=== PATIENT | female | born 1985 | race African-American/Black ===

== ENCOUNTER 2018-06-04 11:06 | Emergency (ER) | payer SELFPAY ==
--- OUTSIDE RECORDS SUMMARY | 2018-06-04 11:09 | XMS REPORT | Clinical Summary ---
:1985 Author Organization [facility] Address [address] [place] [address] Care Team Providers Name Role Phone Kiersten Primary Care Provider Allergies Active Allergy Reactions Severity Noted Date Comments Metoclopramide Anxiety Low 06/06/2017 Diphenhydramine Hcl Swelling 06/06/2017 Ondansetron Hcl (Pf) Swelling 06/06/2017 Medications Medication Sig Dispensed Refills Start Date End Date Status albuterol HFA Inhale 2 puffs 1 Inhaler 0 06/06/2017 06/06/2018 Active (VENTOLIN HFA) 90 by mouth via mcg/actuation inhaler inhaler every 4 (four) hours as needed for Wheezing. inhalational spacing Use with the 1 each 0 06/06/2017 Active device (AEROCHAMBER) inhaler. Spcr penicillin v Take 1 tablet 40 tablet 0 06/06/2017 06/13/2017 potassium (VEETID) (500 mg total) 500 MG tablet by mouth 4 (four) times daily for 7 days. predniSONE Take 1 tablet 5 tablet 0 06/06/2017 06/11/2017 (DELTASONE) 20 MG (20 mg total) by tablet mouth daily for 5 days. ibuprofen Take 1 tablet 15 tablet 0 06/06/2017 06/16/2017 (ADVIL,MOTRIN) 600 MG (600 mg total) tablet by mouth every 6 (six) hours as needed for Pain for up to 10 days. acetaminophen-codeine Take 1-2 tablets 15 tablet 0 06/19/2017 06/29/2017 (TYLENOL #3) 300-30 by mouth every 6 mg per tablet (six) hours as needed for Pain for up to 10 days. Max Daily Amount: 8 tablets Active Problems Not on file Encounters Date Type Specialty Care Team Description 06/19/2017 Emergency Emergency Medicine Sanchez Norwood, Acute chest pain DO (Primary Dx) 06/19/2017 Orders Only General Internal Medicine 06/06/2017 Emergency Emergency Medicine Dyllan Ammi Pain due to dental caries (Primary Dx); MD Nava Myalgia; Upper respiratory tract infection, unspecified type; Acute pain of left shoulder after 06/03/2017 Social History Tobacco Use Types Packs/Day Years Used Date Current Every Day Smoker 0.5 15 Alcohol Use Drinks/Week oz/Week Comments No Sex Assigned at Date Recorded Not on file Job Start Date Occupation Industry Not on file Not on file Not on file Travel History Travel Start Travel End No recent travel history available. Last Filed Vital Signs Vital Sign Reading Time Taken Blood Pressure 101/63 06/19/2017 6:19 PM [employer] Pulse 83 06/19/2017 6:19 PM [employer] Temperature 36.6 C (97.8 F) 06/19/2017 6:19 PM [employer] Respiratory Rate 18 06/19/2017 6:19 PM [employer] Oxygen Saturation 100% 06/19/2017 6:19 PM [employer] Inhaled Oxygen Concentration - - Weight 57.8 kg (127 lb 8 oz) 06/19/2017 2:51 PM [employer] Height 158 cm (5' 2.21") 06/19/2017 2:51 PM [employer] Body Mass Index 23.17 06/19/2017 2:51 PM [employer] Plan of Treatment Not on file Procedures Procedure Name Priority Date/Time Associated Comments Diagnosis ED ECG INTERPRETATION Routine 06/19/2017 5:52 Results for this PM [employer] procedure are in the results section. PLACE NEEDLE IN VEIN Routine 06/19/2017 5:52 Results for this PM [employer] procedure are in the results section. CBC W/PLT COUNT & AUTO STAT 06/19/2017 3:13 Results for this DIFFERENTIAL PM [employer] procedure are in the results section. D-DIMER STAT 06/19/2017 3:13 Results for this PM [employer] procedure are in the results section. SCREEN, URINE STAT 06/19/2017 3:13 Results for this PM [employer] procedure are in the results section. RAPID TROPONIN I STAT 06/19/2017 3:13 Results for this PM [employer] procedure are in the results section. RAPID CK-MB STAT 06/19/2017 3:13 Results for this PM [employer] procedure are in the results section. CREATINE KINASE (CK) STAT 06/19/2017 3:13 Results for this PM [employer] procedure are in the results section. PT/APTT STAT 06/19/2017 3:13 Results for this PM [employer] procedure are in the results section. CBC W/PLT COUNT & AUTO STAT 06/19/2017 3:13 Results for this DIFFERENTIAL PM [employer] procedure are in the results section. MAGNESIUM STAT 06/19/2017 3:13 Results for this PM [employer] procedure are in the results section. BASIC METABOLIC PANEL STAT 06/19/2017 3:13 Results for this (7) PM [employer] procedure are in the results section. XR CHEST 1 VIEW STAT 06/19/2017 2:58 Results for this PORTABLE/BEDSIDE PM [employer] procedure are in the results section. ECG 12-LEAD STAT 06/19/2017 2:44 Results for this PM [employer] procedure are in the results section. ECG 12-LEAD Routine 06/19/2017 2:43 Results for this PM [employer] procedure are in the results section. XR SHOULDER LEFT STAT 06/06/2017 3:32 Results for this COMPLETE MIN 2 VIEWS AM [employer] procedure are in the results section. RAPID STREP A SCREEN STAT 06/06/2017 2:59 Results for this AM [employer] procedure are in the results section. RAPID INFLUENZA A&B STAT 06/06/2017 2:58 Results for this SCREEN AM [employer] procedure are in the results section. after 06/03/2017 Results PIV Insertion (06/19/2017 5:52 PM [employer]) Narrative Performed At Sanchez Norwood DO 06/19/20175:52 PM PIV Insertion Date/Time: 06/19/2017 4:00 PM Performed by: SANCHEZ NORWOOD Authorized by: SANCHEZ NORWOOD Preparation: Patient was prepped and draped in the usual sterile fashion. Indication: vascular access. Location: right upper arm. Needle gauge: 20 Number of attempts: 2 Post-procedure: dressing applied Post-procedure CMS: normal Patient tolerance: Patient tolerated the procedure well with no immediate complications ED ECG Interpretation (06/19/2017 5:52 PM [employer]) Narrative Performed At Sanchez Norwood DO 06/19/20175:52 PM ECG/EKG Interpretation Date/Time: 06/19/2017 2:52 PM Performed by: SANCHEZ NORWOOD Authorized by: SANCHEZ NORWOOD The ECG was interpreted by ED physician. This ECG was not compared with previous ECG(s).The ECG is interpreted as sinus rhythm. Rate is normal rate. Heart rate is [address] segments abnormal. T waves abnormal. [place] is normal. Clinical Impression: non-specific ECGECG reviewed and does not meet STEMI criteria. Patient tolerance: Patient tolerated the procedure well with no immediate complications Rapid Troponin I (06/19/2017 3:13 PM [employer]) Rapid Troponin I <0.05 <0.05 ng/mL [facility] Specimen Blood - Arm, Right Performing Organization Address [facility] Phone Number [facility] [address] [place] [address] [facility] Rapid CK-MB (06/19/2017 3:13 PM [employer]) Rapid CKMB <1.0 0.0 - 4.3 ng/mL [facility] Specimen Blood - Arm, Right Performing Organization Address [facility] Phone Number [facility] [address] [place] [address] [facility] PT/PTT (06/19/2017 3:13 PM [employer]) Protime 9.9 9.8 - 12.[address] [facility] INR 0.9 <=5.9 [facility] PTT 25.7 (L) 25.8 - 34.[address] [facility] Specimen Blood - Arm, Right Narrative Performed At [facility] RECOMMENDED COUMADIN/WARFARIN INR THERAPY [facility] STANDARD DOSE: 2.0 - 3.0 Includes: PROPHYLAXIS for venous thrombosis, systemic embolization; TREATMENT for venous thrombosis and/or pulmonary embolus. HIGH RISK: Target INR is 2.5-3.5 for patients with mechanical heart valves. Performing Organization Address [facility] Phone Number [facility] [address] [place] [address] [facility], [facility] CBC with platelet count + automated diff (06/19/2017 3:13 PM [employer]) WBC 5.5 4.0 - 10.0 10e3/L [facility], [facility] RBC 4.16 4.00 - 5.00 10e6/L [facility], [facility] Hemoglobin 12.1 12.0 - 15.0 g/dL [facility] Hematocrit 35.8 (L) 36.0 - 45.0 % [facility] MCV 86.0 82.0 - 99.[address] [facility] MCH 29.0 27.0 - 33.[address] [facility] MCHC 33.7 32.0 - 36.0 g/dL [facility] RDW 12.8 10.3 - 14.2 % [facility] Platelets 267 150 - 430 10e3/L [facility] MPV 8.5 6.5 - 10.5 fL [facility] % Neutros 42 % [facility] % Lymphs 49 % [facility] % Monos 7 % [facility] % Eos 2 % [facility] % Baso 1 % [facility], [facility] # Neutros 2.27 1.80 - 8.00 10e3/L [facility], [facility] # Lymphs 2.68 1.48 - 4.50 10e3/L [facility], [facility] # Monos 0.37 0.00 - 1.30 10e3/L [facility], [facility] # Eos 0.11 0.00 - 0.50 10e3/L [facility], [facility], [facility] # Baso 0.03 0.00 - 0.20 10e3/L [facility] Specimen Blood - Arm, Right Performing Organization Address [facility] Phone Number [place] [phone] [facility] Screen, urine (06/19/2017 3:13 PM [employer]) Preg Test, Ur Negative [facility] Specimen Urine - Urine, Clean Catch Performing Organization Address [facility] Phone Number [address] [address] [facility] D-dimer, quantitative (06/19/2017 3:13 PM [employer]) D-Dimer, Quant <0.19 <0.50 MG/L FEU [facility] Specimen Blood - Arm, Right Narrative Performed At [facility] REGARDING D-DIMER RESULTS: Results of this [facility] D-Dimer test should always be interpreted in [facility] conjunction with the patient's medical history, clinical presentation and other findings. DVT clinical diagnosis should not be based on the results of [facility] D-Dimer alone. Performing Organization Address [facility] Phone Number [facility] [address] [place] [address] [facility], [facility] Magnesium (06/19/2017 3:13 PM [employer]) Magnesium 2.1 1.5 - 3.0 mg/dL [facility], [facility] Specimen Blood - Arm, Right Performing Organization Address [facility] Phone [facility] [address] [place] [id number] [facility], [facility] Creatine Kinase (CK) (06/19/2017 3:13 PM [employer]) Total CK 83 25 - 235 U/L [facility] Specimen Blood - Arm, Right Performing Organization Address [facility] Phone [facility] [address] [place] [address] [facility], [facility] Basic Metabolic Panel (06/19/2017 3:13 PM [employer]) Sodium 141 135 - 148 meq/L [facility], [facility] Potassium 3.8 3.6 - 5.5 meq/L [facility], [facility] Chloride 102 98 - 106 meq/L [facility] CO2 24 24 - 32 meq/L [facility], [facility] BUN 10 10 - 26 mg/dL [facility] Creatinine 0.68 0.50 - 1.20 mg/dL [facility], [facility] Glucose 85 70 - 110 mg/dL [facility] Calcium 8.8 8.5 - 10.5 mg/dL [facility], [facility] EGFR 122Comment: ESTIMATED GFR IS mL/min/1.73 sq m [facility] NOT ACCURATE [facility], CREATININE CLEARANCE IN [facility], PREDICTING GLOMERULAR [facility] FILTRATION RATE. ESTIMATED GFR IS NOT APPLICABLE FOR DIALYSIS PATIENTS. Specimen Blood - Arm, Right Performing Organization Address City/State/Zipcode Phone Number [facility] [address] [place] [address] [facility], [facility] XR chest 1 view portable / bedside (06/19/2017 2:58 PM [employer]) Narrative Performed At FINAL REPORT [facility] HISTORY : chest pain. Comparison: None Comment: Single portable view of the chest was obtained. The cardiac silhouette size is at the upper limits of normal. No pneumothorax, pleural effusion or focal infiltrate is seen. Projecting over the right lower lung, there is an indeterminate nodular density. This measures up to 1.1 cm. While this may represent the nipple shadow, a lung parenchymal nodule cannot be excluded. Correlation with a repeat chest x-ray with nipple markers or chest CT is advised. Signed: Justin Mejía MD Report Verified Date/Time:06/19/2017 15:09:21 Reading Location: [address] Transitional Reading Room Procedure Note Interface, External Ris In - 06/19/2017 3:11 PM [employer] FINAL REPORT HISTORY : chest pain. Comparison: None Comment: Single portable view of the chest was obtained. The cardiac silhouette size is at the upper limits of normal. No pneumothorax, pleural effusion or focal infiltrate is seen. Projecting over the right lower lung, there is an indeterminate nodular density. This measures up to 1.1 cm. While this may represent the nipple shadow, a lung parenchymal nodule cannot be excluded. Correlation with a repeat chest x-ray with nipple markers or chest CT is advised. Signed: Justin Mejía MD Report Verified Date/Time: 06/19/2017 15:09:21 Reading Location: [facility] B1 C013T Transitional Reading Room Performing Organization Address [facility] Phone Number GE RIS ECG 12 lead (06/19/2017 2:44 PM [employer])Only the most recent of2 resultswithin the time period is included. Narrative Performed At Ventricular Rate 72 BPM GE MUSE Atrial Rate 72 BPM P-R Interval 130 ms QRS Duration 82 ms Q-T Interval 406 ms QTC Calculation(Bazett) 444 ms P [place] 76 degrees R [place] 76 degrees T [place] 72 degrees Sinus rhythm with marked sinus arrhythmia Otherwise normal ECG When compared with ECG of 19-JUN-2017 14:43, QT has shortened Confirmed by MD HUNG YOCHAI ([id number]) on 06/22/2017 6:36:26 AM Procedure Note Interface, External Ris In - 06/22/2017 6:36 AM [employer] Ventricular Rate 72 BPM Atrial Rate 72 BPM P-R Interval 130 ms QRS Duration 82 ms Q-T Interval 406 ms QTC Calculation(Bazett) 444 ms P [place] 76 degrees R [place] 76 degrees T [place] 72 degrees Sinus rhythm with marked sinus arrhythmia Otherwise normal ECG When compared with ECG of 19-JUN-2017 14:43, QT has shortened Confirmed by MD HUNG YOCHAI ([id number]) on 06/22/2017 6:36:26 AM Performing Organization Address [facility] Phone Number GE MUSE XR shoulder complete 2 views min left (06/06/2017 3:32 AM [employer]) Narrative Performed At FINAL REPORT GE RIS RAD, SHOULDER, COMPLETE (MIN 2 VIEWS), LEFT COMPARISON: None INDICATION:GENERAL ILLNESS FINDINGS:AP views in internal and external rotation and an axillary "Y" view of the leftshoulder. Osseous structures: No fracture. Joint spaces: Intact without malalignment. No significant degenerative changes. Soft tissues: Unremarkable IMPRESSION: No acute abnormality of the left shoulder. Signed: JR Rossi Robert MD Report Verified Date/Time:06/06/2017 03:33:43 Reading Location: [facility] B1 C013Y CT Body Reading Room Procedure Note Interface, External Ris In - 06/06/2017 3:36 AM [employer]ER FINAL REPORT RAD, SHOULDER, COMPLETE (MIN 2 VIEWS), LEFT COMPARISON: None INDICATION: GENERAL ILLNESS FINDINGS: AP views in internal and external rotation and an axillary "Y" view of the leftshoulder. Osseous structures: No fracture. Joint spaces: Intact without malalignment. No significant degenerative changes. Soft tissues: Unremarkable IMPRESSION: No acute abnormality of the left shoulder. Signed: JR Rossi Robert MD Report Verified Date/Time: 06/06/2017 03:33:43 Reading Location: [facility] B1 C013Y CT Body Reading Room Performing Organization Address City/[facility] Phone Number GE RIS Rapid Strep A screen (06/06/2017 2:59 AM [employer]ER) Strep A Ag Negative Negative [facility] Specimen Throat - Throat Performing Organization Address [facility] Phone Number [facility] [address] [place] [address] [facility] Influenza antigen A & B (Rapid) (06/06/2017 2:58 AM [employer]ER) Rapid Influenza A NEGATIVE LABORATORY Negative, Inconclusive [facility] Antigen FINDING [facility] Rapid influenza B NEGATIVE LABORATORY Negative, Inconclusive [facility] Antigen FINDING [facility] Specimen Nasopharyngeal - Nasal Mucosa Performing Organization Address [facility] Phone Number [facility] [address] [place] [address] [facility] after 06/03/2017
--- OUTSIDE RECORDS SUMMARY | 2018-06-04 11:15 | XMS REPORT | Continuity of Care Document ---
:1985 Author Organization Interface Problems Problem Status Onset Classification Date Comments Source Date Reported SYNCOPE Active 09/21/19 13 [facility] INTRACTABLE Active 09/21/19 VOMITING 13 [facility] VOMITING Active 08/18/19 13 [facility] ABDOMINAL PAIN Active 08/04/19 13 [facility] SEIZURES / VOMIT Active 06/22/19 13 [facility] SEIUZURES, ACUTE Active 06/22/19 GASTRITIS VS 13 [facility] GASTROENTE , ABD Active 05/12/20 PAIN, VOMITING, 11 [facility] VAG BLEED VOMITINIG/ Active 04/18/20 ABDOMINAL PAIN 11 [facility] FEVER /VOMITING Active 04/11/20 11 [facility] Gastroparesis Resolved Problem 09/23/2012 [facility] [place] Resolved Problem 09/23/2012 [facility] [place]OM[place] ALONE Active [facility] [place] Medications Medication Details Route Status Patient Ordering Order Source Instructions Provider Date Navane 1 mg, 1 cap, PO No [place] Route: PO, Longer 2012 [facility] Drug form: Active CAP, BID, Start date: 09/21/12 17:00:00, Duration: 30 day, Stop date: 10/21/12 9:00:00 Phenergan 12.5 mg, 1 [place] No [place] supp, Route: Longer 2012 [facility] [place], Drug form: Active SUPP, ONCE, Start date: 09/21/12 16:03:00, Stop date: 09/21/12 16:03:00 Pepcid 20 mg, 1 tab, PO No [place] Route: PO, Longer 2012 [facility] Drug form: Active TAB, Q12H, Start date: 09/21/12 9:00:00, Duration: 30 day, Stop date: 10/20/12 21:00:00 Lovenox 40 mg, 0.4 mL, SUB-Q No [place] Route: SUB-Q, Longer 2012 [facility] Drug form: Active INJ, [id number], Start date: 09/21/12 9:00:00, Duration: 30 day, Stop date: 10/20/12 9:00:00 Tylenol 650 mg, 2 tab, PO No Hasivana Route: PO, Longer 2012 [facility] Drug form: Active TAB, Q6H, PRN Pain, Start date: 09/21/12 8:36:00, Duration: 30 day, Stop date: 10/21/12 8:35:00 morphine 2 mg, 0.5 mL, IVP No Patrick Sulfate Route: IVP, Longer 2012 [facility] Drug form: Active INJ, Q6H, PRN Pain, Start date: 09/21/12 8:03:00, Duration: 30 day, Stop date: 10/21/12 8:02:00 Reglan 10 mg, 2 mL, IV No Vahe Route: IV, Longer 2012 [facility] Drug form: Active INJ, QID-Before Meals, Start date: 09/21/12 7:30:00, Duration: 30 day, Stop date: 10/20/12 21:00:00 Sodium Chloride 1,000 mL, IV No Patrick 09/21[facility] 0.9% IV 1,000 Rate: 125 Longer 2012 [facility] mL ml/hr, Infuse Active over: 8 hr, Route: IV, kg, Total Volume: 1,000, Start date: 09/20/12 21:00:00, Duration: 30 day, Stop date: 10/20/12 20:59:00 Tylenol 650 mg, 2 tab, PO No Haycinth Route: PO, Longer 2012 [facility] Drug form: Active TAB, ONCE, Start date: 09/20/12 21:00:00, Stop date: 09/20/12 21:00:00 potassium 20 mEq, 100 IVPB No Patrick 09/21[facility] chloride mL, Route: Longer 2012 [facility] IVPB, Drug Active form: INJ, Q2H, Start date: 09/20/12 21:00:00, Duration: 1 doses or times, Stop date: 09/20/12 21:00:00 Haldol 1 mg, 0.2 mL, IV No Hyacinth 09/21[facility] Route: IV, Longer 2012 [facility] Drug form: Active INJ, ONCE, Start date: 09/20/12 21:00:00, Stop date: 09/20/12 21:00:00 Reglan 10 mg, 2 mL, IV No Patrick Route: IV, Longer 2012 [facility] Drug form: Active INJ, Q8H-05, Start date: 09/20/12 21:00:00, Duration: 30 day, Stop date: 10/20/12 13:00:00 Sodium Chloride 250 mL, Route: IVPB No Patrick 0.9% IV IVPB, Start Longer 2012 [facility] date: 09/20/12 Active 20:07:00, Duration: 30 day, Stop date: 10/20/12 20:06:00, PRN Line Flush BD Normal 10 mL, Route: IVP No Patrick Saline Flush IVP, Drug Longer 2012 [facility] Form: INJ, Active PRN, PRN Line Flush, Start date: 09/20/12 20:06:00, Duration: 30 day, Stop date: 10/20/12 20:05:00 morphine 2 mg, 0.4 mL, IV No Patrick 09/21[facility] Sulfate Route: IV, Longer 2012 [facility] Drug form: Active INJ, Q6H, PRN Pain, Start date: 09/20/12 20:05:00, Duration: 30 day, Stop date: 10/20/12 20:04:00 Phenergan 25 mg, 1 tab, PO No Patrick Route: PO, Longer 2012 [facility] Drug form: Active TAB, Q6H, PRN Nausea, Start date: 09/20/12 20:05:00, Duration: 30 day, Stop date: 10/20/12 20:04:00 Haldol 2 mg, 0.4 mL, IM No Patrick Route: IM, Longer 2012 [facility] Drug form: Active INJ, Q6H, PRN Agitation, Start date: 09/20/12 20:04:00, Duration: 30 day, Stop date: 10/20/12 20:03:00 Phenergan 25 mg, Route: IM No Cady IM, ONCE, Longer 2012 [facility] Dosing Weight Active 52.273, kg, PRN as needed for nausea/vomitin g, Start date: 09/20/12 17:55:00 Haldol 1 mg, Route: IVP No Cady IVP, ONCE, Longer 2012 [facility] Dosing Weight Active 52.273, kg, Priority: NOW, Start date: 09/20/12 17:54:00, Stop date: 09/20/12 17:54:00 Phenergan 25 mg, Route: IVPB No [place]rose IVPB, ONCE, Longer 2012 [facility] Dosing Weight Active 52.273, kg, Priority: STAT, Start date: 09/20/12 15:48:00, Stop date: 09/20/12 15:48:00 morphine 5 mg, 1 mL, IVP No [facility] Sulfate Route: IVP, Longer 2012 [facility] Drug form: Active INJ, ONCE, Dosing Weight 52.273, kg, Start date: 09/20/12 15:31:00, Stop date: 09/20/12 15:31:00 Phenergan + 25 mg, 1 mL, IVPB No [facility] Sodium Chloride Route: IVPB, Longer 2012 [facility] 0.9% IV 50 mL Drug form: Active INJ, ONCE, Dosing Weight 52.273, kg, Priority: STAT, Start date: 09/20/12 15:06:00, Stop date: 09/20/12 15:06:00 NS (Bolus) IV 1,000 mL, IV No [facility] 1,000 mL Rate: 1,000 Longer 2012 [facility] ml/hr, Infuse Active over: 1 hr, Route: IV, kg, Total Volume: 1,000, Priority: STAT, Start date: 09/20/12 13:21:00, Duration: 1 doses or times, Stop date: 09/20/12 14:20:00, Bolus DoseBolus Dose Reglan 10 mg, Route: IVP No med IVP, ONCE, Longer 2012 [facility] Dosing Weight Active 52.273, kg, Priority: STAT, Start date: 09/20/12 13:20:00, Stop date: 09/20/12 13:20:00 Phenergan 25 mg, Route: IM No Ahmed IM, ONCE, Longer 2012 [facility] Dosing Weight Active 52.273, kg, Priority: STAT, Start date: 09/20/12 11:10:00, Stop date: 09/20/12 11:10:00 NS 1,000 mL 1,000 mL, IV No Ahmed Rate: 1,000 Longer 2012 [facility] ml/hr, Infuse Active over: 1 hr, Route: IV, kg, Total Volume: 1,000, Start date: 09/20/12 11:10:00, Duration: 1 doses or times, Stop date: 09/20/12 12:09:00, Bolus DoseBolus Dose Reglan Substitution Active Allowed 2012 [facility] Toradol 30 30 mg, Route: IV No Cesta mg/mL IV, ONCE, Longer 2012 [facility] injectable Dosing Weight Active solution 52.273, kg, Start date: 08/17/12 20:15:00, Stop date: 08/17/12 20:15:00 Saline Flush 5 ml, Route: IVP No Cesta 0.9% IVP, Drug Longer 2012 [facility] Form: INJ, Active Dosing Weight 52.273, kg, PRN, PRN Line Flush, Start date: 08/17/12 19:59:00, Duration: 30 day, Stop date: 09/16/12 19:58:00 Phenergan 25 mg, 1 mL, IM No Cesta Route: IM, Longer 2012 [facility] Drug form: Active INJ, ONCE, Dosing Weight 52.273, kg, Priority: STAT, Start date: 08/17/12 19:58:00, Stop date: 08/17/12 19:58:00 Phenergan 25 mg 1 supp, [place], [place] Active [facility] rectal Q6H, PRN, 9 2012 [facility] suppository supp, Nausea & Vomiting, Substitution Allowed Phenergan 25 mg 25 mg, 1 tab, PO Active Yasmani oral tablet PO, Q4H, PRN, 2012 [facility] 20 tab, Nausea, Substitution Allowed morphine 5 mg, 1 mL, IVP No Yasmani Sulfate Route: IVP, Longer 2012 [facility] Drug form: Active INJ, ONCE, Dosing Weight 47.727, kg, Priority: STAT, Start date: 08/05/12 17:21:00, Stop date: 08/05/12 17:21:00 promethazine 25 mg, 1 mL, IM No Yasmani Route: IM, Longer 2012 [facility] Drug form: Active INJ, ONCE, Dosing Weight 47.727, kg, Priority: STAT, Start date: 08/05/12 17:21:00, Stop date: 08/05/12 17:21:00 Reglan 10 mg, 2 mL, IVP No Yasmani Route: IVP, Longer 2012 [facility] Drug form: Active INJ, ONCE, Dosing Weight 47.727, kg, Priority: STAT, Start date: 08/05/12 14:40:00, Stop date: 08/05/12 14:40:00 morphine 5 mg, 1 mL, IVP No [facility] Sulfate Route: IVP, Longer 2012 [facility] Drug form: Active INJ, ONCE, Dosing Weight 47.727, kg, Priority: STAT, Start date: 08/05/12 14:40:00, Stop date: 08/05/12 14:40:00 Saline Flush 5 mL, Route: IVP No [facility] 0.9% IVP, Drug Longer 2012 [facility] Form: INJ, Active Dosing Weight 47.727, kg, PRN, PRN Line Flush, Start date: 08/05/12 14:40:00, Duration: 24 hr, Stop date: 08/06/12 14:39:00 Sodium Chloride 1,000 mL, IV No [facility] 0.9% (Bolus) IV Rate: 1,000 Longer 2012 [facility] 1,000 mL ml/hr, Infuse Active over: 1 hr, Route: IV, kg, Total Volume: 1,000, Priority: STAT, Start date: 08/05/12 14:40:00, Duration: 1 doses or times, Stop date: 08/05/12 15:39:00 Neurontin 300 mg, 1 cap, PO No Hyacinth Route: PO, Longer 2012 [facility] Drug form: Active CAP, BID, Start date: 06/24/12 9:00:00, Duration: 2 doses or times, Stop date: 06/24/12 17:00:00 amitriptyline 25 mg, 1 tab, PO No Tina Route: PO, Longer 2012 [facility] Drug form: Active TAB, Bedtime, Start date: 06/23/12 21:00:00, Duration: 30 day, Stop date: 07/22/12 21:00:00 Carafate 1 gm, 1 tab, PO No [facility] Route: PO, Longer 2012 [facility] Drug form: Active TAB, BID, Start date: 06/23/12 17:00:00, Duration: 30 day, Stop date: 07/23/12 9:00:00 Neurontin 300 mg, 1 cap, PO No [facility] Route: PO, Longer 2012 [facility] Drug form: Active CAP, TID, Start date: 06/23/12 13:00:00, Duration: 30 day, Stop date: 07/23/12 9:00:00 Motrin 600 mg, 1 tab, PO No [facility] Route: PO, Longer 2012 [facility] Drug form: Active TAB, Q6H, Start date: 06/23/12 12:00:00, Duration: 30 day, Stop date: 07/23/12 6:00:00 Phenergan 12.5 mg, 0.5 IM No [facility] mL, Route: IM, Longer 2012 [facility] Drug form: Active INJ, Q6H, PRN Nausea, Start date: 06/23/12 10:11:00, Duration: 30 day, Stop date: 07/23/12 10:10:00 Haldol 5 mg, 1 mL, IV No [facility] Route: IV, Longer 2012 [facility] Drug form: Active INJ, Q6H, PRN Agitation, Start date: 06/23/12 10:05:00, Duration: 30 day, Stop date: 07/23/12 10:04:00 Ativan 2 mg, 1 mL, IV No [facility] Route: IV, Longer 2012 [facility] Drug form: Active INJ, Q2H, PRN Agitation, Start date: 06/23/12 10:03:00, Duration: 30 day, Stop date: 07/23/12 10:02:00 Neurontin 300 mg, 1 cap, PO No [facility] Route: PO, Longer 2012 [facility] Drug form: Active CAP, ONCE, Start date: 06/23/12 10:02:00, Stop date: 06/23/12 10:02:00 Pepcid 20 mg, 1 tab, PO No [place] Route: PO, Longer 2012 [facility] Drug form: Active TAB, BID, Start date: 06/23/12 9:00:00, Duration: 30 day, Stop date: 07/22/12 17:00:00 Depakote EC 500 mg, 1 tab, PO No [place] Route: PO, Longer 2012 [facility] Drug form: Active ECTAB, Daily, Start date: 06/23/12 9:00:00, Duration: 30 day, Stop date: 07/22/12 9:00:00 Lovenox 40 mg, 0.4 mL, SUB-Q No David Route: SUB-Q, Longer 2012 [facility] Drug form: Active INJ, Q24H, Start date: 06/23/12 0:00:00, Duration: 30 day, Stop date: 07/22/12 0:00:00 Ativan 2 mg, 1 mL, IV No [place] Route: IV, Longer 2012 [facility] Drug form: Active INJ, ONCE, PRN Seizure, Start date: 06/22/12 23:31:00 ketorolac 30 30 mg, 1 mL, IV No [facility] mg/mL Route: IV, Longer 2012 [facility] injectable Drug form: Active solution INJ, Q6H, PRN Pain, Start date: 06/22/12 23:31:00, Duration: 4 day, Stop date: 06/26/12 23:30:00 morphine 2 mg, 0.25 mL, IV No [place] Sulfate Route: IV, Longer 2012 [facility] Drug form: Active INJ, Q6H, PRN Pain Score 7-10, Start date: 06/22/12 23:31:00, Stop date: 07/22/12 23:30:00 Phenergan 12.5 mg, 0.5 PO No [facility] tab, Route: Longer 2012 [facility] PO, Drug form: Active TAB, Q4H, PRN Nausea, Start date: 06/22/12 23:30:00, Duration: 30 day, Stop date: 07/22/12 23:29:00 Sodium Chloride 250 mL, Route: IVPB No [facility] 0.9% IV IVPB, Start Longer 2012 [facility] date: 06/22/12 Active 23:29:00, Duration: 30 day, Stop date: 07/22/12 23:28:00, PRN Line Flush BD Normal 10 mL, Route: IVP No [facility] Saline Flush IVP, Drug Longer 2012 [facility] Form: INJ, Active PRN, PRN Line Flush, Start date: 06/22/12 23:29:00, Duration: 30 day, Stop date: 07/22/12 23:28:00 NS 1,000 mL 1,000 mL, IV No [facility] Rate: 125 Longer 2012 [facility] ml/hr, Infuse Active over: 8 hr, Route: IV, kg, Total Volume: 1,000, Start date: 06/22/12 22:10:00, Duration: 30 day, Stop date: 07/22/12 22:09:00 Phenergan 12.5 mg, [address] [facility] tab, Route: Longer 2012 [facility] PO, Drug form: Active TAB, ONCE, Dosing Weight 50, kg, Priority: STAT, Start date: 06/22/12 20:30:00, Stop date: 06/22/12 20:30:00 morphine 2 mg, Route: IVP No [facility] Sulfate IVP, ONCE, Longer 2012 [facility] Dosing Weight Active 50, kg, Start date: 06/22/12 20:28:00, Stop date: 06/22/12 20:28:00 Depakote 500 mg, 1 tab, PO [facility] Route: PO, Longer 2012 [facility] Drug form: Active ECTAB, ONCE, Dosing Weight 50, kg, Priority: STAT, Start date: 06/22/12 18:56:00, Stop date: 06/22/12 18:56:00 Sodium Chloride 1,000 mL, [address] [facility] 0.9% (Bolus) IV ml/hr, Route: Longer 2012 [facility] IV, Drug Form: Active INJ, Dosing Weight 50, kg, ONCE, Bolus Dose - infuse over 1 hr, STAT, Start date: 06/22/12 16:23:00, Stop date: 06/22/12 16:23:00 Sodium Chloride 1,000 mL, 1000 IV No Oscar 0.9% (Bolus) IV ml/hr, Route: Longer 2012 [facility] IV, Drug Form: Active INJ, Dosing Weight 50, kg, ONCE, Bolus Dose - infuse over 1 hr, STAT, Start date: 06/22/12 14:21:00, Stop date: 06/22/12 14:21:00 Phenergan 25 mg, 1 mL, IVPB No Oscar Route: IVPB, Longer 2012 [facility] Drug form: Active INJ, ONCE, Dosing Weight 50, kg, Priority: STAT, Start date: 06/22/12 14:21:00, Stop date: 06/22/12 14:21:00 morphine 4 mg, 1 mL, IVP No Oscar Sulfate Route: IVP, Longer 2012 [facility] Drug form: Active INJ, ONCE, Dosing Weight 50, kg, Priority: STAT, Start date: 06/22/12 14:21:00, Stop date: 06/22/12 14:21:00 Reglan 10 mg 10 mg, PO, PO Active Yomi oral tablet QID-Before 2010 [facility] Meals, PRN, 40 tab, nausea and vomiting, Substitution Allowed ondansetron 8 mg, 4 mL, IVP No Yomi Route: IVP, Longer 2010 [facility] Drug form: Active INJ, ONCE, Priority: STAT, Start date: 05/14/11 8:21:00, Stop date: 05/14/11 8:21:00 acetaminophen 650 mg, 2 tab, PO No Yomi Route: PO, Longer 2010 [facility] Drug form: Active TAB, ONCE, Priority: STAT, Start date: 05/14/11 7:32:00, Stop date: 05/14/11 7:32:00 Sodium Chloride 250 mL, Route: IVPB Deborah Seymour 0.9% IV IVPB, PRN, Longer 2010 [facility] Line Flush, Active Start date: 05/14/11 7:01:00, Duration: 30 day, Stop date: 06/13/11 7:00:00 BD Normal 10 mL, Route: IVP No Lion Saline Flush IVP, Drug Longer 2010 [facility] Form: INJ, Active PRN, PRN Line Flush, Start date: 05/14/11 7:01:00, Duration: 30 day, Stop date: 06/13/11 7:00:00 Reglan 10 mg, 2 mL, IV No [facility] Route: IV, Longer 2010 [facility] Drug form: Active INJ, ONCE, Start date: 05/14/11 6:42:00, Stop date: 05/14/11 6:42:00 Sodium Chloride 1,000 mL, IV No [facility] 0.9% (Bolus) IV Rate: 1,000 Longer 2010 [facility] 1,000 mL ml/hr, Infuse Active over: 1 hr, Route: IV, Total Volume: 1,000, Bolus Dose, Priority: STAT, Start date: 05/14/11 6:41:00, Duration: 1 doses or times, Stop date: 05/14/11 7:40:00 Zofran 4 mg 4 mg, 1 tab, PO Active Johnny oral tablet PO, ONCE, 3 2010 [facility] tab, Substitution Allowed, TAB potassium 20 mEq, 1 tab, PO No [place] 05/13[facility] chloride 20 mEq Route: PO, Longer 2010 [facility] oral tablet, Drug form: Active extended ERTAB, ONCE, release Priority: STAT, Start date: 05/13/11 0:31:00, Stop date: 05/13/11 0:31:00 Reglan 10 mg, 2 mL, IV No [place] 05/13[facility] Route: IV, Longer 2010 [facility] Drug form: Active INJ, ONCE, Start date: 05/12/11 22:11:00, Stop date: 05/12/11 22:11:00 ondansetron 4 mg, 2 mL, IVP No [place] 05/13[facility] Route: IVP, Longer 2010 [facility] Drug form: Active INJ, ONCE, Priority: STAT, Start date: 05/12/11 21:25:00, Stop date: 05/12/11 21:25:00 morphine 4 mg, 1 mL, IVP No [place] 05/13[facility] Sulfate Route: IVP, Longer 2010 [facility] Drug form: Active INJ, ONCE, Priority: STAT, Start date: 05/12/11 21:25:00, Stop date: 05/12/11 21:25:00 Saline Flush 5 ml, Route: IVP No Johnny 0.9% IVP, Drug Longer 2010 [facility] Form: INJ, Active PRN, PRN Line Flush, Start date: 05/12/11 21:25:00, Duration: 30 day, Stop date: 06/11/11 21:24:00 Sodium Chloride 500 mL, Rate: IV No Johnny 0.9% (Bolus) IV 500 ml/hr, Longer 2010 [facility] 500 mL Infuse over: 1 Active hr, Route: IV, Total Volume: 500, Bolus dose, Priority: STAT, Start date: 05/12/11 21:25:00, Duration: 1 doses or times, Stop date: 05/12/11 22:24:00 Allergies, Adverse Reactions, Alerts Substance Category Reaction Severity Reaction Status Date Comments Source type Reported ondansetron drug Allergy Active allergy [facility] Immunizations Immunization Date Given Site Status Last Updated Comments Source Results Order Name Results Value Reference Date Interpretation Comments Source Range BEDSIDE Comment1 Notify 09/22 NA GLUCOSE RN/MD /2012 [facility] TESTING BEDSIDE Gluc POC 93 mg/dL 70 - 99 09/22 Normal 1Interpretive GLUCOSE Lifscn Data: [facility] TESTING Upper Reportable Limit: 200 mg/dL. CHEMISTRY eGFR 144 09/21 NA 3Result Comment: The eGFR is calculated using the CKD-EPI formula. In most young, healthy individuals the eGFR will be > 90 mL/min/1.73m2. The eGFR declines with age. An eGFR of 60-89 may be normal in mL/min/1.7 some populations, particularly the elderly, for whom the CKD-EPI formula has not been extensively validated. Use of the eGFR is not recommended in the following populations: [facility] 3m2 Individuals with unstable creatinine concentrations, including patients and those with serious co-morbid conditions. Patients with extremes in muscle mass or diet. The data above are obtained from the National Kid[employer] Disease Education Program (NKDEP) which additionally recommends that when the eGFR is used in patients with extremes of body mass index for purposes of drug dosing, the eGFR should be multiplied by the estimated BMI. CHEMISTRY Sodium Lvl 141 meq/L 135 - 145 09/21 Normal [facility] CHEMISTRY CO2 12 meq/L 24 - 32 09/21 LOW [facility] CHEMISTRY Chloride Lvl 112 meq/L 95 - 109 09/21 HI [facility] CHEMISTRY AGAP 20.8 meq/L 10.0 - 09/21 HI 20.0 [facility] CHEMISTRY Potassium 3.8 meq/L 3.5 - 5.1 09/21 Normal 2Result Comment: [facility] Specimen is slightly hemolyzed CHEMISTRY Calcium Lvl 7.4 mg/dL 8.5 - 10.5 09/21 LOW [facility] CHEMISTRY Glucose Lvl 74 mg/dL 70 - 99 09/21 Normal 5Interpretive Data: Adult reference range values reflect the clinical guidelines of the [place] [employer]. [facility] CHEMISTRY Creatinine 0.6 mg/dL 0.5 - 1.4 09/21 Normal [facility] CHEMISTRY BUN 5 mg/dL 7 - 22 09/21 LOW [facility] CHEMISTRY UDS Note See Note 7 09/20 Normal 7Interpretive Data: Drugs reported as positive have not been confirmed by a second method and should be used for medical purposes only. To order [facility] (09/20/2012 18:12:00) confirmation, contact laboratory. note: Below are cut-off concentrations for all urine drugs of abuse performed in the laboratory. Some drugs listed in the table may not be included in this panel. Description Cut-off concentration Amphetamine 1000 ng/mL Barbiturates 200 ng/mL Benzodiazepines 300 ng/mL Cocaine metabolites 300 ng/mL Opiates 300 ng/mL Phencyclidine 25 ng/mL Propoxyphene 300 ng/mL Marijuana metabolites 50 ng/mL Methadone 300 ng/mL Urine alcohol 20 mg/dL CHEMISTRY U Opiate Scr Positive Negative 09/20 ABN [facility] *ABN* (09/20/2012 18:12:00) CHEMISTRY U Phencyc Negative Negative 09/20 NA [facility] *NA* (09/20/2012 18:12:00) CHEMISTRY U Cannab Scr Positive Negative 09/20 ABN [facility] *ABN* (09/20/2012 18:12:00) CHEMISTRY U Cocaine Positive Negative 09/20 ABN [facility] *ABN* (09/20/2012 18:12:00) CHEMISTRY U Benzodia Negative Negative 09/20 NA Scr [facility] *NA* (09/20/2012 18:12:00) CHEMISTRY U Amph Scr Negative Negative 09/20 NA [facility] *NA* (09/20/2012 18:12:00) CHEMISTRY U Abbi Scr Negative Negative 09/20 NA [facility] *NA* (09/20/2012 18:12:00) URINALYSIS UA Sq Epi Few /LPF Few 09/20 Normal [facility] (09/20/2012 18:12:00) URINALYSIS UA WBC 3-5 /HPF None Seen 09/20 Normal [facility] (09/20/2012 18:12:00) URINALYSIS Micro? Performed 09/20 Normal [facility] (09/20/2012 18:12:00) URINALYSIS UA Bacteria Few /HPF None Seen 09/20 Normal [facility] (09/20/2012 18:12:00) URINALYSIS UA Mucus Rare /LPF None Seen 09/20 Normal [facility] (09/20/2012 18:12:00) URINALYSIS UA RBC 51-100 /HPF 0 - 2 09/20 [facility] *ABN* (09/20/2012 18:12:00) URINALYSIS UA Leuk Est Trace Negative 09/20 [facility] *ABN* (09/20/2012 18:12:00) URINALYSIS UA Nitrite Negative Negative 09/20 Normal [facility] (09/20/2012 18:12:00) URINALYSIS UA Color Red Yellow 09/20 [facility] *ABN* (09/20/2012 18:12:00) URINALYSIS UA Bili Negative Negative 09/20 [facility] *NA* (09/20/2012 18:12:00) URINALYSIS UA 1.0 EU/dL 0.1 - 1.0 09/20 Normal Urobilinogen [facility] URINALYSIS UA Blood Large Negative 09/20 [facility] *ABN* (09/20/2012 18:12:00) URINALYSIS UA Turbidity Cloudy Clear 09/20 [facility] *ABN* (09/20/2012 18:12:00) URINALYSIS UA pH 7.5 5.0 - 8.0 09/20 Normal [facility] URINALYSIS UA Spec Grav 1.020 <=1.030 09/20 Normal [facility] URINALYSIS UA Protein 30 mg/dL Negative 09/20 ABN [facility] *ABN* (09/20/2012 18:12:00) URINALYSIS UA Ketones >=80 mg/dL Negative 09/20 NA [facility] *NA* (09/20/2012 18:12:00) URINALYSIS UA Glucose Negative Negative 09/20 Normal [facility] (09/20/2012 18:12:00) Microbi[employer] Culture: 09/20 gy Urine [facility] CHEMISTRY S Preg Negative Negative 09/20 NA [facility] *NA* (09/20/2012 12:03:37) CHEMISTRY eGFR 117 09/20 NA 4Result Comment: The eGFR is calculated using the CKD-EPI formula. In most young, healthy individuals the eGFR will be > 90 mL/min/1.73m2. The eGFR declines with age. An eGFR of 60-89 may be normal in mL/min/1.7 some populations, particularly the elderly, for whom the CKD-EPI formula has not been extensively validated. Use of the eGFR is not recommended in the following populations: [facility] 3m2 Individuals with unstable creatinine concentrations, including patients and those with serious co-morbid conditions. Patients with extremes in muscle mass or diet. The data above are obtained from the National Kidney Disease Education Program (NKDEP) which additionally recommends that when the eGFR is used in patients with extremes of body mass index for purposes of drug dosing, the eGFR should be multiplied by the estimated BMI. CHEMISTRY Chloride Lvl 107 meq/L 95 - 109 09/20 Normal [facility] CHEMISTRY CO2 25 meq/L 24 - 32 09/20 Normal [facility] CHEMISTRY Calcium Lvl 8.8 mg/dL 8.5 - 10.5 09/20 Normal [facility] CHEMISTRY Sodium Lvl 140 meq/L 135 - 145 09/20 Normal [facility] CHEMISTRY Potassium 3.2 meq/L 3.5 - 5.1 09/20 LOW [facility] CHEMISTRY Creatinine 0.8 mg/dL 0.5 - 1.4 09/20 Normal [facility] CHEMISTRY BUN 9 mg/dL 7 - 22 09/20 Normal [facility] CHEMISTRY Glucose Lvl 94 mg/dL 70 - 99 09/20 Normal 6Interpretive Data: Adult reference range values reflect the clinical guidelines of the [place] [employer]. [facility] CHEMISTRY AGAP 11.2 meq/L 10.0 - 09/20 Normal MH 20.0 [facility] HEMATOLOGY MCV 86.3 fL 81.0 - 09/20 Normal MH 99.0 /2012 [facility] HEMATOLOGY Hct 36.5 % 36.0 - 09/20 Normal MH 48.0 /2012 [facility] HEMATOLOGY RBC 4.23 M/CMM 4.20 - 09/20 Normal MH 5.40 /2012 [facility] HEMATOLOGY WBC 4.3 K/CMM 3.7 - 10.4 09/20 Normal /2012 [facility] HEMATOLOGY Hgb 11.8 g/dL 12.0 - 09/20 LOW MH 16.0 [facility] HEMATOLOGY MCHC 32.2 g/dL 32.0 - 09/20 Normal MH 36.0 [facility] HEMATOLOGY MCH 27.8 pg 27.0 - 09/20 Normal MH 31.0 [facility] HEMATOLOGY RDW 15.0 % 11.5 - 09/20 HI MH 14.5 [facility] HEMATOLOGY MPV 9.5 fL 7.4 - 10.4 09/20 Normal [facility] HEMATOLOGY Platelet 224 K/CMM 133 - 450 09/20 Normal [facility] HEMATOLOGY Monocytes 6.8 % 2.0 - 12.0 09/20 Normal [facility] HEMATOLOGY Lymphocytes 23.4 % 20.0 - 09/20 Normal 40.0 [facility] HEMATOLOGY Eosinophils 0.5 % 0.0 - 4.0 09/20 Normal [facility] HEMATOLOGY Monocytes # 0.3 K/CMM 0.0 - 0.8 09/20 Normal [facility] HEMATOLOGY Segs-Bands # 2.9 K/CMM 1.5 - 8.1 09/20 Normal [facility] HEMATOLOGY Basophils 0.3 % 0.0 - 1.0 09/20 Normal [facility] HEMATOLOGY Lymphocytes 1.0 K/CMM 1.0 - 5.5 09/20 Normal MH /2012 [facility] HEMATOLOGY Giant Plt Slight None Seen 09/20 ABN /2012 [facility] *ABN* (09/20/2012 12:03:00) HEMATOLOGY Segs 69.0 % 45.0 - 09/20 Normal MH 75.0 [facility] HEMATOLOGY Eosinophils 0.0 K/CMM 0.0 - 0.5 09/20 Normal MH # /2012 [facility] HEMATOLOGY Basophils # 0.0 K/CMM 0.0 - 0.2 09/20 Normal [facility] HEMATOLOGY Large Plt Slight None Seen 09/20 ABN [facility] *ABN* (09/20/2012 12:03:00) HEMATOLOGY Elliptocyte Slight None Seen 09/20 ABN [facility] *ABN* (09/20/2012 12:03:00) HEMATOLOGY Polychrom Slight None Seen 09/20 Normal [facility] (09/20/2012 12:03:00) CHEMISTRY U Preg Negative Negative 08/18 Normal [facility] (08/17/2012 20:50:00) URINALYSIS UA Color Yellow Yellow 08/18 NA [facility] *NA* (08/17/2012 20:50:00) URINALYSIS UA Protein 30 mg/dL Negative 08/18 [facility] *ABN* (08/17/2012 20:50:00) URINALYSIS UA Spec Grav >=1.030 <=1.030 08/18 ABN [facility] *ABN* (08/17/2012 20:50:00) URINALYSIS UA pH 6.0 5.0 - 8.0 08/18 Normal [facility] URINALYSIS UA Turbidity Slight Cloudy Clear 08/18 Normal [facility] (08/17/2012 20:50:00) URINALYSIS UA Nitrite Negative Negative 08/18 Normal [facility] (08/17/2012 20:50:00) URINALYSIS UA Bili Negative Negative 08/18 NA [facility] *NA* (08/17/2012 20:50:00) URINALYSIS UA Blood Trace Negative 08/18 [facility] *ABN* (08/17/2012 20:50:00) URINALYSIS UA Glucose Negative Negative 08/18 Normal [facility] (08/17/2012 20:50:00) URINALYSIS UA Ketones >=80 mg/dL Negative 08/18 NA [facility] *NA* (08/17/2012 20:50:00) URINALYSIS UA 1.0 EU/dL 0.1 - 1.0 08/18 Normal Urobilinogen [facility] URINALYSIS UA Leuk Est Moderate Negative 08/18 ABN [facility] *ABN* (08/17/2012 20:50:00) URINALYSIS UA WBC 21-50 /HPF None Seen 08/18 ABN [facility] *ABN* (08/17/2012 20:50:00) URINALYSIS UA Bacteria Many /HPF None Seen 08/18 Normal [facility] (08/17/2012 20:50:00) URINALYSIS UA Mucus Few /LPF None Seen 08/18 Normal [facility] (08/17/2012 20:50:00) URINALYSIS UA Sq Epi Occasional /LPF Few 08/18 Normal [facility] (08/17/2012 20:50:00) CHEMISTRY CK MB Index null 0.0 - 2.5 08/18 Normal [facility] CHEMISTRY Amylase Lvl 53 unit/L 25 - 115 08/18 Normal [facility] CHEMISTRY eGFR 144 08/18 NA 1Result Comment: The eGFR is calculated using the CKD-EPI formula. In most young, healthy individuals the eGFR will be > 90 mL/min/1.73m2. The eGFR declines with age. An eGFR of 60-89 may be normal in mL/min/1.7 some populations, particularly the elderly, for whom the CKD-EPI formula has not been extensively validated. Use of the eGFR is not recommended in the following populations: [facility] 3m2 Individuals with unstable creatinine concentrations, including patients and those with serious co-morbid conditions. Patients with extremes in muscle mass or diet. The data above are obtained from the National Kidney Disease Education Program (NKDEP) which additionally recommends that when the eGFR is used in patients with extremes of body mass index for purposes of drug dosing, the eGFR should be multiplied by the estimated BMI. CHEMISTRY Total 7.8 g/dL 6.4 - 8.4 08/18 Normal [facility] CHEMISTRY Bili Total 0.4 mg/dL 0.2 - 1.3 08/18 Normal [facility] CHEMISTRY Calcium Lvl 9.1 mg/dL 8.5 - 10.5 08/18 Normal [facility] CHEMISTRY Albumin Lvl 3.6 g/dL 3.5 - 5.0 08/18 Normal [facility] CHEMISTRY AGAP 18.7 meq/L 10.0 - 08/18 Normal MH 20.0 [facility] CHEMISTRY AST 16 unit/L 0 - 37 08/18 Normal [facility] CHEMISTRY Alk Phos 84 unit/L 39 - 136 08/18 Normal [facility] CHEMISTRY ALT 14 unit/L 0 - 65 08/18 Normal [facility] CHEMISTRY B/C Ratio 12 6 - 25 08/18 Normal [facility] CHEMISTRY A/G Ratio 0.9 0.7 - 1.6 08/18 Normal [facility] CHEMISTRY Globulin 4.2 g/dL 2.0 - 4.0 08/18 HI [facility] CHEMISTRY Sodium Lvl 141 meq/L 135 - 145 08/18 Normal [facility] CHEMISTRY Potassium 3.7 meq/L 3.5 - 5.1 08/18 Normal [facility] CHEMISTRY Chloride Lvl 104 meq/L 95 - 109 08/18 Normal [facility] CHEMISTRY CO2 22 meq/L 24 - 32 08/18 LOW [facility] CHEMISTRY Glucose Lvl 81 mg/dL 70 - 99 08/18 Normal 2Interpretive Data: Adult reference range values reflect the clinical guidelines of the [place] [employer]. [facility] CHEMISTRY Creatinine 0.6 mg/dL 0.5 - 1.4 08/18 Normal [facility] CHEMISTRY BUN 7 mg/dL 7 - 22 08/18 Normal [facility] CHEMISTRY Lipase Lvl 71 unit/L 73 - 393 08/18 LOW [facility] CHEMISTRY Total CK 114 unit/L 12 - 191 08/18 Normal [facility] CHEMISTRY Troponin-I null 0.00 - 08/18 Normal 0.40 [facility] CHEMISTRY CK MB null 0.5 - 3.6 08/18 Normal [facility] HEMATOLOGY Eosinophils 0.0 % 0.0 - 4.0 08/18 Normal [facility] HEMATOLOGY Lymphocytes 0.9 K/CMM 1.0 - 5.5 08/18 LOW MH [facility] HEMATOLOGY Basophils 1.2 % 0.0 - 1.0 08/18 HI [facility] HEMATOLOGY Monocytes # 0.4 K/CMM 0.0 - 0.8 08/18 Normal [facility] HEMATOLOGY Segs-Bands # 5.5 K/CMM 1.5 - 8.1 08/18 Normal [facility] HEMATOLOGY Lymphocytes 12.3 % 20.0 - 08/18 LOW MH 40.0 [facility] HEMATOLOGY Plt Morph Normal 08/18 Normal /2012 [facility] (08/17/2012 20:11:00) HEMATOLOGY Monocytes 6.3 % 2.0 - 12.0 08/18 Normal /2012 [facility] HEMATOLOGY Segs 80.2 % 45.0 - 08/18 HI MH 75.0 /2012 [facility] HEMATOLOGY Eosinophils 0.0 K/CMM 0.0 - 0.5 08/18 Normal MH # /2012 [facility] HEMATOLOGY Basophils # 0.1 K/CMM 0.0 - 0.2 08/18 Normal [facility] HEMATOLOGY Polychrom Slight None Seen 08/18 Normal /2012 [facility] (08/17/2012 20:11:00) HEMATOLOGY Hgb 11.2 g/dL 12.0 - 08/18 LOW 16.0 [facility] HEMATOLOGY Hct 34.2 % 36.0 - 08/18 LOW 48.0 [facility] HEMATOLOGY RBC 3.98 M/CMM 4.20 - 08/18 LOW 5.40 /2012 [facility] HEMATOLOGY MCV 85.9 fL 81.0 - 08/18 Normal 99.0 [facility] HEMATOLOGY MCH 28.1 pg 27.0 - 08/18 Normal 31.0 [facility] HEMATOLOGY WBC 6.9 K/CMM 3.7 - 10.4 08/18 Normal [facility] HEMATOLOGY MPV 10.2 fL 7.4 - 10.4 08/18 Normal [facility] HEMATOLOGY RDW 15.6 % 11.5 - 08/18 HI MH 14.5 /2012 [facility] HEMATOLOGY Platelet 212 K/CMM 133 - 450 08/18 Normal [facility] HEMATOLOGY MCHC 32.8 g/dL 32.0 - 08/18 Normal 36.0 [facility] CHEMISTRY U Preg Negative Negative 08/05 Normal [facility] (08/05/2012 17:19:00) URINALYSIS Micro? Performed 08/05 Normal [facility] (08/05/2012 17:19:00) URINALYSIS UA Sq Epi Moderate /LPF Few 08/05 ABN [facility] *ABN* (08/05/2012 17:19:00) URINALYSIS UA Mucus Many /LPF None Seen 08/05 ABN [facility] *ABN* (08/05/2012 17:19:00) URINALYSIS UA Bacteria Few /HPF None Seen 08/05 Normal [facility] (08/05/2012 17:19:00) URINALYSIS UA RBC 0-2 /HPF 0 - 2 08/05 Normal [facility] (08/05/2012 17:19:00) URINALYSIS UA WBC 3-5 /HPF None Seen 08/05 Normal [facility] (08/05/2012 17:19:00) URINALYSIS UA Color Yellow Yellow 08/05 NA [facility] *NA* (08/05/2012 17:19:00) URINALYSIS UA 1.0 EU/dL 0.1 - 1.0 08/05 Normal Urobilino [facility] URINALYSIS UA Ketones >=80 mg/dL Negative 08/05 NA [facility] *NA* (08/05/2012 17:19:00) URINALYSIS UA Glucose Negative Negative 08/05 Normal [facility] (08/05/2012 17:19:00) URINALYSIS UA Blood Negative Negative 08/05 Normal [facility] (08/05/2012 17:19:00) URINALYSIS UA Bili Negative Negative 08/05 NA [facility] *NA* (08/05/2012 17:19:00) URINALYSIS UA pH 7.0 5.0 - 8.0 08/05 Normal [facility] URINALYSIS UA Protein 30 mg/dL Negative 08/05 ABN [facility] *ABN* (08/05/2012 17:19:00) URINALYSIS UA Spec Grav 1.020 <=1.030 08/05 Normal [facility] URINALYSIS UA Turbidity Slight Cloudy Clear 08/05 Normal [facility] (08/05/2012 17:19:00) URINALYSIS UA Leuk Est Negative Negative 08/05 Normal [facility] (08/05/2012 17:19:00) URINALYSIS UA Nitrite Negative Negative 08/05 Normal [facility] (08/05/2012 17:19:00) CHEMISTRY Lipase Lvl 58 unit/L 73 - 393 08/05 LOW [facility] CHEMISTRY eGFR 137 08/05 NA 1Result Comment: The eGFR is calculated using the CKD-EPI formula. In most young, healthy individuals the eGFR will be > 90 mL/min/1.73m2. The eGFR declines with age. An eGFR of 60-89 may be normal in mL/min/1.7 some populations, particularly the elderly, for whom the CKD-EPI formula has not been extensively validated. Use of the eGFR is not recommended in the following populations: [facility] 3m2 Individuals with unstable creatinine concentrations, including patients and those with serious co-morbid conditions. Patients with extremes in muscle mass or diet. The data above are obtained from the National Kidney Disease Education Program (NKDEP) which additionally recommends that when the eGFR is used in patients with extremes of body mass index for purposes of drug dosing, the eGFR should be multiplied by the estimated BMI. CHEMISTRY Bili Total 0.4 mg/dL 0.2 - 1.3 08/05 Normal [facility] CHEMISTRY Alk Phos 85 unit/L 39 - 136 08/05 Normal [facility] CHEMISTRY ALT 18 unit/L 0 - 65 08/05 Normal [facility] CHEMISTRY AST 14 unit/L 0 - 37 08/05 Normal [facility] CHEMISTRY Potassium 3.5 meq/L 3.5 - 5.1 08/05 Normal Lvl [facility] CHEMISTRY Chloride Lvl 108 meq/L 95 - 109 08/05 Normal [facility] CHEMISTRY Creatinine 0.7 mg/dL 0.5 - 1.4 08/05 Normal Lvl [facility] CHEMISTRY CO2 23 meq/L 24 - 32 08/05 LOW [facility] CHEMISTRY BUN 6 mg/dL 7 - 22 08/05 LOW [facility] CHEMISTRY Sodium Lvl 142 meq/L 135 - 145 08/05 Normal [facility] CHEMISTRY Calcium Lvl 9.5 mg/dL 8.5 - 10.5 08/05 Normal [facility] CHEMISTRY Total 9.1 g/dL 6.4 - 8.4 08/05 HI [facility] CHEMISTRY Albumin Lvl 4.2 g/dL 3.5 - 5.0 08/05 Normal [facility] CHEMISTRY Glucose Lvl 120 mg/dL 70 - 99 08/05 HI 2Interpretive Data: Adult reference range values reflect the clinical guidelines of the [place] [employer]. [facility] CHEMISTRY Globulin 4.9 g/dL 2.0 - 4.0 08/05 HI MH [facility] CHEMISTRY B/C Ratio 9 6 - 25 03 Normal [facility] CHEMISTRY AGAP 14.5 meq/L 10.0 - 03 Normal 20. [facility] CHEMISTRY A/G Ratio 0.9 0.7 - 1.6 08/05 Normal [facility] HEMATOLOGY Hypochrom Slight None Seen 08/05 Normal [facility] (08/05/2012 15:40:00) HEMATOLOGY Basophils # 0.0 K/CMM 0.0 - 0.2 08/05 Normal [facility] HEMATOLOGY Eosinophils 0.0 K/CMM 0.0 - 0.5 08/05 Normal [facility] HEMATOLOGY Monocytes # 0.0 K/CMM 0.0 - 0.8 08/05 Normal [facility] HEMATOLOGY Large Plt Slight None Seen 08/05 ABN [facility] *ABN* (08/05/2012 15:40:00) HEMATOLOGY Giant Plt Slight None Seen 08/05 ABN [facility] *ABN* (08/05/2012 15:40:00) HEMATOLOGY Target Cell Slight None Seen 08/05 ABN [facility] *ABN* (08/05/2012 15:40:00) HEMATOLOGY Elliptocyte Slight None Seen 08/05 ABN [facility] *ABN* (08/05/2012 15:40:00) HEMATOLOGY Polychrom Slight None Seen 08/05 Normal [facility] (08/05/2012 15:40:00) HEMATOLOGY Lymphocytes 0.2 K/CMM 1.0 - 5.5 08/05 LOW [facility] HEMATOLOGY Segs-Bands # 4.1 K/CMM 1.5 - 8.1 08/05 Normal [facility] HEMATOLOGY Basophils 0.1 % 0.0 - 1.0 08/05 Normal [facility] HEMATOLOGY Eosinophils 0.0 % 0.0 - 4.0 08/05 Normal [facility] HEMATOLOGY Monocytes 1.0 % 2.0 - 12.0 08/05 LOW [facility] HEMATOLOGY Lymphocytes 5.6 % 20.0 - 08/05 LOW 40.0 [facility] HEMATOLOGY Segs 93.3 % 45.0 - 0308 HI 75.0 [facility] HEMATOLOGY MCHC 32.8 g/dL 32.0 - 0308 Normal 36.0 [facility] HEMATOLOGY MCV 85.2 fL 81.0 - 0308 Normal 99.0 [facility] HEMATOLOGY MCH 27.9 pg 27.0 - 08 Normal 31.0 [facility] HEMATOLOGY RDW 15.3 % 11.5 - 03 HI 14.5 /2012 [facility] HEMATOLOGY Hct 37.9 % 36.0 - 08/05 Normal 48.0 /2012 [facility] HEMATOLOGY WBC 4.4 K/CMM 3.7 - 10.4 08/05 Normal MH [facility] HEMATOLOGY RBC 4.45 M/CMM 4.20 - 03 Normal 5.40 /2012 [facility] HEMATOLOGY Hgb 12.4 g/dL 12.0 - 03 Normal 16.0 /2012 [facility] HEMATOLOGY MPV 9.6 fL 7.4 - 10.4 08/05 Normal [facility] HEMATOLOGY Platelet 282 K/CMM 133 - 450 08/05 Normal [facility] BEDSIDE Comment1 Notify 06/23 [facility] GLUCOSE RN/ [facility] TESTING BEDSIDE Gluc POC 93 mg/dL 70 - 99 06/23 Normal 1Interpretive GLUCOSE [facility] Data: [facility] TESTING Upper Reportable Limit: 200 mg/dL. BEDSIDE Comment1 Notify 06/23 [facility] GLUCOSE MATHEW/ [facility] TESTING BEDSIDE Gluc POC 113 mg/dL 70 - 99 06/23 HI 2Interpretive GLUCOSE [facility] Data: [facility] TESTING Upper Reportable Limit: 200 mg/dL. BEDSIDE Gluc POC 88 mg/dL 70 - 99 06/23 Normal 3Interpretive GLUCOSE [facility] Data: [facility] TESTING Upper Reportable Limit: 200 mg/dL. BEDSIDE Comment1 Notify 06/23 [facility] GLUCOSE MATHEW/ /2012 [facility] TESTING CHEMISTRY Hgb A1C null 06/23 NA 9Result Comment: [facility] reran sample twice. CHEMISTRY eGFR 117 06/23 NA 4Result Comment: The eGFR is calculated using the CKD-EPI formula. In most young, healthy individuals the eGFR will be > 90 mL/min/1.73m2. The eGFR declines with age. An eGFR of 60-89 may be normal in mL/min/1.7 /2012 some populations, particularly the elderly, for whom the CKD-EPI formula has not been extensively validated. Use of the eGFR is not recommended in the following populations: [facility] 3m2 Individuals with unstable creatinine concentrations, including patients and those with serious co-morbid conditions. Patients with extremes in muscle mass or diet. The data above are obtained from the National Kidney Disease Education Program (NKDEP) which additionally recommends that when the eGFR is used in patients with extremes of body mass index for purposes of drug dosing, the eGFR should be multiplied by the estimated BMI. CHEMISTRY Glucose Lvl 69 mg/dL 70 - 99 06/23 LOW 6Interpretive Data: Adult reference range values reflect the clinical guidelines of the [place] [employer]. [facility] CHEMISTRY BUN 13 mg/dL 7 - 22 06/23 Normal [facility] CHEMISTRY Creatinine 0.8 mg/dL 0.5 - 1.4 06/23 Normal MH [facility] CHEMISTRY CO2 21 meq/L 24 - 32 06/23 LOW [facility] CHEMISTRY Calcium Lvl 7.4 mg/dL 8.5 - 10.5 06/23 LOW [facility] CHEMISTRY AGAP 13.5 meq/L 10.0 - 06/23 Normal 20. [facility] CHEMISTRY Sodium Lvl 144 meq/L 135 - 145 06/23 Normal [facility] CHEMISTRY Potassium 3.5 meq/L 3.5 - 5.1 06/23 Normal [facility] CHEMISTRY Chloride Lvl 113 meq/L 95 - 109 06/23 HI [facility] CHEMISTRY Valproic 46 ug/ml 50 - 100 06/23 LOW Acid [facility] HEMATOLOGY Giant Plt Slight None Seen 06/23 ABN [facility] *ABN* (06/23/2012 05:45:00) HEMATOLOGY Elliptocyte Slight None Seen 06/23 ABN [facility] *ABN* (06/23/2012 05:45:00) HEMATOLOGY Tear Cell Slight None Seen 06/23 ABN [facility] *ABN* (06/23/2012 05:45:00) HEMATOLOGY Eosinophils 0.0 K/CMM 0.0 - 0.5 06/23 Normal [facility] HEMATOLOGY Monocytes # 0.5 K/CMM 0.0 - 0.8 06/23 Normal [facility] HEMATOLOGY Lymphocytes 1.8 K/CMM 1.0 - 5.5 06/23 Normal [facility] HEMATOLOGY Basophils # 0.0 K/CMM 0.0 - 0.2 06/23 Normal [facility] HEMATOLOGY Basophils 0.4 % 0.0 - 1.0 06/23 Normal [facility] HEMATOLOGY Segs 53.4 % 45.0 - 06/23 Normal 75. [facility] HEMATOLOGY Lymphocytes 35.5 % 20.0 - 06/23 Normal MH 40.0 [facility] HEMATOLOGY Monocytes 10.4 % 2.0 - 12.0 06/23 Normal [facility] HEMATOLOGY Eosinophils 0.3 % 0.0 - 4.0 06/23 Normal [facility] HEMATOLOGY Segs-Bands # 2.7 K/CMM 1.5 - 8.1 06/23 Normal [facility] HEMATOLOGY WBC 5.0 K/CMM 3.7 - 10.4 06/23 Normal [facility] HEMATOLOGY RBC 3.14 M/CMM 4.20 - 06/23 LOW MH 5.40 [facility] HEMATOLOGY Hgb 8.9 g/dL 12.0 - 06/23 LOW 16.0 [facility] HEMATOLOGY RDW 16.1 % 11.5 - 06/23 HI MH 14.5 [facility] HEMATOLOGY Platelet 154 K/CMM 133 - 450 06/23 Normal [facility] HEMATOLOGY MPV 10.3 fL 7.4 - 10.4 06/23 Normal [facility] HEMATOLOGY Hct 27.1 % 36.0 - 06/23 LOW 48.0 [facility] HEMATOLOGY MCV 86.2 fL 81.0 - 06/23 Normal 99.0 [facility] HEMATOLOGY MCH 28.5 pg 27.0 - 06/23 Normal 31.0 [facility] HEMATOLOGY MCHC 33.0 g/dL 32.0 - 06/23 Normal 36.0 [facility] CHEMISTRY U Cocaine Positive Negative 06/22 ABN [facility] *ABN* (06/22/2012 15:50:00) CHEMISTRY U Benzodia Negative Negative 06/22 NA [facility] *NA* (06/22/2012 15:50:00) CHEMISTRY U Abbi Scr Negative Negative 06/22 NA [facility] *NA* (06/22/2012 15:50:00) CHEMISTRY U Amph Scr Negative Negative 06/22 NA [facility] *NA* (06/22/2012 15:50:00) CHEMISTRY UDS Note See Note 10 06/22 Normal 10Interpretive Data: Drugs reported as positive have not been confirmed by a second method and should be used for medical purposes only. To order [facility] (06/22/2012 15:50:00) confirmation, contact laboratory. note: Below are cut-off concentrations for all urine drugs of abuse performed in the laboratory. Some drugs listed in the table may not be included in this panel. Description Cut-off concentration Amphetamine 1000 ng/mL Barbiturates 200 ng/mL Benzodiazepines 300 ng/mL Cocaine metabolites 300 ng/mL Opiates 300 ng/mL Phencyclidine 25 ng/mL Propoxyphene 300 ng/mL Marijuana metabolites 50 ng/mL Methadone 300 ng/mL Urine alcohol 20 mg/dL CHEMISTRY U Phencyc Negative Negative 06/22 NA [facility] *NA* (06/22/2012 15:50:00) CHEMISTRY U Opiate Scr Positive Negative 06/22 [facility] *ABN* (06/22/2012 15:50:00) CHEMISTRY U Cannab Scr Positive Negative 06/22 ABN [facility] *ABN* (06/22/2012 15:50:00) CHEMISTRY U Preg Negative Negative 06/22 Normal [facility] (06/22/2012 15:50:00) URINALYSIS UA Sq Epi Occasional /LPF Few 06/22 Normal [facility] (06/22/2012 15:50:00) URINALYSIS UA WBC 0-2 /HPF None Seen 06/22 Normal [facility] (06/22/2012 15:50:00) URINALYSIS UA Bacteria Occasional /HPF None Seen 06/22 Normal [facility] (06/22/2012 15:50:00) URINALYSIS UA Mucus Few /LPF None Seen 06/22 Normal [facility] (06/22/2012 15:50:00) URINALYSIS UA Turbidity Clear Clear 06/22 Normal [facility] (06/22/2012 15:50:00) URINALYSIS UA Ketones 40 mg/dL Negative 06/22 NA [facility] *NA* (06/22/2012 15:50:00) URINALYSIS UA Spec Grav >=1.030 <=1.030 06/22 ABN [facility] *ABN* (06/22/2012 15:50:00) URINALYSIS UA Nitrite Negative Negative 06/22 Normal [facility] (06/22/2012 15:50:00) URINALYSIS UA Blood Trace Negative 06/22 ABN [facility] *ABN* (06/22/2012 15:50:00) URINALYSIS UA 1.0 EU/dL 0.1 - 1.0 06/22 Normal Urobilinogen [facility] URINALYSIS UA Bili Negative Negative 06/22 NA [facility] *NA* (06/22/2012 15:50:00) URINALYSIS UA Glucose Negative Negative 06/22 Normal [facility] (06/22/2012 15:50:00) URINALYSIS UA Protein 30 mg/dL Negative 06/22 ABN [facility] *ABN* (06/22/2012 15:50:00) URINALYSIS UA pH 6.0 5.0 - 8.0 06/22 Normal [facility] URINALYSIS UA Leuk Est Negative Negative 06/22 Normal [facility] (06/22/2012 15:50:00) URINALYSIS UA Color Yellow Yellow 06/22 NA [facility] *NA* (06/22/2012 15:50:00) Microbiolo Culture: 06/22 gy [facility] CHEMISTRY eGFR 101 06/22 NA 5Result Comment: The eGFR is calculated using the CKD-EPI formula. In most young, healthy individuals the eGFR will be > 90 mL/min/1.73m2. The eGFR declines with age. An eGFR of 60-89 may be normal in mL/min/1. some populations, particularly the elderly, for whom the CKD-EPI formula has not been extensively validated. Use of the eGFR is not recommended in the following populations: [facility] 3m2 Individuals with unstable creatinine concentrations, including patients and those with serious co-morbid conditions. Patients with extremes in muscle mass or diet. The data above are obtained from the National Kidney Disease Education Program (NKDEP) which additionally recommends that when the eGFR is used in patients with extremes of body mass index for purposes of drug dosing, the eGFR should be multiplied by the estimated BMI. CHEMISTRY Bili Total 0.4 mg/dL 0.2 - 1.3 06/22 Normal [facility] CHEMISTRY ALT 17 unit/L 0 - 65 06/22 Normal [facility] CHEMISTRY Albumin Lvl 4.3 g/dL 3.5 - 5.0 06/22 Normal [facility] CHEMISTRY Alk Phos 74 unit/L 39 - 136 06/22 Normal [facility] CHEMISTRY AST 12 unit/L 0 - 37 06/22 Normal [facility] CHEMISTRY Total 8.6 g/dL 6.4 - 8.4 06/22 HI MH [facility] CHEMISTRY Calcium Lvl 9.4 mg/dL 8.5 - 10.5 06/22 Normal [facility] CHEMISTRY Potassium 4.1 meq/L 3.5 - 5.1 06/22 Normal l [facility] CHEMISTRY Sodium Lvl 139 meq/L 135 - 145 06/22 Normal [facility] CHEMISTRY Glucose Lvl 119 mg/dL 70 - 99 06/22 HI 7Interpretive Data: Adult reference range values reflect the clinical guidelines of the [place] [employer]. [facility] CHEMISTRY Chloride Lvl 106 meq/L 95 - 109 06/22 Normal [facility] CHEMISTRY CO2 20 meq/L 24 - 32 06/22 LOW [facility] CHEMISTRY BUN 15 mg/dL 7 - 22 06/22 Normal [facility] CHEMISTRY Creatinine 0.9 mg/dL 0.5 - 1.4 06/22 Normal [facility] CHEMISTRY A/G Ratio 1.0 0.7 - 1.6 06/22 Normal [facility] CHEMISTRY B/C Ratio 17 6 - 25 06/22 Normal [facility] CHEMISTRY Globulin 4.3 g/dL 2.0 - 4.0 06/22 HI [facility] CHEMISTRY AGAP 17.1 meq/L 10.0 - 06/22 Normal 20.0 [facility] CHEMISTRY Lipase Lvl 40 unit/L 73 - 393 06/22 LOW [facility] CHEMISTRY Amylase Lvl 46 unit/L 25 - 115 06/22 Normal [facility] HEMATOLOGY Target Cell Slight None Seen 06/22 ABN [facility] *ABN* (06/22/2012 14:10:00) HEMATOLOGY Large Plt Slight None Seen 06/22 ABN [facility] *ABN* (06/22/2012 14:10:00) HEMATOLOGY Polychrom Slight None Seen 06/22 Normal [facility] (06/22/2012 14:10:00) HEMATOLOGY Basophils # 0.0 K/CMM 0.0 - 0.2 06/22 Normal [facility] HEMATOLOGY Eosinophils 0.0 K/CMM 0.0 - 0.5 06/22 Normal [facility] HEMATOLOGY Segs 86.0 % 45.0 - 06/22 HI MH 75.0 /2012 [facility] HEMATOLOGY Monocytes # 0.3 K/CMM 0.0 - 0.8 06/22 Normal /2012 [facility] HEMATOLOGY Lymphocytes 0.6 K/CMM 1.0 - 5.5 06/22 LOW MH # /2012 [facility] HEMATOLOGY Segs-Bands # 5.5 K/CMM 1.5 - 8.1 06/22 Normal [facility] HEMATOLOGY Basophils 0.2 % 0.0 - 1.0 06/22 Normal [facility] HEMATOLOGY Eosinophils 0.0 % 0.0 - 4.0 06/22 Normal [facility] HEMATOLOGY Lymphocytes 9.4 % 20.0 - 06/22 LOW MH 40.0 [facility] HEMATOLOGY Monocytes 4.4 % 2.0 - 12.0 06/22 Normal [facility] HEMATOLOGY MPV 10.2 fL 7.4 - 10.4 06/22 Normal [facility] HEMATOLOGY MCHC 33.2 g/dL 32.0 - 06/22 Normal MH 36.0 [facility] HEMATOLOGY MCH 28.5 pg 27.0 - 06/22 Normal MH 31.0 [facility] HEMATOLOGY RBC 4.12 M/CMM 4.20 - 06/22 LOW MH 5.40 /2012 [facility] HEMATOLOGY RDW 15.8 % 11.5 - 06/22 HI MH 14.5 [facility] HEMATOLOGY Platelet 214 K/CMM 133 - 450 06/22 Normal /2012 [facility] HEMATOLOGY Hgb 11.7 g/dL 12.0 - 06/22 LOW MH 16.0 [facility] HEMATOLOGY Hct 35.3 % 36.0 - 06/22 LOW MH 48.0 [facility] HEMATOLOGY MCV 85.7 fL 81.0 - 06/22 Normal MH 99.0 [facility] HEMATOLOGY WBC 6.4 K/CMM 3.7 - 10.4 06/22 Normal [facility] CHEMISTRY Ketones Qual Negative Negative 05/14 Normal [facility] (05/14/2011 07:30:00) CHEMISTRY AGAP 18.2 meq/L 10.0 - 05/14 Normal MH 20. [facility] CHEMISTRY Glucose Lvl 105 mg/dL 05/14 NA 1Interpretive Data: [facility] Reference Ranges : 0 - 7 days : 41 - 90 mg/dL7 days - 150 yrs : 70 - 99 mg/dL (fasting), based on the clinical recommendatio ns of the [place] [employer]. CHEMISTRY Calcium Lvl 9.5 mg/dL 8.5 - 10.5 05/14 Normal MH [facility] CHEMISTRY CO2 18 meq/L 24 - 32 05/14 LOW MH [facility] CHEMISTRY Creatinine 0.6 mg/dL 0.5 - 1.4 05/14 Normal Lvl /2010 [facility] CHEMISTRY BUN 12 mg/dL 7 - 22 05/14 Normal [facility] CHEMISTRY Potassium 3.2 meq/L 3.5 - 5.1 05/14 LOW MH Lvl /2010 [facility] CHEMISTRY Sodium Lvl 136 meq/L 135 - 145 05/14 Normal MH [facility] CHEMISTRY Chloride Lvl 103 meq/L 95 - 109 05/14 Normal MH [facility] HEMATOLOGY MPV 9.1 fL 7.4 - 10.4 05/14 Normal [facility] HEMATOLOGY RDW 13.7 % 11.5 - 05/14 Normal 14. [facility] HEMATOLOGY MCHC 33.8 g/dL 32.0 - 05/14 Normal 36.0 /2010 [facility] HEMATOLOGY Platelet 292 K/CMM 133 - 450 05/14 Normal MH [facility] HEMATOLOGY MCV 87.4 fL 81.0 - 05/14 Normal 99.0 [facility] HEMATOLOGY MCH 29.6 pg 27.0 - 05/14 Normal 31.0 [facility] HEMATOLOGY Hct 36.3 % 36.0 - 05/14 Normal 48.0 /2010 [facility] HEMATOLOGY RBC 4.15 M/CMM 4.20 - 05/14 LOW MH 5.40 /2010 [facility] HEMATOLOGY Hgb 12.3 g/dL 12.0 - 05/14 Normal 16.0 [facility] HEMATOLOGY WBC 7.7 K/CMM 3.7 - 10.4 05/14 Normal MH [facility] HEMATOLOGY Large Plt Slight None Seen 05/14 ABN MH [facility] *ABN* (05/14/2011 07:30:00) HEMATOLOGY Giant Plt Slight None Seen 05/14 ABN [facility] *ABN* (05/14/2011 07:30:00) HEMATOLOGY Lymphocytes 0.6 K/CMM 1.0 - 5.5 05/14 LOW MH # /2010 [facility] HEMATOLOGY Segs-Bands # 6.2 K/CMM 1.5 - 8.1 05/14 Normal [facility] HEMATOLOGY Basophils 2.3 % 0.0 - 1.0 05/14 HI MH [facility] HEMATOLOGY Eosinophils 0.0 % 0.0 - 4.0 05/14 Normal [facility] HEMATOLOGY Elliptocyte Slight None Seen 05/14 ABN [facility] *ABN* (05/14/2011 07:30:00) HEMATOLOGY Tear Cell Slight None Seen 05/14 ABN [facility] *ABN* (05/14/2011 07:30:00) HEMATOLOGY Eosinophils 0.0 K/CMM 0.0 - 0.5 05/14 Normal MH # /2010 [facility] HEMATOLOGY Basophils # 0.2 K/CMM 0.0 - 0.2 05/14 Normal [facility] HEMATOLOGY Monocytes # 0.6 K/CMM 0.0 - 0.8 05/14 Normal [facility] HEMATOLOGY Lymphocytes 8.1 % 20.0 - 05/14 LOW MH 40.0 [facility] HEMATOLOGY Monocytes 8.4 % 2.0 - 12.0 05/14 Normal [facility] HEMATOLOGY Segs 81.2 % 45.0 - 05/14 HI 75.0 [facility] URINALYSIS UA WBC 11-20 /HPF None Seen 05/13 ABN [facility] *ABN* (05/13/2011 00:50:00) URINALYSIS UA Bacteria Few /HPF None Seen 05/13 Normal [facility] (05/13/2011 00:50:00) URINALYSIS UA RBC 0-2 /HPF 0 - 2 05/13 Normal [facility] (05/13/2011 00:50:00) URINALYSIS UA Nitrite Negative Negative 05/13 Normal [facility] (05/13/2011 00:50:00) URINALYSIS UA Leuk Est Trace Negative 05/13 ABN [facility] *ABN* (05/13/2011 00:50:00) URINALYSIS UA 0.2 EU/dL 0.1 - 1.0 05/13 Normal Urobilino [facility] URINALYSIS UA Sq Epi Few /LPF Few 05/13 Normal [facility] (05/13/2011 00:50:00) URINALYSIS Micro? Performed 05/13 Normal [facility] (05/13/2011 00:50:00) URINALYSIS UA Blood Negative Negative 05/13 Normal [facility] (05/13/2011 00:50:00) URINALYSIS UA pH 6.0 5.0 - 8.0 05/13 Normal [facility] URINALYSIS UA Spec Grav >=1.030 <=1.030 05/13 ABN [facility] *ABN* (05/13/2011 00:50:00) URINALYSIS UA Turbidity Clear Clear 05/13 Normal [facility] (05/13/2011 00:50:00) URINALYSIS UA Mucus Few /LPF None Seen 05/13 Normal [facility] (05/13/2011 00:50:00) URINALYSIS UA Rare /HPF None Seen 05/13 ABN Trich [facility] *ABN* (05/13/2011 00:50:00) URINALYSIS UA Ketones >=80 mg/dL Negative 05/13 Normal [facility] (05/13/2011 00:50:00) URINALYSIS UA Glucose Negative Negative 05/13 Normal [facility] (05/13/2011 00:50:00) URINALYSIS UA Protein Trace Negative 05/13 ABN [facility] *ABN* (05/13/2011 00:50:00) URINALYSIS UA Bili Negative Negative 05/13 Normal [facility] (05/13/2011 00:50:00) URINALYSIS UA Color Yellow Yellow 05/13 Normal [facility] (05/13/2011 00:50:00) BLOOD BANK Antibody Negative 05/13 Normal RESULTS Scr [facility] (05/12/2011 22:10:00) BLOOD BANK ABO/Rh O POS 05/13 Unknown RESULTS [facility] CHEMISTRY hCG Tot [id number] 05/13 NA 3Interpretive mIU/mL Data: [facility] Reference Range: Male 0 - 5 mIU/mL Non- Female 0 - 5 mIU/mLNote: hCG result should be used in conjunction with symptoms, results of other tests, and clinical impressions.W eeks of Gestation hCG (mIU/mL)----- --- 3 6 - 71 4 10-750 5 217 - 7,138 6 158 -31,795 7 3,697 - 163,563 8 32,065 - 149,571 9 63,803 - 151,410 10 46,506 - 186,977 11 27,832 - 210,612 14 13,950 - 62,530 15 12,039 - 70,971 16 9,040 - 56,451 17 8,175 - 55,868 18 8,099 - 58,176 CHEMISTRY AST 5 U/L 0 - 37 05/13 Normal [facility] CHEMISTRY Bili Total 0.4 mg/dL 0.2 - 1.3 05/13 Normal [facility] CHEMISTRY Total 7.7 g/dL 6.4 - 8.4 05/13 Normal [facility] CHEMISTRY Calcium Lvl 8.4 mg/dL 8.5 - 10.5 05/13 LOW [facility] CHEMISTRY B/C Ratio 10 6 - 25 05/13 Normal [facility] CHEMISTRY ALT 13 U/L 0 - 65 05/13 Normal [facility] CHEMISTRY Alk Phos 41 U/L 39 - 136 05/13 Normal [facility] CHEMISTRY Albumin Lvl 3.6 g/dL 3.5 - 5.0 05/13 Normal [facility] CHEMISTRY A/G Ratio 0.9 0.7 - 1.6 05/13 Normal [facility] CHEMISTRY Globulin 4.1 g/dL 2.0 - 4.0 05/13 HI MH [facility] CHEMISTRY CO2 20 meq/L 24 - 32 05/13 LOW [facility] CHEMISTRY Potassium 3.0 meq/L 3.5 - 5.1 05/13 CRIT 1Result Comment: [facility] Critical Result(s) called to Angelique at 05/12/2011 22:50 by [facility]. Read back OK. CHEMISTRY AGAP 14.0 meq/L 10.0 - 05/13 Normal 20.0 [facility] CHEMISTRY Chloride Lvl 104 meq/L 95 - 109 05/13 Normal [facility] CHEMISTRY Sodium Lvl 135 meq/L 135 - 145 05/13 Normal [facility] CHEMISTRY Creatinine 0.6 mg/dL 0.5 - 1.4 05/13 Normal l [facility] CHEMISTRY BUN 6 mg/dL 7 - 22 05/13 LOW [facility] CHEMISTRY Glucose Lvl 92 mg/dL 05/13 NA 2Interpretive Data: [facility] Reference Ranges : 0 - 7 days : 41 - 90 mg/dL7 days - 150 yrs : 70 - 99 mg/dL (fasting), based on the clinical recommendatio ns of the [place] [employer]. HEMATOLOGY MCH 30.4 pg 27.0 - 05/13 Normal 31.0 [facility] HEMATOLOGY MCHC 34.8 g/dL 32.0 - 05/13 Normal 36.0 /2010 [facility] HEMATOLOGY RDW 14.1 % 11.5 - 05/13 Normal 14.5 [facility] HEMATOLOGY MPV 8.7 fL 7.4 - 10.4 05/13 Normal MH /2010 [facility] HEMATOLOGY Platelet 237 K/CMM 133 - 450 05/13 Normal MH /2010 [facility] HEMATOLOGY WBC 4.7 K/CMM 3.7 - 10.4 05/13 Normal /2010 [facility] HEMATOLOGY MCV 87.4 fL 81.0 - 05/13 Normal 99.0 [facility] HEMATOLOGY Hct 31.4 % 36.0 - 05/13 LOW 48.0 [facility] HEMATOLOGY RBC 3.59 M/CMM 4.20 - 05/13 LOW 5.40 /2010 [facility] HEMATOLOGY Hgb 10.9 g/dL 12.0 - 05/13 LOW 16.0 [facility] Vital Signs Vital Sign Value Date Comments Source Temperature Oral (F) 98.0 F 09/22/2012 [facility] [place] Heart Rate 56 09/22/2012 [facility] [place] Diastolic (mm Hg) 79 09/22/2012 [facility] [place] Systolic (mm Hg) 124 09/22/2012 [facility] [place] Respitory Rate 20 09/22/2012 [facility] [place] Diastolic (mm Hg) 72 09/21/2012 [facility] [place] Respitory Rate 18 09/21/2012 [facility] [place] Systolic (mm Hg) 108 09/21/2012 [facility] [place] Heart Rate 61 09/21/2012 [facility] [place] Temperature Oral (F) 98.7 F 09/21/2012 [facility] [place] Systolic (mm Hg) 125 09/21/2012 [facility] [place] Diastolic (mm Hg) 80 09/21/2012 [facility] [place] Heart Rate 53 09/21/2012 [facility] [place] Temperature Oral (F) 99.0 F 09/21/2012 [facility] [place] Respitory Rate 18 09/21/2012 [facility] [place] Height 157.48 cm 09/21/2012 [facility] [place] Weight 52.273 09/21/2012 [facility] [place] Height 157.4 cm 09/21/2012 [facility] [place] Weight 52.273 09/21/2012 [facility] [place] Weight 52.273 08/17/2012 [facility] [place] Height 157.48 cm 08/17/2012 [facility] [place] Temperature Oral (F) 98.5 F 06/23/2012 [facility] [place] Respitory Rate 20 06/23/2012 [facility] [place] Systolic (mm Hg) 98 06/23/2012 [facility] [place] Heart Rate 53 06/23/2012 [facility] [place] Diastolic (mm Hg) 65 06/23/2012 [facility] [place] Heart Rate 54 06/23/2012 [facility] [place] Temperature Oral (F) 98.5 F 06/23/2012 [facility] [place] Respitory Rate 20 06/23/2012 [facility] [place] Diastolic (mm Hg) 74 06/23/2012 [facility] [place] Systolic (mm Hg) 110 06/23/2012 [facility] [place] Respitory Rate 20 06/23/2012 [facility] [place] Systolic (mm Hg) 89 06/23/2012 [facility] [place] Heart Rate 63 06/23/2012 [facility] [place] Temperature Oral (F) 98.5 F 06/23/2012 [facility] [place] Diastolic (mm Hg) 55 06/23/2012 [facility] [place] Height 157.48 cm 06/23/2012 [facility] [place] Weight 47.727 06/23/2012 [facility] [place] Weight 50.000 06/22/2012 [facility] [place] Diastolic (mm Hg) 74 05/14/2011 [facility] [place] Systolic (mm Hg) 136 05/14/2011 [facility] [place] Respitory Rate 18 05/14/2011 [facility] [place] Heart Rate 68 05/14/2011 [facility] [place] Temperature Oral (F) 98.2 F 05/14/2011 [facility] [place] Weight 54.545 05/14/2011 [facility] [place] Height 157.48 cm 05/14/2011 [facility] [place] Diastolic (mm Hg) 86 05/14/2011 [facility] [place] Systolic (mm Hg) 111 05/14/2011 [facility] [place] Heart Rate 86 05/14/2011 [facility] [place] Respitory Rate 19 05/14/2011 [facility] [place] Temperature Oral (F) 98.6 F 05/14/2011 [facility] [place] Respitory Rate 18 05/13/2011 [facility] [place] Temperature Oral (F) 98.6 F 05/13/2011 [facility] [place] Systolic (mm Hg) 102 05/13/2011 [facility] [place] Heart Rate 72 05/13/2011 [facility] [place] Diastolic (mm Hg) 59 05/13/2011 [facility] [place] Encounters Location Location Encounter Encounter Reason Attending ADM DC Status Source Details Type Number For Visit Provider Date Date Emergency [id number] ABDOMINAL VIV 09/06 09/06 Active [facility] PAIN TOTZ /2010 [facility] Emergency [id number] FEVER LATOSHA 04/11 04/11 Active [facility] [place] /VOMITING TIFFAULT /2010 [facility] Emergency [id number] VOMITING HABACUC 04/14 04/14 Active [facility] /2010 [facility] Emergency [id number] VOMITINIG EMILIA 04/18 04/18 Active [facility] [place] [facility] t [facility]IN Emergency [id number] , HABACUC 05/12 05/13 Active [facility] [place] ABD PAIN, LION /2010 [facility] VOMITING, t VAG BLEED Emergency [id number] ABDOMINAL VIV 05/14 05/14 Active [facility] [place] PAIN TOTZ /2010 [facility] OU [id number] CONSTANTINO 06/22 06/23 Active [facility] [place] HYACINTH /2012 [facility] Emergency [id number] ATIBA GAMEZ 08/05 08/05 Active [facility] [place] /2012 [facility] Emergency [id number] HABACUC 08/17 08/17 Active [facility] /2012 [facility] daily Inpatient [id number] CONSTANTINO 09/20 09/21 Active [facility] [place] HYACINTH /2012 [facility] Procedures Procedure Code Date Perfomer Comments Source section [facility] [place] section 17 months [facility] [place] <sup>1</sup> before
--- OUTSIDE RECORDS SUMMARY | 2018-06-04 11:16 | XMS REPORT | CCD ---
:1985 Author Organization [facility] Care Team Providers Name Role Phone Sanchez Barrera Hyacinth Consulting Provider Allergies, Adverse Reactions, Alerts Substance Reaction Status ondansetron Active Problem List Condition Effective Dates Status Gastroparesis Resolved Seizure Resolved Medications Medication Instructions Start Date End Date Status Neurontin 300 mg, 1 cap, Route: 06/24/2012 06/23/2012 Canceled PO, Drug form: CAP, BID, Start date: 06/24/12 9:00:00, Duration: 2 doses or times, Stop date: 06/24/12 17:00:00 Neurontin 300 mg, 1 cap, Route: 06/23/2012 06/23/2012 Completed PO, Drug form: CAP, ONCE, Start date: 06/23/12 10:02:00, Stop date: 06/23/12 10:02:00 Neurontin 300 mg, 1 cap, Route: 06/23/2012 06/23/2012 Deleted PO, Drug form: CAP, TID, Start date: 06/23/12 13:00:00, Duration: 30 day, Stop date: 07/23/12 9:00:00 morphine Sulfate 2 mg, Route: IVP, ONCE, 06/22/2012 06/22/2012 Completed Dosing Weight 50, kg, Start date: 06/22/12 20:28:00, Stop date: 06/22/12 20:28:00 Phenergan 12.5 mg, 0.5 mL, Route: 06/23/2012 06/23/2012 Discontinued IM, Drug form: INJ, Q6H, PRN Nausea, Start date: 06/23/12 10:11:00, Duration: 30 day, Stop date: 07/23/12 10:10:00 Lovenox 40 mg, 0.4 mL, Route: 06/23/2012 06/23/2012 Discontinued SUB-Q, Drug form: INJ, Q24H, Start date: 06/23/12 0:00:00, Duration: 30 day, Stop date: 07/22/12 0:00:00 Depakote 500 mg, 1 tab, Route: 06/22/2012 06/22/2012 Completed PO, Drug form: ECTAB, ONCE, Dosing Weight 50, kg, Priority: STAT, Start date: 06/22/12 18:56:00, Stop date: 06/22/12 18:56:00 Ativan 2 mg, 1 mL, Route: IV, 06/22/2012 06/23/2012 Discontinued Drug form: INJ, ONCE, PRN Seizure, Start date: 06/22/12 23:31:00 ketorolac 30 mg/mL 30 mg, 1 mL, Route: IV, 06/22/2012 06/23/2012 Discontinued injectable solution Drug form: INJ, Q6H, PRN Pain, Start date: 06/22/12 23:31:00, Duration: 4 day, Stop date: 06/26/12 23:30:00 morphine Sulfate 2 mg, 0.25 mL, Route: 06/22/2012 06/23/2012 Discontinued IV, Drug form: INJ, Q6H, PRN Pain Score 7-10, Start date: 06/22/12 23:31:00, Stop date: 07/22/12 23:30:00 Pepcid 20 mg, 1 tab, Route: PO, 06/23/2012 06/23/2012 Discontinued Drug form: TAB, BID, Start date: 06/23/12 9:00:00, Duration: 30 day, Stop date: 07/22/12 17:00:00 Phenergan 12.5 mg, 0.5 tab, Route: 06/22/2012 06/23/2012 Discontinued PO, Drug form: TAB, Q4H, PRN Nausea, Start date: 06/22/12 23:30:00, Duration: 30 day, Stop date: 07/22/12 23:29:00 Sodium Chloride 0.9% 1,000 mL, 1000 ml/hr, 06/22/2012 06/22/2012 Completed (Bolus) IV Route: IV, Drug Form: INJ, Dosing Weight 50, kg, ONCE, Bolus Dose - infuse over 1 hr, STAT, Start date: 06/22/12 16:23:00, Stop date: 06/22/12 16:23:00 Depakote EC 500 mg, 1 tab, Route: 06/23/2012 06/23/2012 Discontinued PO, Drug form: ECTAB, Daily, Start date: 06/23/12 9:00:00, Duration: 30 day, Stop date: 07/22/12 9:00:00 NS 1,000 mL 1,000 mL, Rate: 125 06/22/2012 06/23/2012 Discontinued ml/hr, Infuse over: 8 hr, Route: IV, kg, Total Volume: 1,000, Start date: 06/22/12 22:10:00, Duration: 30 day, Stop date: 07/22/12 22:09:00 Sodium Chloride 0.9% IV 250 mL, Route: IVPB, 06/22/2012 06/23/2012 Discontinued Start date: 06/22/12 23:29:00, Duration: 30 day, Stop date: 07/22/12 23:28:00, PRN Line Flush BD Normal Saline Flush 10 mL, Route: IVP, Drug 06/22/2012 06/23/2012 Discontinued Form: INJ, PRN, PRN Line Flush, Start date: 06/22/12 23:29:00, Duration: 30 day, Stop date: 07/22/12 23:28:00 amitriptyline 25 mg, 1 tab, Route: PO, 06/23/2012 06/23/2012 Canceled Drug form: TAB, Bedtime, Start date: 06/23/12 21:00:00, Duration: 30 day, Stop date: 07/22/12 21:00:00 Motrin 600 mg, 1 tab, Route: 06/23/2012 06/23/2012 Discontinued PO, Drug form: TAB, Q6H, Start date: 06/23/12 12:00:00, Duration: 30 day, Stop date: 07/23/12 6:00:00 Haldol 5 mg, 1 mL, Route: IV, 06/23/2012 06/23/2012 Discontinued Drug form: INJ, Q6H, PRN Agitation, Start date: 06/23/12 10:05:00, Duration: 30 day, Stop date: 07/23/12 10:04:00 Carafate 1 gm, 1 tab, Route: PO, 06/23/2012 06/23/2012 Discontinued Drug form: TAB, BID, Start date: 06/23/12 17:00:00, Duration: 30 day, Stop date: 07/23/12 9:00:00 Sodium Chloride 0.9% 1,000 mL, 1000 ml/hr, 06/22/2012 06/22/2012 Completed (Bolus) IV Route: IV, Drug Form: INJ, Dosing Weight 50, kg, ONCE, Bolus Dose - infuse over 1 hr, STAT, Start date: 06/22/12 14:21:00, Stop date: 06/22/12 14:21:00 Phenergan 25 mg, 1 mL, Route: 06/22/2012 06/22/2012 Completed IVPB, Drug form: INJ, ONCE, Dosing Weight 50, kg, Priority: STAT, Start date: 06/22/12 14:21:00, Stop date: 06/22/12 14:21:00 morphine Sulfate 4 mg, 1 mL, Route: IVP, 06/22/2012 06/22/2012 Completed Drug form: INJ, ONCE, Dosing Weight 50, kg, Priority: STAT, Start date: 06/22/12 14:21:00, Stop date: 06/22/12 14:21:00 Phenergan 12.5 mg, 1 tab, Route: 06/22/2012 06/22/2012 Completed PO, Drug form: TAB, ONCE, Dosing Weight 50, kg, Priority: STAT, Start date: 06/22/12 20:30:00, Stop date: 06/22/12 20:30:00 Ativan 2 mg, 1 mL, Route: IV, 06/23/2012 06/23/2012 Discontinued Drug form: INJ, Q2H, PRN Agitation, Start date: 06/23/12 10:03:00, Duration: 30 day, Stop date: 07/23/12 10:02:00 Vital Signs Most recent to oldest 1 2 3 [Reference Range]: Height 157.48 cm (06/22/2012 22:45:00) Temperature Oral 98.5 DegF 98.5 DegF 98.5 DegF [96.4-99.1 DegF] (06/23/2012 15:00:00) (06/23/2012 11:33:00) (06/23/2012 08: 16:00) Systolic Blood Pressure 98 mmHg 110 mmHg 89 mmHg [90-140 mmHg] (06/23/2012 15:00:00) (06/23/2012 11:33:00) *LOW* (06/23/2012 08:16:00) Diastolic Blood Pressure 65 mmHg 74 mmHg 55 mmHg [60-90 mmHg] (06/23/2012 15:00:00) (06/23/2012 11:33:00) *LOW* (06/23/2012 08:16:00) Respiratory Rate [14-20 20 BRMIN 20 BRMIN 20 BRMIN BRMIN] (06/23/2012 15:00:00) (06/23/2012 11:33:00) (06/23/2012 08:16:00) Peripheral Pulse Rate 53 bpm 54 bpm 63 bpm [60-100 bpm] *LOW* *LOW* (06/23/2012 08:16:00) (06/23/2012 15:00:00) (06/23/2012 11:33:00) Weight 47.727 kg 50.000 kg (06/22/2012 22:45:00) (06/22/2012 14:02:00) Results BEDSIDE GLUCOSE TESTING Most recent to oldest 1 2 3 [Reference Range]: Gluc POC Lifscn [70-99 93 mg/dL 1 113 mg/dL 2 88 mg/dL 3 mg/dL] (06/23/2012 16:55:00) *HI* (06/23/2012 05:55:00) (06/23/2012 11:52:00) Comment1 Notify RN/MD Notify RN/MD Notify RN/MD *NA* *NA* *NA* (06/23/2012 16:55:00) (06/23/2012 11:52:00) (06/23/2012 05:55:00) 1Interpretive Data: Upper Reportable Limit: 200 mg/dL.2Interpretive Data: Upper Reportable Limit: 200 mg/dL.3Interpretive Data: Upper Reportable Limit: 200 mg/dL.URINALYSIS Most recent to oldest [Reference Range]: 1 2 3 UA Turbidity [Clear] Clear (06/22/2012 15:50:00) UA Color [Yellow] Yellow *NA* (06/22/2012 15:50:00) UA pH [5.0-8.0] 6.0 (06/22/2012 15:50:00) UA Spec Grav [<=1.030] >=1.030 *ABN* (06/22/2012 15:50:00) UA Glucose [Negative] Negative (06/22/2012 15:50:00) UA Blood [Negative] Trace *ABN* (06/22/2012 15:50:00) UA Ketones [Negative mg/dL] 40 mg/dL *NA* (06/22/2012 15:50:00) UA Protein [Negative mg/dL] 30 mg/dL *ABN* (06/22/2012 15:50:00) UA Urobilinogen [0.1-1.0 EU/dL] 1.0 EU/dL (06/22/2012 15:50:00) UA Bili [Negative] Negative *NA* (06/22/2012 15:50:00) UA Leuk Est [Negative] Negative (06/22/2012 15:50:00) UA Nitrite [Negative] Negative (06/22/2012 15:50:00) UA WBC [None Seen /HPF] 0-2 /HPF (06/22/2012 15:50:00) UA Bacteria [None Seen /HPF] Occasional /HPF (06/22/2012 15:50:00) UA Sq Epi [Few /LPF] Occasional /LPF (06/22/2012 15:50:00) UA Mucus [None Seen /LPF] Few /LPF (06/22/2012 15:50:00) CHEMISTRY Most recent to oldest [Reference 1 2 3 Range]: Sodium Lvl [135-145 mEq/L] 144 mEq/L 139 mEq/L (06/23/2012 05:45:00) (06/22/2012 14:10:00) Potassium Lvl [3.5-5.1 mEq/L] 3.5 mEq/L 4.1 mEq/L (06/23/2012 05:45:00) (06/22/2012 14:10:00) Chloride Lvl [95-109 mEq/L] 113 mEq/L 106 mEq/L *HI* (06/22/2012 14:10:00) (06/23/2012 05:45:00) CO2 [24-32 mEq/L] 21 mEq/L 20 mEq/L *LOW* *LOW* (06/23/2012 05:45:00) (06/22/2012 14:10:00) AGAP [10.0-20.0 mEq/L] 13.5 mEq/L 17.1 mEq/L (06/23/2012 05:45:00) (06/22/2012 14:10:00) Creatinine Lvl [0.5-1.4 mg/dL] 0.8 mg/dL 0.9 mg/dL (06/23/2012 05:45:00) (06/22/2012 14:10:00) eGFR 117 mL/min/1.73m2 4 101 mL/min/1.73m2 5 *NA* *NA* (06/23/2012 05:45:00) (06/22/2012 14:10:00) BUN [7-22 mg/dL] 13 mg/dL 15 mg/dL (06/23/2012 05:45:00) (06/22/2012 14:10:00) B/C Ratio [6-25] 17 (06/22/2012 14:10:00) Glucose Lvl [70-99 mg/dL] 69 mg/dL 6 119 mg/dL 7 *LOW* *HI* (06/23/2012 05:45:00) (06/22/2012 14:10:00) Total Protein [6.4-8.4 g/dL] 8.6 g/dL *HI* (06/22/2012 14:10:00) Albumin Lvl [3.5-5.0 g/dL] 4.3 g/dL (06/22/2012 14:10:00) Globulin [2.0-4.0 g/dL] 4.3 g/dL *HI* (06/22/2012 14:10:00) A/G Ratio [0.7-1.6] 1.0 (06/22/2012 14:10:00) Calcium Lvl [8.5-10.5 mg/dL] 7.4 mg/dL 9.4 mg/dL *LOW* (06/22/2012 14:10:00) (06/23/2012 05:45:00) ALT [0-65 unit/L] 17 unit/L (06/22/2012 14:10:00) AST [0-37 unit/L] 12 unit/L (06/22/2012 14:10:00) Alk Phos [39-136 unit/L] 74 unit/L (06/22/2012 14:10:00) Bili Total [0.2-1.3 mg/dL] 0.4 mg/dL (06/22/2012 14:10:00) Amylase Lvl [25-115 unit/L] 46 unit/L (06/22/2012 14:10:00) Lipase Lvl [73-393 unit/L] 40 unit/L *LOW* (06/22/2012 14:10:00) Hgb A1C <3.5 % 8, 9 *NA* (06/23/2012 05:45:00) U Amph Scr [Negative] Negative *NA* (06/22/2012 15:50:00) U Abbi Scr [Negative] Negative *NA* (06/22/2012 15:50:00) U Benzodia Scr [Negative] Negative *NA* (06/22/2012 15:50:00) U Cocaine Scr [Negative] Positive *ABN* (06/22/2012 15:50:00) U Opiate Scr [Negative] Positive *ABN* (06/22/2012 15:50:00) U Phencyc Scr [Negative] Negative *NA* (06/22/2012 15:50:00) U Cannab Scr [Negative] Positive *ABN* (06/22/2012 15:50:00) UDS Note See Note 10 (06/22/2012 15:50:00) Valproic Acid Lvl [50-100 ug/ml] 46 ug/ml *LOW* (06/23/2012 05:45:00) U Preg [Negative] Negative (06/22/2012 15:50:00) 4Result Comment: The eGFR is calculated using the CKD-EPI formula. In most young , healthy individualsthe eGFR will be >90 mL/min/1.73m2. The eGFR declines with age. An eGFR of 60-89 may be normal in some populations, particularly the elderly, for whom the CKD-EPI formula has not been extensively validated. Use of the eGFR is not recommended in the following populations: Individuals with unstable creatinine concentrations, including patients and those with serious co-morbid conditions. Patients with extremes in muscle mass or diet. The data above are obtained from the National Kid[employer] Disease Education Program ( NKDEP) which additionally recommends that when the eGFR is used in patients with extremes of body mass index for purposesof drug dosing, the eGFR should be multiplied by the estimated BMI.5Result Comment: The eGFR is calculated using the CKD-EPI formula. In most young, healthy individualsthe eGFR will be >90 mL/ min/1.73m2. The eGFR declines with age. An eGFR of 60-89 may be normal in some populations, particularly the elderly, for whom the CKD-EPI formula has not been extensively validated. Use of the eGFR is not recommended in the following populations: Individuals with unstable creatinine concentrations, including patients and those with serious co-morbid conditions. Patients with extremes in muscle mass or diet. The data above are obtained from the National Kid[employer] Disease Education Program ( NKDEP) which additionally recommends that when the eGFR is used in patients with extremes of body mass index for purposesof drug dosing, the eGFR should be multiplied by the estimated BMI.6Interpretive Data: Adult reference range values reflect the clinical guidelines of the [place] [employer].7Interpretive Data: Adult reference range values reflect the clinical guidelines of the [place] [employer].8Interpretive Data: HbA1C% eAG(mg/dL ) Interpretation 6.0 126 Very good control 6.5 140 Very good control 7.0 154 Good Control 7.5 169 Good Control 8.0 183 Marginal Control, take action to lower 8.5 197 Marginal Control, take action to lower 9.0 212 Poor Control, take action to lower 9.5 226 Poor Control, take action to lower 10.0 240 Poor Control, take action to [id number] Comment: reran sample twice.10Interpretive Data: Drugs reported as positive have not been confirmed by a second method and should be used for medical purposes only. To order confirmation, contact laboratory. note: Below are cut-off [...] ng/mL Methadone 300 ng/mL Urine alcohol 20 mg/dLHEMATOLOGY Most recent to oldest [Reference 1 2 3 Range]: WBC [3.7-10.4 K/CMM] 5.0 K/CMM 6.4 K/CMM (06/23/2012 05:45:00) (06/22/2012 14:10:00) RBC [4.20-5.40 M/CMM] 3.14 M/CMM 4.12 M/CMM *LOW* *LOW* (06/23/2012 05:45:00) (06/22/2012 14:10:00) Hgb [12.0-16.0 g/dL] 8.9 g/dL 11.7 g/dL *LOW* *LOW* (06/23/2012 05:45:00) (06/22/2012 14:10:00) Hct [36.0-48.0 %] 27.1 % 35.3 % *LOW* *LOW* (06/23/2012 05:45:00) (06/22/2012 14:10:00) MCV [81.0-99.0 fL] 86.2 fL 85.7 fL (06/23/2012 05:45:00) (06/22/2012 14:10:00) MCH [27.0-31.0 pg] 28.5 pg 28.5 pg (06/23/2012 05:45:00) (06/22/2012 14:10:00) MCHC [32.0-36.0 g/dL] 33.0 g/dL 33.2 g/dL (06/23/2012 05:45:00) (06/22/2012 14:10:00) RDW [11.5-14.5 %] 16.1 % 15.8 % *HI* *HI* (06/23/2012 05:45:00) (06/22/2012 14:10:00) Platelet [133-450 K/CMM] 154 K/CMM 214 K/CMM (06/23/2012 05:45:00) (06/22/2012 14:10:00) MPV [7.4-10.4 fL] 10.3 fL 10.2 fL (06/23/2012 05:45:00) (06/22/2012 14:10:00) Segs [45.0-75.0 %] 53.4 % 86.0 % (06/23/2012 05:45:00) *HI* (06/22/2012 14:10:00) Lymphocytes [20.0-40.0 %] 35.5 % 9.4 % (06/23/2012 05:45:00) *LOW* (06/22/2012 14:10:00) Monocytes [2.0-12.0 %] 10.4 % 4.4 % (06/23/2012 05:45:00) (06/22/2012 14:10:00) Eosinophils [0.0-4.0 %] 0.3 % 0.0 % (06/23/2012 05:45:00) (06/22/2012 14:10:00) Basophils [0.0-1.0 %] 0.4 % 0.2 % (06/23/2012 05:45:00) (06/22/2012 14:10:00) Segs-Bands # [1.5-8.1 K/CMM] 2.7 K/CMM 5.5 K/CMM (06/23/2012 05:45:00) (06/22/2012 14:10:00) Lymphocytes # [1.0-5.5 K/CMM] 1.8 K/CMM 0.6 K/CMM (06/23/2012 05:45:00) *LOW* (06/22/2012 14:10:00) Monocytes # [0.0-0.8 K/CMM] 0.5 K/CMM 0.3 K/CMM (06/23/2012 05:45:00) (06/22/2012 14:10:00) Eosinophils # [0.0-0.5 K/CMM] 0.0 K/CMM 0.0 K/CMM (06/23/2012 05:45:00) (06/22/2012 14:10:00) Basophils # [0.0-0.2 K/CMM] 0.0 K/CMM 0.0 K/CMM (06/23/2012 05:45:00) (06/22/2012 14:10:00) Polychrom [None Seen] Slight (06/22/2012 14:10:00) Target Cell [None Seen] Slight *ABN* (06/22/2012 14:10:00) Tear Cell [None Seen] Slight *ABN* (06/23/2012 05:45:00) Elliptocyte [None Seen] Slight *ABN* (06/23/2012 05:45:00) Giant Plt [None Seen] Slight *ABN* (06/23/2012 05:45:00) Large Plt [None Seen] Slight *ABN* (06/22/2012 14:10:00) Microbiology Reports PROCEDURE:Culture: Urine STATUS: Auth (Verified) BODY SITE: COLLECTED DATE/TIME: 06/22/2012 15:50:00 SOURCE: Urine, Catheterized FREE TEXT SOURCE: FINAL REPORTS Final ReportNo GrowthPRELIMINARY REPORTS Preliminary ReportNo Growth; Holding Procedures Procedures Date Related Diagnosis section 1 17 months before
--- OUTSIDE RECORDS SUMMARY | 2018-06-04 11:16 | XMS REPORT | CCD ---
:1985 Author Organization [facility] Care Team Providers Name Role Phone Meka Seymourponcedarcy Jose Consulting Provider Allergies, Adverse Reactions, Alerts Substance Reaction Status NKDA NKDA Canceled NKDA - No known drug allergies Zofran Canceled Medications Medication Instructions Start Date End Date Status Reglan 10 mg, 2 mL, Route: IV, 05/12/2011 05/12/2011 Completed Drug form: INJ, ONCE, Start date: 05/12/11 22:11:00, Stop date: 05/12/11 22:11:00 potassium chloride 20 mEq 20 mEq, 1 tab, Route: PO, 05/13/2011 05/13/2011 Completed oral tablet, extended Drug form: ERTAB, ONCE, release Priority: STAT, Start date: 05/13/11 0:31:00, Stop date: 05/13/11 0:31:00 Zofran 4 mg oral tablet 4 mg, 1 tab, PO, ONCE, 3 05/13/2011 05/13/2011 Ordered tab, Substitution Allowed, TAB ondansetron 4 mg, 2 mL, Route: IVP, 05/12/2011 05/12/2011 Completed Drug form: INJ, ONCE, Priority: STAT, Start date: 05/12/11 21:25:00, Stop date: 05/12/11 21:25:00 morphine Sulfate 4 mg, 1 mL, Route: IVP, 05/12/2011 05/12/2011 Completed Drug form: INJ, ONCE, Priority: STAT, Start date: 05/12/11 21:25:00, Stop date: 05/12/11 21:25:00 Saline Flush 0.9% 5 ml, Route: IVP, Drug 05/12/2011 05/13/2011 Discontinued Form: INJ, PRN, PRN Line Flush, Start date: 05/12/11 21:25:00, Duration: 30 day, Stop date: 06/11/11 21:24:00 Sodium Chloride 0.9% 500 mL, Rate: 500 ml/hr, 05/12/2011 05/12/2011 Completed (Bolus) IV 500 mL Infuse over: 1 hr, Route: IV, Total Volume: 500, Bolus dose, Priority: STAT, Start date: 05/12/11 21:25:00, Duration: 1 doses or times, Stop date: 05/12/11 22:24:00 Vital Signs Most recent to oldest [Reference Range]: 1 Temperature Oral [96.4-99.1 DegF] 98.6 DegF (05/12/2011 20:00:00) Systolic Blood Pressure [90-140 mmHg] 102 mmHg (05/12/2011 20:00:00) Diastolic Blood Pressure [60-90 mmHg] 59 mmHg *LOW* (05/12/2011 20:00:00) Respiratory Rate [14-20 BRMIN] 18 BRMIN (05/12/2011 20:00:00) Peripheral Pulse Rate [60-100 bpm] 72 bpm (05/12/2011 20:00:00) Results URINALYSIS Most recent to oldest [Reference Range]: 1 UA Turbidity [Clear] Clear (05/13/2011 00:50:00) UA Color [Yellow] Yellow (05/13/2011 00:50:00) UA pH [5.0-8.0] 6.0 (05/13/2011 00:50:00) UA Spec Grav [<=1.030] >=1.030 *ABN* (05/13/2011 00:50:00) UA Glucose [Negative] Negative (05/13/2011 00:50:00) UA Blood [Negative] Negative (05/13/2011 00:50:00) UA Ketones [Negative mg/dL] >=80 mg/dL (05/13/2011 00:50:00) UA Protein [Negative] Trace *ABN* (05/13/2011 00:50:00) UA Urobilinogen [0.1-1.0 EU/dL] 0.2 EU/dL (05/13/2011 00:50:00) UA Bili [Negative] Negative (05/13/2011 00:50:00) UA Leuk Est [Negative] Trace *ABN* (05/13/2011 00:50:00) UA Nitrite [Negative] Negative (05/13/2011 00:50:00) UA WBC [None Seen /HPF] 11-20 /HPF *ABN* (05/13/2011 00:50:00) UA RBC [0-2 /HPF] 0-2 /HPF (05/13/2011 00:50:00) UA Bacteria [None Seen /HPF] Few /HPF (05/13/2011 00:50:00) UA Sq Epi [Few /LPF] Few /LPF (05/13/2011 00:50:00) UA Mucus [None Seen /LPF] Few /LPF (05/13/2011 00:50:00) UA Trichomonas [None Seen /HPF] Rare /HPF *ABN* (05/13/2011 00:50:00) Micro? Performed (05/13/2011 00:50:00) BLOOD BANK RESULTS Most recent to oldest [Reference Range]: 1 ABO/Rh O POS *Unknown* (05/12/2011 22:10:00) Antibody Scrn Negative (05/12/2011 22:10:00) CHEMISTRY Most recent to oldest [Reference Range]: 1 Sodium Lvl [135-145 mEq/L] 135 mEq/L (05/12/2011 22:10:00) Potassium Lvl [3.5-5.1 mEq/L] 3.0 mEq/L 1 *CRIT* (05/12/2011 22:10:00) Chloride Lvl [95-109 mEq/L] 104 mEq/L (05/12/2011 22:10:00) CO2 [24-32 mEq/L] 20 mEq/L *LOW* (05/12/2011 22:10:00) AGAP [10.0-20.0 mEq/L] 14.0 mEq/L (05/12/2011 22:10:00) Creatinine Lvl [0.5-1.4 mg/dL] 0.6 mg/dL (05/12/2011 22:10:00) BUN [7-22 mg/dL] 6 mg/dL *LOW* (05/12/2011 22:10:00) B/C Ratio [6-25] 10 (05/12/2011 22:10:00) Glucose Lvl 92 mg/dL 2 *NA* (05/12/2011 22:10:00) Total Protein [6.4-8.4 g/dL] 7.7 g/dL (05/12/2011 22:10:00) Albumin Lvl [3.5-5.0 g/dL] 3.6 g/dL (05/12/2011 22:10:00) Globulin [2.0-4.0 g/dL] 4.1 g/dL *HI* (05/12/2011 22:10:00) A/G Ratio [0.7-1.6] 0.9 (05/12/2011 22:10:00) Calcium Lvl [8.5-10.5 mg/dL] 8.4 mg/dL *LOW* (05/12/2011 22:10:00) ALT [0-65 U/L] 13 U/L (05/12/2011 22:10:00) AST [0-37 U/L] 5 U/L (05/12/2011 22:10:00) Alk Phos [39-136 U/L] 41 U/L (05/12/2011 22:10:00) Bili Total [0.2-1.3 mg/dL] 0.4 mg/dL (05/12/2011 22:10:00) hCG Tot 355638 mIU/mL 3 *NA* (05/12/2011 22:10:00) 1Result Comment: Critical Result(s) called to Joan at 05/12/2011 22:50 by [facility]. Read back OK.2Interpretive Data: Reference Ranges : 0 - 7 days : 41 - 90 mg/dL7 days - 150 yrs : 70 - 99 mg/dL (fasting), based on the clinical recommendations of the [place] [employer].3Interpretive Data: Reference Range: Male 0 - 5 mIU/mL Non- Female 0- 5 mIU/mLNote: hCG result should be used in conjunction with symptoms, results of other tests, and clinical impressions.Weeks of Gestation hCG ( mIU/mL) 3 6 - 71 4 10-750 5 217 - 7,138 6 158 -31,795 7 3,697 - 163,563 8 32, 065 - 149,571 9 63,803 - 151,410 10 46,506 - 186,977 11 27,832 - 210,612 14 13,950 - 62,530 15 12,039 - 70,971 16 9 ,040 - 56,451 17 8,175 - 55,868 18 8 ,099 - 58,176HEMATOLOGY Most recent to oldest [Reference Range]: 1 WBC [3.7-10.4 K/CMM] 4.7 K/CMM (05/12/2011 22:10:00) RBC [4.20-5.40 M/CMM] 3.59 M/CMM *LOW* (05/12/2011 22:10:00) Hgb [12.0-16.0 g/dL] 10.9 g/dL *LOW* (05/12/2011 22:10:00) Hct [36.0-48.0 %] 31.4 % *LOW* (05/12/2011 22:10:00) MCV [81.0-99.0 fL] 87.4 fL (05/12/2011 22:10:00) MCH [27.0-31.0 pg] 30.4 pg (05/12/2011 22:10:00) MCHC [32.0-36.0 g/dL] 34.8 g/dL (05/12/2011 22:10:00) RDW [11.5-14.5 %] 14.1 % (05/12/2011 22:10:00) Platelet [133-450 K/CMM] 237 K/CMM (05/12/2011 22:10:00) MPV [7.4-10.4 fL] 8.7 fL (05/12/2011 22:10:00)
--- OUTSIDE RECORDS SUMMARY | 2018-06-04 11:16 | XMS REPORT | CCD ---
:1985 Author Organization [facility] Care Team Providers Name Role Phone Chuck Valdovinosneth Joaquim Consulting Provider Allergies, Adverse Reactions, Alerts Substance Reaction Status NKDA NKDA Canceled NKDA - No known drug allergies Zofran Canceled Medications Medication Instructions Start Date End Date Status Reglan 10 mg, 2 mL, Route: IV, 05/14/2011 05/14/2011 Completed Drug form: INJ, ONCE, Start date: 05/14/11 6:42:00, Stop date: 05/14/11 6:42:00 Sodium Chloride 0.9% 1,000 mL, Rate: 1,000 05/14/2011 05/14/2011 Completed (Bolus) IV 1,000 mL ml/hr, Infuse over: 1 hr, Route: IV, Total Volume: 1,000, Bolus Dose, Priority: STAT, Start date: 05/14/11 6:41:00, Duration: 1 doses or times, Stop date: 05/14/11 7:40:00 Reglan 10 mg oral tablet 10 mg, PO, QID-Before 05/14/2011 Ordered Meals, PRN, 40 tab, nausea and vomiting, Substitution Allowed ondansetron 8 mg, 4 mL, Route: IVP, 05/14/2011 05/14/2011 Completed Drug form: INJ, ONCE, Priority: STAT, Start date: 05/14/11 8:21:00, Stop date: 05/14/11 8:21:00 Sodium Chloride 0.9% IV 250 mL, Route: IVPB, 05/14/2011 05/14/2011 Discontinued PRN, Line Flush, Start date: 05/14/11 7:01:00, Duration: 30 day, Stop date: 06/13/11 7:00:00 BD Normal Saline Flush 10 mL, Route: IVP, Drug 05/14/2011 05/14/2011 Discontinued Form: INJ, PRN, PRN Line Flush, Start date: 05/14/11 7:01:00, Duration: 30 day, Stop date: 06/13/11 7:00:00 acetaminophen 650 mg, 2 tab, Route: 05/14/2011 05/14/2011 Completed PO, Drug form: TAB, ONCE, Priority: STAT, Start date: 05/14/11 7:32:00, Stop date: 05/14/11 7:32:00 Vital Signs Most recent to oldest [Reference 1 2 Range]: Height 157.48 cm (05/14/2011 04:39:00) Temperature Oral [96.4-99.1 DegF] 98.2 DegF 98.6 DegF (05/14/2011 10:01:00) (05/14/2011 04:39:00) Systolic Blood Pressure [90-140 mmHg] 136 mmHg 111 mmHg (05/14/2011 10:01:00) (05/14/2011 04:39:00) Diastolic Blood Pressure [60-90 mmHg] 74 mmHg 86 mmHg (05/14/2011 10:01:00) (05/14/2011 04:39:00) Respiratory Rate [14-20 BRMIN] 18 BRMIN 19 BRMIN (05/14/2011 10:01:00) (05/14/2011 04:39:00) Peripheral Pulse Rate [60-100 bpm] 68 bpm 86 bpm (05/14/2011 10:01:00) (05/14/2011 04:39:00) Weight 54.545 kg (05/14/2011 04:39:00) Results CHEMISTRY Most recent to oldest [Reference Range]: 1 Sodium Lvl [135-145 mEq/L] 136 mEq/L (05/14/2011 07:30:00) Potassium Lvl [3.5-5.1 mEq/L] 3.2 mEq/L *LOW* (05/14/2011 07:30:00) Chloride Lvl [95-109 mEq/L] 103 mEq/L (05/14/2011 07:30:00) CO2 [24-32 mEq/L] 18 mEq/L *LOW* (05/14/2011 07:30:00) AGAP [10.0-20.0 mEq/L] 18.2 mEq/L (05/14/2011 07:30:00) Creatinine Lvl [0.5-1.4 mg/dL] 0.6 mg/dL (05/14/2011 07:30:00) BUN [7-22 mg/dL] 12 mg/dL (05/14/2011 07:30:00) Glucose Lvl 105 mg/dL 1 *NA* (05/14/2011:30:00) Calcium Lvl [8.5-10.5 mg/dL] 9.5 mg/dL (05/14/2011:30:00) Ketones Qual [Negative] Negative (05/14/2011:30:00) 1Interpretive Data: Reference Ranges : 0 - 7 days : 41 - 90 mg/dL7 days - 150 yrs : 70 - 99 mg/dL (fasting), based on the clinical recommendations of the [place] [employer].HEMATOLOGY Most recent to oldest [Reference Range]: 1 WBC [3.7-10.4 K/CMM] 7.7 K/CMM (05/14/2011 07:30:00) RBC [4.20-5.40 M/CMM] 4.15 M/CMM *LOW* (05/14/2011 07:30:00) Hgb [12.0-16.0 g/dL] 12.3 g/dL (05/14/2011:30:00) Hct [36.0-48.0 %] 36.3 % (05/14/2011 07:30:00) MCV [81.0-99.0 fL] 87.4 fL (05/14/2011:30:00) MCH [27.0-31.0 pg] 29.6 pg (05/14/2011:30:00) MCHC [32.0-36.0 g/dL] 33.8 g/dL (05/14/2011:30:00) RDW [11.5-14.5 %] 13.7 % (05/14/2011 07:30:00) Platelet [133-450 K/CMM] 292 K/CMM (05/14/2011 07:30:00) MPV [7.4-10.4 fL] 9.1 fL (05/14/2011 07:30:00) Segs [45.0-75.0 %] 81.2 % *HI* (05/14/2011 07:30:00) Lymphocytes [20.0-40.0 %] 8.1 % *LOW* (05/14/2011 07:30:00) Monocytes [2.0-12.0 %] 8.4 % (05/14/2011 07:30:00) Eosinophils [0.0-4.0 %] 0.0 % (05/14/2011 07:30:00) Basophils [0.0-1.0 %] 2.3 % *HI* (05/14/2011 07:30:00) Segs-Bands # [1.5-8.1 K/CMM] 6.2 K/CMM (05/14/2011 07:30:00) Lymphocytes # [1.0-5.5 K/CMM] 0.6 K/CMM *LOW* (05/14/2011 07:30:00) Monocytes # [0.0-0.8 K/CMM] 0.6 K/CMM (05/14/2011 07:30:00) Eosinophils # [0.0-0.5 K/CMM] 0.0 K/CMM (05/14/2011 07:30:00) Basophils # [0.0-0.2 K/CMM] 0.2 K/CMM (05/14/2011 07:30:00) Tear Cell [None Seen] Slight *ABN* (05/14/2011 07:30:00) Elliptocyte [None Seen] Slight *ABN* (05/14/2011 07:30:00) Giant Plt [None Seen] Slight *ABN* (05/14/2011 07:30:00) Large Plt [None Seen] Slight *ABN* (05/14/2011 07:30:00)
--- OUTSIDE RECORDS SUMMARY | 2018-06-04 11:16 | XMS REPORT | CCD ---
:1985 Author Organization [facility] Care Team Providers Name Role Phone Benjamin Anderson Consulting Provider Allergies, Adverse Reactions, Alerts Substance Reaction Status ondansetron Active Problem List Condition Effective Dates Status Gastroparesis Resolved Seizure Resolved Medications Medication Instructions Start Date End Date Status morphine Sulfate 5 mg, 1 mL, Route: IVP, 08/05/2012 08/05/2012 Completed Drug form: INJ, ONCE, Dosing Weight 47.727, kg, Priority: STAT, Start date: 08/05/12 17:21:00, Stop date: 08/05/12 17:21:00 promethazine 25 mg, 1 mL, Route: IM, 08/05/2012 08/05/2012 Completed Drug form: INJ, ONCE, Dosing Weight 47.727, kg, Priority: STAT, Start date: 08/05/12 17:21:00, Stop date: 08/05/12 17:21:00 Phenergan 25 mg rectal 1 supp, MI, Q6H, PRN, 9 08/05/2012 Ordered suppository supp, Nausea & Vomiting, Substitution Allowed Phenergan 25 mg oral 25 mg, 1 tab, PO, Q4H, 08/05/2012 Ordered tablet PRN, 20 tab, Nausea, Substitution Allowed Reglan 10 mg, 2 mL, Route: IVP, 08/05/2012 08/05/2012 Completed Drug form: INJ, ONCE, Dosing Weight 47.727, kg, Priority: STAT, Start date: 08/05/12 14:40:00, Stop date: 08/05/12 14:40:00 morphine Sulfate 5 mg, 1 mL, Route: IVP, 08/05/2012 08/05/2012 Completed Drug form: INJ, ONCE, Dosing Weight 47.727, kg, Priority: STAT, Start date: 08/05/12 14:40:00, Stop date: 08/05/12 14:40:00 Saline Flush 0.9% 5 mL, Route: IVP, Drug 08/05/2012 08/05/2012 Discontinued Form: INJ, Dosing Weight 47.727, kg, PRN, PRN Line Flush, Start date: 08/05/12 14:40:00, Duration: 24 hr, Stop date: 08/06/12 14:39:00 Sodium Chloride 0.9% 1,000 mL, Rate: 1,000 08/05/2012 08/05/2012 Completed (Bolus) IV 1,000 mL ml/hr, Infuse over: 1 hr, Route: IV, kg, Total Volume: 1,000, Priority: STAT, Start date: 08/05/12 14:40:00, Duration: 1 doses or times, Stop date: 08/05/12 15:39:00 Results URINALYSIS Most recent to oldest [Reference Range]: 1 UA Turbidity [Clear] Slight Cloudy (08/05/2012 17:19:00) UA Color [Yellow] Yellow *NA* (08/05/2012 17:19:00) UA pH [5.0-8.0] 7.0 (08/05/2012 17:19:00) UA Spec Grav [<=1.030] 1.020 (08/05/2012 17:19:00) UA Glucose [Negative] Negative (08/05/2012 17:19:00) UA Blood [Negative] Negative (08/05/2012 17:19:00) UA Ketones [Negative mg/dL] >=80 mg/dL *NA* (08/05/2012 17:19:00) UA Protein [Negative mg/dL] 30 mg/dL *ABN* (08/05/2012 17:19:00) UA Urobilinogen [0.1-1.0 EU/dL] 1.0 EU/dL (08/05/2012 17:19:00) UA Bili [Negative] Negative *NA* (08/05/2012 17:19:00) UA Leuk Est [Negative] Negative (08/05/2012 17:19:00) UA Nitrite [Negative] Negative (08/05/2012 17:19:00) UA WBC [None Seen /HPF] 3-5 /HPF (08/05/2012 17:19:00) UA RBC [0-2 /HPF] 0-2 /HPF (08/05/2012 17:19:00) UA Bacteria [None Seen /HPF] Few /HPF (08/05/2012 17:19:00) UA Sq Epi [Few /LPF] Moderate /LPF *ABN* (08/05/2012 17:19:00) UA Mucus [None Seen /LPF] Many /LPF *ABN* (08/05/2012 17:19:00) Micro? Performed (08/05/2012 17:19:00) CHEMISTRY Most recent to oldest [Reference Range]: 1 Sodium Lvl [135-145 mEq/L] 142 mEq/L (08/05/2012 15:40:00) Potassium Lvl [3.5-5.1 mEq/L] 3.5 mEq/L (08/05/2012:40:00) Chloride Lvl [95-109 mEq/L] 108 mEq/L (08/05/2012 15:40:00) CO2 [24-32 mEq/L] 23 mEq/L *LOW* (08/05/2012 15:40:00) AGAP [10.0-20.0 mEq/L] 14.5 mEq/L (08/05/2012 15:40:00) Creatinine Lvl [0.5-1.4 mg/dL] 0.7 mg/dL (08/05/2012 15:40:00) eGFR 137 mL/min/1.73m2 1 *NA* (08/05/2012 15:40:00) BUN [7-22 mg/dL] 6 mg/dL *LOW* (08/05/2012 15:40:00) B/C Ratio [6-25] 9 (08/05/2012 15:40:00) Glucose Lvl [70-99 mg/dL] 120 mg/dL 2 *HI* (08/05/2012 15:40:00) Total Protein [6.4-8.4 g/dL] 9.1 g/dL *HI* (08/05/2012 15:40:00) Albumin Lvl [3.5-5.0 g/dL] 4.2 g/dL (08/05/2012 15:40:00) Globulin [2.0-4.0 g/dL] 4.9 g/dL *HI* (08/05/2012 15:40:00) A/G Ratio [0.7-1.6] 0.9 (08/05/2012:40:00) Calcium Lvl [8.5-10.5 mg/dL] 9.5 mg/dL (08/05/2012 15:40:00) ALT [0-65 unit/L] 18 unit/L (08/05/2012:40:00) AST [0-37 unit/L] 14 unit/L (08/05/2012:40:00) Alk Phos [39-136 unit/L] 85 unit/L (08/05/2012:40:00) Bili Total [0.2-1.3 mg/dL] 0.4 mg/dL (08/05/2012:40:00) Lipase Lvl [73-393 unit/L] 58 unit/L *LOW* (08/05/2012:40:00) U Preg [Negative] Negative (08/05/2012 17:19:00) 1Result Comment: The eGFR is calculated using [...] eGFR should be multiplied by the estimated BMI.2Interpretive Data: Adult reference range values reflect the clinical guidelines of the [place] [employer].HEMATOLOGY Most recent to oldest [Reference Range]: 1 WBC [3.7-10.4 K/CMM] 4.4 K/CMM (08/05/2012 15:40:00) RBC [4.20-5.40 M/CMM] 4.45 M/CMM (08/05/2012 15:40:00) Hgb [12.0-16.0 g/dL] 12.4 g/dL (08/05/2012 15:40:00) Hct [36.0-48.0 %] 37.9 % (08/05/2012 15:40:00) MCV [81.0-99.0 fL] 85.2 fL (08/05/2012 15:40:00) MCH [27.0-31.0 pg] 27.9 pg (08/05/2012 15:40:00) MCHC [32.0-36.0 g/dL] 32.8 g/dL (08/05/2012 15:40:00) RDW [11.5-14.5 %] 15.3 % *HI* (08/05/2012 15:40:00) Platelet [133-450 K/CMM] 282 K/CMM (08/05/2012 15:40:00) MPV [7.4-10.4 fL] 9.6 fL (08/05/2012 15:40:00) Segs [45.0-75.0 %] 93.3 % *HI* (08/05/2012 15:40:00) Lymphocytes [20.0-40.0 %] 5.6 % *LOW* (08/05/2012 15:40:00) Monocytes [2.0-12.0 %] 1.0 % *LOW* (08/05/2012 15:40:00) Eosinophils [0.0-4.0 %] 0.0 % (08/05/2012 15:40:00) Basophils [0.0-1.0 %] 0.1 % (08/05/2012 15:40:00) Segs-Bands # [1.5-8.1 K/CMM] 4.1 K/CMM (08/05/2012 15:40:00) Lymphocytes # [1.0-5.5 K/CMM] 0.2 K/CMM *LOW* (08/05/2012 15:40:00) Monocytes # [0.0-0.8 K/CMM] 0.0 K/CMM (08/05/2012 15:40:00) Eosinophils # [0.0-0.5 K/CMM] 0.0 K/CMM (08/05/2012 15:40:00) Basophils # [0.0-0.2 K/CMM] 0.0 K/CMM (08/05/2012 15:40:00) Polychrom [None Seen] Slight (08/05/2012 15:40:00) Hypochrom [None Seen] Slight (08/05/2012 15:40:00) Target Cell [None Seen] Slight *ABN* (08/05/2012 15:40:00) Elliptocyte [None Seen] Slight *ABN* (08/05/2012 15:40:00) Giant Plt [None Seen] Slight *ABN* (08/05/2012 15:40:00) Large Plt [None Seen] Slight *ABN* (08/05/2012 15:40:00)
--- OUTSIDE RECORDS SUMMARY | 2018-06-04 11:17 | XMS REPORT | CCD ---
:1985 Author Organization [facility] Care Team Providers Name Role Phone Anupama Seymour Consulting Provider Allergies, Adverse Reactions, Alerts Substance Reaction Status ondansetron Active Problem List Condition Effective Dates Status Gastroparesis Resolved Seizure Resolved Medications Medication Instructions Start Date End Date Status Phenergan 25 mg, 1 mL, Route: IM, 08/17/2012 08/17/2012 Completed Drug form: INJ, ONCE, Dosing Weight 52.273, kg, Priority: STAT, Start date: 08/17/12 19:58:00, Stop date: 08/17/12 19:58:00 Saline Flush 0.9% 5 ml, Route: IVP, Drug 08/17/2012 08/17/2012 Discontinued Form: INJ, Dosing Weight 52.273, kg, PRN, PRN Line Flush, Start date: 08/17/12 19:59:00, Duration: 30 day, Stop date: 09/16/12 19:58:00 Toradol 30 mg/mL 30 mg, Route: IV, ONCE, 08/17/2012 08/17/2012 Completed injectable solution Dosing Weight 52.273, kg, Start date: 08/17/12 20:15:00, Stop date: 08/17/12 20:15:00 Vital Signs Most recent to oldest [Reference Range]: 1 Height 157.48 cm (08/17/2012 18:11:00) Weight 52.273 kg (08/17/2012 18:11:00) Results URINALYSIS Most recent to oldest [Reference Range]: 1 UA Turbidity [Clear] Slight Cloudy (08/17/2012 20:50:00) UA Color [Yellow] Yellow *NA* (08/17/2012 20:50:00) UA pH [5.0-8.0] 6.0 (08/17/2012 20:50:00) UA Spec Grav [<=1.030] >=1.030 *ABN* (08/17/2012 20:50:00) UA Glucose [Negative] Negative (08/17/2012 20:50:00) UA Blood [Negative] Trace *ABN* (08/17/2012 20:50:00) UA Ketones [Negative mg/dL] >=80 mg/dL *NA* (08/17/2012 20:50:00) UA Protein [Negative mg/dL] 30 mg/dL *ABN* (08/17/2012 20:50:00) UA Urobilinogen [0.1-1.0 EU/dL] 1.0 EU/dL (08/17/2012 20:50:00) UA Bili [Negative] Negative *NA* (08/17/2012 20:50:00) UA Leuk Est [Negative] Moderate *ABN* (08/17/2012 20:50:00) UA Nitrite [Negative] Negative (08/17/2012 20:50:00) UA WBC [None Seen /HPF] 21-50 /HPF *ABN* (08/17/2012 20:50:00) UA Bacteria [None Seen /HPF] Many /HPF (08/17/2012 20:50:00) UA Sq Epi [Few /LPF] Occasional /LPF (08/17/2012 20:50:00) UA Mucus [None Seen /LPF] Few /LPF (08/17/2012 20:50:00) CHEMISTRY Most recent to oldest [Reference Range]: 1 Sodium Lvl [135-145 mEq/L] 141 mEq/L (08/17/2012 20:11:00) Potassium Lvl [3.5-5.1 mEq/L] 3.7 mEq/L (08/17/2012 20:11:00) Chloride Lvl [95-109 mEq/L] 104 mEq/L (08/17/2012 20:11:00) CO2 [24-32 mEq/L] 22 mEq/L *LOW* (08/17/2012 20:11:00) AGAP [10.0-20.0 mEq/L] 18.7 mEq/L (08/17/2012 20:11:00) Creatinine Lvl [0.5-1.4 mg/dL] 0.6 mg/dL (08/17/2012:1100) eGFR 144 mL/min/1.73m2 1 *NA* (08/17/2012:11:00) BUN [7-22 mg/dL] 7 mg/dL (08/17/2012:11:00) B/C Ratio [6-25] 12 (08/17/2012:11:00) Glucose Lvl [70-99 mg/dL] 81 mg/dL 2 (08/17/2012:00) Total Protein [6.4-8.4 g/dL] 7.8 g/dL (08/17/2012::00) Albumin Lvl [3.5-5.0 g/dL] 3.6 g/dL (08/17/2012) Globulin [2.0-4.0 g/dL] 4.2 g/dL *HI* (08/17/2012:) A/G Ratio [0.7-1.6] 0.9 (08/17/201200) Calcium Lvl [8.5-10.5 mg/dL] 9.1 mg/dL (08/17/2012:11:00) ALT [0-65 unit/L] 14 unit/L (08/17/2012::00) AST [0-37 unit/L] 16 unit/L (08/17/2012::00) Alk Phos [39-136 unit/L] 84 unit/L (08/17/2012:11:00) Bili Total [0.2-1.3 mg/dL] 0.4 mg/dL (08/17/201211:00) Amylase Lvl [25-115 unit/L] 53 unit/L (08/17/2012:11:00) Lipase Lvl [73-393 unit/L] 71 unit/L *LOW* (08/17/2012:00) Total CK [12-191 unit/L] 114 unit/L (08/17/2012:11:00) CK MB [0.5-3.6 ng/mL] <0.5 ng/mL (08/17/2012:11:00) CK MB Index [0.0-2.5] <0.4 (08/17/2012:11:00) Troponin-I [0.00-0.40 ng/mL] <0.02 ng/mL (08/17/2012:11:00) U Preg [Negative] Negative (08/17/2012 20:50:00) 1Result Comment: The eGFR is calculated using [...] values reflect the clinical guidelines of the [place] [employer].HEMATOLOGY Most recent to oldest [Reference Range]: 1 WBC [3.7-10.4 K/CMM] 6.9 K/CMM (08/17/2012:11:00) RBC [4.20-5.40 M/CMM] 3.98 M/CMM *LOW* (08/17/2012::) Hgb [12.0-16.0 g/dL] 11.2 g/dL *LOW* (08/17/2012:11:00) Hct [36.0-48.0 %] 34.2 % *LOW* (08/17/2012::00) MCV [81.0-99.0 fL] 85.9 fL (08/17/201200) MCH [27.0-31.0 pg] 28.1 pg (08/17/2012:00) MCHC [32.0-36.0 g/dL] 32.8 g/dL (08/17/2012::00) RDW [11.5-14.5 %] 15.6 % *HI* (08/17/2012 20:11:00) Platelet [133-450 K/CMM] 212 K/CMM (08/17/2012:11:00) MPV [7.4-10.4 fL] 10.2 fL (08/17/2012 20:11:00) Segs [45.0-75.0 %] 80.2 % *HI* (08/17/2012:11:00) Lymphocytes [20.0-40.0 %] 12.3 % *LOW* (08/17/2012:11:00) Monocytes [2.0-12.0 %] 6.3 % (08/17/2012:11:00) Eosinophils [0.0-4.0 %] 0.0 % (08/17/2012:11:00) Basophils [0.0-1.0 %] 1.2 % *HI* (08/17/2012:11:00) Segs-Bands # [1.5-8.1 K/CMM] 5.5 K/CMM (08/17/2012 20:11:00) Lymphocytes # [1.0-5.5 K/CMM] 0.9 K/CMM *LOW* (08/17/2012:11:00) Monocytes # [0.0-0.8 K/CMM] 0.4 K/CMM (08/17/2012 20:11:00) Eosinophils # [0.0-0.5 K/CMM] 0.0 K/CMM (08/17/2012:11:00) Basophils # [0.0-0.2 K/CMM] 0.1 K/CMM (08/17/2012 20:11:00) Polychrom [None Seen] Slight (08/17/2012:11:00) Plt Morph Normal (08/17/2012:11:00)
--- OUTSIDE RECORDS SUMMARY | 2018-06-04 11:17 | XMS REPORT ---
:1985 [facility] [address] [place] [address] Dr. Tabares [address] [place] [id number] Care Team Providers Name Role Phone GREGORIA SANDERS JOSIE Unavailable Unavailable [facility] CONSTANTINO CERON Unavailable Unavailable MATT PACK Unavailable Unavailable Problems This patient has no known problems. Allergies, Adverse Reactions, Alerts This patient has no known allergies or adverse reactions. Medications This patient has no known medications. Encounters Start End Encounter Admission Attending Care Care Encounter Date/Time Date/Time Type Type Clinicians Facility Department ID 2012-08-18 2012-08-18 Emergency [facility] [id number] 20:24:58 20:24:58 2012-08-18 2012-08-18 Emergency [facility] [id number] 18:28:56 18:28:56 Results Test Description Test Time Test Comments Text Results Atomic Results Result Comments XR ABD SERIES W/PA 2018-02-04 10:00:20 Procedure: XR ABD SERIES W/PA CXROrder CXR Date: 02/04/2018 4:02 AMOrdering Provider: GREGORIA SANDERSClinical Indication: nausea/vomitingComparison: NoneFindings:Upright chest x-ray:Cardiac size is normal.Pulmonary vasculature is normal.Mediastinal and aortic contour normal.There is no consolidation or effusion.Flat and upright abdomen:There is no small or large bowel distention.There is no pneumoperitoneum.There are no suspicious calcifications.Lumbar scoliosis.Impression:1. No acute abnormality in the chest, abdomen, or pelvis.2. Lumbar scoliosis.This final report was electronically signed by Dr Ousmane Farrell MD 02/04/20189:53 AMDictated By: OUSMANE FARRELLDate: 02/04/2018 10:00 URINALYSIS WITH MICROSCOPIC 2018-02-04 06:08:00 Test Item Value Reference Range Comments Color (test code=UCOLR) Yellow Clarity (test code=UCLAR) CLEAR Glucose (test code=UGLUC) NEGATIVE NEGATIVE Bilirubin (test code=UBILI) SMALL NEGATIVE Ketones (test code=UKET) >=80 NEGATIVE Specific [place] (test code=USPGR) 1.025 1.005-1.030 Blood (test code=UBLD) NEGATIVE NEGATIVE PH (test code=UPH) 6.5 4.5-8.0 Protein (test code=UPROT) 30 NEGATIVE Urobilinogen (test code=U UROB) 0.2 >0.2 Nitrite (test code=UNITR) NEGATIVE NEGATIVE Leukocyte Esterase (test code=ULEUK) NEGATIVE NEGATIVE WBC (test code=WBCUR) 5-10 0-5 RBC (test code=RBCUR) 0-1 0-5 Epithial Cells (test code=U EPI) 40-50 0-10 Mucous (test code=UMUC) Moderate None Seen Bacteria (test code=UBACT) Trace None Seen,Trace TEST, Urine [id number] 06:05:00 Test Item Value Reference Range Comments (Urine) (test code=PREGU) Negative If a specimen is collected by a nurse, then you MUST fill out the Collected and Collected By curran VALPROIC [id number] 05:47:00 Test Item Value Reference Range Comments Valproic Acid (test code=VALPR) <3.0 ug/ml 50.0-120.0 er [id number] 05:39:00 Test Item Value Reference Range Comments Magnesium (test code=MG) 2.4 mg/dl 1.6-2.3 er 7CBC WITH AUTO [id number] 05:22:00 Test Item Value Reference Range Comments WBC (test code=WBC) 7.09 10\\S\\3/ul 4.80-10.80 RBC (test code=RBC) 5.07 10\\S\\6/ul 4.20-5.40 Hemoglobin (test code=HGB) 14.4 gm/dl 12.0-14.0 Hematocrit (test code=HCT) 42.4 % 37.0-47.0 MCV (test code=MCV) 83.6 fL 81.0-99.0 MCH (test code=MCH) 28.4 pg 27.0-31.0 MCHC (test code=MCHC) 34.0 gm/dl 33.0-37.0 RDW (test code=RDWVC) 13.6 % 11.5-14.5 Platelet (test code=PLT) 248 10\\S\\3/ul 130-400 MPV (test code=MPV) 12.0 fL 7.4-10.4 "NOT MEASURED" RESULTS ARE DISPLAYED WHEN THE INSTRUMENT HAS A SUPPRESSED OR UNREPORTABLE RESULT. THIS WILL MOST OFTEN HAPPEN WITH THE MPV WHEN THERE IS AN ABNORMAL PLATELET DISTRIBUTION DUE TO A CRITICAL LOW VALUE OR PLATELET CLUMPING. THE RDW MAY BE SUPPRESSED IF THERE ARE MULTIPLE PEAKS PRESENT ON THE RBC HISTOGRAM. IN THIS CASE, A MANUAL REVIEW OF THE SLIDE WILL BE PERFORMED, AND RBC MORPHOLOGY WILL BE NOTED ON THE REPORT. NE% (test code=NE) 67.2 % 42.0-75.0 LY% (test code=LY) 22.3 % 13.0-42.0 MO% (test code=MO) 9.7 % 4.0-14.0 EO% (test code=EO) 0.1 % 1.0-5.0 BA% (test code=BA) 0.3 % 0.0-3.0 IG% (test code=IG%) 0.4 % 0.0-0.4 NRBC, Auto (test 0 /100WBC 0-2 code=NRBC_AUTO) er [id number] 05:22:00 Test Item Value Reference Range Comments Glucose (test code=GLU) 103 mg/dl 75-110 BUN (test code=BUN) 16.0 mg/dl 6.0-17.0 Creatinine (test 0.7 mg/dl 0.4-1.2 code=CREA) Sodium (test code=NA) 140 mmol/l 137-145 Potassium (test code=K) 3.3 mmol/l 3.5-5.0 Chloride (test code=CL) 98 mmol/l 98-107 CO2 (test code=CO2) 20 mmol/l 22-30 Calcium (test code=CALC) 10.1 mg/dl 8.4-10.2 T Protein (test code=TP) 9.6 gm/dl 5.1-8.7 Albumin (test code=ALB) 5.0 gm/dl 3.5-4.6 A/G Ratio (test 1.1 % 1.1-2.2 code=AGRAT) AST (SGOT) (test 38 U/L 11-36 code=AST) ALT (SGPT) (test 14 U/L 11-40 code=ALT) Alkaline Phos (test 99 U/L 47-114 code=ALKP) Total Bilirubin (test 1.0 mg/dl 0.2-1.2 code=TBIL) Globulin (test 4.6 gm/dl 2.3-3.5 code=GLOBU) Calcium, Corrected (test 9.3 mg/dl 8.4-10.2 Various formulas exist for code=CALCCORR) corrected serum calcium results, each yielding different values. This corrected result was based on the formula: Corrected Calcium=SerumCalcium + [0.8 * ( 4 - SerumAlbumin)] EGFR if >60 (test code=EGFRAA) mL/min/1.73m\\S\\2 EGFR if Non- >60 Estimated Glomerular [place] (test mL/min/1.73m\\S\\2 Filtration Rate (eGFR) code=EGFRNA) Reference Intervals Decision Points for 18 years and older and average body mass: >=60 Does not exclude kidney disease. 30 - 59 Suggests moderate chronic kidney disease and indicates the need for further investigation including assessment of proteinuria and cardiovascular factors. < 30 Usually indicates a need for referral for assessment and management of chronic kidney failure. er 7LIPASE, [id number] 05:22:00 Test Item Value Reference Range Comments Lipase (test code=LIPA) 462 U/L 8-223 er 7DRUG SCREEN [id number] 19:14:00 Test Item Value Reference Range Comments Specific [place] 1.025 1.005-1.030 (test code=USPGR) PH (test code=UPH) 8.5 4.5-8.0 FT (test Negative (qualifier code=AMPHET) value) FT (test code=RIOS) Negative (qualifier value) FT (test code=BENZO) Negative (qualifier value) Cocaine (test Presumptive Positive; code=ANDRÉS) Confirmation Upon Request FT (test code=MTD) Negative (qualifier value) FT (test code=OPIAT) Negative (qualifier value) FT (test code=PCP) Negative (qualifier The following table value) provides an interpretive guide for the Drugs of Abuse ran on the [employer] 5.1 analyzer listed there in: Amphetamines < 1000 ng/ml=Negative Barbituates < 200 ng/ml=Negative Benzodiazapines < 200 ngml=Negative Cocaine < 300 ng/ml=Negative Methadone < 300 ng/ml=Negative Opiate < 300 ng/ml=Negative PCP < 25 ng/ml=Negative THC < 50 ng/ml=Negative Results equal to or greater than the above cut-off values=Presumptive Positive. Confirmation of Presumptive Positive results are available upon request. Cannabinoids, THC Presumptive Positive; (test code=THC) Confirmation Upon Request URINALYSIS WITHOUT [id number] 18:57:00 Test Item Value Reference Range Comments Color (test code=UCOLR) YELLOW Clarity (test code=UCLAR) CLOUDY Glucose (test code=UGLUC) NEGATIVE NEGATIVE Bilirubin (test code=UBILI) NEGATIVE NEGATIVE Ketones (test code=UKET) 40 NEGATIVE Specific [place] (test code=USPGR) 1.025 1.005-1.030 Blood (test code=UBLD) SMALL NEGATIVE PH (test code=UPH) 8.5 4.5-8.0 Protein (test code=UPROT) 30 NEGATIVE Urobilinogen (test code=U UROB) 0.2 >0.2 Nitrite (test code=UNITR) NEGATIVE NEGATIVE Leukocyte Esterase (test code=ULEUK) NEGATIVE NEGATIVE OCCULT BLOOD (ONE SPECIMEN)2017-11-21 18:55:00 Test Item Value Reference Range Comments Occult Blood (test code=OB) Positive Negative If a specimen is collected by a nurse, then you MUST fill out the Collected and Collected By curran TEST, Serum [id number] 18:26:00 Test Item Value Reference Range Comments (Serum) (test code=PREGS) Negative [id number] 18:21:00 Test Item Value Reference Range Comments Glucose (test code=GLU) 141 mg/dl 75-110 BUN (test code=BUN) 6.0 mg/dl 6.0-17.0 Creatinine (test 0.5 mg/dl 0.4-1.2 code=CREA) Sodium (test code=NA) 139 mmol/l 137-145 Potassium (test code=K) 3.7 mmol/l 3.5-5.0 Chloride (test code=CL) 108 mmol/l 98-107 CO2 (test code=CO2) 20 mmol/l 22-30 Calcium (test code=CALC) 9.6 mg/dl 8.4-10.2 T Protein (test code=TP) 9.0 gm/dl 5.1-8.7 Albumin (test code=ALB) 4.7 gm/dl 3.5-4.6 A/G Ratio (test 1.1 % 1.1-2.2 code=AGRAT) AST (SGOT) (test 27 U/L 11-36 code=AST) ALT (SGPT) (test 36 U/L 11-40 code=ALT) Alkaline Phos (test 78 U/L 47-114 code=ALKP) Total Bilirubin (test 0.4 mg/dl 0.2-1.2 code=TBIL) Globulin (test 4.3 gm/dl 2.3-3.5 code=GLOBU) Calcium, Corrected (test 9.0 mg/dl 8.4-10.2 Various formulas exist for code=CALCCORR) corrected serum calcium results, each yielding different values. This corrected result was based on the formula: Corrected Calcium=SerumCalcium + [0.8 * ( 4 - SerumAlbumin)] EGFR if >60 (test code=EGFRAA) mL/min/1.73m\\S\\2 EGFR if Non- >60 Estimated Glomerular [place] (test mL/min/1.73m\\S\\2 Filtration Rate (eGFR) code=EGFRNA) Reference Intervals Decision Points for 18 years and older and average body mass: >=60 Does not exclude kidney disease. 30 - 59 Suggests moderate chronic kidney disease and indicates the need for further investigation including assessment of proteinuria and cardiovascular factors. < 30 Usually indicates a need for referral for assessment and management of chronic kidney failure. LIPASE, [id number] 18:21:00 Test Item Value Reference Range Comments Lipase (test code=LIPA) 36 U/L 8-223 CBC WITH AUTO [id number] 18:12:00 Test Item Value Reference Range Comments WBC (test code=WBC) 6.46 10\\S\\3/ul 4.80-10.80 RBC (test code=RBC) 4.25 10\\S\\6/ul 4.20-5.40 Hemoglobin (test code=HGB) 11.8 gm/dl 12.0-14.0 Hematocrit (test code=HCT) 35.9 % 37.0-47.0 MCV (test code=MCV) 84.5 fL 81.0-99.0 MCH (test code=MCH) 27.8 pg 27.0-31.0 MCHC (test code=MCHC) 32.9 gm/dl 33.0-37.0 RDW (test code=RDWVC) 14.7 % 11.5-14.5 Platelet (test code=PLT) 169 10\\S\\3/ul 130-400 MPV (test code=MPV) 12.4 fL 7.4-10.4 "NOT MEASURED" RESULTS ARE DISPLAYED WHEN THE INSTRUMENT HAS A SUPPRESSED OR UNREPORTABLE RESULT. THIS WILL MOST OFTEN HAPPEN WITH THE MPV WHEN THERE IS AN ABNORMAL PLATELET DISTRIBUTION DUE TO A CRITICAL LOW VALUE OR PLATELET CLUMPING. THE RDW MAY BE SUPPRESSED IF THERE ARE MULTIPLE PEAKS PRESENT ON THE RBC HISTOGRAM. IN THIS CASE, A MANUAL REVIEW OF THE SLIDE WILL BE PERFORMED, AND RBC MORPHOLOGY WILL BE NOTED ON THE REPORT. NE% (test code=NE) 88.2 % 42.0-75.0 LY% (test code=LY) 8.8 % 13.0-42.0 MO% (test code=MO) 2.3 % 4.0-14.0 EO% (test code=EO) 0.0 % 1.0-3.0 BA% (test code=BA) 0.2 % 1.0-3.0 IG% (test code=IG%) 0.5 % 0.0-0.4 NRBC, Auto (test 0 /100WBC 0-2 code=NRBC_AUTO) AUTO DIFFRAPID [id number] 16:50:00 Test Item Value Reference Range Comments RAPID CKMB (Topsy LabsAKER) (test ncaq=6473) < ng/mL 0.0-4.3 RAPID TROPONIN [id number] 16:50:00 Test Item Value Reference Range Comments RAPID TROPONIN I (BEAKER) (test wsqz=9971) < ng/mL <0.05 [id number] 16:49:00 Test Item Value Reference Range Comments D-DIMER QUANTITATIVE (BEAKER) (test hjru=962) < MG/L FEU <0.50 REGARDING D-DIMER RESULTS: Results of this D-Dimer test should always be interpreted in conjunction with the patient's medical history, clinical presentation and other findings. DVT clinical diagnosis should not be based on the results of INNOVANCE D-Dimer alone.PT/[id number] 16:40:00 Test Item Value Reference Range Comments PROTIME (BEAKER) (test mwnx=894) 9.9 seconds 9.8-12.0 INR (BEAKER) (test ygjs=021) 0.9 <=5.9 PARTIAL THROMBOPLASTIN TIME (BEAKER) (test 25.7 seconds 25.8-34.5 rffw=033) RECOMMENDED COUMADIN/WARFARIN INR THERAPY RANGESSTANDARD DOSE: 2.0 - 3.0 Includes: PROPHYLAXIS forvenous thrombosis, systemic embolization; TREATMENT for venous thrombosis and/or pulmonary embolus.HIGH RISK: Target INR is 2.5-3.5 for patients with mechanical heart valves.[id number] 16:38:00 Test Item Value Reference Range Comments MAGNESIUM (BEAKER) (test yrkb=439) 2.1 mg/dL 1.5-3.0 BASIC METABOLIC [id number] 16:37:00 Test Item Value Reference Range Comments SODIUM (BEAKER) (test 141 meq/L 135-148 jrmx=050) POTASSIUM (BEAKER) (test 3.8 meq/L 3.6-5.5 uhfd=726) CHLORIDE (BEAKER) (test 102 meq/L 98-106 nxnl=173) CO2 (BEAKER) (test 24 meq/L 24-32 exks=924) BLOOD UREA NITROGEN 10 mg/dL 10-26 (BEAKER) (test fhwb=168) CREATININE (BEAKER) (test 0.68 mg/dL 0.50-1.20 buoe=659) GLUCOSE RANDOM (BEAKER) 85 mg/dL 70-110 (test kgao=722) CALCIUM (BEAKER) (test 8.8 mg/dL 8.5-10.5 vner=650) EGFR (BEAKER) (test 122 mL/min/1.73 sq m ESTIMATED GFR IS NOT jxui=9763) ACCURATE CREATININE CLEARANCE IN PREDICTING GLOMERULAR FILTRATION RATE. ESTIMATED GFR IS NOT APPLICABLE FOR DIALYSIS PATIENTS. CREATINE KINASE (CK)2017-06-19 16:37:00 Test Item Value Reference Range Comments CREATINE KINASE TOTAL (BEAKER) (test gsxs=760) 83 U/L 25-235 CBC W/PLT COUNT & AUTO [id number] 16:32:00 Test Item Value Reference Range Comments WHITE BLOOD CELL COUNT (BEAKER) (test fpun=776) 5.5 10e3/ L 4.0-10.0 RED BLOOD CELL COUNT (BEAKER) (test nssl=805) 4.16 10e6/ L 4.00-5.00 HEMOGLOBIN (BEAKER) (test kybt=491) 12.1 g/dL 12.0-15.0 HEMATOCRIT (BEAKER) (test rrxw=680) 35.8 % 36.0-45.0 MEAN CORPUSCULAR VOLUME (BEAKER) (test 86.0 fL 82.0-99.0 tpvk=180) MEAN CORPUSCULAR HEMOGLOBIN (BEAKER) (test 29.0 pg 27.0-33.0 gstx=724) MEAN CORPUSCULAR HEMOGLOBIN CONC (BEAKER) (test 33.7 g/dL 32.0-36.0 tovq=923) RED CELL DISTRIBUTION WIDTH (BEAKER) (test 12.8 % 10.3-14.2 fnym=309) PLATELET COUNT (BEAKER) (test sqim=987) 267 10e3/ L 150-430 MEAN PLATELET VOLUME (BEAKER) (test bhmf=084) 8.5 fL 6.5-10.5 NEUTROPHILS RELATIVE PERCENT (BEAKER) (test 42 % gwww=867) LYMPHOCYTES RELATIVE PERCENT (BEAKER) (test 49 % ovdf=138) MONOCYTES RELATIVE PERCENT (BEAKER) (test 7 % qibu=265) EOSINOPHILS RELATIVE PERCENT (BEAKER) (test 2 % kirp=752) BASOPHILS RELATIVE PERCENT (BEAKER) (test 1 % drqt=012) NEUTROPHILS ABSOLUTE COUNT (BEAKER) (test 2.27 10e3/ L 1.80-8.00 eugq=747) LYMPHOCYTES ABSOLUTE COUNT (BEAKER) (test 2.68 10e3/ L 1.48-4.50 xfzf=342) MONOCYTES ABSOLUTE COUNT (BEAKER) (test 0.37 10e3/ L 0.00-1.30 olfo=486) EOSINOPHILS ABSOLUTE COUNT (BEAKER) (test 0.11 10e3/ L 0.00-0.50 dhzi=190) BASOPHILS ABSOLUTE COUNT (BEAKER) (test 0.03 10e3/ L 0.00-0.20 dhla=941) SCREEN, [id number] 15:31:00 Test Item Value Reference Range Comments TEST URINE (BEAKER) (test sxxx=903) Negative RAD, CHEST, 1 VIEW, NON [id number] 15:09:00Reason for exam:->chest painIs the patient ?->UnknownFINAL REPORT HISTORY : chest pain. Comparison: None Comment: Single portable view of the chest was obtained. The cardiac silhouette size is at the upper limits of normal. No pneumothorax, pleural effusion or focal infiltrate is seen. Projecting over the right lower lung, there is an indeterminate nodular density. This measures up to 1.1 cm. While this may represent the nipple shadow , a lung parenchymal nodule cannot be excluded. Correlation with a repeat chest x-ray with nipple markers or chest CT is advised. Signed: Justin Mejía Verified Date/Time: 06/19/2017 15:09:21 Reading Location: [address] Transitional Reading Room RAD, SHOULDER, COMPLETE (MIN 2 VIEWS), [id number] 03:33: 00Reason for exam:->GENERAL ILLNESSIs the patient ?-> UnknownShould this be performed at the bedside?->NoFINAL REPORT RAD, SHOULDER, COMPLETE (MIN 2 VIEWS), LEFT COMPARISON: None INDICATION: GENERAL ILLNESS FINDINGS: AP views in internal and external rotation and an axillary "Y"view of the leftshoulder. Osseous structures: No fracture.Joint spaces: Intact without malalignment.No significant degenerative changes.Soft tissues: Unremarkable IMPRESSION: No acute abnormality ofthe left shoulder. Signed: JR Rossi Robert MDReport Verified Date/Time: 06/06/2017 03:33:43 Reading Location: [address] Body Reading Room RAPID INFLUENZA A&B [id number] 03:30:00 Test Item Value Reference Range Comments RAPID INFLUENZA A AG (BEAKER) (test Negative Negative, Inconclusive pwnf=1841) RAPID INFLUENZA B AG (BEAKER) (test Negative Negative, Inconclusive dydl=7729) RAPID STREP A [id number] 03:15:00 Test Item Value Reference Range Comments STREP A ANTIGEN (BEAKER) (test sazw=825) Negative Negative
--- OUTSIDE RECORDS SUMMARY | 2018-06-04 11:17 | XMS REPORT | CCD ---
:1985 Author Organization [facility] Care Team Providers Name Role Phone PataleshiaSanchez julian Hyacinth Consulting Provider Allergies, Adverse Reactions, Alerts Substance Reaction Status ondansetron Active Problem List Condition Effective Dates Status Gastroparesis Resolved Gastroparesis Resolved Seizure Resolved Medications Medication Instructions Start Date End Date Status Phenergan 25 mg, Route: IVPB, ONCE, 09/20/2012 09/20/2012 Discontinued Dosing Weight 52.273, kg, Priority: STAT, Start date: 09/20/12 15:48:00, Stop date: 09/20/12 15:48:00 BD Normal Saline Flush 10 mL, Route: IVP, Drug 09/20/2012 09/22/2012 Discontinued Form: INJ, PRN, PRN Line Flush, Start date: 09/20/12 20:06:00, Duration: 30 day, Stop date: 10/20/12 20:05:00 Sodium Chloride 0.9% IV 1,000 mL, Rate: 125 ml/hr, 09/20/2012 09/21/2012 Discontinued 1,000 mL Infuse over: 8 hr, Route: IV, kg, Total Volume: 1,000, Start date: 09/20/12 21:00:00, Duration: 30 day, Stop date: 10/20/12 20:59:00 Tylenol 650 mg, 2 tab, Route: PO, 09/20/2012 09/20/2012 Completed Drug form: TAB, ONCE, Start date: 09/20/12 21:00:00, Stop date: 09/20/12 21:00:00 morphine Sulfate 2 mg, 0.4 mL, Route: IV, 09/20/2012 09/21/2012 Discontinued Drug form: INJ, Q6H, PRN Pain, Start date: 09/20/12 20:05:00, Duration: 30 day, Stop date: 10/20/12 20:04:00 Phenergan 25 mg, Route: IM, ONCE, 09/20/2012 09/20/2012 Completed Dosing Weight 52.273, kg, Priority: STAT, Start date: 09/20/12 11:10:00, Stop date: 09/20/12 11:10:00 NS 1,000 mL 1,000 mL, Rate: 1,000 ml/hr, Infuse over: 1 hr, Route: IV, kg, Total Volume: 1,000, Start date: 09/20/12 11:10:00, Duration: 1 doses or times, Stop date: 09/20/12 12:09:00, Bolus Dose 09/20/2012 09/20/2012 Completed Bolus Dose Pepcid 20 mg, 1 tab, Route: PO, 09/21/2012 09/22/2012 Discontinued Drug form: TAB, Q12H, Start date: 09/21/12 9:00:00, Duration: 30 day, Stop date: 10/20/12 21:00:00 Phenergan 25 mg, 1 tab, Route: PO, 09/20/2012 09/22/2012 Discontinued Drug form: TAB, Q6H, PRN Nausea, Start date: 09/20/12 20:05:00, Duration: 30 day, Stop date: 10/20/12 20:04:00 Phenergan 25 mg, 1 mL, Route: IM, 09/20/2012 09/22/2012 Discontinued Drug form: INJ, Q6H, PRN Nausea, Start date: 09/20/12 20:05:00, Duration: 30 day, Stop date: 10/20/12 20:04:00 Tylenol 650 mg, 2 tab, Route: PO, 09/21/2012 09/22/2012 Discontinued Drug form: TAB, Q6H, PRN Pain, Start date: 09/21/12 8:36:00, Duration: 30 day, Stop date: 10/21/12 8:35:00 Reglan 10 mg, 2 mL, Route: IV, 09/21/2012 09/22/2012 Discontinued Drug form: INJ, QID-Before Meals, Start date: 09/21/12 7:30:00, Duration: 30 day, Stop date: 10/20/12 21:00:00 potassium chloride 20 mEq, 100 mL, Route: 09/20/2012 09/20/2012 Completed IVPB, Drug form: INJ, Q2H, Start date: 09/20/12 21:00:00, Duration: 1 doses or times, Stop date: 09/20/12 21:00:00 Phenergan 25 mg, Route: IM, ONCE, 09/20/2012 09/20/2012 Completed Dosing Weight 52.273, kg, PRN as needed for nausea/vomiting, Start date: 09/20/12 17:55:00 Haldol 2 mg, 0.4 mL, Route: IM, 09/20/2012 09/22/2012 Discontinued Drug form: INJ, Q6H, PRN Agitation, Start date: 09/20/12 20:04:00, Duration: 30 day, Stop date: 10/20/12 20:03:00 Haldol 1 mg, Route: IVP, ONCE, 09/20/2012 09/20/2012 Completed Dosing Weight 52.273, kg, Priority: NOW, Start date: 09/20/12 17:54:00, Stop date: 09/20/12 17:54:00 Haldol 2 mg, 0.4 mL, Route: IV, 09/20/2012 09/22/2012 Discontinued Drug form: INJ, Q6H, PRN Agitation, Start date: 09/20/12 20:04:00, Duration: 30 day, Stop date: 10/20/12 20:03:00 Haldol 1 mg, 0.2 mL, Route: IV, 09/20/2012 09/20/2012 Completed Drug form: INJ, ONCE, Start date: 09/20/12 21:00:00, Stop date: 09/20/12 21:00:00 Lovenox 40 mg, 0.4 mL, Route: 09/21/2012 09/22/2012 Discontinued SUB-Q, Drug form: INJ, [id number], Start date: 09/21/12 9:00:00, Duration: 30 day, Stop date: 10/20/12 9:00:00 Reglan 10 mg, 2 mL, Route: IV, 09/20/2012 09/21/2012 Discontinued Drug form: INJ, Q8H-05, Start date: 09/20/12 21:00:00, Duration: 30 day, Stop date: 10/20/12 13:00:00 Reglan Substitution Allowed 09/20/2012 Ordered Navane 1 mg, 1 cap, Route: PO, 09/21/2012 09/22/2012 Discontinued Drug form: CAP, BID, Start date: 09/21/12 17:00:00, Duration: 30 day, Stop date: 10/21/12 9:00:00 Phenergan + Sodium 25 mg, 1 mL, Route: IVPB, 09/20/2012 09/20/2012 Deleted Chloride 0.9% IV 50 mL Drug form: INJ, ONCE, Dosing Weight 52.273, kg, Priority: STAT, Start date: 09/20/12 15:06:00, Stop date: 09/20/12 15:06:00 morphine Sulfate 5 mg, 1 mL, Route: IVP, 09/20/2012 09/20/2012 Completed Drug form: INJ, ONCE, Dosing Weight 52.273, kg, Start date: 09/20/12 15:31:00, Stop date: 09/20/12 15:31:00 NS (Bolus) IV 1,000 mL 1,000 mL, Rate: 1,000 ml/hr, Infuse over: 1 hr, Route: IV, kg, Total Volume: 1,000, Priority: STAT, Start date: 09/20/12 13:21:00, Duration: 1 doses or times, Stop date: 09/20/12 14:20:00, Bolus Dose 201209/20/2012 Completed Bolus Dose Reglan 10 mg, Route: IVP, ONCE, 09/20/2012 09/20/2012 Completed Dosing Weight 52.273, kg, Priority: STAT, Start date: 09/20/12 13:20:00, Stop date: 09/20/12 13:20:00 Sodium Chloride 0.9% IV 1,000 mL, Rate: 125 ml/hr, 09/20/2012 09/21/2012 Discontinued 1,000 mL Infuse over: 8 hr, Route: IV, kg, Total Volume: 1,000, Start date: 09/20/12 21:00:00, Duration: 30 day, Stop date: 10/20/12 20:59:00 Sodium Chloride 0.9% IV 250 mL, Route: IVPB, Start 09/20/2012 09/22/2012 Discontinued date: 09/20/12 20:07:00, Duration: 30 day, Stop date: 10/20/12 20:06:00, PRN Line Flush Phenergan 12.5 mg, 1 supp, Route: 09/21/2012 09/21/2012 Completed OR, Drug form: SUPP, ONCE, Start date: 09/21/12 16:03:00, Stop date: 09/21/12 16:03:00 morphine Sulfate 2 mg, 0.5 mL, Route: IVP, 09/21/2012 09/21/2012 Discontinued Drug form: INJ, Q6H, PRN Pain, Start date: 09/21/12 8:03:00, Duration: 30 day, Stop date: 10/21/12 8:02:00 Vital Signs Most recent to oldest 1 2 3 [Reference Range]: Height 157.48 cm 157.4 cm (09/20/2012 20:02:01) (09/20/2012 19:20:00) Temperature Oral 98.0 DegF 98.7 DegF 99.0 DegF [96.4-99.1 DegF] (09/21/2012 20:00:00) (09/21/2012 15:00:00) (09/21/2012 12: 00:00) Systolic Blood Pressure 124 mmHg 108 mmHg 125 mmHg [90-140 mmHg] (09/21/2012 20:00:00) (09/21/2012 15:00:00) (09/21/2012 12:00: 00) Diastolic Blood Pressure 79 mmHg 72 mmHg 80 mmHg [60-90 mmHg] (09/21/2012 20:00:00) (09/21/2012 15:00:00) (09/21/2012 12:00: 00) Respiratory Rate [14-20 20 BRMIN 18 BRMIN 18 BRMIN BRMIN] (09/21/2012 20:00:00) (09/21/2012 15:00:00) (09/21/2012 12:00:00) Peripheral Pulse Rate 56 bpm 61 bpm 53 bpm [60-100 bpm] *LOW* (09/21/2012 15:00:00) *LOW* (09/21/2012 20:00:00) (09/21/2012 12:00:00) Weight 52.273 kg 52.273 kg (09/20/2012 20:02:01) (09/20/2012 19:20:00) Results BEDSIDE GLUCOSE TESTING Most recent to oldest [Reference Range]: 1 2 Gluc POC Lifscn [70-99 mg/dL] 93 mg/dL 1 (09/21/2012 20:26:00) Comment1 Notify RN/MD *NA* (09/21/2012 20:26:00) 1Interpretive Data: Upper Reportable Limit: 200 mg/dL.URINALYSIS Most recent to oldest [Reference Range]: 1 2 UA Turbidity [Clear] Cloudy *ABN* (09/20/2012 18:12:00) UA Color [Yellow] Red *ABN* (09/20/2012 18:12:00) UA pH [5.0-8.0] 7.5 (09/20/2012 18:12:00) UA Spec Grav [<=1.030] 1.020 (09/20/2012 18:12:00) UA Glucose [Negative] Negative (09/20/2012 18:12:00) UA Blood [Negative] Large *ABN* (09/20/2012 18:12:00) UA Ketones [Negative mg/dL] >=80 mg/dL *NA* (09/20/2012 18:12:00) UA Protein [Negative mg/dL] 30 mg/dL *ABN* (09/20/2012 18:12:00) UA Urobilinogen [0.1-1.0 EU/dL] 1.0 EU/dL (09/20/2012 18:12:00) UA Bili [Negative] Negative *NA* (09/20/2012 18:12:00) UA Leuk Est [Negative] Trace *ABN* (09/20/2012 18:12:00) UA Nitrite [Negative] Negative (09/20/2012 18:12:00) UA WBC [None Seen /HPF] 3-5 /HPF (09/20/2012 18:12:00) UA RBC [0-2 /HPF] 51-100 /HPF *ABN* (09/20/2012 18:12:00) UA Bacteria [None Seen /HPF] Few /HPF (09/20/2012 18:12:00) UA Sq Epi [Few /LPF] Few /LPF (09/20/2012 18:12:00) UA Mucus [None Seen /LPF] Rare /LPF (09/20/2012 18:12:00) Micro? Performed (09/20/2012 18:12:00) CHEMISTRY Most recent to oldest [Reference 1 2 Range]: Sodium Lvl [135-145 mEq/L] 141 mEq/L 140 mEq/L (09/21/2012 05:52:00) (09/20/2012 12:03:00) Potassium Lvl [3.5-5.1 mEq/L] 3.8 mEq/L 2 3.2 mEq/L (09/21/2012 05:52:00) *LOW* (09/20/2012 12:03:00) Chloride Lvl [95-109 mEq/L] 112 mEq/L 107 mEq/L *HI* (09/20/2012 12:03:00) (09/21/2012 05:52:00) CO2 [24-32 mEq/L] 12 mEq/L 25 mEq/L *LOW* (09/20/2012 12:03:00) (09/21/2012 05:52:00) AGAP [10.0-20.0 mEq/L] 20.8 mEq/L 11.2 mEq/L *HI* (09/20/2012 12:03:00) (09/21/2012 05:52:00) Creatinine Lvl [0.5-1.4 mg/dL] 0.6 mg/dL 0.8 mg/dL (09/21/2012 05:52:00) (09/20/2012 12:03:00) eGFR 144 mL/min/1.73m2 3 117 mL/min/1.73m2 4 *NA* *NA* (09/21/2012 05:52:00) (09/20/2012 12:03:00) BUN [7-22 mg/dL] 5 mg/dL 9 mg/dL *LOW* (09/20/2012 12:03:00) (09/21/2012 05:52:00) Glucose Lvl [70-99 mg/dL] 74 mg/dL 5 94 mg/dL 6 (09/21/2012 05:52:00) (09/20/2012 12:03:00) Calcium Lvl [8.5-10.5 mg/dL] 7.4 mg/dL 8.8 mg/dL *LOW* (09/20/2012 12:03:00) (09/21/2012 05:52:00) U Amph Scr [Negative] Negative *NA* (09/20/2012 18:12:00) U Abbi Scr [Negative] Negative *NA* (09/20/2012 18:12:00) U Benzodia Scr [Negative] Negative *NA* (09/20/2012 18:12:00) U Cocaine Scr [Negative] Positive *ABN* (09/20/2012 18:12:00) U Opiate Scr [Negative] Positive *ABN* (09/20/2012 18:12:00) U Phencyc Scr [Negative] Negative *NA* (09/20/2012 18:12:00) U Cannab Scr [Negative] Positive *ABN* (09/20/2012 18:12:00) UDS Note See Note 7 (09/20/2012 18:12:00) S Preg [Negative] Negative *NA* (09/20/2012 12:03:37) 2Result Comment: Specimen is slightly [id number] Comment: The eGFR is calculated using the CKD-EPI formula. In most young, healthy individualsthe eGFR will be >90 mL/min/1.73m2. The eGFR declines with age. An eGFR of 60-89 may be normal in some populations, particularly the elderly, for whom the CKD- EPI formula has not been extensively validated. Use [...] eGFR should be multiplied by the estimated BMI.4Result Comment: The eGFR is calculated using the [...] eGFR should be multiplied by the estimated BMI.5Interpretive Data: Adult reference range values reflect the clinical guidelines of the [place] [employer].6Interpretive Data: Adult reference range values reflect the clinical guidelines of the [place] [employer].7Interpretive Data: Drugs reported as positive have not [...] 20 mg/dLHEMATOLOGY Most recent to oldest [Reference Range]: 1 2 WBC [3.7-10.4 K/CMM] 4.3 K/CMM (09/20/2012 12:03:00) RBC [4.20-5.40 M/CMM] 4.23 M/CMM (09/20/2012 12:03:00) Hgb [12.0-16.0 g/dL] 11.8 g/dL *LOW* (09/20/2012 12:03:00) Hct [36.0-48.0 %] 36.5 % (09/20/2012 12:03:00) MCV [81.0-99.0 fL] 86.3 fL (09/20/2012 12:03:00) MCH [27.0-31.0 pg] 27.8 pg (09/20/2012 12:03:00) MCHC [32.0-36.0 g/dL] 32.2 g/dL (09/20/2012 12:03:00) RDW [11.5-14.5 %] 15.0 % *HI* (09/20/2012 12:03:00) Platelet [133-450 K/CMM] 224 K/CMM (09/20/2012 12:03:00) MPV [7.4-10.4 fL] 9.5 fL (09/20/2012:03:00) Segs [45.0-75.0 %] 69.0 % (09/20/2012:03:00) Lymphocytes [20.0-40.0 %] 23.4 % (09/20/2012:03:00) Monocytes [2.0-12.0 %] 6.8 % (09/20/2012:03:00) Eosinophils [0.0-4.0 %] 0.5 % (09/20/2012:03:00) Basophils [0.0-1.0 %] 0.3 % (09/20/2012:03:00) Segs-Bands # [1.5-8.1 K/CMM] 2.9 K/CMM (09/20/2012:03:00) Lymphocytes # [1.0-5.5 K/CMM] 1.0 K/CMM (09/20/2012:03:00) Monocytes # [0.0-0.8 K/CMM] 0.3 K/CMM (09/20/2012:03:00) Eosinophils # [0.0-0.5 K/CMM] 0.0 K/CMM (09/20/2012 12:03:00) Basophils # [0.0-0.2 K/CMM] 0.0 K/CMM (09/20/2012:03:00) Polychrom [None Seen] Slight (09/20/2012 12:03:00) Elliptocyte [None Seen] Slight *ABN* (09/20/2012:03:00) Giant Plt [None Seen] Slight *ABN* (09/20/2012:03:00) Large Plt [None Seen] Slight *ABN* (09/20/2012 12:03:00) Microbiology Reports PROCEDURE:Culture: Urine STATUS: Auth (Verified) BODY SITE: COLLECTED DATE/TIME: 09/20/2012 18:12:00 SOURCE: Urine, Clean Catch FREE TEXT SOURCE: FINAL REPORTS Final Ejkfpv22,000 - 50,000 CFU/mL Skin Yu PRELIMINARY REPORTS Preliminary ReportNo Growth; Holding Procedures Procedures Date Related Diagnosis section
--- OUTSIDE RECORDS SUMMARY | 2018-06-04 11:17 | XMS REPORT | Continuity of Care Document ---
:1985 Author Organization [facility] Care Team Providers Name Role Phone HUI MCKINNON Admitting Physician HUI MCKINNON Attending Physician Hospital Admission Diagnosis Code Admission Diagnosis Date Abdominal pain Social History Element Code Description Smoking Start Date End Date Description Status Code System Smoking Status [id number] Current every day SNOMED-CT smoker Problems No data in the system Medications SNOMED CT Description [id number] Drug Treatment Unknown Allergies Code Code Allergy Type Reaction Severity Start End Status System Substance Date Date 9229 RXNorm Reglan Drug Unknown Active allergy 98725 RXNorm Zofran Drug Unknown Active allergy Results Laboratory Results Order: DRUG SCREEN MED LOINC Test Result Flag Range Unit Date 5811-5 1.025 A 1.005-1.030 11/21/2017 1Specific 18:15 gravity:Rden :Pt:Urine:Qn :Test strip 5803-2 8.5 A 4.5-8.0 11/21/2017 1pH:LsCnc:Pt 18:15 :Urine:Qn:Te st strip Negative 11/21/2017 1Amphetamine 18:15 s Negative 11/21/2017 1BARBITUATES 18:15 Negative 11/21/2017 1Benzodiazep 18:15 drew Presumptive 11/21/2017 1Cocaine Positive; 18:15 Confirmation Upon Request Negative 11/21/2017 1Methadone 18:15 Negative 11/21/2017 1Opiates 18:15 Negative 11/21/2017 1PHENCYCLIDI 18:15 NE, PCP Note: The following table provides an interpretive guide for the Drugs of Abuse ran on the Agrivi 5.1 analyzer listed there in: Amphetamines < 1000 ng/ml=Negative Barbituates < 200 ng/ml=Negative Benzodiazapines < 200 ngml=Negative Cocaine < 300 ng/ml=Negative Methadone < 300 ng/ml=Negative Opiate < 300 ng/ml=Negative PCP < 25 ng/ml=Negative THC < 50 ng/ml=Negative Results equal to or greater than the above cut-off values=Presumptive Positive. Confirmation of Presumptive Positive results are available upon request. Presumptive 11/21/2017 18:15 1Cannabinoids, THC Positive; Confirmation Upon Request Performing Lab Footnotes:[address] [place] [address] - [id number] - [address] [facility] [address] - [place] [address] [facility] - MD: DIRECTOR NIKA TURK__ ____ Order: URINALYSIS W/O MICROSCOPIC EXAM LOINC Test Result Flag Range Unit Date 5777-6 YELLOW 11/21/2017 1Color:Type: 18:15 Pt:Urine:Nom 5767-9 CLOUDY 11/21/2017 1Appearance: 18:15 Aper:Pt:Urin e:Nom 2349-9 NEGATIVE NEGATIVE 11/21/2017 1Glucose:ACn 18:15 c:Pt:Urine:O rd 5770-3 NEGATIVE NEGATIVE 11/21/2017 1Bilirubin:A 18:15 Cnc:Pt:Urine :Ord:Test strip 2514-8 40 A NEGATIVE 11/21/2017 1Ketones:ACn 18:15 c:Pt:Urine:O rd:Test strip 5811-5 1.025 A 1.005-1.030 11/21/2017 1Specific 18:15 gravity:Rden :Pt:Urine:Qn :Test strip 5794-3 SMALL A NEGATIVE 11/21/2017 1Hemoglobin: 18:15 ACnc:Pt:Urin e:Ord:Test strip 5803-2 8.5 A 4.5-8.0 11/21/2017 1pH:LsCnc:Pt 18:15 :Urine:Qn:Te st strip 08627-2 30 A NEGATIVE 11/21/2017 1Protein:ACn 18:15 c:Pt:Urine:O rd:Test strip 5818-0 0.2 0.2 11/21/2017 1Urobilinoge 18:15 n:ACnc:Pt:Ur ine:Ord:Test strip 5802-4 NEGATIVE NEGATIVE 11/21/2017 1Nitrite:ACn 18:15 c:Pt:Urine:O rd:Test strip 5799-2 NEGATIVE NEGATIVE 11/21/2017 1Leukocyte 18:15 esterase:ACn c:Pt:Urine:O rd:Test strip Performing Lab Footnotes:[address] [place] [id number] Lucrecia BOSS: DIRECTOR NIKA TURK__ ____ Order: OCCULT BLOOD ONE SPECIMEN LOINC Test Result Flag Range Unit Date Positive A Negative 11/21/2017 1Occult 18:10 Blood Performing Lab Footnotes:[address] [place], [place] [id number] [place] [address] Lucrecia BOSS: DIRECTOR NIKA TURK__ ____ Order: CBC PLATELET AUTO DIFF LOINC Test Result Flag Range Unit Date 09591-3 6.46 4.80-10.80 10^3/ul 11/21/2017 1Leukocytes^^correc 17:54 samy for nucleated erythrocytes:NCnc:P t:Bld:Qn:Automated count 789-8 4.25 4.20-5.40 10^6/ul 11/21/2017 1Erythrocytes:NCnc: 17:54 Pt:Bld:Qn:Automated count 718-7 11.8 L 12.0-14.0 gm/dl 11/21/2017 1Hemoglobin:MCnc:Pt 17:54 :Bld:Qn 4544-3 35.9 L 37.0-47.0 % 11/21/2017 1Hematocrit:VFr:Pt: 17:54 Bld:Qn:Automated count 787-2 84.5 81.0-99.0 fL 11/21/2017 1Erythrocyte mean 17:54 corpuscular volume:EntVol:Pt:RB C:Qn:Automated count 785-6 27.8 27.0-31.0 pg 11/21/2017 1Erythrocyte mean 17:54 corpuscular hemoglobin:EntMass: Pt:RBC:Qn:Automated count 786-4 32.9 L 33.0-37.0 gm/dl 11/21/2017 1Erythrocyte mean 17:54 corpuscular hemoglobin concentration:MCnc: Pt:RBC:Qn:Automated count 788-0 14.7 H 11.5-14.5 % 11/21/2017 1Erythrocyte 17:54 distribution width:Ratio:Pt:RBC: Qn:Automated count 777-3 169 130-400 10^3/ul 11/21/2017 1Platelets:NCnc:Pt: 17:54 Bld:Qn:Automated count 91689-8 1Platelet 12.4 A 7.4-10.4 fL 11/21/2017 mean 17:54 volume:EntVol:Pt:Bl d:Qn:Automated count Note: 'NOT MEASURED' RESULTS ARE DISPLAYED WHEN THE INSTRUMENT HAS [...] MORPHOLOGY WILL BE NOTED ON THE REPORT. 770-8 1Neutrophils/100 88.2 H 42.0-75.0 % 11/21/2017 leukocytes:NFr:Pt:Bld:Qn:Automated 17:54 count 736-9 1Lymphocytes/100 8.8 L 13.0-42.0 % 11/21/2017 leukocytes:NFr:Pt:Bld:Qn:Automated 17:54 count 5905-5 1Monocytes/100 2.3 L 4.0-14.0 % 11/21/2017 leukocytes:NFr:Pt:Bld:Qn:Automated 17:54 count 713-8 1Eosinophils/100 0 L 1.0-3.0 % 11/21/2017 leukocytes:NFr:Pt:Bld:Qn:Automated 17:54 count 706-2 1Basophils/100 0.2 L 1.0-3.0 % 11/21/2017 leukocytes:NFr:Pt:Bld:Qn:Automated 17:54 count 1IG% 0.5 H 0.0-0.4 % 11/21/2017 17:54 1NRBC, Auto 0 0-2 /100 11/21/2017 WBC 17:54 Performing Lab Footnotes:[address] [place] [address] - [id number] - [address] [place] [address] [place] - MD: DIRECTOR NIKA TURK__ ____ Order: CMP COMPREHENSIVE METABOLIC PANEL LOINC Test Result Flag Range Unit Date 2350-7 141 H 75-110 mg/dl 11/21/2017 1Glucose:MCnc:Pt 17:54 :Urine:Qn 3094-0 1Urea 6 6.0-17.0 mg/dl 11/21/2017 nitrogen:MCnc:Pt 17:54 :Ser/Plas:Qn 2160-0 0.5 0.4-1.2 mg/dl 11/21/2017 1Creatinine:MCnc 17:54 :Pt:Ser/Plas:Qn 2951-2 139 137-145 mmol/l 11/21/2017 1Sodium:SCnc:Pt: 17:54 Ser/Plas:Qn 2823-3 3.7 3.5-5.0 mmol/l 11/21/2017 1Potassium:SCnc: 17:54 Pt:Ser/Plas:Qn 2075-0 108 H 98-107 mmol/l 11/21/2017 1Chloride:SCnc:P 17:54 t:Ser/Plas:Qn 8-9 20 L 22-30 mmol/l 11/21/2017 1Carbon 17:54 dioxide:SCnc:Pt: Ser/Plas:Qn 52370-5 9.6 8.4-10.2 mg/dl 11/21/2017 1Calcium:MCnc:Pt 17:54 :Ser/Plas:Qn 2885-2 9 H 5.1-8.7 gm/dl 11/21/2017 1Protein:MCnc:Pt 17:54 :Ser/Plas:Qn 1751-7 4.7 H 3.5-4.6 gm/dl 11/21/2017 1Albumin:MCnc:Pt 17:54 :Ser/Plas:Qn 1A/G 1.1 1.1-2.2 % 11/21/2017 Ratio 17:54 1920-8 27 11-36 U/L 11/21/2017 1Aspartate 17:54 aminotransferase :CCnc:Pt:Ser/Kaya s:Qn 1742-6 36 11-40 U/L 11/21/2017 1Alanine 17:54 aminotransferase :CCnc:Pt:Ser/Kaya s:Qn 6768-6 78 47-114 U/L 11/21/2017 1Alkaline 17:54 phosphatase:CCnc :Pt:Ser/Plas:Qn 1975-2 0.4 0.2-1.2 mg/dl 11/21/2017 1Bilirubin:MCnc: 17:54 Pt:Ser/Plas:Qn 4.3 H 2.3-3.5 gm/dl 11/21/2017 1Globulin 17:54 9 8.4-10.2 mg/dl 11/21/2017 1Calcium, 17:54 Corrected Note: Various formulas exist for corrected serum calcium results, each yielding different values. This corrected result was based on the formula: Corrected Calcium=SerumCalcium + [0.8 * ( 4 - SerumAlbumin)] 1EGFR >60 mL/min/1.73m^2 11/21/2017 17:54 if 1EGFR >60 mL/min/1.73m^2 11/21/2017 17:54 if Non- Note: Estimated Glomerular Filtration Rate (eGFR) Reference Intervals Decision Points for 18 years and older and average body mass: >=60 Does not exclude kidney disease. 30 - 59 Suggests moderate chronic kidney disease and indicates the need for further investigation including assessment of proteinuria and cardiovascular factors. < 30 Usually indicates a need for referral for assessment and management of chronic kidney failure. Performing Lab Footnotes:[address] [place] [address] [id number] - [address] [place] [address] SD Singer MD: DIRECTOR NIKA TURK__ ____ Order: LIPASE SERUM LOINC Test Result Flag Range Unit Date 36 8-223 U/L 11/21/2017 1Lipase 17:54 Performing Lab Footnotes:[address] [place] [address] - [id number] - [address] [place] [address] [place] Singer MD: DIRECTOR NIKA TURK__ ____ Order: TEST SERUM QUAL LOINC Test Result Flag Range Unit Date Negative 11/21/2017 1Pregnancy 17:54 (Serum) Performing Lab Footnotes:[address] [place] [address] [id number] - [address] [place] [address] [address] [place] [address] [facility] - : DIRECTOR NIKA TURK__ ____ Vital Signs Vitals Value Date Body Temperature 99.1 F 11/21/2017 Respiratory Rate 16 11/21/2017 O2% BldC Oximetry 100 11/21/2017 Weight Measured 126.98 lbs 11/21/2017 Plan of Care No data in the system Procedures No data in the system Encounters Date Code Diagnosis Status (ICD10) - K2970 GASTRITIS UNS WITHOUT BLEEDING Active Immunizations No data in the system Functional Status No data in the system Hospital Discharge Instructions No data in the system
--- OUTSIDE RECORDS SUMMARY | 2018-06-04 11:18 | XMS REPORT | Continuity of Care Document ---
:1985 Author Organization [facility] Care Team Providers Name Role Phone GREGORIA SANDERS Admitting Physician GREGORIA SANDERS Attending Physician Hospital Admission Diagnosis Code Admission Diagnosis Date Abdominal pain Social History Element Code Description Smoking Start Date End Date Description Status Code System Smoking Status [id number] Smoker, current SNOMED-CT status unknown Problems No data in the system Medications SNOMED CT Description [id number] Drug Treatment Unknown Allergies Code Code Allergy Type Reaction Severity Start End Status System Substance Date Date 9229 RXNorm Reglan Drug Unknown Active allergy 58890 RXNorm Zofran Drug Unknown Active allergy Results Laboratory Results Order: TEST URINE LOINC Test Result Flag Range Unit Date Negative 02/04/2018 1Pregnancy 05:44 (Urine) Performing Lab Footnotes:[address] [place] [address] - [id number] - [address] [place] [address] [place] - MD: DIRECTOR NIKA TURK__ ____ Order: UA URINALYSIS WITH MICROSCOPY LOINC Test Result Flag Range Unit Date 5778-6 Yellow 02/04/2018 1Color:Type: 05:44 Pt:Urine:Nom 5767-9 CLEAR 02/04/2018 1Appearance: 05:44 Aper:Pt:Urin e:Nom 2349-9 NEGATIVE NEGATIVE 02/04/2018 1Glucose:ACn 05:44 c:Pt:Urine:O rd 5770-3 SMALL A NEGATIVE 02/04/2018 1Bilirubin:A 05:44 Cnc:Pt:Urine :Ord:Test strip 2514-8 >=80 A NEGATIVE 02/04/2018 1Ketones:ACn 05:44 c:Pt:Urine:O rd:Test strip 5811-5 1.025 A 1.005-1.030 02/04/2018 1Specific 05:44 gravity:Rden :Pt:Urine:Qn :Test strip 5794-3 NEGATIVE NEGATIVE 02/04/2018 1Hemoglobin: 05:44 ACnc:Pt:Urin e:Ord:Test strip 5803-2 6.5 A 4.5-8.0 02/04/2018 1pH:LsCnc:Pt 05:44 :Urine:Qn:Te st strip 36096-4 30 A NEGATIVE 02/04/2018 1Protein:ACn 05:44 c:Pt:Urine:O rd:Test strip 5818-0 0.2 0.2 02/04/2018 1Urobilinoge 05:44 n:ACnc:Pt:Ur ine:Ord:Test strip 5802-4 NEGATIVE NEGATIVE 02/04/2018 1Nitrite:ACn 05:44 c:Pt:Urine:O rd:Test strip 5799-2 NEGATIVE NEGATIVE 02/04/2018 1Leukocyte 05:44 esterase:ACn c:Pt:Urine:O rd:Test strip 5821-4 5-10 A 0-5 02/04/2018 1Leukocytes: 05:44 Naric:Pt:Uri ne sed:Qn:Micro scopy.light. HPF 17150-4 0-1 A 0-5 02/04/2018 1Erythrocyte 05:44 s:Naric:Pt:U rine sed:Qn:Micro scopy.light. HPF 03597-1 40-50 A 0-10 02/04/2018 1Epithelial 05:44 cells.squamo us:Naric:Pt: Urine sed:Qn:Micro scopy.light. HPF 8247-9 Moderate A None Seen 02/04/2018 1Mucus:ACnc: 05:44 Pt:Urine sed:Ord:Micr oscopy.light 5769-5 Trace None Seen,Trace 02/04/2018 1Bacteria:Na 05:44 tatiana:Pt:Urine sed:Qn:Micro scopy.light. HPF Performing Lab Footnotes:[address] [place] [address] - [id number] - [address] [facility] [address] [facility] [place] [address] [facility] - MD: DIRECTOR NIKA TURK__ ____ Order: CBC PLATELET AUTO DIFF LOINC Test Result Flag Range Unit Date 27267-1 7.09 4.80-10.80 10^3/ul 02/04/2018 1Leukocytes^^correc 04:35 samy for nucleated erythrocytes:NCnc:P t:Bld:Qn:Automated count 789-8 5.07 4.20-5.40 10^6/ul 02/04/2018 1Erythrocytes:NCnc: 04:35 Pt:Bld:Qn:Automated count 718-7 14.4 H 12.0-14.0 gm/dl 02/04/2018 1Hemoglobin:MCnc:Pt 04:35 :Bld:Qn 4544-3 42.4 37.0-47.0 % 02/04/2018 1Hematocrit:VFr:Pt: 04:35 Bld:Qn:Automated count 787-2 83.6 81.0-99.0 fL 02/04/2018 1Erythrocyte mean 04:35 corpuscular volume:EntVol:Pt:RB C:Qn:Automated count 785-6 28.4 27.0-31.0 pg 02/04/2018 1Erythrocyte mean 04:35 corpuscular hemoglobin:EntMass: Pt:RBC:Qn:Automated count 786-4 34 33.0-37.0 gm/dl 02/04/2018 1Erythrocyte mean 04:35 corpuscular hemoglobin concentration:MCnc: Pt:RBC:Qn:Automated count 788-0 13.6 11.5-14.5 % 02/04/2018 1Erythrocyte 04:35 distribution width:Ratio:Pt:RBC: Qn:Automated count 777-3 248 130-400 10^3/ul 02/04/2018 1Platelets:NCnc:Pt: 04:35 Bld:Qn:Automated count 11585-9 1Platelet 12.0 A 7.4-10.4 fL 02/04/2018 mean 04:35 volume:EntVol:Pt:Bl d:Qn:Automated count Note: 'NOT MEASURED' RESULTS [...] BE NOTED ON THE REPORT. 770-8 1Neutrophils/100 67.2 42.0-75.0 % 02/04/2018 leukocytes:NFr:Pt:Bld:Qn:Automated 04:35 count 736-9 1Lymphocytes/100 22.3 13.0-42.0 % 02/04/2018 leukocytes:NFr:Pt:Bld:Qn:Automated 04:35 count 5905-5 1Monocytes/100 9.7 4.0-14.0 % 02/04/2018 leukocytes:NFr:Pt:Bld:Qn:Automated 04:35 count 713-8 1Eosinophils/100 0.1 L 1.0-5.0 % 02/04/2018 leukocytes:NFr:Pt:Bld:Qn:Automated 04:35 count 706-2 1Basophils/100 0.3 0.0-3.0 % 02/04/2018 leukocytes:NFr:Pt:Bld:Qn:Automated 04:35 count 1IG% 0.4 0.0-0.4 % 02/04/2018 04:35 1NRBC, Auto 0 0-2 /100 02/04/2018 WBC 04:35 Performing Lab Footnotes:[address] [place] [address] - [id number] - [address] [facility] [address] - [place] [address] [facility] - MD: DIRECTOR NIKA TURK__ ____ Order: CMP COMPREHENSIVE METABOLIC PANEL LOINC Test Result Flag Range Unit Date 103 75-110 mg/dl 02/04/2018 1Glucose 04:35 1BUN 16 6.0-17.0 mg/dl 02/04/2018 04:35 0.7 0.4-1.2 mg/dl 02/04/2018 1Creatinine 04:35 140 137-145 mmol/l 02/04/2018 1Sodium 04:35 3.3 L 3.5-5.0 mmol/l 02/04/2018 1Potassium 04:35 98 98-107 mmol/l 02/04/2018 1Chloride 04:35 1CO2 20 L 22-30 mmol/l 02/04/2018 04:35 10.1 8.4-10.2 mg/dl 02/04/2018 1Calcium 04:35 1T 9.6 H 5.1-8.7 gm/dl 02/04/2018 Protein 04:35 5 H 3.5-4.6 gm/dl 02/04/2018 1Albumin 04:35 1A/G 1.1 1.1-2.2 % 02/04/2018 Ratio 04:35 1AST 38 H 11-36 U/L 02/04/2018 (SGOT) 04:35 1ALT 14 11-40 U/L 02/04/2018 (SGPT) 04:35 99 47-114 U/L 02/04/2018 1Alkaline Phos 04:35 1Total 1 0.2-1.2 mg/dl 02/04/2018 Bilirubin 04:35 4.6 H 2.3-3.5 gm/dl 02/04/2018 1Globulin 04:35 9.3 8.4-10.2 mg/dl 02/04/2018 1Calcium, 04:35 Corrected Note: Various formulas exist for corrected serum calcium results, each yielding different values. This corrected result was based on the formula: Corrected Calcium=SerumCalcium + [0.8 * ( 4 - SerumAlbumin)] 1EGFR >60 mL/min/1.73m^2 02/04/2018 04:35 if 1EGFR >60 mL/min/1.73m^2 02/04/2018 04:35 if Non- Note: Estimated Glomerular Filtration Rate [...] management of chronic kidney failure. Performing Lab Footnotes:[address] [place] [address] - [id number] - [address] [place] [address] [place] Singer MD: DIRECTOR NIKA TURK__ ____ Order: LIPASE SERUM LOINC Test Result Flag Range Unit Date 462 H 8-223 U/L 02/04/2018 1Lipase 04:35 Performing Lab Footnotes:[address] [place] [address] - [id number] - [address] [facility] [address] [address] [place] Singer MD: DIRECTOR NIKA TURK__ ____ Order: MAGNESIUM SERUM LOINC Test Result Flag Range Unit Date 2.4 H 1.6-2.3 mg/dl 02/04/2018 1Magnesium 04:35 Performing Lab Footnotes:[address] [place] [address] - [id number] - [address] [facility] [address] [place] [address], [place] [address] [place] Singer MD: DIRECTOR NIKA TURK__ ____ Order: VALPROIC ACID LOINC Test Result Flag Range Unit Date <3.0 L 50.0-120.0 ug/ml 02/04/2018 1Valproic 04:35 Acid Performing Lab Footnotes:[address] [place] [address] - [id number] - [address] [facility] [address] [place] [address], [place] [address] [place] Singer MD: DIRECTOR NIKA TURK__ ____ Radiology Results Order: [id number] XR ABD SERIES W/PA CXRExam Completion Date:02/04/2018 04:02Procedure: XR ABD SERIES W/PA CXR Order Date: 02/04/2018 4:02 AMOrdering Provider: GREGORIA Hinojosainical Indication: nausea/vomitingComparison: NoneFindings: Upright chest x-ray: Cardiac size is normal. Pulmonary vasculature is normal.Mediastinal and aortic contour normal. There is no consolidation or effusion.Flat and upright abdomen: There is no small or large bowel distention. There is no pneumoperitoneum. There are no suspicious calcifications. Lumbar scoliosis.Impression:1. No acute abnormality in the chest, abdomen, or pelvis.2. Lumbar scoliosis.This final report was electronically signed by Dr Ousmane Farrell MD 02/04/20189:53 AMDictated By: OUSMANE FARRELLDate: 02/04/2018 10:00 Vital Signs Vitals Value Date Body Temperature 98.5 F 02/04/2018 Respiratory Rate 25 02/04/2018 O2% BldC Oximetry 100 02/04/2018 BP Systolic 137 mmHg 02/04/2018 BP Diastolic 93 mmHg 02/04/2018 Height 62 in 02/04/2018 Weight Measured 122 lbs 02/04/2018 BSA (Body Surface Area) 1.26287 02/04/2018 BMI (Body Mass Index) 22.4 02/04/2018 Plan of Care No data in the system Procedures Code Code System Procedure Name Target Site Date of Procedure XR ABD SERIES 02/04/2018 10:00 W/PA CXR Encounters Date Code Diagnosis Status (ICD10) - R109 UNSPECIFIED ABDOMINAL PAIN Active Immunizations No data in the system Functional Status No data in the system Hospital Discharge Instructions No data in the system
[2018-06-04] MEDS ORDERED: LORazepam 2 MG/ML VIAL ONE (12:42)
[2018-06-04] MEDS ORDERED: PROMETHAZINE 25 MG/ML VIAL ONE ×2 (12:42→15:08)
[2018-06-04] MEDS ORDERED: FENTANYL CITR 100 MCG/2 ML ONE (12:42)
[2018-06-04] MEDS ORDERED: NA CHLORIDE 0.9% 1,000 ML ONE (12:43)
[2018-06-04 13:25] LABS: Absolute Lymphocytes (CBC) 1.4 K/uL (0.7-4.9); Absolute Monocytes 0.4 K/uL (0.1-1.3); Absolute Neutrophil 3.8 K/uL (1.8-8.0); Basophils % 0.8 % (0-1.3); Eosinophils % 0.5 % (0-4.4); Hematocrit 33.5 % (36.0-45.0); Lymphocytes % 23.9 % (15.3-44.8); MPV 10.1 fL (7.6-11.3); Monocytes % 7.8 % (3.3-12.3); RBC Red Blood Cell Count 3.84 M/uL (3.86-4.86)
[2018-06-04 13:42] LABS: ALT/SGPT 15 U/L (12-78); AST/SGOT 10 U/L (15-37); Albumin 3.6 g/dL (3.4-5.0); Alkaline Phosphatase 77 U/L (45-117); BUN Blood Urea Nitrogen 4 mg/dL (7-18); Bicarbonate 23 mmol/L (21-32); Bilirubin Direct 0.1 mg/dL (0-0.2); Bilirubin Total 0.3 mg/dL (0.2-1.0); Glucose Level 108 mg/dL (74-106); Lipase 108 U/L (73-393); Potassium 3.3 mmol/L (3.5-5.1); Protein, Total 7.6 g/dL (6.4-8.2); Sodium Level 140 mmol/L (136-145)
--- NOTE | 2018-06-04 15:43 | EDPHYS ---
Physician Documentation [facility] Name: Joan Short Age: 32 yrs Sex: Female : 1985 Arrival Date: 06/04/2018 Time: 11:07 Bed 25 Private MD: ED Physician Ankit Hernandes HPI: 06/04 12:38 This 32 yrs old Black Female presents to ER via Wheelchair with complaints of Vomiting. jr8 12:38 The patient presents to the emergency department with nausea, vomiting. Onset: The jr8 symptoms/episode began/occurred acutely, today. Possible causes: history of gastroparesis. The symptoms are aggravated by nothing. The symptoms are alleviated by nothing. Associated signs and symptoms: Pertinent positives: abdominal pain. Severity of symptoms: At their worst the symptoms were moderate in the emergency department the symptoms are unchanged. The patient has experienced similar episodes in the past, several times. The patient has not recently seen a physician. Patient stated that she recently moved down here from [place] within the last week. History of gastroparesis. Having abdominal pain, n/v . EDUCATION REP: 11:53 LMP 05/14/2018 aj Historical: - Allergies: 11:53 Zofran; aj 11:53 Reglan; aj 11:53 Haldol; aj 11:53 Unisom; aj - Home Meds: 11:53 Promethazine Oral [Active]; Alprazolam Oral [Active]; [place] Oral [Active]; Famotidine aj Oral [Active]; Valproic Acid Oral [Active]; - PMHx: 11:53 gastroporesis; Seizures; Fibromyalgia; Anxiety; Bipolar disorder; aj - PSHx: 11:53 ; Tubal ligation; aj - Immunization history:: Adult Immunizations. - Social history:: Smoking status: unknown. - Ebola Screening: : Patient negative for fever greater than or equal to 101.5 degrees Fahrenheit, and additional compatible Ebola Virus Disease symptoms Patient denies exposure to infectious person Patient denies travel to an Ebola-affected area in the 21 days before illness onset No symptoms or risks identified at this time. ROS: 12:38 Eyes: Negative for injury, pain, redness, and discharge, ENT: Negative for injury, jr8 pain, and discharge, Neck: Negative for injury, pain, and swelling, Cardiovascular: Negative for chest pain, palpitations, and edema, Respiratory: Negative for shortness of breath, cough, wheezing, and pleuritic chest pain, Back: Negative for injury and pain, MS/Extremity: Negative for injury and deformity, Skin: Negative for injury, rash, and discoloration, Neuro: Negative for headache, weakness, numbness, tingling, and seizure. 12:38 Abdomen/GI: Positive for abdominal pain, nausea and vomiting, Negative for diarrhea, constipation, abdominal cramps, abdominal distension, anorexia, dysphagia, hematemesis, black/tarry stool, rectal pain, rectal bleeding, bowel incontinence, flatulence. Exam: 12:38 Eyes: Pupils equal round and reactive to light, extra-ocular motions intact. Lids and jr8 lashes normal. Conjunctiva and sclera are non-icteric and not injected. Cornea within normal limits. Periorbital areas with no swelling, redness, or edema. ENT: Nares patent. No nasal discharge, no septal abnormalities noted. Tympanic membranes are normal and external auditory canals are clear. Oropharynx with no redness, swelling, or masses, exudates, or evidence of obstruction, uvula midline. Mucous membranes moist. Neck: Trachea midline, no thyromegaly or masses palpated, and no cervical lymphadenopathy. Supple, full range of motion without nuchal rigidity, or vertebral point tenderness. No Meningismus. Cardiovascular: Regular rate and rhythm with a normal S1 and S2. No gallops, murmurs, or rubs. Normal PMI, no JVD. No pulse deficits. Respiratory: Lungs have equal breath sounds bilaterally, clear to auscultation and percussion. No rales, rhonchi or wheezes noted. No increased work of breathing, no retractions or nasal flaring. Back: No spinal tenderness. No costovertebral tenderness. Full range of motion. Skin: Warm, dry with normal turgor. Normal color with no rashes, no lesions, and no evidence of cellulitis. MS/ Extremity: Pulses equal, no cyanosis. Neurovascular intact. Full, normal range of motion. Neuro: Awake and alert, GCS 15, oriented to person, place, time, and situation. Cranial nerves II-XII grossly intact. Motor strength 5/5 in all extremities. Sensory grossly intact. Cerebellar exam normal. Normal gait. 12:38 Constitutional: The patient appears alert, awake, anxious, restless. 12:38 Abdomen/GI: Inspection: abdomen appears normal, Bowel sounds: active, all quadrants, Palpation: soft, in all quadrants, moderate abdominal tenderness, in the right upper quadrant and left upper quadrant, mass, is not appreciated, rebound tenderness, is not appreciated, voluntary guarding, is elicited in the right upper quadrant and left upper quadrant, involuntary guarding, is not appreciated, no appreciated organomegaly, Indicators: McBurney's point is not tender, Hills's sign is negative, Rovsing's sign is negative, Liver: tenderness, is not appreciated. Vital Signs: 11:53 BP 102 / 75; Pulse 75; Resp 20; Temp 97.7; Pulse Ox 100% on R/A; Weight 52.16 kg; aj Height 5 ft. 2 in. (157.48 cm); 12:54 BP 123 / 87; Pulse 60; Resp 14 S; Pulse Ox 100% on 2 lpm NC; iw 13:15 BP 109 / 89; Pulse 55; Resp 18; Pulse Ox 100% on R/A; tl3 11:53 Body Mass Index 21.03 (52.16 kg, 157.48 cm) aj Bath Coma Score: 11:53 Eye Response: spontaneous(4). Verbal Response: oriented(5). Motor Response: obeys aj commands(6). Total: 15. MDM: 12:07 Patient medically screened. jr8 14:57 Data reviewed: vital signs, nurses notes, lab test result(s), and as a result, I will jr8 discharge patient. Data interpreted: Pulse oximetry: on room air is 100 %. Interpretation: normal. Counseling: I had a detailed discussion with the patient and/or guardian regarding: the historical points, exam findings, and any diagnostic results supporting the discharge/admit diagnosis, lab results, the need for outpatient follow up, a family practitioner, a industrial rehabilitation consultant, to return to the emergency department if symptoms worsen or persist or if there are any questions or concerns that arise at home. 15:41 Response to treatment: the patient's symptoms have markedly improved after treatment. 06/04 12:28 Order name: Basic Metabolic Panel; Complete Time: 14:05 06/04 12:28 Order name: CBC with Diff; Complete Time: 13:41 06/04 12:28 Order name: Creatinine for Radiology; Complete Time: 14:06/04 12:28 Order name: Hepatic Function; Complete Time: 14:06/04 12:28 Order name: Lipase; Complete Time: 14:06/04 12:28 Order name: IV Saline Lock; Complete Time: 12:51 06/04 12:28 Order name: Labs collected and sent; Complete Time: 12:51 Administered Medications: 12:50 Drug: Phenergan 25 mg Route: IVP; Site: left jugular; iw 13:17 Follow up: Response: No adverse reaction tl3 12:50 Drug: NS 0.9% 1000 ml Route: IV; Rate: 1000 ml; Site: left jugular; iw 13:18 Follow up: IV Status: Completed infusion; IV Intake: 1000ml tl3 12:50 Drug: Ativan 1 mg Route: IVP; Site: left jugular; iw 13:17 Follow up: Response: Anxiety decreased tl3 12:50 Drug: fentaNYL (PF) 50 mcg Route: IVP; Site: left jugular; iw 13:17 Follow up: Response: Pain is decreased tl3 Disposition: 06/04/18 15:42 Discharged to Home. Impression: Gastroparesis. - Condition is Stable. - Discharge Instructions: Gastroparesis. - Prescriptions for promethazine 25 mg Oral Tablet - take 1 tablet by ORAL route every 6 hours As needed; 20 tablet. - Medication Reconciliation Form, Thank You Letter, Antibiotic Education, Prescription Opioid Use form. - Follow up: Private Physician; When: 2 - 3 days; Reason: Recheck today's complaints, Continuance of care, Re-evaluation by your physician. - Problem is new. - Symptoms have improved. Addendum: 06/08/2018 07:56 Co-signature as Attending Physician, Ankit Hernandes MD I agree with the assessment and c blackwell plan of care. Signatures: Dispatcher [employer] Tammy Burrows RN RN aj Anderson, Corey, MD MD cha Williams, Irene, RN RN iw Roszak, Josh, PA PA jr8 Yaa Olson RN RN tl3 Corrections: (The following items were deleted from the chart) 06/04 16:43 15:42 06/04/2018 15:42 Discharged to Home. Impression: Gastroparesis. Condition is tl3 Stable. Forms are Medication Reconciliation Form, Thank You Letter, Antibiotic Education, Prescription Opioid Use. Follow up: Private Physician; When: 2 - 3 days; Reason: Recheck today's complaints, Continuance of care, Re-evaluation by your physician. Problem is new. Symptoms have improved. jr8
--- NOTE | 2018-06-04 15:43 | ER ---
Nurse's Notes [facility] Name: Joan Short Age: 32 yrs Sex: Female : 1985 Arrival Date: 06/04/2018 Time: 11:07 Bed 25 Private MD: Diagnosis: Gastroparesis Presentation: 06/04 11:46 Presenting complaint: Patient states: Vomiting since last night and "seizures". aj Transition of care: patient was not received from another setting of care. Onset of symptoms was June 03, 2018. Risk Assessment: Do you want to hurt yourself or someone else? Patient reports no desire to harm self or others. Initial Sepsis Screen: Does the patient meet any 2 criteria? No. Patient's initial sepsis screen is negative. Does the patient have a suspected source of infection? No. Patient's initial sepsis screen is negative. Care prior to arrival: None. 11:46 Method Of Arrival: Wheelchair 11:46 Acuity: ЮЛЯИ 3 aj 11:56 Note Patient kneeled down onto floor in front of wheelchair, placing face on floor in aj triage. Stated "my body is locking up, I can't talk anymore. I don't want you anymore I want someone else." Patient began yelling and getting agitated, code purple called in triage. Triage Assessment: 11:53 General: Appears in no apparent distress. Behavior is agitated, anxious. Pain: aj Complains of pain in abdomen. Neuro: Level of Consciousness is awake, alert, obeys commands, Oriented to person, place, time, situation, Appropriate for age Finisher Card Tender are equal bilaterally Moves all extremities. Full function Speech is normal, Facial symmetry appears normal, Pupils are PERRLA. Neuro: Seizure activity reported prior to arrival. Respiratory: Airway is patent Respiratory effort is even, unlabored, Respiratory pattern is regular, symmetrical. GI: Reports lower abdominal pain, upper abdominal pain, nausea, vomiting. Derm: Skin is intact, is healthy with good turgor, Skin is pink, warm \\T\\ dry. normal. 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 - Social history:: Smoking status: unknown. - Ebola Screening: : Patient negative for fever greater than or equal to 101.5 degrees Fahrenheit, and additional compatible Ebola Virus Disease symptoms Patient denies exposure to infectious person Patient denies travel to an Ebola-affected area in the 21 days before illness onset No symptoms or risks identified at this time. Screenin:56 Abuse screen: Denies threats or abuse. Denies injuries from another. Nutritional iw screening: Has had N/V for 3 or more days. Tuberculosis screening: No symptoms or risk factors identified. Fall Risk IV access (20 points). Assessment: 11:50 General: Appears distressed, uncomfortable, unkempt, well developed, Behavior is iw agitated, anxious, fussy. Pain: Complains of pain in head, chest, abdomen, pelvis, right arm, left arm, right leg and left leg Pain currently is 10 out of 10 on a pain scale. Neuro: Level of Consciousness is awake, alert, obeys commands. Cardiovascular: Patient's skin is warm and dry. Respiratory: Respiratory pattern is regular. GI: Reports lower abdominal pain, upper abdominal pain, nausea, vomiting. GI: Abdomen is flat, non-distended, Bowel sounds present X 4 quads. Abd is soft X 4 quads. 12:54 Reassessment: pt able to remain still while administering medications, pt is calm and iw resting with eyes closed after med administration, VSS, placed on 2 L NC for SpO2=93%, up to 100% on O2. 13:15 Reassessment: Patient and/or family updated on plan of care and expected duration. Pain tl3 level reassessed. Patient is alert, oriented x 3, equal unlabored respirations, skin warm/dry/pink. pt is sleeping, lights dimmed and door closed, call light in reach, VSS. 14:30 Reassessment: No changes from previously documented assessment. Patient and/or family tl3 updated on plan of care and expected duration. Pain level reassessed. Patient is alert, oriented x 3, equal unlabored respirations, skin warm/dry/pink. 16:39 Reassessment: No changes from previously documented assessment. Patient and/or family tl3 updated on plan of care and expected duration. Pain level reassessed. pt sleeps then wakes up stating she cant stop vomiting, provider notified rx given, explained to pt that all labs were WNL and that we had given her the max amount of Phenergan. Vital Signs: 11:53 BP 102 / 75; Pulse 75; Resp 20; Temp 97.7; Pulse Ox 100% on R/A; Weight 52.16 kg; aj Height 5 ft. 2 in. (157.48 cm); 12:54 BP 123 / 87; Pulse 60; Resp 14 S; Pulse Ox 100% on 2 lpm NC; iw 13:15 BP 109 / 89; Pulse 55; Resp 18; Pulse Ox 100% on R/A; tl3 11:53 Body Mass Index 21.03 (52.16 kg, 157.48 cm) aj [place] Coma Score: 11:53 Eye Response: spontaneous(4). Verbal Response: oriented(5). Motor Response: obeys aj commands(6). Total: 15. ED Course: 11:07 Patient arrived in ED. rg4 11:49 Triage completed. aj 11:50 Seizure precautions initiated. iw 11:53 Arm band placed on left wrist. Patient placed in an exam room. aj 12:00 Haylee Goodamn, MATHEW is Primary Nurse. iw 12:06 Kevin Guzman NP is PHCP. pm1 12:06 Ankit Hernandes MD is Attending Physician. pm1 12:07 PHCP role handed off by Kevin Guzman NP jr8 12:07 Delio Dewitt PA is PHCP. jr8 12:20 Inserted saline lock: 20 gauge in left EJ, using aseptic technique. Blood collected. IV iw inserted by Blane Kebede. 16:39 Patient has correct armband on for positive identification. Placed in gown. Bed in low tl3 position. Call light in reach. Side rails up X2. 16:39 No provider procedures requiring assistance completed. IV discontinued, intact, tl3 bleeding controlled, No redness/swelling at site. Pressure dressing applied. Administered Medications: 12:50 Drug: Phenergan 25 mg Route: IVP; Site: left jugular; iw 13:17 Follow up: Response: No adverse reaction tl3 12:50 Drug: NS 0.9% 1000 ml Route: IV; Rate: 1000 ml; Site: left jugular; iw 13:18 Follow up: IV Status: Completed infusion; IV Intake: 1000ml tl3 12:50 Drug: Ativan 1 mg Route: IVP; Site: left jugular; iw 13:17 Follow up: Response: Anxiety decreased tl3 12:50 Drug: fentaNYL (PF) 50 mcg Route: IVP; Site: left jugular; iw 13:17 Follow up: Response: Pain is decreased tl3 Intake: 13:18 IV: 1000ml; Total: 1000ml. tl3 Outcome: 15:42 Discharge ordered by . tariq 16:39 Discharged to home via wheelchair. tl3 16:39 Condition: stable 16:39 Discharge instructions given to patient, Instructed on discharge instructions, follow up and referral plans. medication usage, Demonstrated understanding of instructions, follow-up care, medications, Prescriptions given X 1. 16:43 Patient left the ED. tl3 Signatures: Tammy Daniels RN RN Haylee Woodson RN RN Delio Phillips PA PA jr8 Kevin Guzman NP SHEET METAL SHOP SUPERVISOR pm1 Talia Seymour rg4 Yaa Olson RN RN tl3 Corrections: (The following items were deleted from the chart) 16:40 16:39 Reassessment: No changes from previously documented assessment. Patient and/or tl3 family updated on plan of care and expected duration. Pain level reassessed. pt sleeps then wakes up stating she cant stop vomiting tl3
== END 2018-06-04 16:43 | disposition home or self-care (01) ==
LOC: ER 11:06
DX: K31.84 Gastroparesis (principal); F41.9 Anxiety disorder, unspecified; F31.9 Bipolar disorder, unspecified; G40.909 Epilepsy, unspecified, not intractable, without status epilepticus; Z88.5 Allergy status to narcotic agent; Z88.8 Allergy status to other drugs, medicaments and biological substances
CPT/HCPCS: 36415; 80048; 80076; 83690; 85025; 96374; 96375; 99284; J2550; J3010; J7030

== ENCOUNTER 2018-06-05 18:21 | Emergency (ER) | payer SELFPAY ==
--- OUTSIDE RECORDS SUMMARY | 2018-06-05 18:23 | XMS REPORT | Clinical Summary ---
:1985 Author Organization [facility] Address [address] [place] [address] Care Team Providers Name Role Phone Kiersten [...] Internal Medicine 06/06/2017 Emergency Emergency Medicine Dyllan Mami Pain due to dental caries (Primary Dx); MD Nava Myalgia; Upper respiratory tract infection, unspecified type; Acute pain of left shoulder after 06/04/2017 Social History Tobacco Use Types Packs/Day Years [...] Taken Blood Pressure 101/63 06/19/2017 6:19 PM PUBLIC ADMINISTRATION PROFESSOR Pulse 83 06/19/2017 6:19 PM PUBLIC ADMINISTRATION PROFESSOR Temperature 36.6 C (97.8 F) 06/19/2017 6:19 PM PUBLIC ADMINISTRATION PROFESSOR Respiratory Rate 18 06/19/2017 6:19 PM PUBLIC ADMINISTRATION PROFESSOR Oxygen Saturation 100% 06/19/2017 6:19 PM PUBLIC ADMINISTRATION PROFESSOR Inhaled Oxygen Concentration - - Weight 57.8 kg (127 lb 8 oz) 06/19/2017 2:51 PM PUBLIC ADMINISTRATION PROFESSOR Height 158 cm (5' 2.21") 06/19/2017 2:51 PM PUBLIC ADMINISTRATION PROFESSOR Body Mass Index 23.17 06/19/2017 2:51 PM PUBLIC ADMINISTRATION PROFESSOR Plan of Treatment Not on file Procedures Procedure Name Priority Date/Time Associated Comments Diagnosis ED ECG INTERPRETATION Routine 06/19/2017 5:52 Results for this PM PUBLIC ADMINISTRATION PROFESSOR procedure are in the results section. PLACE NEEDLE IN VEIN Routine 06/19/2017 5:52 Results for this PM PUBLIC ADMINISTRATION PROFESSOR procedure are in the results section. CBC W/PLT COUNT & AUTO STAT 06/19/2017 3:13 Results for this DIFFERENTIAL PM PUBLIC ADMINISTRATION PROFESSOR procedure are in the results section. D-DIMER STAT 06/19/2017 3:13 Results for this PM PUBLIC ADMINISTRATION PROFESSOR procedure are in the results section. SCREEN, URINE STAT 06/19/2017 3:13 Results for this PM PUBLIC ADMINISTRATION PROFESSOR procedure are in the results section. RAPID TROPONIN I STAT 06/19/2017 3:13 Results for this PM PUBLIC ADMINISTRATION PROFESSOR procedure are in the results section. RAPID CK-MB STAT 06/19/2017 3:13 Results for this PM PUBLIC ADMINISTRATION PROFESSOR procedure are in the results section. CREATINE KINASE (CK) STAT 06/19/2017 3:13 Results for this PM PUBLIC ADMINISTRATION PROFESSOR procedure are in the results section. PT/APTT STAT 06/19/2017 3:13 Results for this PM PUBLIC ADMINISTRATION PROFESSOR procedure are in the results section. CBC W/PLT COUNT & AUTO STAT 06/19/2017 3:13 Results for this DIFFERENTIAL PM PUBLIC ADMINISTRATION PROFESSOR procedure are in the results section. MAGNESIUM STAT 06/19/2017 3:13 Results for this PM PUBLIC ADMINISTRATION PROFESSOR procedure are in the results section. BASIC METABOLIC PANEL STAT 06/19/2017 3:13 Results for this (7) PM PUBLIC ADMINISTRATION PROFESSOR procedure are in the results section. XR CHEST 1 VIEW STAT 06/19/2017 2:58 Results for this PORTABLE/BEDSIDE PM PUBLIC ADMINISTRATION PROFESSOR procedure are in the results section. ECG 12-LEAD STAT 06/19/2017 2:44 Results for this PM PUBLIC ADMINISTRATION PROFESSOR procedure are in the results section. ECG 12-LEAD Routine 06/19/2017 2:43 Results for this PM PUBLIC ADMINISTRATION PROFESSOR procedure are in the results section. XR SHOULDER LEFT STAT 06/06/2017 3:32 Results for this COMPLETE MIN 2 VIEWS AM PUBLIC ADMINISTRATION PROFESSOR procedure are in the results section. RAPID STREP A SCREEN STAT 06/06/2017 2:59 Results for this AM PUBLIC ADMINISTRATION PROFESSOR procedure are in the results section. RAPID INFLUENZA A&B STAT 06/06/2017 2:58 Results for this SCREEN AM PUBLIC ADMINISTRATION PROFESSOR procedure are in the results section. after 06/04/2017 Results PIV Insertion (06/19/2017 5:52 PM PUBLIC ADMINISTRATION PROFESSOR) Narrative Performed At Sanchez Norwood DO 06/19/20175:52 [...] complications ED ECG Interpretation (06/19/2017 5:52 PM PUBLIC ADMINISTRATION PROFESSOR) Narrative Performed At Sanchez Norwood DO 06/19/20175:52 PM ECG/EKG Interpretation Date/Time: 06/19/2017 2:52 PM Performed by: SANCHEZ NORWOOD Authorized by: SANCHEZ NORWOOD The ECG was interpreted by ED physician. This ECG was not compared with previous ECG(s).The ECG is interpreted as sinus rhythm. Rate is normal rate. Heart rate is [address] segments abnormal. T waves abnormal. [place] is normal. Clinical Impression: non-specific ECGECG reviewed and does not meet STEMI criteria. Patient tolerance: Patient tolerated the procedure well with no immediate complications Rapid Troponin I (06/19/2017 3:13 PM PUBLIC ADMINISTRATION PROFESSOR) Rapid Troponin I <0.05 <0.05 ng/mL [facility] Specimen Blood - Arm, Right Performing Organization Address [facility] Phone Number [facility] [address] [place] [address] [facility] Rapid CK-MB (06/19/2017 3:13 PM PUBLIC ADMINISTRATION PROFESSOR) Rapid CKMB <1.0 0.0 - 4.3 ng/mL [facility] Specimen Blood - Arm, Right Performing Organization Address [facility] Phone Number [facility] [address] [place] [address] [facility] PT/PTT (06/19/2017 3:13 PM PUBLIC ADMINISTRATION PROFESSOR) Protime 9.9 9.8 - 12.0 seconds [facility] INR 0.9 <=5.9 [facility] PTT 25.7 (L) 25.8 - 34.5 seconds [facility] Specimen Blood - Arm, Right Narrative Performed At [facility] RECOMMENDED COUMADIN/WARFARIN INR THERAPY [facility] STANDARD DOSE: 2.0 - 3.0 Includes: PROPHYLAXIS for venous thrombosis, systemic embolization; TREATMENT for venous thrombosis and/or pulmonary embolus. HIGH RISK: Target INR is 2.5-3.5 for patients with mechanical heart valves. Performing Organization Address [facility] Phone Number [facility] [address] [place] [address] [facility] CBC with platelet count + automated diff (06/19/2017 3:13 PM PUBLIC ADMINISTRATION PROFESSOR) WBC 5.5 4.0 - 10.0 10e3/L [facility], [facility] [place] RBC 4.16 4.00 - 5.00 10e6/L [facility], [facility] Hemoglobin 12.1 12.0 - 15.0 g/dL [facility] Hematocrit 35.8 (L) 36.0 - 45.0 % [facility] MCV 86.0 82.0 - 99.0 fL [facility] MCH 29.0 27.0 - 33.0 pg [facility] MCHC 33.7 32.0 - 36.0 g/dL [facility] RDW 12.8 10.3 - 14.2 % [facility] [place] Platelets 267 150 - 430 10e3/L [facility] [place] MPV 8.5 6.5 - 10.5 fL [facility] [place] % Neutros 42 % [facility] [place] % Lymphs 49 % [facility] % Monos 7 % [facility] [place] % Eos 2 % [facility] [place] % Baso 1 % [facility], [facility] [place] # Neutros 2.27 1.80 - 8.00 10e3/L [facility], [facility] # Lymphs 2.68 1.48 - 4.50 10e3/L [facility], [facility] [place] # Monos 0.37 0.00 - 1.30 10e3/L [facility], [facility] # Eos 0.11 0.00 - 0.50 10e3/L [facility], [facility] [place] # Baso 0.03 0.00 - 0.20 10e3/L [facility] Specimen Blood - Arm, Right Performing Organization Address [facility] Phone Number [place] [phone] [facility] [place] Screen, urine (06/19/2017 3:13 PM PUBLIC ADMINISTRATION PROFESSOR) Preg Test, Ur Negative [facility] Specimen Urine - Urine, Clean Catch Performing Organization Address [facility] Phone Number [address] [address] [facility] D-dimer, quantitative (06/19/2017 3:13 PM PUBLIC ADMINISTRATION PROFESSOR) D-Dimer, Quant <0.19 <0.50 MG/L [facility] [place] Specimen Blood - Arm, Right Narrative Performed At [facility] REGARDING D-DIMER RESULTS: Results of this [facility] D-Dimer test should always be interpreted in [facility] conjunction with the patient's medical history, clinical presentation and other findings. DVT clinical diagnosis should not be based on the results of [facility] D-Dimer alone. Performing Organization Address [facility] Phone Number [facility] [address] [place] [address] [facility] [place] Magnesium (06/19/2017 3:13 PM PUBLIC ADMINISTRATION PROFESSOR) Magnesium 2.1 1.5 - 3.0 mg/dL [facility], [facility] Specimen Blood - Arm, Right Performing Organization Address [facility] Phone Number [facility] [address] [place] [address] [facility], [facility] [place] Creatine Kinase (CK) (06/19/2017 3:13 PM PUBLIC ADMINISTRATION PROFESSOR) Total CK 83 25 - 235 U/L [facility] Specimen Blood - Arm, Right Performing Organization Address [facility] Phone Number [facility] [address] [place] [address] [facility], [facility] [place] Basic Metabolic Panel (06/19/2017 3:13 PM PUBLIC ADMINISTRATION PROFESSOR) Sodium 141 135 - 148 meq/L [facility], [facility] Potassium 3.8 3.6 - 5.5 meq/L [facility], [facility] [place] Chloride 102 98 - 106 meq/L [facility] CO2 24 24 - 32 meq/L [facility], [facility] BUN 10 10 - 26 mg/dL [facility] Creatinine 0.68 0.50 - 1.20 mg/dL [facility], [facility] [place] Glucose 85 70 - 110 mg/dL [facility] Calcium 8.8 8.5 - 10.5 mg/dL [facility], [facility] EGFR 122Comment: ESTIMATED GFR IS mL/min/1.73 sq m [facility] MUSELLA NOT ACCURATE [facility], CREATININE CLEARANCE IN [facility] [place], PREDICTING GLOMERULAR [facility] FILTRATION RATE. ESTIMATED GFR IS NOT APPLICABLE FOR DIALYSIS PATIENTS. Specimen Blood - Arm, Right Performing Organization Address City/State/Zipcode Phone Number LOC NOONAN MUSELLA [address] [place] [address] [facility], [facility] [place] XR chest 1 view portable / bedside (06/19/2017 2:58 PM PUBLIC ADMINISTRATION PROFESSOR) Narrative Performed At FINAL REPORT [facility] HISTORY : chest pain. Comparison: None Comment: [...] MD Report Verified Date/Time:06/19/2017 15:09:21 Reading Location: [address] Transitional Reading Room Procedure Note Interface, External Ris In - 06/19/2017 3:11 PM PUBLIC ADMINISTRATION PROFESSOR FINAL REPORT HISTORY : chest pain. Comparison: [...] Report Verified Date/Time: 06/19/2017 15:09:21 Reading Location: [facility] B1 C013T Transitional Reading Room Performing Organization Address [facility] Phone Number GE RIS ECG 12 lead (06/19/2017 2:44 PM PUBLIC ADMINISTRATION PROFESSOR)Only the most recent of2 resultswithin the time period is included. Narrative Performed At Ventricular Rate 72 BPM GE MUSE Atrial Rate 72 BPM P-R Interval 130 ms QRS Duration 82 ms Q-T Interval 406 ms QTC Calculation(Bazett) 444 ms P [place] 76 degrees R [place] 76 degrees T [place] 72 degrees Sinus rhythm with marked sinus arrhythmia Otherwise normal ECG When compared with ECG of 19-JUN-2017 14:43, QT has shortened Confirmed by MD HUNG YOCHAI ([id number]) on 06/22/2017 6:36:26 AM Procedure Note Interface, External Ris In - 06/22/2017 6:36 AM PUBLIC ADMINISTRATION PROFESSOR Ventricular Rate 72 BPM Atrial Rate 72 BPM P-R Interval 130 ms QRS Duration 82 ms Q-T Interval 406 ms QTC Calculation(Bazett) 444 ms P [place] 76 degrees R [place] 76 degrees T [place] 72 degrees Sinus rhythm with marked sinus arrhythmia Otherwise normal ECG When compared with ECG of 19-JUN-2017 14:43, QT has shortened Confirmed by MD HUNG YOCHAI ([id number]) on 06/22/2017 6:36:26 AM Performing Organization Address [facility] Phone Number GE MUSE XR shoulder complete 2 views min left (06/06/2017 3:32 AM PUBLIC ADMINISTRATION PROFESSOR) Narrative Performed At FINAL REPORT GE RIS [...] MD Report Verified Date/Time:06/06/2017 03:33:43 Reading Location: [facility] B1 C013Y CT Body Reading Room Procedure Note Interface, External Ris In - 06/06/2017 3:36 AM PUBLIC ADMINISTRATION PROFESSOR FINAL REPORT RAD, SHOULDER, COMPLETE (MIN 2 [...] Report Verified Date/Time: 06/06/2017 03:33:43 Reading Location: [facility] B1 C013Y CT Body Reading Room Performing Organization Address City/[facility] Phone Number GE RIS Rapid Strep A screen (06/06/2017 2:59 AM PUBLIC ADMINISTRATION PROFESSOR) Strep A Ag Negative Negative [facility] Specimen Throat - Throat Performing Organization Address [facility] Phone Number [facility] [address] [place] [address] [facility] Influenza antigen A & B (Rapid) (06/06/2017 2:58 AM PUBLIC ADMINISTRATION PROFESSOR) Rapid Influenza A NEGATIVE LABORATORY Negative, Inconclusive [facility] Antigen FINDING [facility] Rapid influenza B NEGATIVE LABORATORY Negative, Inconclusive [facility] Antigen FINDING [facility] Specimen Nasopharyngeal - Nasal Mucosa Performing Organization Address [facility] Phone Number [facility]ee MUSELL[facility] [address] [place] [address] [facility] after 06/04/2017
--- OUTSIDE RECORDS SUMMARY | 2018-06-05 18:29 | XMS REPORT | Continuity of Care Document ---
:1985 Author Organization Interface Problems Problem Status Onset Classification Date Comments Source Date Reported SYNCOPE Active 09/21/19 [facility] INTRACTABLE Active 09/21/19 VOMITING 13 [facility] VOMITING Active 08/18/19 13 [facility] ABDOMINAL PAIN Active 08/04/19 13 [facility] SEIZURES / VOMIT Active 06/22/19 13 [facility] SEIUZURES, ACUTE Active 06/22/19 GASTRITIS VS 13 [facility] GASTROENTE , ABD Active 05/12/20 PAIN, VOMITING, 11 [facility] VAG BLEED VOMITINIG/ Active 04/18/20 ABDOMINAL PAIN 11 [facility] FEVER /VOMITING Active 04/11/20 11 [facility] Gastroparesis Resolved Problem 09/23/2012 [facility] Seizure Resolved Problem 09/23/2012 [facility] VOMITING ALONE Active [facility] Medications Medication Details Route Status Patient Ordering Order Source Instructions Provider Date Navane 1 mg, 1 cap, PO No [place] Route: PO, Longer 2012 [facility] Drug form: Active CAP, BID, Start date: 09/21/12 17:00:00, Duration: 30 day, Stop date: 10/21/12 9:00:00 Phenergan 12.5 mg, 1 MS No [place]ner supp, Route: Longer 2012 [facility] MS, Drug form: Active SUPP, ONCE, Start date: 09/21/12 16:03:00, Stop date: 09/21/12 16:03:00 Pepcid 20 mg, 1 tab, PO No [place] Route: PO, Longer 2012 [facility] Drug form: Active TAB, Q12H, Start date: 09/21/12 9:00:00, Duration: 30 day, Stop date: 10/20/12 21:00:00 Lovenox 40 mg, 0.4 mL, SUB-Q No [place] Route: SUB-Q, Longer 2012 [facility] Drug form: Active INJ, [id number], Start date: 09/21/12 9:00:00, Duration: 30 day, Stop date: 10/20/12 9:00:00 Tylenol 650 mg, 2 tab, PO No Hasivana Route: PO, Longer 2012 [facility] Drug form: Active TAB, Q6H, PRN Pain, Start date: 09/21/12 8:36:00, Duration: 30 day, Stop date: 10/21/12 8:35:00 morphine 2 mg, 0.5 mL, IVP No Patrick Sulfate Route: IVP, Longer 2012 [facility] Drug form: Active INJ, Q6H, PRN Pain, Start date: 09/21/12 8:03:00, Duration: 30 day, Stop date: 10/21/12 8:02:00 Reglan 10 mg, 2 mL, IV No Vahe Route: IV, Longer 2012 [facility] Drug form: Active INJ, QID-Before Meals, Start date: 09/21/12 7:30:00, Duration: 30 day, Stop date: 10/20/12 21:00:00 Sodium Chloride 1,000 mL, IV No Patrick 09/21[facility] 0.9% IV 1,000 Rate: 125 Longer 2012 [facility] mL ml/hr, Infuse Active over: 8 hr, Route: IV, kg, Total Volume: 1,000, Start date: 09/20/12 21:00:00, Duration: 30 day, Stop date: 10/20/12 20:59:00 Tylenol 650 mg, 2 tab, PO No Hyacinth Route: PO, Longer 2012 [facility] Drug form: Active TAB, ONCE, Start date: 09/20/12 21:00:00, Stop date: 09/20/12 21:00:00 potassium 20 mEq, 100 IVPB No Patrick 09/21[facility] chloride mL, Route: Longer 2012 [facility] IVPB, Drug Active form: INJ, Q2H, Start date: 09/20/12 21:00:00, Duration: 1 doses or times, Stop date: 09/20/12 21:00:00 Haldol 1 mg, 0.2 mL, IV No Hyacinth 09/21[facility] Route: IV, Longer 2012 [facility] Drug form: Active INJ, ONCE, Start date: 09/20/12 21:00:00, Stop date: 09/20/12 21:00:00 Reglan 10 mg, 2 mL, IV No Patrick Route: IV, Longer 2012 [facility] Drug form: Active INJ, Q8H-05, Start date: 09/20/12 21:00:00, Duration: 30 day, Stop date: 10/20/12 13:00:00 Sodium Chloride 250 mL, Route: IVPB No Patrick 0.9% IV IVPB, Start Longer 2012 [facility] date: 09/20/12 Active 20:07:00, Duration: 30 day, Stop date: 10/20/12 20:06:00, PRN Line Flush BD Normal 10 mL, Route: IVP No Patrick Saline Flush IVP, Drug Longer 2012 [facility] Form: INJ, Active PRN, PRN Line Flush, Start date: 09/20/12 20:06:00, Duration: 30 day, Stop date: 10/20/12 20:05:00 morphine 2 mg, 0.4 mL, IV No Patrick 09/21[facility] Sulfate Route: IV, Longer 2012 [facility] Drug form: Active INJ, Q6H, PRN Pain, Start date: 09/20/12 20:05:00, Duration: 30 day, Stop date: 10/20/12 20:04:00 Phenergan 25 mg, 1 tab, PO No Patrick Route: PO, Longer 2012 [facility] Drug form: Active TAB, Q6H, PRN Nausea, Start date: 09/20/12 20:05:00, Duration: 30 day, Stop date: 10/20/12 20:04:00 Haldol 2 mg, 0.4 mL, IM No Patrick Route: IM, Longer 2012 [facility] Drug form: Active INJ, Q6H, PRN Agitation, Start date: 09/20/12 20:04:00, Duration: 30 day, Stop date: 10/20/12 20:03:00 Phenergan 25 mg, Route: IM No Cady IM, ONCE, Longer 2012 [facility] Dosing Weight Active 52.273, kg, PRN as needed for nausea/vomitin g, Start date: 09/20/12 17:55:00 Haldol 1 mg, Route: IVP No Cady IVP, ONCE, Longer 2012 [facility] Dosing Weight Active 52.273, kg, Priority: NOW, Start date: 09/20/12 17:54:00, Stop date: 09/20/12 17:54:00 Phenergan 25 mg, Route: IVPB No Ambrose IVPB, ONCE, Longer 2012 [facility] Dosing Weight Active 52.273, kg, Priority: STAT, Start date: 09/20/12 15:48:00, Stop date: 09/20/12 15:48:00 morphine 5 mg, 1 mL, IVP No [facility] Sulfate Route: IVP, Longer 2012 [facility] Drug form: Active INJ, ONCE, Dosing Weight 52.273, kg, Start date: 09/20/12 15:31:00, Stop date: 09/20/12 15:31:00 Phenergan + 25 mg, 1 mL, IVPB No [facility] Sodium Chloride Route: IVPB, Longer 2012 [facility] 0.9% IV 50 mL Drug form: Active INJ, ONCE, Dosing Weight 52.273, kg, Priority: STAT, Start date: 09/20/12 15:06:00, Stop date: 09/20/12 15:06:00 NS (Bolus) IV 1,000 mL, IV No [facility] 1,000 mL Rate: 1,000 Longer 2012 [facility] ml/hr, Infuse Active over: 1 hr, Route: IV, kg, Total Volume: 1,000, Priority: STAT, Start date: 09/20/12 13:21:00, Duration: 1 doses or times, Stop date: 09/20/12 14:20:00, Bolus DoseBolus Dose Reglan 10 mg, Route: IVP No med IVP, ONCE, Longer 2012 [facility] Dosing Weight Active 52.273, kg, Priority: STAT, Start date: 09/20/12 13:20:00, Stop date: 09/20/12 13:20:00 Phenergan 25 mg, Route: IM No Ahmed IM, ONCE, Longer 2012 [facility] Dosing Weight Active 52.273, kg, Priority: STAT, Start date: 09/20/12 11:10:00, Stop date: 09/20/12 11:10:00 NS 1,000 mL 1,000 mL, IV No Ahmed Rate: 1,000 Longer 2012 [facility] ml/hr, Infuse Active over: 1 hr, Route: IV, kg, Total Volume: 1,000, Start date: 09/20/12 11:10:00, Duration: 1 doses or times, Stop date: 09/20/12 12:09:00, Bolus DoseBolus Dose Reglan Substitution Active Allowed 2012 [facility] Toradol 30 30 mg, Route: IV No Cesta mg/mL IV, ONCE, Longer 2012 [facility] injectable Dosing Weight Active solution 52.273, kg, Start date: 08/17/12 20:15:00, Stop date: 08/17/12 20:15:00 Saline Flush 5 ml, Route: IVP No Cesta 0.9% IVP, Drug Longer 2012 [facility] Form: INJ, Active Dosing Weight 52.273, kg, PRN, PRN Line Flush, Start date: 08/17/12 19:59:00, Duration: 30 day, Stop date: 09/16/12 19:58:00 Phenergan 25 mg, 1 mL, IM No Cesta Route: IM, Longer 2012 [facility] Drug form: Active INJ, ONCE, Dosing Weight 52.273, kg, Priority: STAT, Start date: 08/17/12 19:58:00, Stop date: 08/17/12 19:58:00 Phenergan 25 mg 1 supp, MS, MS Active [place] rectal Q6H, PRN, 9 2012 [facility] suppository supp, Nausea & Vomiting, Substitution Allowed Phenergan 25 mg 25 mg, 1 tab, PO Active Yasmani oral tablet PO, Q4H, PRN, 2012 [facility] 20 tab, Nausea, Substitution Allowed morphine 5 mg, 1 mL, IVP No Yasmani Sulfate Route: IVP, Longer 2012 [facility] Drug form: Active INJ, ONCE, Dosing Weight 47.727, kg, Priority: STAT, Start date: 08/05/12 17:21:00, Stop date: 08/05/12 17:21:00 promethazine 25 mg, 1 mL, IM No Yasmani Route: IM, Longer 2012 [facility] Drug form: Active INJ, ONCE, Dosing Weight 47.727, kg, Priority: STAT, Start date: 08/05/12 17:21:00, Stop date: 08/05/12 17:21:00 Reglan 10 mg, 2 mL, IVP No Yasmani Route: IVP, Longer 2012 [facility] Drug form: Active INJ, ONCE, Dosing Weight 47.727, kg, Priority: STAT, Start date: 08/05/12 14:40:00, Stop date: 08/05/12 14:40:00 morphine 5 mg, 1 mL, IVP No [place] Sulfate Route: IVP, Longer 2012 [facility] Drug form: Active INJ, ONCE, Dosing Weight 47.727, kg, Priority: STAT, Start date: 08/05/12 14:40:00, Stop date: 08/05/12 14:40:00 Saline Flush 5 mL, Route: IVP No [place] 0.9% IVP, Drug Longer 2012 [facility] Form: INJ, Active Dosing Weight 47.727, kg, PRN, PRN Line Flush, Start date: 08/05/12 14:40:00, Duration: 24 hr, Stop date: 08/06/12 14:39:00 Sodium Chloride 1,000 mL, IV No [place] 0.9% (Bolus) IV Rate: 1,000 Longer 2012 [facility] 1,000 mL ml/hr, Infuse Active over: 1 hr, Route: IV, kg, Total Volume: 1,000, Priority: STAT, Start date: 08/05/12 14:40:00, Duration: 1 doses or times, Stop date: 08/05/12 15:39:00 Neurontin 300 mg, 1 cap, PO No Hyacinth Route: PO, Longer 2012 [facility] Drug form: Active CAP, BID, Start date: 06/24/12 9:00:00, Duration: 2 doses or times, Stop date: 06/24/12 17:00:00 amitriptyline 25 mg, 1 tab, PO No Tina Route: PO, Longer 2012 [facility] Drug form: Active TAB, Bedtime, Start date: 06/23/12 21:00:00, Duration: 30 day, Stop date: 07/22/12 21:00:00 Carafate 1 gm, 1 tab, PO No [facility] Route: PO, Longer 2012 [facility] Drug form: Active TAB, BID, Start date: 06/23/12 17:00:00, Duration: 30 day, Stop date: 07/23/12 9:00:00 Neurontin 300 mg, 1 cap, PO No [facility] Route: PO, Longer 2012 [facility] Drug form: Active CAP, TID, Start date: 06/23/12 13:00:00, Duration: 30 day, Stop date: 07/23/12 9:00:00 Motrin 600 mg, 1 tab, PO No [facility] Route: PO, Longer 2012 [facility] Drug form: Active TAB, Q6H, Start date: 06/23/12 12:00:00, Duration: 30 day, Stop date: 07/23/12 6:00:00 Phenergan 12.5 mg, 0.5 IM No [facility] mL, Route: IM, Longer 2012 [facility] Drug form: Active INJ, Q6H, PRN Nausea, Start date: 06/23/12 10:11:00, Duration: 30 day, Stop date: 07/23/12 10:10:00 Haldol 5 mg, 1 mL, IV No [facility] Route: IV, Longer 2012 [facility] Drug form: Active INJ, Q6H, PRN Agitation, Start date: 06/23/12 10:05:00, Duration: 30 day, Stop date: 07/23/12 10:04:00 Ativan 2 mg, 1 mL, IV No [facility] Route: IV, Longer 2012 [facility] Drug form: Active INJ, Q2H, PRN Agitation, Start date: 06/23/12 10:03:00, Duration: 30 day, Stop date: 07/23/12 10:02:00 Neurontin 300 mg, 1 cap, PO No [facility] Route: PO, Longer 2012 [facility] Drug form: Active CAP, ONCE, Start date: 06/23/12 10:02:00, Stop date: 06/23/12 10:02:00 Pepcid 20 mg, 1 tab, PO No [place] Route: PO, Longer 2012 [facility] Drug form: Active TAB, BID, Start date: 06/23/12 9:00:00, Duration: 30 day, Stop date: 07/22/12 17:00:00 Depakote EC 500 mg, 1 tab, PO No [place] Route: PO, Longer 2012 [facility] Drug form: Active ECTAB, Daily, Start date: 06/23/12 9:00:00, Duration: 30 day, Stop date: 07/22/12 9:00:00 Lovenox 40 mg, 0.4 mL, SUB-Q No David Route: SUB-Q, Longer 2012 [facility] Drug form: Active INJ, Q24H, Start date: 06/23/12 0:00:00, Duration: 30 day, Stop date: 07/22/12 0:00:00 Ativan 2 mg, 1 mL, IV No [place] Route: IV, Longer 2012 [facility] Drug form: Active INJ, ONCE, PRN Seizure, Start date: 06/22/12 23:31:00 ketorolac 30 30 mg, 1 mL, IV No [facility] mg/mL Route: IV, Longer 2012 [facility] injectable Drug form: Active solution INJ, Q6H, PRN Pain, Start date: 06/22/12 23:31:00, Duration: 4 day, Stop date: 06/26/12 23:30:00 morphine 2 mg, 0.25 mL, IV No [place] Sulfate Route: IV, Longer 2012 [facility] Drug form: Active INJ, Q6H, PRN Pain Score 7-10, Start date: 06/22/12 23:31:00, Stop date: 07/22/12 23:30:00 Phenergan 12.5 mg, 0.5 PO No [facility] tab, Route: Longer 2012 [facility] PO, Drug form: Active TAB, Q4H, PRN Nausea, Start date: 06/22/12 23:30:00, Duration: 30 day, Stop date: 07/22/12 23:29:00 Sodium Chloride 250 mL, Route: IVPB No [facility] 0.9% IV IVPB, Start Longer 2012 [facility] date: 06/22/12 Active 23:29:00, Duration: 30 day, Stop date: 07/22/12 23:28:00, PRN Line Flush BD Normal 10 mL, Route: IVP No [facility] [place] Flush IVP, Drug Longer 2012 [facility] Form: INJ, Active PRN, PRN Line Flush, Start date: 06/22/12 23:29:00, Duration: 30 day, Stop date: 07/22/12 23:28:00 NS 1,000 mL 1,000 mL, IV No [facility] Rate: 125 Longer 2012 [facility] ml/hr, Infuse Active over: 8 hr, Route: IV, kg, Total Volume: 1,000, Start date: 06/22/12 22:10:00, Duration: 30 day, Stop date: 07/22/12 22:09:00 Phenergan 12.5 mg, [address] [facility] tab, Route: Longer 2012 [facility] PO, Drug form: Active TAB, ONCE, Dosing Weight 50, kg, Priority: STAT, Start date: 06/22/12 20:30:00, Stop date: 06/22/12 20:30:00 morphine 2 mg, Route: IVP No [facility] Sulfate IVP, ONCE, Longer 2012 [facility] Dosing Weight Active 50, kg, Start date: 06/22/12 20:28:00, Stop date: 06/22/12 20:28:00 Depakote 500 mg, 1 tab, [facility]: PO, Longer 2012 [facility] Drug form: Active ECTAB, ONCE, Dosing Weight 50, kg, Priority: STAT, Start date: 06/22/12 18:56:00, Stop date: 06/22/12 18:56:00 Sodium Chloride 1,000 mL, 1000 IV [facility] 0.9% (Bolus) IV ml/hr, Route: Longer 2012 [facility] IV, Drug Form: Active INJ, Dosing Weight 50, kg, ONCE, Bolus Dose - infuse over 1 hr, STAT, Start date: 06/22/12 16:23:00, Stop date: 06/22/12 16:23:00 Sodium Chloride 1,000 mL, 1000 IV No Oscar 0.9% (Bolus) IV ml/hr, Route: Longer 2012 [facility] IV, Drug Form: Active INJ, Dosing Weight 50, kg, ONCE, Bolus Dose - infuse over 1 hr, STAT, Start date: 06/22/12 14:21:00, Stop date: 06/22/12 14:21:00 Phenergan 25 mg, 1 mL, IVPB No Oscar Route: IVPB, Longer 2012 [facility] Drug form: Active INJ, ONCE, Dosing Weight 50, kg, Priority: STAT, Start date: 06/22/12 14:21:00, Stop date: 06/22/12 14:21:00 morphine 4 mg, 1 mL, IVP No Oscar Sulfate Route: IVP, Longer 2012 [facility] Drug form: Active INJ, ONCE, Dosing Weight 50, kg, Priority: STAT, Start date: 06/22/12 14:21:00, Stop date: 06/22/12 14:21:00 Reglan 10 mg 10 mg, PO, PO Active Yomi oral tablet QID-Before 2010 [facility] Meals, PRN, 40 tab, nausea and vomiting, Substitution Allowed ondansetron 8 mg, 4 mL, IVP No Yomi Route: IVP, Longer 2010 [facility] Drug form: Active INJ, ONCE, Priority: STAT, Start date: 05/14/11 8:21:00, Stop date: 05/14/11 8:21:00 acetaminophen 650 mg, 2 tab, PO No Yomi Route: PO, Longer 2010 [facility] Drug form: Active TAB, ONCE, Priority: STAT, Start date: 05/14/11 7:32:00, Stop date: 05/14/11 7:32:00 Sodium Chloride 250 mL, Route: IVPB Deborah Seymour 0.9% IV IVPB, PRN, Longer 2010 [facility] Line Flush, Active Start date: 05/14/11 7:01:00, Duration: 30 day, Stop date: 06/13/11 7:00:00 BD Normal 10 mL, Route: IVP No Lion Saline Flush IVP, Drug Longer 2010 [facility] Form: INJ, Active PRN, PRN Line Flush, Start date: 05/14/11 7:01:00, Duration: 30 day, Stop date: 06/13/11 7:00:00 Reglan 10 mg, 2 mL, IV No [facility] Route: IV, Longer 2010 [facility] Drug form: Active INJ, ONCE, Start date: 05/14/11 6:42:00, Stop date: 05/14/11 6:42:00 Sodium Chloride 1,000 mL, IV No [facility] 0.9% (Bolus) IV Rate: 1,000 Longer 2010 [facility] 1,000 mL ml/hr, Infuse Active over: 1 hr, Route: IV, Total Volume: 1,000, Bolus Dose, Priority: STAT, Start date: 05/14/11 6:41:00, Duration: 1 doses or times, Stop date: 05/14/11 7:40:00 Zofran 4 mg 4 mg, 1 tab, PO Active Johnny oral tablet PO, ONCE, 3 2010 [facility] tab, Substitution Allowed, TAB potassium 20 mEq, 1 tab, PO No Douglas 05/13[facility] chloride 20 mEq Route: PO, Longer 2010 [facility] oral tablet, Drug form: Active extended ERTAB, ONCE, release Priority: STAT, Start date: 05/13/11 0:31:00, Stop date: 05/13/11 0:31:00 Reglan 10 mg, 2 mL, IV No Douglas 05/13[facility] Route: IV, Longer 2010 [facility] Drug form: Active INJ, ONCE, Start date: 05/12/11 22:11:00, Stop date: 05/12/11 22:11:00 ondansetron 4 mg, 2 mL, IVP No Douglas 05/13[facility] Route: IVP, Longer 2010 [facility] Drug form: Active INJ, ONCE, Priority: STAT, Start date: 05/12/11 21:25:00, Stop date: 05/12/11 21:25:00 morphine 4 mg, 1 mL, IVP No Douglas 05/13[facility] Sulfate Route: IVP, Longer 2010 [facility] Drug form: Active INJ, ONCE, Priority: STAT, Start date: 05/12/11 21:25:00, Stop date: 05/12/11 21:25:00 Saline Flush 5 ml, Route: IVP No Johnny 0.9% IVP, Drug Longer 2010 [facility] Form: INJ, Active PRN, PRN Line Flush, Start date: 05/12/11 21:25:00, Duration: 30 day, Stop date: 06/11/11 21:24:00 Sodium Chloride 500 mL, Rate: IV No Johnny 0.9% (Bolus) IV 500 ml/hr, Longer 2010 [facility] 500 mL Infuse over: 1 Active hr, Route: IV, Total Volume: 500, Bolus dose, Priority: STAT, Start date: 05/12/11 21:25:00, Duration: 1 doses or times, Stop date: 05/12/11 22:24:00 Allergies, Adverse Reactions, Alerts Substance Category Reaction Severity Reaction Status Date Comments Source type Reported ondansetron drug Allergy Active allergy [facility] Immunizations Immunization Date Given Site Status Last Updated Comments Source Results Order Name Results Value Reference Date Interpretation Comments Source Range BEDSIDE Comment1 Notify 09/22 NA GLUCOSE RN/MD /2012 [facility] TESTING BEDSIDE Gluc POC 93 mg/dL 70 - 99 09/22 Normal 1Interpretive GLUCOSE Lifscn Data: [facility] TESTING Upper Reportable Limit: 200 mg/dL. [...] is not recommended in the following populations: [facility] 3m2 Individuals with unstable creatinine concentrations, [...] 141 meq/L 135 - 145 09/21 Normal [facility] CHEMISTRY CO2 12 meq/L 24 - 32 09/21 LOW [facility] CHEMISTRY Chloride Lvl 112 meq/L 95 - 109 09/21 HI [facility] CHEMISTRY AGAP 20.8 meq/L 10.0 - 09/21 HI 20.0 [facility] CHEMISTRY Potassium 3.8 meq/L 3.5 - 5.1 09/21 Normal 2Result Comment: [facility] Specimen is slightly hemolyzed CHEMISTRY Calcium Lvl 7.4 mg/dL 8.5 - 10.5 09/21 LOW [facility] CHEMISTRY Glucose Lvl 74 mg/dL 70 - 99 09/21 Normal 5Interpretive Data: Adult reference range values reflect the clinical guidelines of the [place] [employer]. [facility] CHEMISTRY Creatinine 0.6 mg/dL 0.5 - 1.4 09/21 Normal [facility] CHEMISTRY BUN 5 mg/dL 7 - 22 09/21 LOW [facility] CHEMISTRY UDS Note See Note 7 09/20 Normal 7Interpretive Data: Drugs reported as positive have not been confirmed by a second method and should be used for medical purposes only. To order [facility] (09/20/2012 18:12:00) confirmation, contact laboratory. note: [...] U Opiate Scr Positive Negative 09/20 ABN [facility] *ABN* (09/20/2012 18:12:00) CHEMISTRY U Phencyc Negative Negative 09/20 NA [facility] *NA* (09/20/2012 18:12:00) CHEMISTRY U Cannab Scr Positive Negative 09/20 ABN [facility] *ABN* (09/20/2012 18:12:00) CHEMISTRY U Cocaine Positive Negative 09/20 ABN [facility] *ABN* (09/20/2012 18:12:00) CHEMISTRY U Benzodia Negative Negative 09/20 NA Scr [facility] *NA* (09/20/2012 18:12:00) CHEMISTRY U Amph Scr Negative Negative 09/20 NA [facility] *NA* (09/20/2012 18:12:00) CHEMISTRY U Abbi Scr Negative Negative 09/20 NA [facility] *NA* (09/20/2012 18:12:00) URINALYSIS UA Sq Epi Few /LPF Few 09/20 Normal [facility] (09/20/2012 18:12:00) URINALYSIS UA WBC 3-5 /HPF None Seen 09/20 Normal [facility] (09/20/2012 18:12:00) URINALYSIS Micro? Performed 09/20 Normal [facility] (09/20/2012 18:12:00) URINALYSIS UA Bacteria Few /HPF None Seen 09/20 Normal [facility] (09/20/2012 18:12:00) URINALYSIS UA Mucus Rare /LPF None Seen 09/20 Normal [facility] (09/20/2012 18:12:00) URINALYSIS UA RBC 51-100 /HPF 0 - 2 09/20 [facility] *ABN* (09/20/2012 18:12:00) URINALYSIS UA Leuk Est Trace Negative 09/20 [facility] *ABN* (09/20/2012 18:12:00) URINALYSIS UA Nitrite Negative Negative 09/20 Normal [facility] (09/20/2012 18:12:00) URINALYSIS UA Color Red Yellow 09/20 [facility] *ABN* (09/20/2012 18:12:00) URINALYSIS UA Bili Negative Negative 09/20 [facility] *NA* (09/20/2012 18:12:00) URINALYSIS UA 1.0 EU/dL 0.1 - 1.0 09/20 Normal Urobilinogen [facility] URINALYSIS UA Blood Large Negative 09/20 [facility] *ABN* (09/20/2012 18:12:00) URINALYSIS UA Turbidity Cloudy Clear 09/20 [facility] *ABN* (09/20/2012 18:12:00) URINALYSIS UA pH 7.5 5.0 - 8.0 09/20 Normal [facility] URINALYSIS UA Spec Grav 1.020 <=1.030 09/20 Normal [facility] URINALYSIS UA Protein 30 mg/dL Negative 09/20 ABN [facility] *ABN* (09/20/2012 18:12:00) URINALYSIS UA Ketones >=80 mg/dL Negative 09/20 NA [facility] *NA* (09/20/2012 18:12:00) URINALYSIS UA Glucose Negative Negative 09/20 Normal [facility] (09/20/2012 18:12:00) Microbiolo Culture: 09/20 gy Urine [facility] CHEMISTRY S Preg Negative Negative 09/20 NA [facility] *NA* (09/20/2012 12:03:37) CHEMISTRY eGFR 117 [...] is not recommended in the following populations: [facility] 3m2 Individuals with unstable creatinine concentrations, [...] 107 meq/L 95 - 109 09/20 Normal [facility] CHEMISTRY CO2 25 meq/L 24 - 32 09/20 Normal [facility] CHEMISTRY Calcium Lvl 8.8 mg/dL 8.5 - 10.5 09/20 Normal [facility] CHEMISTRY Sodium Lvl 140 meq/L 135 - 145 09/20 Normal [facility] CHEMISTRY Potassium 3.2 meq/L 3.5 - 5.1 09/20 LOW [facility] CHEMISTRY Creatinine 0.8 mg/dL 0.5 - 1.4 09/20 Normal [facility] CHEMISTRY BUN 9 mg/dL 7 - 22 09/20 Normal [facility] CHEMISTRY Glucose Lvl 94 mg/dL 70 - 99 09/20 Normal 6Interpretive Data: Adult reference range values reflect the clinical guidelines of the [place] [employer]. [facility] CHEMISTRY AGAP 11.2 meq/L 10.0 - 09/20 Normal MH 20.0 [facility] HEMATOLOGY MCV 86.3 fL 81.0 - 09/20 Normal MH 99.0 /2012 [facility] HEMATOLOGY Hct 36.5 % 36.0 - 09/20 Normal MH 48.0 /2012 [facility] HEMATOLOGY RBC 4.23 M/CMM 4.20 - 09/20 Normal MH 5.40 /2012 [facility] HEMATOLOGY WBC 4.3 K/CMM 3.7 - 10.4 09/20 Normal /2012 [facility] HEMATOLOGY Hgb 11.8 g/dL 12.0 - 09/20 LOW MH 16.0 [facility] HEMATOLOGY MCHC 32.2 g/dL 32.0 - 09/20 Normal MH 36.0 [facility] HEMATOLOGY MCH 27.8 pg 27.0 - 09/20 Normal MH 31.0 [facility] HEMATOLOGY RDW 15.0 % 11.5 - 09/20 HI MH 14.5 [facility] HEMATOLOGY MPV 9.5 fL 7.4 - 10.4 09/20 Normal [facility] HEMATOLOGY Platelet 224 K/CMM 133 - 450 09/20 Normal [facility] HEMATOLOGY Monocytes 6.8 % 2.0 - 12.0 09/20 Normal [facility] HEMATOLOGY Lymphocytes 23.4 % 20.0 - 09/20 Normal 40.0 [facility] HEMATOLOGY Eosinophils 0.5 % 0.0 - 4.0 09/20 Normal [facility] HEMATOLOGY Monocytes # 0.3 K/CMM 0.0 - 0.8 09/20 Normal [facility] HEMATOLOGY Segs-Bands # 2.9 K/CMM 1.5 - 8.1 09/20 Normal [facility] HEMATOLOGY Basophils 0.3 % 0.0 - 1.0 09/20 Normal [facility] HEMATOLOGY Lymphocytes 1.0 K/CMM 1.0 - 5.5 09/20 Normal MH /2012 [facility] HEMATOLOGY Giant Plt Slight None Seen 09/20 ABN /2012 [facility] *ABN* (09/20/2012 12:03:00) HEMATOLOGY Segs 69.0 % 45.0 - 09/20 Normal MH 75.0 [facility] HEMATOLOGY Eosinophils 0.0 K/CMM 0.0 - 0.5 09/20 Normal MH # /2012 [facility] HEMATOLOGY Basophils # 0.0 K/CMM 0.0 - 0.2 09/20 Normal [facility] HEMATOLOGY Large Plt Slight None Seen 09/20 ABN [facility] *ABN* (09/20/2012 12:03:00) HEMATOLOGY Elliptocyte Slight None Seen 09/20 ABN [facility] *ABN* (09/20/2012 12:03:00) HEMATOLOGY Polychrom Slight None Seen 09/20 Normal [facility] (09/20/2012 12:03:00) CHEMISTRY U Preg Negative Negative 08/18 Normal [facility] (08/17/2012 20:50:00) URINALYSIS UA Color Yellow Yellow 08/18 NA [facility] *NA* (08/17/2012 20:50:00) URINALYSIS UA Protein 30 mg/dL Negative 08/18 [facility] *ABN* (08/17/2012 20:50:00) URINALYSIS UA Spec Grav >=1.030 <=1.030 08/18 ABN [facility] *ABN* (08/17/2012 20:50:00) URINALYSIS UA pH 6.0 5.0 - 8.0 08/18 Normal [facility] URINALYSIS UA Turbidity Slight Cloudy Clear 08/18 Normal [facility] (08/17/2012 20:50:00) URINALYSIS UA Nitrite Negative Negative 08/18 Normal [facility] (08/17/2012 20:50:00) URINALYSIS UA Bili Negative Negative 08/18 NA [facility] *NA* (08/17/2012 20:50:00) URINALYSIS UA Blood Trace Negative 08/18 [facility] *ABN* (08/17/2012 20:50:00) URINALYSIS UA Glucose Negative Negative 08/18 Normal [facility] (08/17/2012 20:50:00) URINALYSIS UA Ketones >=80 mg/dL Negative 08/18 NA [facility] *NA* (08/17/2012 20:50:00) URINALYSIS UA 1.0 EU/dL 0.1 - 1.0 08/18 Normal Urobilinogen [facility] URINALYSIS UA Leuk Est Moderate Negative 08/18 ABN [facility] *ABN* (08/17/2012 20:50:00) URINALYSIS UA WBC 21-50 /HPF None Seen 08/18 ABN [facility] *ABN* (08/17/2012 20:50:00) URINALYSIS UA Bacteria Many /HPF None Seen 08/18 Normal [facility] (08/17/2012 20:50:00) URINALYSIS UA Mucus Few /LPF None Seen 08/18 Normal [facility] (08/17/2012 20:50:00) URINALYSIS UA Sq Epi Occasional /LPF Few 08/18 Normal [facility] (08/17/2012 20:50:00) CHEMISTRY CK MB Index null 0.0 - 2.5 08/18 Normal [facility] CHEMISTRY Amylase Lvl 53 unit/L 25 - 115 08/18 Normal [facility] CHEMISTRY eGFR 144 08/18 NA 1Result [...] is not recommended in the following populations: [facility] 3m2 Individuals with unstable creatinine concentrations, [...] 7.8 g/dL 6.4 - 8.4 08/18 Normal [facility] CHEMISTRY Bili Total 0.4 mg/dL 0.2 - 1.3 08/18 Normal [facility] CHEMISTRY Calcium Lvl 9.1 mg/dL 8.5 - 10.5 08/18 Normal [facility] CHEMISTRY Albumin Lvl 3.6 g/dL 3.5 - 5.0 08/18 Normal [facility] CHEMISTRY AGAP 18.7 meq/L 10.0 - 08/18 Normal MH 20.0 [facility] CHEMISTRY AST 16 unit/L 0 - 37 08/18 Normal [facility] CHEMISTRY Alk Phos 84 unit/L 39 - 136 08/18 Normal [facility] CHEMISTRY ALT 14 unit/L 0 - 65 08/18 Normal [facility] CHEMISTRY B/C Ratio 12 6 - 25 08/18 Normal [facility] CHEMISTRY A/G Ratio 0.9 0.7 - 1.6 08/18 Normal [facility] CHEMISTRY Globulin 4.2 g/dL 2.0 - 4.0 08/18 HI [facility] CHEMISTRY Sodium Lvl 141 meq/L 135 - 145 08/18 Normal [facility] CHEMISTRY Potassium 3.7 meq/L 3.5 - 5.1 08/18 Normal [facility] CHEMISTRY Chloride Lvl 104 meq/L 95 - 109 08/18 Normal [facility] CHEMISTRY CO2 22 meq/L 24 - 32 08/18 LOW [facility] CHEMISTRY Glucose Lvl 81 mg/dL 70 - 99 08/18 Normal 2Interpretive Data: Adult reference range values reflect the clinical guidelines of the [place] [employer]. [facility] CHEMISTRY Creatinine 0.6 mg/dL 0.5 - 1.4 08/18 Normal [facility] CHEMISTRY BUN 7 mg/dL 7 - 22 08/18 Normal [facility] CHEMISTRY Lipase Lvl 71 unit/L 73 - 393 08/18 LOW [facility] CHEMISTRY Total CK 114 unit/L 12 - 191 08/18 Normal [facility] CHEMISTRY Troponin-I null 0.00 - 08/18 Normal 0.40 [facility] CHEMISTRY CK MB null 0.5 - 3.6 08/18 Normal [facility] HEMATOLOGY Eosinophils 0.0 % 0.0 - 4.0 08/18 Normal [facility] HEMATOLOGY Lymphocytes 0.9 K/CMM 1.0 - 5.5 08/18 LOW MH [facility] HEMATOLOGY Basophils 1.2 % 0.0 - 1.0 08/18 HI [facility] HEMATOLOGY Monocytes # 0.4 K/CMM 0.0 - 0.8 08/18 Normal [facility] HEMATOLOGY Segs-Bands # 5.5 K/CMM 1.5 - 8.1 08/18 Normal [facility] HEMATOLOGY Lymphocytes 12.3 % 20.0 - 08/18 LOW MH 40.0 [facility] HEMATOLOGY Plt Morph Normal 08/18 Normal /2012 [facility] (08/17/2012 20:11:00) HEMATOLOGY Monocytes 6.3 % 2.0 - 12.0 08/18 Normal /2012 [facility] HEMATOLOGY Segs 80.2 % 45.0 - 08/18 HI MH 75.0 /2012 [facility] HEMATOLOGY Eosinophils 0.0 K/CMM 0.0 - 0.5 08/18 Normal MH # /2012 [facility] HEMATOLOGY Basophils # 0.1 K/CMM 0.0 - 0.2 08/18 Normal [facility] HEMATOLOGY Polychrom Slight None Seen 08/18 Normal /2012 [facility] (08/17/2012 20:11:00) HEMATOLOGY Hgb 11.2 g/dL 12.0 - 08/18 LOW 16.0 [facility] HEMATOLOGY Hct 34.2 % 36.0 - 08/18 LOW 48.0 [facility] HEMATOLOGY RBC 3.98 M/CMM 4.20 - 08/18 LOW 5.40 /2012 [facility] HEMATOLOGY MCV 85.9 fL 81.0 - 08/18 Normal 99.0 [facility] HEMATOLOGY MCH 28.1 pg 27.0 - 08/18 Normal 31.0 [facility] HEMATOLOGY WBC 6.9 K/CMM 3.7 - 10.4 08/18 Normal [facility] HEMATOLOGY MPV 10.2 fL 7.4 - 10.4 08/18 Normal [facility] HEMATOLOGY RDW 15.6 % 11.5 - 08/18 HI MH 14.5 /2012 [facility] HEMATOLOGY Platelet 212 K/CMM 133 - 450 08/18 Normal [facility] HEMATOLOGY MCHC 32.8 g/dL 32.0 - 08/18 Normal 36.0 [facility] CHEMISTRY U Preg Negative Negative 08/05 Normal [facility] (08/05/2012 17:19:00) URINALYSIS Micro? Performed 08/05 Normal [facility] (08/05/2012 17:19:00) URINALYSIS UA Sq Epi Moderate /LPF Few 08/05 ABN [facility] *ABN* (08/05/2012 17:19:00) URINALYSIS UA Mucus Many /LPF None Seen 08/05 ABN [facility] *ABN* (08/05/2012 17:19:00) URINALYSIS UA Bacteria Few /HPF None Seen 08/05 Normal [facility] (08/05/2012 17:19:00) URINALYSIS UA RBC 0-2 /HPF 0 - 2 08/05 Normal [facility] (08/05/2012 17:19:00) URINALYSIS UA WBC 3-5 /HPF None Seen 08/05 Normal [facility] (08/05/2012 17:19:00) URINALYSIS UA Color Yellow Yellow 08/05 NA [facility] *NA* (08/05/2012 17:19:00) URINALYSIS UA 1.0 EU/dL 0.1 - 1.0 08/05 Normal Urobilino [facility] URINALYSIS UA Ketones >=80 mg/dL Negative 08/05 NA [facility] *NA* (08/05/2012 17:19:00) URINALYSIS UA Glucose Negative Negative 08/05 Normal [facility] (08/05/2012 17:19:00) URINALYSIS UA Blood Negative Negative 08/05 Normal [facility] (08/05/2012 17:19:00) URINALYSIS UA Bili Negative Negative 08/05 NA [facility] *NA* (08/05/2012 17:19:00) URINALYSIS UA pH 7.0 5.0 - 8.0 08/05 Normal [facility] URINALYSIS UA Protein 30 mg/dL Negative 08/05 ABN [facility] *ABN* (08/05/2012 17:19:00) URINALYSIS UA Spec Grav 1.020 <=1.030 08/05 Normal [facility] URINALYSIS UA Turbidity Slight Cloudy Clear 08/05 Normal [facility] (08/05/2012 17:19:00) URINALYSIS UA Leuk Est Negative Negative 08/05 Normal [facility] (08/05/2012 17:19:00) URINALYSIS UA Nitrite Negative Negative 08/05 Normal [facility] (08/05/2012 17:19:00) CHEMISTRY Lipase Lvl 58 unit/L 73 - 393 08/05 LOW [facility] CHEMISTRY eGFR 137 08/05 NA 1Result [...] is not recommended in the following populations: [facility] 3m2 Individuals with unstable creatinine concentrations, [...] 0.4 mg/dL 0.2 - 1.3 08/05 Normal [facility] CHEMISTRY Alk Phos 85 unit/L 39 - 136 08/05 Normal [facility] CHEMISTRY ALT 18 unit/L 0 - 65 08/05 Normal [facility] CHEMISTRY AST 14 unit/L 0 - 37 08/05 Normal [facility] CHEMISTRY Potassium 3.5 meq/L 3.5 - 5.1 08/05 Normal Lvl [facility] CHEMISTRY Chloride Lvl 108 meq/L 95 - 109 08/05 Normal [facility] CHEMISTRY Creatinine 0.7 mg/dL 0.5 - 1.4 08/05 Normal Lvl [facility] CHEMISTRY CO2 23 meq/L 24 - 32 08/05 LOW [facility] CHEMISTRY BUN 6 mg/dL 7 - 22 08/05 LOW [facility] CHEMISTRY Sodium Lvl 142 meq/L 135 - 145 08/05 Normal [facility] CHEMISTRY Calcium Lvl 9.5 mg/dL 8.5 - 10.5 08/05 Normal [facility] CHEMISTRY Total 9.1 g/dL 6.4 - 8.4 08/05 HI [facility] CHEMISTRY Albumin Lvl 4.2 g/dL 3.5 - 5.0 08/05 Normal [facility] CHEMISTRY Glucose Lvl 120 mg/dL 70 - 99 08/05 HI 2Interpretive Data: Adult reference range values reflect the clinical guidelines of the [place] [employer]. [facility] CHEMISTRY Globulin 4.9 g/dL 2.0 - 4.0 08/05 HI MH [facility] CHEMISTRY B/C Ratio 9 6 - 25 03 Normal [facility] CHEMISTRY AGAP 14.5 meq/L 10.0 - 03 Normal 20. [facility] CHEMISTRY A/G Ratio 0.9 0.7 - 1.6 08/05 Normal [facility] HEMATOLOGY Hypochrom Slight None Seen 08/05 Normal [facility] (08/05/2012 15:40:00) HEMATOLOGY Basophils # 0.0 K/CMM 0.0 - 0.2 08/05 Normal [facility] HEMATOLOGY Eosinophils 0.0 K/CMM 0.0 - 0.5 08/05 Normal [facility] HEMATOLOGY Monocytes # 0.0 K/CMM 0.0 - 0.8 08/05 Normal [facility] HEMATOLOGY Large Plt Slight None Seen 08/05 ABN [facility] *ABN* (08/05/2012 15:40:00) HEMATOLOGY Giant Plt Slight None Seen 08/05 ABN [facility] *ABN* (08/05/2012 15:40:00) HEMATOLOGY Target Cell Slight None Seen 08/05 ABN [facility] *ABN* (08/05/2012 15:40:00) HEMATOLOGY Elliptocyte Slight None Seen 08/05 ABN [facility] *ABN* (08/05/2012 15:40:00) HEMATOLOGY Polychrom Slight None Seen 08/05 Normal [facility] (08/05/2012 15:40:00) HEMATOLOGY Lymphocytes 0.2 K/CMM 1.0 - 5.5 08/05 LOW [facility] HEMATOLOGY Segs-Bands # 4.1 K/CMM 1.5 - 8.1 08/05 Normal [facility] HEMATOLOGY Basophils 0.1 % 0.0 - 1.0 08/05 Normal [facility] HEMATOLOGY Eosinophils 0.0 % 0.0 - 4.0 08/05 Normal [facility] HEMATOLOGY Monocytes 1.0 % 2.0 - 12.0 08/05 LOW [facility] HEMATOLOGY Lymphocytes 5.6 % 20.0 - 08/05 LOW 40.0 [facility] HEMATOLOGY Segs 93.3 % 45.0 - 0308 HI 75.0 [facility] HEMATOLOGY MCHC 32.8 g/dL 32.0 - 0308 Normal 36.0 [facility] HEMATOLOGY MCV 85.2 fL 81.0 - 0308 Normal 99.0 [facility] HEMATOLOGY MCH 27.9 pg 27.0 - 08 Normal 31.0 [facility] HEMATOLOGY RDW 15.3 % 11.5 - 03 HI 14.5 /2012 [facility] HEMATOLOGY Hct 37.9 % 36.0 - 08/05 Normal 48.0 /2012 [facility] HEMATOLOGY WBC 4.4 K/CMM 3.7 - 10.4 08/05 Normal MH [facility] HEMATOLOGY RBC 4.45 M/CMM 4.20 - 03 Normal 5.40 /2012 [facility] HEMATOLOGY Hgb 12.4 g/dL 12.0 - 03 Normal 16.0 /2012 [facility] HEMATOLOGY MPV 9.6 fL 7.4 - 10.4 08/05 Normal [facility] HEMATOLOGY Platelet 282 K/CMM 133 - 450 08/05 Normal [facility] BEDSIDE Comment1 Notify 06/23 LOCATED [facility]IN [facility] GLUCOSE RN/ [facility] TESTING BEDSIDE Gluc POC 93 mg/dL 70 - 99 06/23 Normal 1Interpretive GLUCOSE [facility] Data: [facility] TESTING Upper Reportable Limit: 200 mg/dL. BEDSIDE Comment1 Notify 06/23 [facility] GLUCOSE MATHEW/ [facility] TESTING BEDSIDE Gluc POC 113 mg/dL 70 - 99 06/23 HI 2Interpretive GLUCOSE [facility] Data: [facility] TESTING Upper Reportable Limit: 200 mg/dL. BEDSIDE Gluc POC 88 mg/dL 70 - 99 06/23 Normal 3Interpretive GLUCOSE [facility] Data: [facility] TESTING Upper Reportable Limit: 200 mg/dL. BEDSIDE Comment1 Notify 06/23 [facility] GLUCOSE MATHEW/ /2012 [facility] TESTING CHEMISTRY Hgb A1C null 06/23 NA 9Result Comment: [facility] reran sample twice. CHEMISTRY eGFR 117 [...] is not recommended in the following populations: [facility] 3m2 Individuals with unstable creatinine concentrations, [...] values reflect the clinical guidelines of the [place] [employer]. [facility] CHEMISTRY BUN 13 mg/dL 7 - 22 06/23 Normal [facility] CHEMISTRY Creatinine 0.8 mg/dL 0.5 - 1.4 06/23 Normal MH [facility] CHEMISTRY CO2 21 meq/L 24 - 32 06/23 LOW [facility] CHEMISTRY Calcium Lvl 7.4 mg/dL 8.5 - 10.5 06/23 LOW [facility] CHEMISTRY AGAP 13.5 meq/L 10.0 - 06/23 Normal 20. [facility] CHEMISTRY Sodium Lvl 144 meq/L 135 - 145 06/23 Normal [facility] CHEMISTRY Potassium 3.5 meq/L 3.5 - 5.1 06/23 Normal [facility] CHEMISTRY Chloride Lvl 113 meq/L 95 - 109 06/23 HI [facility] CHEMISTRY Valproic 46 ug/ml 50 - 100 06/23 LOW Acid [facility] HEMATOLOGY Giant Plt Slight None Seen 06/23 ABN [facility] *ABN* (06/23/2012 05:45:00) HEMATOLOGY Elliptocyte Slight None Seen 06/23 ABN [facility] *ABN* (06/23/2012 05:45:00) HEMATOLOGY Tear Cell Slight None Seen 06/23 ABN [facility] *ABN* (06/23/2012 05:45:00) HEMATOLOGY Eosinophils 0.0 K/CMM 0.0 - 0.5 06/23 Normal [facility] HEMATOLOGY Monocytes # 0.5 K/CMM 0.0 - 0.8 06/23 Normal [facility] HEMATOLOGY Lymphocytes 1.8 K/CMM 1.0 - 5.5 06/23 Normal [facility] HEMATOLOGY Basophils # 0.0 K/CMM 0.0 - 0.2 06/23 Normal [facility] HEMATOLOGY Basophils 0.4 % 0.0 - 1.0 06/23 Normal [facility] HEMATOLOGY Segs 53.4 % 45.0 - 06/23 Normal 75. [facility] HEMATOLOGY Lymphocytes 35.5 % 20.0 - 06/23 Normal MH 40.0 [facility] HEMATOLOGY Monocytes 10.4 % 2.0 - 12.0 06/23 Normal [facility] HEMATOLOGY Eosinophils 0.3 % 0.0 - 4.0 06/23 Normal [facility] HEMATOLOGY Segs-Bands # 2.7 K/CMM 1.5 - 8.1 06/23 Normal [facility] HEMATOLOGY WBC 5.0 K/CMM 3.7 - 10.4 06/23 Normal [facility] HEMATOLOGY RBC 3.14 M/CMM 4.20 - 06/23 LOW MH 5.40 [facility] HEMATOLOGY Hgb 8.9 g/dL 12.0 - 06/23 LOW 16.0 [facility] HEMATOLOGY RDW 16.1 % 11.5 - 06/23 HI MH 14.5 [facility] HEMATOLOGY Platelet 154 K/CMM 133 - 450 06/23 Normal [facility] HEMATOLOGY MPV 10.3 fL 7.4 - 10.4 06/23 Normal [facility] HEMATOLOGY Hct 27.1 % 36.0 - 06/23 LOW 48.0 [facility] HEMATOLOGY MCV 86.2 fL 81.0 - 06/23 Normal 99.0 [facility] HEMATOLOGY MCH 28.5 pg 27.0 - 06/23 Normal 31.0 [facility] HEMATOLOGY MCHC 33.0 g/dL 32.0 - 06/23 Normal 36.0 [facility] CHEMISTRY U Cocaine Positive Negative 06/22 ABN [facility] *ABN* (06/22/2012 15:50:00) CHEMISTRY U Benzodia Negative Negative 06/22 NA [facility] *NA* (06/22/2012 15:50:00) CHEMISTRY U Abbi Scr Negative Negative 06/22 NA [facility] *NA* (06/22/2012 15:50:00) CHEMISTRY U Amph Scr Negative Negative 06/22 NA [facility] *NA* (06/22/2012 15:50:00) CHEMISTRY UDS Note See Note 10 06/22 Normal 10Interpretive Data: Drugs reported as positive have not been confirmed by a second method and should be used for medical purposes only. To order [facility] (06/22/2012 15:50:00) confirmation, contact laboratory. note: [...] CHEMISTRY U Phencyc Negative Negative 06/22 NA [facility] *NA* (06/22/2012 15:50:00) CHEMISTRY U Opiate Scr Positive Negative 06/22 [facility] *ABN* (06/22/2012 15:50:00) CHEMISTRY U Cannab Scr Positive Negative 06/22 ABN [facility] *ABN* (06/22/2012 15:50:00) CHEMISTRY U Preg Negative Negative 06/22 Normal [facility] (06/22/2012 15:50:00) URINALYSIS UA Sq Epi Occasional /LPF Few 06/22 Normal [facility] (06/22/2012 15:50:00) URINALYSIS UA WBC 0-2 /HPF None Seen 06/22 Normal [facility] (06/22/2012 15:50:00) URINALYSIS UA Bacteria Occasional /HPF None Seen 06/22 Normal [facility] (06/22/2012 15:50:00) URINALYSIS UA Mucus Few /LPF None Seen 06/22 Normal [facility] (06/22/2012 15:50:00) URINALYSIS UA Turbidity Clear Clear 06/22 Normal [facility] (06/22/2012 15:50:00) URINALYSIS UA Ketones 40 mg/dL Negative 06/22 NA [facility] *NA* (06/22/2012 15:50:00) URINALYSIS UA Spec Grav >=1.030 <=1.030 06/22 ABN [facility] *ABN* (06/22/2012 15:50:00) URINALYSIS UA Nitrite Negative Negative 06/22 Normal [facility] (06/22/2012 15:50:00) URINALYSIS UA Blood Trace Negative 06/22 ABN [facility] *ABN* (06/22/2012 15:50:00) URINALYSIS UA 1.0 EU/dL 0.1 - 1.0 06/22 Normal Urobilinogen [facility] URINALYSIS UA Bili Negative Negative 06/22 NA [facility] *NA* (06/22/2012 15:50:00) URINALYSIS UA Glucose Negative Negative 06/22 Normal [facility] (06/22/2012 15:50:00) URINALYSIS UA Protein 30 mg/dL Negative 06/22 ABN [facility] *ABN* (06/22/2012 15:50:00) URINALYSIS UA pH 6.0 5.0 - 8.0 06/22 Normal [facility] URINALYSIS UA Leuk Est Negative Negative 06/22 Normal [facility] (06/22/2012 15:50:00) URINALYSIS UA Color Yellow Yellow 06/22 NA [facility] *NA* (06/22/2012 15:50:00) Microbiolo Culture: 06/22 gy [facility] CHEMISTRY eGFR 101 06/22 NA 5Result [...] is not recommended in the following populations: [facility] 3m2 Individuals with unstable creatinine concentrations, [...] 0.4 mg/dL 0.2 - 1.3 06/22 Normal [facility] CHEMISTRY ALT 17 unit/L 0 - 65 06/22 Normal [facility] CHEMISTRY Albumin Lvl 4.3 g/dL 3.5 - 5.0 06/22 Normal [facility] CHEMISTRY Alk Phos 74 unit/L 39 - 136 06/22 Normal [facility] CHEMISTRY AST 12 unit/L 0 - 37 06/22 Normal [facility] CHEMISTRY Total 8.6 g/dL 6.4 - 8.4 06/22 HI MH [facility] CHEMISTRY Calcium Lvl 9.4 mg/dL 8.5 - 10.5 06/22 Normal [facility] CHEMISTRY Potassium 4.1 meq/L 3.5 - 5.1 06/22 Normal l [facility] CHEMISTRY Sodium Lvl 139 meq/L 135 - 145 06/22 Normal [facility] CHEMISTRY Glucose Lvl 119 mg/dL 70 - 99 06/22 HI 7Interpretive Data: Adult reference range values reflect the clinical guidelines of the [place] [employer]. [facility] CHEMISTRY Chloride Lvl 106 meq/L 95 - 109 06/22 Normal [facility] CHEMISTRY CO2 20 meq/L 24 - 32 06/22 LOW [facility] CHEMISTRY BUN 15 mg/dL 7 - 22 06/22 Normal [facility] CHEMISTRY Creatinine 0.9 mg/dL 0.5 - 1.4 06/22 Normal [facility] CHEMISTRY A/G Ratio 1.0 0.7 - 1.6 06/22 Normal [facility] CHEMISTRY B/C Ratio 17 6 - 25 06/22 Normal [facility] CHEMISTRY Globulin 4.3 g/dL 2.0 - 4.0 06/22 HI [facility] CHEMISTRY AGAP 17.1 meq/L 10.0 - 06/22 Normal 20.0 [facility] CHEMISTRY Lipase Lvl 40 unit/L 73 - 393 06/22 LOW [facility] CHEMISTRY Amylase Lvl 46 unit/L 25 - 115 06/22 Normal [facility] HEMATOLOGY Target Cell Slight None Seen 06/22 ABN [facility] *ABN* (06/22/2012 14:10:00) HEMATOLOGY Large Plt Slight None Seen 06/22 ABN [facility] *ABN* (06/22/2012 14:10:00) HEMATOLOGY Polychrom Slight None Seen 06/22 Normal [facility] (06/22/2012 14:10:00) HEMATOLOGY Basophils # 0.0 K/CMM 0.0 - 0.2 06/22 Normal [facility] HEMATOLOGY Eosinophils 0.0 K/CMM 0.0 - 0.5 06/22 Normal [facility] HEMATOLOGY Segs 86.0 % 45.0 - 06/22 HI MH 75.0 /2012 [facility] HEMATOLOGY Monocytes # 0.3 K/CMM 0.0 - 0.8 06/22 Normal /2012 [facility] HEMATOLOGY Lymphocytes 0.6 K/CMM 1.0 - 5.5 06/22 LOW MH # /2012 [facility] HEMATOLOGY Segs-Bands # 5.5 K/CMM 1.5 - 8.1 06/22 Normal [facility] HEMATOLOGY Basophils 0.2 % 0.0 - 1.0 06/22 Normal [facility] HEMATOLOGY Eosinophils 0.0 % 0.0 - 4.0 06/22 Normal [facility] HEMATOLOGY Lymphocytes 9.4 % 20.0 - 06/22 LOW MH 40.0 [facility] HEMATOLOGY Monocytes 4.4 % 2.0 - 12.0 06/22 Normal [facility] HEMATOLOGY MPV 10.2 fL 7.4 - 10.4 06/22 Normal [facility] HEMATOLOGY MCHC 33.2 g/dL 32.0 - 06/22 Normal MH 36.0 [facility] HEMATOLOGY MCH 28.5 pg 27.0 - 06/22 Normal MH 31.0 [facility] HEMATOLOGY RBC 4.12 M/CMM 4.20 - 06/22 LOW MH 5.40 /2012 [facility] HEMATOLOGY RDW 15.8 % 11.5 - 06/22 HI MH 14.5 [facility] HEMATOLOGY Platelet 214 K/CMM 133 - 450 06/22 Normal /2012 [facility] HEMATOLOGY Hgb 11.7 g/dL 12.0 - 06/22 LOW MH 16.0 [facility] HEMATOLOGY Hct 35.3 % 36.0 - 06/22 LOW MH 48.0 [facility] HEMATOLOGY MCV 85.7 fL 81.0 - 06/22 Normal MH 99.0 [facility] HEMATOLOGY WBC 6.4 K/CMM 3.7 - 10.4 06/22 Normal [facility] CHEMISTRY Ketones Qual Negative Negative 05/14 Normal [facility] (05/14/2011 07:30:00) CHEMISTRY AGAP 18.2 meq/L 10.0 - 05/14 Normal MH 20. [facility] CHEMISTRY Glucose Lvl 105 mg/dL 05/14 NA 1Interpretive Data: [facility] Reference Ranges : 0 - 7 days : 41 - 90 mg/dL7 days - 150 yrs : 70 - 99 mg/dL (fasting), based on the clinical recommendatio ns of the [place] [employer]. CHEMISTRY Calcium Lvl 9.5 mg/dL 8.5 - 10.5 05/14 Normal MH [facility] CHEMISTRY CO2 18 meq/L 24 - 32 05/14 LOW MH [facility] CHEMISTRY Creatinine 0.6 mg/dL 0.5 - 1.4 05/14 Normal Lvl /2010 [facility] CHEMISTRY BUN 12 mg/dL 7 - 22 05/14 Normal [facility] CHEMISTRY Potassium 3.2 meq/L 3.5 - 5.1 05/14 LOW MH Lvl /2010 [facility] CHEMISTRY Sodium Lvl 136 meq/L 135 - 145 05/14 Normal MH [facility] CHEMISTRY Chloride Lvl 103 meq/L 95 - 109 05/14 Normal MH [facility] HEMATOLOGY MPV 9.1 fL 7.4 - 10.4 05/14 Normal [facility] HEMATOLOGY RDW 13.7 % 11.5 - 05/14 Normal 14. [facility] HEMATOLOGY MCHC 33.8 g/dL 32.0 - 05/14 Normal 36.0 /2010 [facility] HEMATOLOGY Platelet 292 K/CMM 133 - 450 05/14 Normal MH [facility] HEMATOLOGY MCV 87.4 fL 81.0 - 05/14 Normal 99.0 [facility] HEMATOLOGY MCH 29.6 pg 27.0 - 05/14 Normal 31.0 [facility] HEMATOLOGY Hct 36.3 % 36.0 - 05/14 Normal 48.0 /2010 [facility] HEMATOLOGY RBC 4.15 M/CMM 4.20 - 05/14 LOW MH 5.40 /2010 [facility] HEMATOLOGY Hgb 12.3 g/dL 12.0 - 05/14 Normal 16.0 [facility] HEMATOLOGY WBC 7.7 K/CMM 3.7 - 10.4 05/14 Normal MH [facility] HEMATOLOGY Large Plt Slight None Seen 05/14 ABN MH [facility] *ABN* (05/14/2011 07:30:00) HEMATOLOGY Giant Plt Slight None Seen 05/14 ABN [facility] *ABN* (05/14/2011 07:30:00) HEMATOLOGY Lymphocytes 0.6 K/CMM 1.0 - 5.5 05/14 LOW MH # /2010 [facility] HEMATOLOGY Segs-Bands # 6.2 K/CMM 1.5 - 8.1 05/14 Normal [facility] HEMATOLOGY Basophils 2.3 % 0.0 - 1.0 05/14 HI MH [facility] HEMATOLOGY Eosinophils 0.0 % 0.0 - 4.0 05/14 Normal [facility] HEMATOLOGY Elliptocyte Slight None Seen 05/14 ABN [facility] *ABN* (05/14/2011 07:30:00) HEMATOLOGY Tear Cell Slight None Seen 05/14 ABN [facility] *ABN* (05/14/2011 07:30:00) HEMATOLOGY Eosinophils 0.0 K/CMM 0.0 - 0.5 05/14 Normal MH # /2010 [facility] HEMATOLOGY Basophils # 0.2 K/CMM 0.0 - 0.2 05/14 Normal [facility] HEMATOLOGY Monocytes # 0.6 K/CMM 0.0 - 0.8 05/14 Normal [facility] HEMATOLOGY Lymphocytes 8.1 % 20.0 - 05/14 LOW MH 40.0 [facility] HEMATOLOGY Monocytes 8.4 % 2.0 - 12.0 05/14 Normal [facility] HEMATOLOGY Segs 81.2 % 45.0 - 05/14 HI 75.0 [facility] URINALYSIS UA WBC 11-20 /HPF None Seen 05/13 ABN [facility] *ABN* (05/13/2011 00:50:00) URINALYSIS UA Bacteria Few /HPF None Seen 05/13 Normal [facility] (05/13/2011 00:50:00) URINALYSIS UA RBC 0-2 /HPF 0 - 2 05/13 Normal [facility] (05/13/2011 00:50:00) URINALYSIS UA Nitrite Negative Negative 05/13 Normal [facility] (05/13/2011 00:50:00) URINALYSIS UA Leuk Est Trace Negative 05/13 ABN [facility] *ABN* (05/13/2011 00:50:00) URINALYSIS UA 0.2 EU/dL 0.1 - 1.0 05/13 Normal [place] [facility] URINALYSIS UA Sq Epi Few /LPF Few 05/13 Normal [facility] (05/13/2011 00:50:00) URINALYSIS Micro? Performed 05/13 Normal [facility] (05/13/2011 00:50:00) URINALYSIS UA Blood Negative Negative 05/13 Normal [facility] (05/13/2011 00:50:00) URINALYSIS UA pH 6.0 5.0 - 8.0 05/13 Normal [facility] URINALYSIS UA Spec Grav >=1.030 <=1.030 05/13 ABN [facility] *ABN* (05/13/2011 00:50:00) URINALYSIS UA Turbidity Clear Clear 05/13 Normal [facility] (05/13/2011 00:50:00) URINALYSIS UA Mucus Few /LPF None Seen 05/13 Normal [facility] (05/13/2011 00:50:00) URINALYSIS UA Rare /HPF None Seen 05/13 ABN Trich [facility] *ABN* (05/13/2011 00:50:00) URINALYSIS UA Ketones >=80 mg/dL Negative 05/13 Normal [facility] (05/13/2011 00:50:00) URINALYSIS UA Glucose Negative Negative 05/13 Normal [facility] (05/13/2011 00:50:00) URINALYSIS UA Protein Trace Negative 05/13 ABN [facility] *ABN* (05/13/2011 00:50:00) URINALYSIS UA Bili Negative Negative 05/13 Normal [facility] (05/13/2011 00:50:00) URINALYSIS UA Color Yellow Yellow 05/13 Normal [facility] (05/13/2011 00:50:00) BLOOD BANK Antibody Negative 05/13 Normal RESULTS Scr [facility] (05/12/2011 22:10:00) BLOOD BANK ABO/Rh O POS 05/13 Unknown RESULTS [facility] CHEMISTRY hCG Tot [id number] 05/13 NA 3Interpretive mIU/mL Data: [facility] Reference Range: Male 0 - 5 [...] 5 U/L 0 - 37 05/13 Normal [facility] CHEMISTRY Bili Total 0.4 mg/dL 0.2 - 1.3 05/13 Normal [facility] CHEMISTRY Total 7.7 g/dL 6.4 - 8.4 05/13 Normal [facility] CHEMISTRY Calcium Lvl 8.4 mg/dL 8.5 - 10.5 05/13 LOW [facility] CHEMISTRY B/C Ratio 10 6 - 25 05/13 Normal [facility] CHEMISTRY ALT 13 U/L 0 - 65 05/13 Normal [facility] CHEMISTRY Alk Phos 41 U/L 39 - 136 05/13 Normal [facility] CHEMISTRY Albumin Lvl 3.6 g/dL 3.5 - 5.0 05/13 Normal [facility] CHEMISTRY A/G Ratio 0.9 0.7 - 1.6 05/13 Normal [facility] CHEMISTRY Globulin 4.1 g/dL 2.0 - 4.0 05/13 HI MH [facility] CHEMISTRY CO2 20 meq/L 24 - 32 05/13 LOW [facility] CHEMISTRY Potassium 3.0 meq/L 3.5 - 5.1 05/13 CRIT 1Result Comment: [facility] Critical Result(s) called to Angelique at 05/12/2011 22:50 by [facility]. Read back OK. CHEMISTRY AGAP 14.0 meq/L 10.0 - 05/13 Normal 20.0 [facility] CHEMISTRY Chloride Lvl 104 meq/L 95 - 109 05/13 Normal [facility] CHEMISTRY Sodium Lvl 135 meq/L 135 - 145 05/13 Normal [facility] CHEMISTRY Creatinine 0.6 mg/dL 0.5 - 1.4 05/13 Normal l [facility] CHEMISTRY BUN 6 mg/dL 7 - 22 05/13 LOW [facility] CHEMISTRY Glucose Lvl 92 mg/dL 05/13 NA 2Interpretive Data: [facility] Reference Ranges : 0 - 7 days : 41 - 90 mg/dL7 days - 150 yrs : 70 - 99 mg/dL (fasting), based on the clinical recommendatio ns of the [place] [employer]. HEMATOLOGY MCH 30.4 pg 27.0 - 05/13 Normal 31.0 [facility] HEMATOLOGY MCHC 34.8 g/dL 32.0 - 05/13 Normal 36.0 /2010 [facility] HEMATOLOGY RDW 14.1 % 11.5 - 05/13 Normal 14.5 [facility] HEMATOLOGY MPV 8.7 fL 7.4 - 10.4 05/13 Normal MH /2010 [facility] HEMATOLOGY Platelet 237 K/CMM 133 - 450 05/13 Normal MH /2010 [facility] HEMATOLOGY WBC 4.7 K/CMM 3.7 - 10.4 05/13 Normal /2010 [facility] HEMATOLOGY MCV 87.4 fL 81.0 - 05/13 Normal 99.0 [facility] HEMATOLOGY Hct 31.4 % 36.0 - 05/13 LOW 48.0 [facility] HEMATOLOGY RBC 3.59 M/CMM 4.20 - 05/13 LOW 5.40 /2010 [facility] HEMATOLOGY Hgb 10.9 g/dL 12.0 - 05/13 LOW 16.0 [facility] Vital Signs Vital Sign Value Date Comments Source Temperature Oral (F) 98.0 F 09/22/2012 [facility] Heart Rate 56 09/22/2012 [facility] Diastolic (mm Hg) 79 09/22/2012 [facility] Systolic (mm Hg) 124 09/22/2012 [facility] Respitory Rate 20 09/22/2012 [facility] Diastolic (mm Hg) 72 09/21/2012 [facility] Respitory Rate 18 09/21/2012 [facility] Systolic (mm Hg) 108 09/21/2012 [facility] Heart Rate 61 09/21/2012 [facility] Temperature Oral (F) 98.7 F 09/21/2012 [facility] Systolic (mm Hg) 125 09/21/2012 [facility] Diastolic (mm Hg) 80 09/21/2012 [facility] Heart Rate 53 09/21/2012 [facility] Temperature Oral (F) 99.0 F 09/21/2012 [facility] Respitory Rate 18 09/21/2012 [facility] Height 157.48 cm 09/21/2012 [facility] Weight 52.273 09/21/2012 [facility] Height 157.4 cm 09/21/2012 [facility] Weight 52.273 09/21/2012 [facility] Weight 52.273 08/17/2012 [facility] Height 157.48 cm 08/17/2012 [facility] Temperature Oral (F) 98.5 F 06/23/2012 [facility] Respitory Rate 20 06/23/2012 [facility] Systolic (mm Hg) 98 06/23/2012 [facility] Heart Rate 53 06/23/2012 [facility] Diastolic (mm Hg) 65 06/23/2012 [facility] Heart Rate 54 06/23/2012 [facility] Temperature Oral (F) 98.5 F 06/23/2012 [facility] Respitory Rate 20 06/23/2012 [facility] Diastolic (mm Hg) 74 06/23/2012 [facility] Systolic (mm Hg) 110 06/23/2012 [facility] Respitory Rate 20 06/23/2012 [facility] Systolic (mm Hg) 89 06/23/2012 [facility] Heart Rate 63 06/23/2012 [facility] Temperature Oral (F) 98.5 F 06/23/2012 [facility] Diastolic (mm Hg) 55 06/23/2012 [facility] Height 157.48 cm 06/23/2012 [facility] Weight 47.727 06/23/2012 [facility] Weight 50.000 06/22/2012 [facility] Diastolic (mm Hg) 74 05/14/2011 [facility] Systolic (mm Hg) 136 05/14/2011 [facility] Respitory Rate 18 05/14/2011 [facility] Heart Rate 68 05/14/2011 [facility] Temperature Oral (F) 98.2 F 05/14/2011 [facility] Weight 54.545 05/14/2011 [facility] Height 157.48 cm 05/14/2011 [facility] Diastolic (mm Hg) 86 05/14/2011 [facility] Systolic (mm Hg) 111 05/14/2011 [facility] Heart Rate 86 05/14/2011 [facility] Respitory Rate 19 05/14/2011 [facility] Temperature Oral (F) 98.6 F 05/14/2011 [facility] Respitory Rate 18 05/13/2011 [facility] Temperature Oral (F) 98.6 F 05/13/2011 [facility] Systolic (mm Hg) 102 05/13/2011 [facility] Heart Rate 72 05/13/2011 [facility] Diastolic (mm Hg) 59 05/13/2011 [facility] Encounters Location Location Encounter Encounter Reason Attending ADM DC Status Source Details Type Number For Visit Provider Date Date Emergency [id number] ABDOMINAL VIV 09/06 09/06 Active [facility] PAIN TOTZ /2010 [facility] daily Emergency [id number] FEVER LATOSHA 04/11 04/11 Active [facility] /VOMITING TIFFAULT /2010 Gene daily Emergency [id number] VOMITING HABACUC 04/14 04/14 Active [facility] /2010 Gene daily Emergency [id number] VOMITINIG EMILIA 04/18 04/18 Active [facility] / KEREN /2010 [facility] ABDOMINAL JR t PAIN Emergency [id number] , HABACUC 05/12 05/13 Active [facility] ABD PAIN, LION /2010 [facility] VOMITING, t VAG BLEED Emergency [id number] ABDOMINAL VIV 05/14 05/14 Active [facility] PAIN TOTZ /2010 Gene daily OU [id number] CONSTANTINO 06/22 06/23 Active [facility] HYACINTH /2012 Gene daily Emergency [id number] ATIBA GAMEZ 08/05 08/05 Active [facility] /2012 Gene daily Emergency [id number] HABACUC 08/17 08/17 Active [facility] /2012 Gene daily Inpatient [id number] CONSTANTINO 09/20 09/21 Active [facility] HYACINTH /2012 Gene daily Procedures Procedure Code Date Perfomer Comments Source section [facility] section 17 months [facility] <sup>1</sup> before
--- OUTSIDE RECORDS SUMMARY | 2018-06-05 18:30 | XMS REPORT | CCD ---
:1985 Author Organization [facility] Care Team Providers Name Role Phone Meka [...] mg/dL] 0.4 mg/dL (05/12/2011 22:10:00) hCG Tot [id number] mIU/mL 3 *NA* (05/12/2011 22:10:00) 1Result Comment: Critical Result(s) called to Joan at 05/12/2011 22:50 by [facility]. Read back OK.2Interpretive Data: Reference Ranges : 0 - 7 days : 41 - 90 mg/dL7 days - 150 yrs : 70 - 99 mg/dL (fasting), based on the clinical recommendations of the [place] [employer].3Interpretive Data: Reference Range: Male 0 [...]
--- OUTSIDE RECORDS SUMMARY | 2018-06-05 18:30 | XMS REPORT | CCD ---
:1985 Author Organization [facility] Care Team Providers Name Role Phone Sanchez [...] values reflect the clinical guidelines of the [place] [employer].7Interpretive Data: Adult reference range values reflect the clinical guidelines of the [place] [employer].8Interpretive Data: HbA1C% eAG(mg/dL ) Interpretation [...] 10.0 240 Poor Control, take action to [id number] Comment: reran sample twice.10Interpretive Data: Drugs reported [...]
--- OUTSIDE RECORDS SUMMARY | 2018-06-05 18:30 | XMS REPORT | CCD ---
:1985 Author Organization [facility] Care Team Providers Name Role Phone Benjamin [...] 17:21:00 Phenergan 25 mg rectal 1 supp, FL, Q6H, PRN, 9 08/05/2012 Ordered suppository supp, [...] values reflect the clinical guidelines of the [place] [employer].HEMATOLOGY Most recent to oldest [Reference [...]
--- OUTSIDE RECORDS SUMMARY | 2018-06-05 18:30 | XMS REPORT | CCD ---
:1985 Author Organization [facility] Care Team Providers Name Role Phone Chuck [...] based on the clinical recommendations of the [place] Diabetes [employer].HEMATOLOGY Most recent to oldest [Reference [...]
--- OUTSIDE RECORDS SUMMARY | 2018-06-05 18:31 | XMS REPORT | CCD ---
:1985 Author Organization [facility] Care Team Providers Name Role Phone PataleshiaSanchez [...] 09/21/2012 09/22/2012 Discontinued SUB-Q, Drug form: INJ, [id number], Start date: 09/21/12 9:00:00, Duration: 30 day, [...] mg, 1 supp, Route: 09/21/2012 09/21/2012 Completed IL, Drug form: SUPP, ONCE, Start date: 09/21/12 [...] (09/20/2012 12:03:37) 2Result Comment: Specimen is slightly [id number] Comment: The eGFR is calculated using the [...] values reflect the clinical guidelines of the [place] [employer].6Interpretive Data: Adult reference range values reflect the clinical guidelines of the [place] [employer].7Interpretive Data: Drugs reported as positive [...] Catch FREE TEXT SOURCE: FINAL REPORTS Final Flmuae00,000 - 50,000 CFU/mL Skin Yu PRELIMINARY REPORTS Preliminary ReportNo Growth; Holding Procedures Procedures Date Related Diagnosis section
--- OUTSIDE RECORDS SUMMARY | 2018-06-05 18:31 | XMS REPORT | CCD ---
:1985 Author Organization [facility] Care Team Providers Name Role Phone Anupama [...] values reflect the clinical guidelines of the [place] [employer].HEMATOLOGY Most recent to oldest [Reference [...]
--- OUTSIDE RECORDS SUMMARY | 2018-06-05 18:31 | XMS REPORT ---
:1985 Author Organization [facility] Address [address] [place] [address] Dr. Tabares [address] [place] [id number] Care Team Providers Name Role Phone GREGORIA [...] Clinicians Facility Department ID 2012-08-18 2012-08-18 Emergency [facility] [id number] 20:24:58 20:24:58 2012-08-18 2012-08-18 Emergency [facility] [id number] 18:28:56 18:28:56 Results Test Description Test Time [...] NEGATIVE Ketones (test code=UKET) >=80 NEGATIVE Specific Roxton (test code=USPGR) 1.025 1.005-1.030 Blood (test code=UBLD) [...] (test code=UBACT) Trace None Seen,Trace TEST, Urine [id number] 06:05:00 Test Item Value Reference Range Comments (Urine) (test code=PREGU) Negative If a specimen is collected by a nurse, then you MUST fill out the Collected and Collected By curran VALPROIC [id number] 05:47:00 Test Item Value Reference Range Comments Valproic Acid (test code=VALPR) <3.0 ug/ml 50.0-120.0 er [id number] 05:39:00 Test Item Value Reference Range Comments Magnesium (test code=MG) 2.4 mg/dl 1.6-2.3 er 7CBC WITH AUTO [id number] 05:22:00 Test Item Value Reference Range Comments [...] Auto (test 0 /100WBC 0-2 code=NRBC_AUTO) er [id number] 05:22:00 Test Item Value Reference Range Comments [...] mL/min/1.73m\\S\\2 EGFR if Non- >60 Estimated Glomerular Kenyan (test mL/min/1.73m\\S\\2 Filtration Rate (eGFR) code=EGFRNA) Reference [...] management of chronic kidney failure. er 7LIPASE, [id number] 05:22:00 Test Item Value Reference Range Comments Lipase (test code=LIPA) 462 U/L 8-223 er 7DRUG SCREEN [id number] 19:14:00 Test Item Value Reference Range Comments Specific Roxton 1.025 1.005-1.030 (test code=USPGR) PH (test code=UPH) [...] the Drugs of Abuse ran on the Archive System[employer] 5.1 analyzer listed there in: Amphetamines < [...] (test code=THC) Confirmation Upon Request URINALYSIS WITHOUT [id number] 18:57:00 Test Item Value Reference Range Comments Color (test code=UCOLR) YELLOW Clarity (test code=UCLAR) CLOUDY Glucose (test code=UGLUC) NEGATIVE NEGATIVE Bilirubin (test code=UBILI) NEGATIVE NEGATIVE Ketones (test code=UKET) 40 NEGATIVE Specific Roxton (test code=USPGR) 1.025 1.005-1.030 Blood (test code=UBLD) [...] Collected and Collected By curran TEST, Serum [id number] 18:26:00 Test Item Value Reference Range Comments (Serum) (test code=PREGS) Negative [id number] 18:21:00 Test Item Value Reference Range Comments [...] mL/min/1.73m\\S\\2 EGFR if Non- >60 Estimated Glomerular Kenyan (test mL/min/1.73m\\S\\2 Filtration Rate (eGFR) code=EGFRNA) Reference [...] and management of chronic kidney failure. LIPASE, [id number] 18:21:00 Test Item Value Reference Range Comments Lipase (test code=LIPA) 36 U/L 8-223 CBC WITH AUTO [id number] 18:12:00 Test Item Value Reference Range Comments [...] (test 0 /100WBC 0-2 code=NRBC_AUTO) AUTO DIFFRAPID [id number] 16:50:00 Test Item Value Reference Range Comments RAPID CKMB (Rhythm NewMediaAKER) (test zafy=8311) < ng/mL 0.0-4.3 RAPID TROPONIN [id number] 16:50:00 Test Item Value Reference Range Comments RAPID TROPONIN I (BEAKER) (test hewp=6312) < ng/mL <0.05 [id number] 16:49:00 Test Item Value Reference Range Comments D-DIMER QUANTITATIVE (BEAKER) (test lxzp=415) < MG/L FEU <0.50 REGARDING D-DIMER RESULTS: Results of this D-Dimer test should always be interpreted in conjunction with the patient's medical history, clinical presentation and other findings. DVT clinical diagnosis should not be based on the results of INNOVANCE D-Dimer alone.PT/[id number] 16:40:00 Test Item Value Reference Range Comments PROTIME (BEAKER) (test koek=562) 9.9 seconds 9.8-12.0 INR (BEAKER) (test huom=127) 0.9 <=5.9 PARTIAL THROMBOPLASTIN TIME (BEAKER) (test 25.7 seconds 25.8-34.5 jcxh=920) RECOMMENDED COUMADIN/WARFARIN INR THERAPY RANGESSTANDARD DOSE: 2.0 - 3.0 Includes: PROPHYLAXIS forvenous thrombosis, systemic embolization; TREATMENT for venous thrombosis and/or pulmonary embolus.HIGH RISK: Target INR is 2.5-3.5 for patients with mechanical heart valves.[id number] 16:38:00 Test Item Value Reference Range Comments MAGNESIUM (BEAKER) (test nykl=153) 2.1 mg/dL 1.5-3.0 BASIC METABOLIC [id number] 16:37:00 Test Item Value Reference Range Comments SODIUM (BEAKER) (test 141 meq/L 135-148 rnyk=284) POTASSIUM (BEAKER) (test 3.8 meq/L 3.6-5.5 ltfk=871) CHLORIDE (BEAKER) (test 102 meq/L 98-106 foyv=462) CO2 (BEAKER) (test 24 meq/L 24-32 ymby=516) BLOOD UREA NITROGEN 10 mg/dL 10-26 (BEAKER) (test vnxi=155) CREATININE (BEAKER) (test 0.68 mg/dL 0.50-1.20 ufyr=183) GLUCOSE RANDOM (BEAKER) 85 mg/dL 70-110 (test jfrq=118) CALCIUM (BEAKER) (test 8.8 mg/dL 8.5-10.5 khty=952) EGFR (BEAKER) (test 122 mL/min/1.73 sq m ESTIMATED GFR IS NOT jmxj=5099) ACCURATE CREATININE CLEARANCE IN PREDICTING GLOMERULAR FILTRATION RATE. ESTIMATED GFR IS NOT APPLICABLE FOR DIALYSIS PATIENTS. CREATINE KINASE (CK)2017-06-19 16:37:00 Test Item Value Reference Range Comments CREATINE KINASE TOTAL (BEAKER) (test uoqh=115) 83 U/L 25-235 CBC W/PLT COUNT & AUTO [id number] 16:32:00 Test Item Value Reference Range Comments WHITE BLOOD CELL COUNT (BEAKER) (test ciit=496) 5.5 10e3/ L 4.0-10.0 RED BLOOD CELL COUNT (BEAKER) (test jqfg=904) 4.16 10e6/ L 4.00-5.00 HEMOGLOBIN (BEAKER) (test bjny=666) 12.1 g/dL 12.0-15.0 HEMATOCRIT (BEAKER) (test vgqs=853) 35.8 % 36.0-45.0 MEAN CORPUSCULAR VOLUME (BEAKER) (test 86.0 fL 82.0-99.0 ulyf=722) MEAN CORPUSCULAR HEMOGLOBIN (BEAKER) (test 29.0 pg 27.0-33.0 gwrc=752) MEAN CORPUSCULAR HEMOGLOBIN CONC (BEAKER) (test 33.7 g/dL 32.0-36.0 hglg=865) RED CELL DISTRIBUTION WIDTH (BEAKER) (test 12.8 % 10.3-14.2 uhtj=335) PLATELET COUNT (BEAKER) (test qdyn=805) 267 10e3/ L 150-430 MEAN PLATELET VOLUME (BEAKER) (test ddqx=267) 8.5 fL 6.5-10.5 NEUTROPHILS RELATIVE PERCENT (BEAKER) (test 42 % mwgl=287) LYMPHOCYTES RELATIVE PERCENT (BEAKER) (test 49 % gtls=709) MONOCYTES RELATIVE PERCENT (BEAKER) (test 7 % ajzz=745) EOSINOPHILS RELATIVE PERCENT (BEAKER) (test 2 % zxkq=655) BASOPHILS RELATIVE PERCENT (BEAKER) (test 1 % whrx=565) NEUTROPHILS ABSOLUTE COUNT (BEAKER) (test 2.27 10e3/ L 1.80-8.00 umyk=969) LYMPHOCYTES ABSOLUTE COUNT (BEAKER) (test 2.68 10e3/ L 1.48-4.50 yiuh=972) MONOCYTES ABSOLUTE COUNT (BEAKER) (test 0.37 10e3/ L 0.00-1.30 ezgk=942) EOSINOPHILS ABSOLUTE COUNT (BEAKER) (test 0.11 10e3/ L 0.00-0.50 wekb=003) BASOPHILS ABSOLUTE COUNT (BEAKER) (test 0.03 10e3/ L 0.00-0.20 cfcy=666) SCREEN, [id number] 15:31:00 Test Item Value Reference Range Comments TEST URINE (BEAKER) (test kpfr=405) Negative RAD, CHEST, 1 VIEW, NON [id number] 15:09:00Reason for exam:->chest painIs the patient ?->UnknownFINAL [...] or chest CT is advised. Signed: Justin Mejaí Verified Date/Time: 06/19/2017 15:09:21 Reading Location: [address] Transitional Reading Room RAD, SHOULDER, COMPLETE (MIN 2 VIEWS), [id number] 03:33: 00Reason for exam:->GENERAL ILLNESSIs the patient [...] MDReport Verified Date/Time: 06/06/2017 03:33:43 Reading Location: [address] Body Reading Room RAPID INFLUENZA A&B [id number] 03:30:00 Test Item Value Reference Range Comments RAPID INFLUENZA A AG (BEAKER) (test Negative Negative, Inconclusive svhr=9625) RAPID INFLUENZA B AG (BEAKER) (test Negative Negative, Inconclusive fbxo=2127) RAPID STREP A [id number] 03:15:00 Test Item Value Reference Range Comments STREP A ANTIGEN (BEAKER) (test eacu=230) Negative Negative
[2018-06-05] MEDS ORDERED: PROMETHAZINE 25 MG/ML VIAL ONE ×2 (19:55→23:49)
[2018-06-05] MEDS ORDERED: LORazepam 2 MG/ML VIAL ONE ×2 (19:55→23:49)
[2018-06-05] MEDS ORDERED: FENTANYL CITR 100 MCG/2 ML ONE ×2 (19:56→23:49)
[2018-06-05] MEDS ORDERED: NA CHLORIDE 0.9% 1,000 ML ONE (19:57)
[2018-06-05 20:06] LABS: ALT/SGPT 15 U/L (12-78); AST/SGOT 8 U/L (15-37); Albumin 3.7 g/dL (3.4-5.0); Alkaline Phosphatase 81 U/L (45-117); BUN Blood Urea Nitrogen 7 mg/dL (7-18); Bicarbonate 24 mmol/L (21-32); Bilirubin Direct 0.1 mg/dL (0-0.2); Bilirubin Total 0.5 mg/dL (0.2-1.0); Glucose Level 94 mg/dL (74-106); Lipase 90 U/L (73-393); Protein, Total 8.1 g/dL (6.4-8.2); Sodium Level 136 mmol/L (136-145)
[2018-06-05 20:12] LABS: Barbiturates NEGATIVE (NEGATIVE); Benzodiazepines POSITIVE (NEGATIVE); Cocaine NEGATIVE (NEGATIVE); METHAMPHETAM NEGATIVE (NEGATIVE); Methadone NEGATIVE (NEGATIVE); Opiates NEGATIVE (NEGATIVE); Phencyclidine NEGATIVE (NEGATIVE); THC Cannibis POSITIVE (NEGATIVE)
[2018-06-05 20:25] LABS: Urine Blood TRACE (NEG); Urine Glucose NEGATIVE (NEG); Urine Protein 2+ (NEG); Urine Specific Gravity 1.025 (1.005-1.030)
[2018-06-05 20:33] LABS: Absolute Lymphocytes (CBC) 1.5 K/uL (0.7-4.9); Absolute Monocytes 0.8 K/uL (0.1-1.3); Absolute Neutrophil 4.6 K/uL (1.8-8.0); Basophils % 0.8 % (0-1.3); Eosinophils % 0.1 % (0-4.4); Hematocrit 37.8 % (36.0-45.0); Lymphocytes % 21.7 % (15.3-44.8); MPV 9.7 fL (7.6-11.3); Monocytes % 11.2 % (3.3-12.3); RBC Red Blood Cell Count 4.32 M/uL (3.86-4.86)
[2018-06-05] MEDS ORDERED: KCL 20 MEQ/100 mL IVPB 20 MEQ/100 ML BAG IV ONE ×2 (20:44→23:49)
--- NOTE | 2018-06-05 20:52 | RAD REPORT ---
EXAM DESCRIPTION: RAD - Abdomen Acute Series - 06/05/2018 8:33 pm CLINICAL HISTORY: Abdominal pain, vomiting COMPARISON: None. FINDINGS: Lungs are clear. Heart size and vessels are normal. No pleural effusion, pneumothorax or o ther acute cardiopulmonary process seen. Bowel gas pattern is nonspecific. No bowel obstruction, free air or other acute findings. No suspicio us calcifications. No other suspicious for significant findings. IMPRESSION: Negative acute abdomen series.
[2018-06-05 21:16] LABS: Blood Morphology Comment NOT SEEN (NOT SEEN); Platelet Estimate ADEQ; Urine White Blood Cell Casts OK
[2018-06-05] MEDS ORDERED: NA CHLORIDE 0.9% 500 ML ONE (22:22)
--- NOTE | 2018-06-05 23:52 | EDPHYS ---
Physician Documentation [facility] Name: Joan Short Age: 32 yrs Sex: Female : 1985 Arrival Date: 06/05/2018 Time: 18:23 Bed 26 Private MD: ED Physician London Barrientos HPI: 06/05 19:24 This 32 yrs old Black Female presents to ER via Ambulatory with complaints of Vomiting, pkl Anxiety. 19:24 The patient presents to the emergency department with nausea, vomiting. Onset: The pkl symptoms/episode began/occurred 2 day(s) ago. The patient has experienced similar episodes in the past, several times. The patient has been recently seen at the [facility] Emergency Department, yesterday, for similar complaints labs were performed. H/O anxiety disorder, seizures, fibromyalgia and gastroparesis. Historical: - Allergies: 18:40 Haldol; hj 18:40 Reglan; hj 18:40 Unisom; hj 18:40 Zofran; hj - PMHx: 18:40 Anxiety; Bipolar disorder; Fibromyalgia; gastroporesis; Seizures; hj - PSHx: 18:40 ; Tubal ligation; hj - Immunization history:: Adult Immunizations unknown. - Social history:: Smoking status: Patient/guardian denies using tobacco, Patient/guardian denies using alcohol. - Ebola Screening: : Patient negative for fever greater than or equal to 101.5 degrees Fahrenheit, and additional compatible Ebola Virus Disease symptoms Patient denies exposure to infectious person Patient denies travel to an Ebola-affected area in the 21 days before illness onset. ROS: 19:24 Eyes: Negative for injury, pain, redness, and discharge, ENT: Negative for injury, pkl pain, and discharge, Neck: Negative for injury, pain, and swelling, Cardiovascular: Negative for chest pain, palpitations, and edema, Respiratory: Negative for shortness of breath, cough, wheezing, and pleuritic chest pain. 19:24 Abdomen/GI: Positive for abdominal pain, nausea and vomiting, of the right upper quadrant and left upper quadrant. 19:24 Back: Negative for acute changes. 19:24 : Negative for urinary symptoms. 19:24 MS/extremity: Negative for acute changes. 19:24 Skin: Negative for rash. 19:24 Neuro: Negative for altered mental status. Exam: 19:24 Head/Face: Normocephalic, atraumatic. Eyes: Pupils equal round and reactive to light, pkl extra-ocular motions intact. Lids and lashes normal. Conjunctiva and sclera are non-icteric and not injected. Cornea within normal limits. Periorbital areas with no swelling, redness, or edema. ENT: Nares patent. No nasal discharge, no septal abnormalities noted. Tympanic membranes are normal and external auditory canals are clear. Oropharynx with no redness, swelling, or masses, exudates, or evidence of obstruction, uvula midline. Mucous membranes moist. Neck: Trachea midline, no thyromegaly or masses palpated, and no cervical lymphadenopathy. Supple, full range of motion without nuchal rigidity, or vertebral point tenderness. No Meningismus. Chest/axilla: Normal chest wall appearance and motion. Nontender with no deformity. No lesions are appreciated. Cardiovascular: Regular rate and rhythm with a normal S1 and S2. No gallops, murmurs, or rubs. Normal PMI, no JVD. No pulse deficits. Respiratory: Lungs have equal breath sounds bilaterally, clear to auscultation and percussion. No rales, rhonchi or wheezes noted. No increased work of breathing, no retractions or nasal flaring. 19:24 Abdomen/GI: Bowel sounds: normal, Palpation: soft, mild abdominal tenderness, in the right upper quadrant and left upper quadrant. 19:24 Back: Exam negative for acute changes. 19:24 : Exam negative for acute changes. 19:24 Musculoskeletal/extremity: Exam is negative for acute changes. 19:24 Skin: Exam negative for rash. 19:24 Neuro: Orientation: appropriate for stated age, Mentation: is normal, Cranial nerves: grossly normal, Motor: is normal. Vital Signs: 18:40 BP 107 / 60; Pulse 76; Resp 18; Temp 97.6(O); Pulse Ox 100% on R/A; Weight 54.43 kg; hj Height 5 ft. 2 in. (157.48 cm); 20:02 BP 133 / 89; Pulse 64; Resp 20; Pulse Ox 98% on R/A; mt 20:54 BP 132 / 76; Pulse 83; Resp 17; Pulse Ox 100% on R/A; Pain 4/10; ed1 23:09 BP 106 / 68; Pulse 78; Resp 16; Pulse Ox 99% on R/A; mt 23:48 BP 113 / 76; Pulse 83; Resp 17; Pulse Ox 100% on R/A; Pain 4/10; ed1 18:40 Body Mass Index 21.95 (54.43 kg, 157.48 cm) hj MDM: 18:49 Patient medically screened. [facility] 23:50 Data reviewed: vital signs, nurses notes, lab test result(s), radiologic studies, plain pkl films. 23:51 Patient medically screened. pkl 06/05 19:22 Order name: Basic Metabolic Panel; Complete Time: 20:16 pkl 06/05 19:22 Order name: CBC with Diff; Complete Time: 23:32 pkl 06/05 19:22 Order name: Creatinine for Radiology; Complete Time: 20:16 pkl 06/05 19:22 Order name: Hepatic Function; Complete Time: 20:16 pkl 06/05 19:22 Order name: Lipase; Complete Time: 20:16 pkl 06/05 19:23 Order name: UDS; Complete Time: 20:30 pkl 06/05 19:22 Order name: XRAY Abdomen Acute Series; Complete Time: 23:32 pkl 06/05 19:52 Order name: Urine Dipstick--Ancillary (enter results); Complete Time: 20:26 em1 06/05 21:00 Order name: CBC Smear Scan; Complete Time: 23:32 EDMS 06/05 21:31 Order name: Potassium: Draw after IV postassium completes.; Complete Time: 23:32 ed1 06/05 19:22 Order name: IV Saline Lock; Complete Time: 19:55 pkl 06/05 19:22 Order name: Labs collected and sent; Complete Time: 19:55 pkl Administered Medications: 19:58 Drug: Ativan 1 mg Route: IVP; Site: Other; bb 20:42 Follow up: Response: No adverse reaction; Anxiety decreased ed1 19:59 Drug: NS 0.9% 1000 ml Route: IV; Rate: 125 ml/hr; Site: Other; bb 19:59 Drug: Phenergan 12.5 mg Route: IVP; Site: Other; bb 20:42 Follow up: Response: No adverse reaction; Nausea is decreased ed1 19:59 Drug: fentaNYL (PF) 25 mcg Route: IVP; Site: Other; bb 20:42 Follow up: Response: No adverse reaction; Pain is decreased ed1 20:42 Drug: Potassium Chloride 20 mEq Route: IV; Rate: calculated rate; Site: Other; ed1 06/06 00:39 Follow up: IV Status: Completed infusion ed1 06/05 23:50 Drug: Potassium Chloride 10 mEq Route: IV; Rate: calculated rate; Site: Other; ed1 06/06 00:36 Follow up: IV Status: Completed infusion ed1 06/05 23:51 Drug: Ativan 0.5 mg Route: IVP; Site: Other; ed1 06/06 00:36 Follow up: Response: No adverse reaction; Anxiety decreased ed1 06/05 23:51 Drug: fentaNYL (PF) 25 mcg Route: IVP; Site: Other; ed1 06/06 00:37 Follow up: Response: No adverse reaction; Pain is decreased ed1 06/05 23:51 Drug: Phenergan 12.5 mg Route: IVP; Site: Other; ed1 06/06 00:37 Follow up: Response: No adverse reaction; Nausea is decreased ed1 Disposition: 06/05/18 23:51 Discharged to Home. Impression: Gastroparesis. Hypokalemia. - Condition is Stable. - Prescriptions for Ativan 1 mg Oral Tablet - take 1 tablet by ORAL route 2 times per day As needed; 10 tablet. Ultram 50 mg Oral Tablet - take 1 tablet by ORAL route every 8 hours As needed; 20 tablet. promethazine 25 mg Oral Tablet - take 1 tablet by ORAL route every 8 hours As needed; 20 tablet. - Medication Reconciliation Form, Thank You Letter, Antibiotic Education, Prescription Opioid Use form. - Follow up: Private Physician; When: 1 - 2 days; Reason: Re-evaluation by your physician. - Problem is new. - Symptoms have improved. Signatures: Dispatcher [employer] EDMS Ankit Hernandes MD MD cha Lam, Pin, MD MD pkl Ballard, Brenda, RN RN Sallie Etienne LVN STARCH DUMPER ed1 Moe Cam RN RN hj Corrections: (The following items were deleted from the chart) 00:39 06/05 23:51 06/05/2018 23:51 Discharged to Home. Impression: Gastroparesis. ed1 Hypokalemia. Condition is Stable. Forms are Medication Reconciliation Form, Thank You Letter, Antibiotic Education, Prescription Opioid Use. Follow up: Private Physician; When: 1 - 2 days; Reason: Re-evaluation by your physician. Problem is new. Symptoms have improved. pkl
--- NOTE | 2018-06-05 23:52 | ER ---
Nurse's Notes [facility] Name: Joan Short Age: 32 yrs Sex: Female : 1985 Arrival Date: 06/05/2018 Time: 18:23 Bed 26 Private MD: Diagnosis: Gastroparesis. Hypokalemia Presentation: 06/05 18:38 Presenting complaint: Patient states: i always have anxiety attacks, i feel like im hj blacking out; my body is shaking;. Transition of care: patient was not received from another setting of care. Onset of symptoms was June 05, 2018. Risk Assessment: Do you want to hurt yourself or someone else? Patient reports no desire to harm self or others. Initial Sepsis Screen: Does the patient meet any 2 criteria? No. Patient's initial sepsis screen is negative. Does the patient have a suspected source of infection? No. Patient's initial sepsis screen is negative. 18:38 Method Of Arrival: Ambulatory 18:38 Acuity: ЮЛИЯ 3 hj 18:39 Care prior to arrival: None. Triage Assessment: 18:40 General: Appears in no apparent distress. uncomfortable, Behavior is calm, cooperative, hj appropriate for age. Pain: Denies pain. GI: Reports. Historical: - Allergies: 18:40 Haldol; hj 18:40 Reglan; hj 18:40 Unisom; hj 18:40 Zofran; hj - PMHx: 18:40 Anxiety; Bipolar disorder; Fibromyalgia; gastroporesis; Seizures; hj - PSHx: 18:40 ; Tubal ligation; hj - Immunization history:: Adult Immunizations unknown. - Social history:: Smoking status: Patient/guardian denies using tobacco, Patient/guardian denies using alcohol. - Ebola Screening: : Patient negative for fever greater than or equal to 101.5 degrees Fahrenheit, and additional compatible Ebola Virus Disease symptoms Patient denies exposure to infectious person Patient denies travel to an Ebola-affected area in the 21 days before illness onset. Screenin:40 Abuse screen: Denies threats or abuse. Denies injuries from another. Nutritional hj screening: No deficits noted. Tuberculosis screening: No symptoms or risk factors identified. Fall Risk None identified. Assessment: 18:56 Reassessment: Dr. Hernandes at bedside attempting IV insertion. ed1 18:58 GI: Abdomen is non-distended, Bowel sounds present X 4 quads. Abd is soft X 4 quads ed1 Abdomen is tender to palpation X 4 quads. Reports lower abdominal pain, upper abdominal pain, nausea, vomiting, Patient currently denies diarrhea. 20:54 Reassessment: Patient appears in no apparent distress at this time. Patient and/or ed1 family updated on plan of care and expected duration. Pain level reassessed. Patient is alert, oriented x 3, equal unlabored respirations, skin warm/dry/pink. Patient states feeling better. Patient states symptoms have improved. 21:29 Reassessment: Received order form Dr. Barrientos: Repeat potassium level after IV potassium ed1 completes. 22:05 Reassessment: Patient appears in no apparent distress at this time. No changes from ed1 previously documented assessment. Patient and/or family updated on plan of care and expected duration. Pain level reassessed. Patient is alert, oriented x 3, equal unlabored respirations, skin warm/dry/pink. 23:48 Reassessment: Patient appears in no apparent distress at this time. Patient and/or ed1 family updated on plan of care and expected duration. Pain level reassessed. Patient is alert, oriented x 3, equal unlabored respirations, skin warm/dry/pink. No vomiting noted. 06/06 00:35 Reassessment: Patient appears in no apparent distress at this time. No changes from tl3 previously documented assessment. Patient and/or family updated on plan of care and expected duration. Pain level reassessed. Patient is alert, oriented x 3, equal unlabored respirations, skin warm/dry/pink. 00:37 Reassessment: Attempted to contact family member. No answer on number given. 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 Vital Signs: 06/05 18:40 BP 107 / 60; Pulse 76; Resp 18; Temp 97.6(O); Pulse Ox 100% on R/A; Weight 54.43 kg; hj Height 5 ft. 2 in. (157.48 cm); 20:02 BP 133 / 89; Pulse 64; Resp 20; Pulse Ox 98% on R/A; mt 20:54 BP 132 / 76; Pulse 83; Resp 17; Pulse Ox 100% on R/A; Pain 4/10; ed1 23:09 BP 106 / 68; Pulse 78; Resp 16; Pulse Ox 99% on R/A; mt 23:48 BP 113 / 76; Pulse 83; Resp 17; Pulse Ox 100% on R/A; Pain 4/10; ed1 18:40 Body Mass Index 21.95 (54.43 kg, 157.48 cm) hj ED Course: 18:23 Patient arrived in ED. mr 18:39 Triage completed. hj 18:41 Arm band placed on right wrist. hj 18:41 Patient has correct armband on for positive identification. Placed in gown. Bed in low hj position. Call light in reach. 18:48 Sallie Cruz LVN is Primary Nurse. ed1 18:48 Ankit Hernandes MD is Attending Physician. lalitha 19:13 London Barrientos MD is Attending Physician. pkl 19:46 Inserted saline lock: 24 gauge in right ,using aseptic technique. foot Blood collected. aj 20:34 XRAY Abdomen Acute Series In Process Unspecified. EDMS 22:05 Awaiting: Completion of IV potassium. ed1 22:49 Repeat lab(s) drawn. by dc, sent to lab. ed1 06/06 00:23 Awaiting: Completion of IV potassium. ed1 00:37 No provider procedures requiring assistance completed. IV discontinued, intact, ed1 bleeding controlled, No redness/swelling at site. Pressure dressing applied. Administered Medications: 06/05 19:58 Drug: Ativan 1 mg Route: IVP; Site: Other; bb 20:42 Follow up: Response: No adverse reaction; Anxiety decreased ed1 19:59 Drug: NS 0.9% 1000 ml Route: IV; Rate: 125 ml/hr; Site: Other; bb 19:59 Drug: Phenergan 12.5 mg Route: IVP; Site: Other; bb 20:42 Follow up: Response: No adverse reaction; Nausea is decreased ed1 19:59 Drug: fentaNYL (PF) 25 mcg Route: IVP; Site: Other; bb 20:42 Follow up: Response: No adverse reaction; Pain is decreased ed1 20:42 Drug: Potassium Chloride 20 mEq Route: IV; Rate: calculated rate; Site: Other; ed1 06/06 00:39 Follow up: IV Status: Completed infusion ed1 06/05 23:50 Drug: Potassium Chloride 10 mEq Route: IV; Rate: calculated rate; Site: Other; ed1 06/06 00:36 Follow up: IV Status: Completed infusion ed1 06/05 23:51 Drug: Ativan 0.5 mg Route: IVP; Site: Other; ed1 06/06 00:36 Follow up: Response: No adverse reaction; Anxiety decreased ed1 06/05 23:51 Drug: fentaNYL (PF) 25 mcg Route: IVP; Site: Other; ed1 06/06 00:37 Follow up: Response: No adverse reaction; Pain is decreased ed1 06/05 23:51 Drug: Phenergan 12.5 mg Route: IVP; Site: Other; ed1 06/06 00:37 Follow up: Response: No adverse reaction; Nausea is decreased ed1 Outcome: 06/05 23:51 Discharge ordered by . malick 06/06 00:37 Discharged to home via wheelchair. ed1 Condition: good Discharge instructions given to patient, Instructed on discharge instructions, follow up and referral plans. medication usage, Demonstrated understanding of instructions, follow-up care, medications, Prescriptions given X 3. 00:39 Patient left the ED. ed1 Signatures: Dispatcher [employer] Tammy Burrows RN RN aj Anderson, Corey, MD MD cha Lam, Pin, MD MD pkl Rivera Isi mr Padmini Costa RN RN bb Riggs, Erika, LVN LVN ed1 Moe Cam RN RN hj Thompson, Moriah mt Lowrey, Tammy, RN RN tl3 Corrections: (The following items were deleted from the chart) 06/05 18:58 18:41 GI: Abdomen is hj ed1
== END 2018-06-06 00:39 | disposition home or self-care (01) ==
LOC: ER 18:21
DX: K31.84 Gastroparesis (principal); E87.6 Hypokalemia; F41.9 Anxiety disorder, unspecified; M79.7 Fibromyalgia; F31.9 Bipolar disorder, unspecified; Z86.69 Personal history of other diseases of the nervous system and sense organs
CPT/HCPCS: 36415; 74022; 80048; 80076; 80307; 81003; 83690; 84132; 85025; 96365; 96366; 96375; 99284; J2550; J3010; J7030

== ENCOUNTER 2018-06-10 10:51 | Emergency (ER) | payer SELFPAY ==
--- OUTSIDE RECORDS SUMMARY | 2018-06-10 11:00 | XMS REPORT | Clinical Summary ---
:1985 Author Organization [facility] Address [address] [place] [address] Care Team Providers Name Role Phone Kiersten Primary Care Provider Allergies Active Allergy Reactions Severity Noted Date Comments Metoclopramide Anxiety Low 06/06/2017 Diphenhydramine Hcl Swelling 06/06/2017 Ondansetron Hcl (Pf) Swelling 06/06/2017 Medications Medication Sig Dispensed Refills Start Date End Date Status inhalational spacing Use with the 1 each 0 06/06/2017 Active device (AEROCHAMBER) inhaler. Spcr penicillin v Take 1 tablet 40 tablet 0 06/06/2017 06/13/2017 potassium (VEETID) (500 mg total) 500 MG tablet by mouth 4 (four) times daily for 7 days. albuterol HFA Inhale 2 puffs 1 Inhaler 0 06/06/2017 06/06/2018 (VENTOLIN HFA) 90 by mouth via mcg/actuation inhaler inhaler every 4 (four) hours as needed for Wheezing. predniSONE Take 1 tablet 5 tablet 0 [...] Care Team Description 06/19/2017 Emergency Emergency Medicine Samanta Sanchez Vickey, Acute chest pain DO (Primary Dx) 06/19/2017 Orders Only General Internal Medicine after 06/09/2017 Social History Tobacco Use Types Packs/Day Years [...] Taken Blood Pressure 101/63 06/19/2017 6:19 PM HAND NAILER Pulse 83 06/19/2017 6:19 PM HAND NAILER Temperature 36.6 C (97.8 F) 06/19/2017 6:19 PM HAND NAILER Respiratory Rate 18 06/19/2017 6:19 PM HAND NAILER Oxygen Saturation 100% 06/19/2017 6:19 PM HAND NAILER Inhaled Oxygen Concentration - - Weight 57.8 kg (127 lb 8 oz) 06/19/2017 2:51 PM HAND NAILER Height 158 cm (5' 2.21") 06/19/2017 2:51 PM HAND NAILER Body Mass Index 23.17 06/19/2017 2:51 PM HAND NAILER Plan of Treatment Not on file Procedures Procedure Name Priority Date/Time Associated Comments Diagnosis ED ECG INTERPRETATION Routine 06/19/2017 5:52 Results for this PM HAND NAILER procedure are in the results section. PLACE NEEDLE IN VEIN Routine 06/19/2017 5:52 Results for this PM HAND NAILER procedure are in the results section. CBC W/PLT COUNT & AUTO STAT 06/19/2017 3:13 Results for this DIFFERENTIAL PM HAND NAILER procedure are in the results section. D-DIMER STAT 06/19/2017 3:13 Results for this PM HAND NAILER procedure are in the results section. SCREEN, URINE STAT 06/19/2017 3:13 Results for this PM HAND NAILER procedure are in the results section. RAPID TROPONIN I STAT 06/19/2017 3:13 Results for this PM HAND NAILER procedure are in the results section. RAPID CK-MB STAT 06/19/2017 3:13 Results for this PM HAND NAILER procedure are in the results section. CREATINE KINASE (CK) STAT 06/19/2017 3:13 Results for this PM HAND NAILER procedure are in the results section. PT/APTT STAT 06/19/2017 3:13 Results for this PM HAND NAILER procedure are in the results section. CBC W/PLT COUNT & AUTO STAT 06/19/2017 3:13 Results for this DIFFERENTIAL PM HAND NAILER procedure are in the results section. MAGNESIUM STAT 06/19/2017 3:13 Results for this PM HAND NAILER procedure are in the results section. BASIC METABOLIC PANEL STAT 06/19/2017 3:13 Results for this (7) PM HAND NAILER procedure are in the results section. XR CHEST 1 VIEW STAT 06/19/2017 2:58 Results for this PORTABLE/BEDSIDE PM HAND NAILER procedure are in the results section. ECG 12-LEAD STAT 06/19/2017 2:44 Results for this PM HAND NAILER procedure are in the results section. ECG 12-LEAD Routine 06/19/2017 2:43 Results for this PM HAND NAILER procedure are in the results section. after 06/09/2017 Results PIV Insertion (06/19/2017 5:52 PM HAND NAILER) Narrative Performed At Sanchez Norwood DO 06/19/20175:52 [...] complications ED ECG Interpretation (06/19/2017 5:52 PM HAND NAILER) Narrative Performed At Sanchez Norwood DO 06/19/20175:52 PM ECG/EKG Interpretation Date/Time: 06/19/2017 2:52 PM Performed by: SANCHEZ NORWOOD Authorized by: SANCHEZ NORWOOD The ECG was interpreted by ED physician. This ECG was not compared with previous ECG(s).The ECG is interpreted as sinus rhythm. Rate is normal rate. Heart rate is [address] segments abnormal. T waves abnormal. Blairs is normal. Clinical Impression: non-specific ECGECG reviewed and does not meet STEMI criteria. Patient tolerance: Patient tolerated the procedure well with no immediate complications Rapid Troponin I (06/19/2017 3:13 PM HAND NAILER) Rapid Troponin I <0.05 <0.05 ng/mL [facility], [facility], [facility] Specimen Blood - Arm, Right Performing Organization Address City/State/Zipcode Phone Number [facility] [address] [place] [address] [facility], [facility] Rapid CK-MB (06/19/2017 3:13 PM HAND NAILER) Rapid CKMB <1.0 0.0 - 4.3 ng/mL [facility] Specimen Blood - Arm, Right Performing Organization Address [facility] Phone Number [facility] [address] [place] [address] [facility], [facility] PT/PTT (06/19/2017 3:13 PM HAND NAILER) Protime 9.9 9.8 - 12.0 seconds [facility] INR 0.9 <=5.9 [facility] PTT 25.7 (L) 25.8 - 34.5 seconds [facility] Specimen Blood - Arm, Right Narrative Performed At [facility] RECOMMENDED COUMADIN/WARFARIN INR THERAPY [facility], [facility] STANDARD DOSE: 2.0 - 3.0 Includes: PROPHYLAXIS for venous thrombosis, systemic embolization; TREATMENT for venous thrombosis and/or pulmonary embolus. HIGH RISK: Target INR is 2.5-3.5 for patients with mechanical heart valves. Performing Organization Address [facility] Phone Number [facility] [address] [place] [address] [facility] CBC with platelet count + automated diff (06/19/2017 3:13 PM HAND NAILER) WBC 5.5 4.0 - 10.0 10e3/L [facility] RBC 4.16 4.00 - 5.00 10e6/L [facility], [facility] Hemoglobin 12.1 12.0 - 15.0 g/dL [facility] [place] Hematocrit 35.8 (L) 36.0 - 45.0 % [facility] MCV 86.0 82.0 - 99.0 fL [facility] MCH 29.0 27.0 - 33.0 pg [facility] MCHC 33.7 32.0 - 36.0 g/dL [facility] RDW 12.8 10.3 - 14.2 % [facility] [place] Platelets 267 150 - 430 10e3/L [facility] MPV 8.5 6.5 - 10.5 fL [facility] [place] % Neutros 42 % [facility] [place] % Lymphs 49 % [facility] [place] % Monos 7 % [facility] [place] % Eos 2 % [facility] [place] % Baso 1 % [facility] [place] # Neutros 2.27 1.80 - 8.00 10e3/L [facility] [place] # Lymphs 2.68 1.48 - 4.50 10e3/L [facility] [place] # Monos 0.37 0.00 - 1.30 10e3/L [facility] # Eos 0.11 0.00 - 0.50 10e3/L [facility], [facility], [facility] # Baso 0.03 0.00 - 0.20 10e3/L [facility], [facility], [facility] Specimen Blood - Arm, Right Performing Organization Address [facility] Phone Number [place] [phone] [place] [address], [facility], [facility] Screen, urine (06/19/2017 3:13 PM HAND NAILER) Preg Test, Ur Negative [facility] Specimen Urine - Urine, Clean Catch Performing Organization Address [facility] Phone Number [id number] [place] [address] [phone] [place] [address], [facility], [facility] D-dimer, quantitative (06/19/2017 3:13 PM HAND NAILER) D-Dimer, Quant <0.19 <0.50 MG/L [facility], [facility], [facility] Specimen Blood - Arm, Right Narrative Performed At [facility] REGARDING D-DIMER RESULTS: Results of this [facility] D-Dimer test should always be interpreted in [facility], [facility] conjunction with the patient's medical history, clinical presentation and other findings. DVT clinical diagnosis should not be based on the results of [facility] D-Dimer alone. Performing Organization Address [facility] Phone Number [address] [address] [facility], [facility], [facility] Magnesium (06/19/2017 3:13 PM HAND NAILER) Magnesium 2.1 1.5 - 3.0 mg/dL [facility], [facility] Specimen Blood - Arm, Right Performing Organization Address [facility] Phone Number [facility] [address] [place] [address] [facility], [facility], [facility] Creatine Kinase (CK) (06/19/2017 3:13 PM HAND NAILER) Total CK 83 25 - 235 U/L [facility], [facility] Specimen Blood - Arm, Right Performing Organization Address [facility] Phone Number [facility] [address] [place] [address] [facility], [facility], [facility] Basic Metabolic Panel (06/19/2017 3:13 PM HAND NAILER) Sodium 141 135 - 148 meq/L [facility] Potassium 3.8 3.6 - 5.5 meq/L [facility] Chloride 102 98 - 106 meq/L [facility] CO2 24 24 - 32 meq/L [facility] [place] BUN 10 10 - 26 mg/dL [facility] [place] Creatinine 0.68 0.50 - 1.20 mg/dL [facility] [place] Glucose 85 70 - 110 mg/dL [facility] Calcium 8.8 8.5 - 10.5 mg/dL [facility] EGFR 122Comment: ESTIMATED GFR IS mL/min/1.73 sq m [facility] NOT ACCURATE [facility], CREATININE CLEARANCE IN [facility], PREDICTING GLOMERULAR [facility] FILTRATION RATE. ESTIMATED GFR IS NOT APPLICABLE FOR DIALYSIS PATIENTS. Specimen Blood - Arm, Right Performing Organization Address [facility] Phone Number [facility] [address] [place] [address] [facility], [facility], [facility] XR chest 1 view portable / bedside (06/19/2017 2:58 PM HAND NAILER) Narrative Performed At FINAL REPORT [facility] HISTORY : chest pain. Comparison: None Comment: [...] MD Report Verified Date/Time:06/19/2017 15:09:21 Reading Location: [address] Transitional Reading Room Procedure Note Interface, External Ris In - 06/19/2017 3:11 PM HAND NAILER FINAL REPORT HISTORY : chest pain. Comparison: [...] Report Verified Date/Time: 06/19/2017 15:09:21 Reading Location: [address] Transitional Reading Room Performing Organization Address City/State/Zipcode Phone Number [facility] RIS ECG 12 lead (06/19/2017 2:44 PM HAND NAILER)Only the most recent of2 resultswithin the time period is included. Narrative Performed At Ventricular Rate 72 BPM [facility] Atrial Rate 72 BPM P-R Interval 130 ms QRS Duration 82 ms Q-T Interval 406 ms QTC Calculation(Bazett) 444 ms P Blairs 76 degrees R Blairs 76 degrees T Blairs 72 degrees Sinus rhythm with marked sinus arrhythmia Otherwise normal ECG When compared with ECG of 19-JUN-2017 14:43, QT has shortened Confirmed by MD ABHILASH, BARB ([id number]) on 06/22/2017 6:36:26 AM Procedure Note Interface, External Ris In - 06/22/2017 6:36 AM HAND NAILER Ventricular Rate 72 BPM Atrial Rate 72 BPM P-R Interval 130 ms QRS Duration 82 ms Q-T Interval 406 ms QTC Calculation(Bazett) 444 ms P Blairs 76 degrees R Blairs 76 degrees T Blairs 72 degrees Sinus rhythm with marked sinus arrhythmia Otherwise normal ECG When compared with ECG of 19-JUN-2017 14:43, QT has shortened Confirmed by MD HUNG YOCHAI ([id number]) on 06/22/2017 6:36:26 AM Performing Organization Address City/State/Zipcode Phone Number [facility] MUSE after 06/09/2017
--- OUTSIDE RECORDS SUMMARY | 2018-06-10 11:04 | XMS REPORT | Continuity of Care Document ---
:1985 Author Organization Interface Problems Problem Status Onset Classification Date Comments Source Date Reported INTRACTABLE Active 09/21/19 VOMITING 13 [facility] SYNCOPE Active 09/21/19 13 [facility] VOMITING Active 08/18/19 13 [facility] ABDOMINAL PAIN Active 08/04/19 13 [facility] SEIZURES / VOMIT Active 06/22/19 13 [facility] SEIUZURES, ACUTE Active 06/22/19 GASTRITIS VS 13 [facility] GASTROENTE , ABD Active 05/12/20 PAIN, VOMITING, 11 [facility] VAG BLEED VOMITINIG/ Active 04/18/20 ABDOMINAL PAIN 11 [facility] FEVER /VOMITING Active 04/11/20 11 [facility] Gastroparesis Resolved Problem 09/23/2012 [facility] Seizure Resolved Problem 09/23/2012 [facility] VOMITING ALONE Active [facility] Medications Medication Details Route Status Patient Ordering Order Source Instructions Provider Date Navane 1 mg, 1 cap, PO No Wollner Route: PO, Longer 2012 [facility] Drug form: Active CAP, BID, Start date: 09/21/12 17:00:00, Duration: 30 day, Stop date: 10/21/12 9:00:00 Phenergan 12.5 mg, 1 MO No Wollner supp, Route: Longer 2012 [facility] MO, Drug form: Active SUPP, ONCE, Start date: 09/21/12 16:03:00, Stop date: 09/21/12 16:03:00 Pepcid 20 mg, 1 tab, PO No [place] Route: PO, Longer 2012 [facility] Drug form: Active TAB, Q12H, Start date: 09/21/12 9:00:00, Duration: 30 day, Stop date: 10/20/12 21:00:00 Lovenox 40 mg, 0.4 mL, SUB-Q No [place] Route: SUB-Q, Longer 2012 [facility] Drug form: Active INJ, [id number], Start date: 09/21/12 9:00:00, Duration: 30 day, Stop date: 10/20/12 9:00:00 Tylenol 650 mg, 2 tab, PO No Hasivana Route: PO, Longer 2012 [facility] Drug form: Active TAB, Q6H, PRN Pain, Start date: 09/21/12 8:36:00, Duration: 30 day, Stop date: 10/21/12 8:35:00 morphine 2 mg, 0.5 mL, IVP No Patrick Sulfate Route: IVP, Longer 2012 [facility] Drug form: Active INJ, Q6H, PRN Pain, Start date: 09/21/12 8:03:00, Duration: 30 day, Stop date: 10/21/12 8:02:00 Reglan 10 mg, 2 mL, IV No Vahe Route: IV, Longer 2012 [facility] Drug form: Active INJ, QID-Before Meals, Start date: 09/21/12 7:30:00, Duration: 30 day, Stop date: 10/20/12 21:00:00 Sodium Chloride 1,000 mL, IV No Patrick 09/21[facility] 0.9% IV 1,000 Rate: 125 Longer 2012 [facility] mL ml/hr, Infuse Active over: 8 hr, Route: IV, kg, Total Volume: 1,000, Start date: 09/20/12 21:00:00, Duration: 30 day, Stop date: 10/20/12 20:59:00 Tylenol 650 mg, 2 tab, PO No Hyacinth Route: PO, Longer 2012 [facility] Drug form: Active TAB, ONCE, Start date: 09/20/12 21:00:00, Stop date: 09/20/12 21:00:00 potassium 20 mEq, 100 IVPB No Patrick 09/21[facility] chloride mL, Route: Longer 2012 [facility] IVPB, Drug Active form: INJ, Q2H, Start date: 09/20/12 21:00:00, Duration: 1 doses or times, Stop date: 09/20/12 21:00:00 Haldol 1 mg, 0.2 mL, IV No Hyacinth 09/21[facility] Route: IV, Longer 2012 [facility] Drug form: Active INJ, ONCE, Start date: 09/20/12 21:00:00, Stop date: 09/20/12 21:00:00 Reglan 10 mg, 2 mL, IV No Patrick Route: IV, Longer 2012 [facility] Drug form: Active INJ, Q8H-05, Start date: 09/20/12 21:00:00, Duration: 30 day, Stop date: 10/20/12 13:00:00 Sodium Chloride 250 mL, Route: IVPB No Patrick 0.9% IV IVPB, Start Longer 2012 [facility] date: 09/20/12 Active 20:07:00, Duration: 30 day, Stop date: 10/20/12 20:06:00, PRN Line Flush BD Normal 10 mL, Route: IVP No Patrick Saline Flush IVP, Drug Longer 2012 [facility] Form: INJ, Active PRN, PRN Line Flush, Start date: 09/20/12 20:06:00, Duration: 30 day, Stop date: 10/20/12 20:05:00 morphine 2 mg, 0.4 mL, IV No Patrick 09/21[facility] Sulfate Route: IV, Longer 2012 [facility] Drug form: Active INJ, Q6H, PRN Pain, Start date: 09/20/12 20:05:00, Duration: 30 day, Stop date: 10/20/12 20:04:00 Phenergan 25 mg, 1 tab, PO No Patrick Route: PO, Longer 2012 [facility] Drug form: Active TAB, Q6H, PRN Nausea, Start date: 09/20/12 20:05:00, Duration: 30 day, Stop date: 10/20/12 20:04:00 Haldol 2 mg, 0.4 mL, IM No Patrick Route: IM, Longer 2012 [facility] Drug form: Active INJ, Q6H, PRN Agitation, Start date: 09/20/12 20:04:00, Duration: 30 day, Stop date: 10/20/12 20:03:00 Phenergan 25 mg, Route: IM No Cady IM, ONCE, Longer 2012 [facility] Dosing Weight Active 52.273, kg, PRN as needed for nausea/vomitin g, Start date: 09/20/12 17:55:00 Haldol 1 mg, Route: IVP No Cady IVP, ONCE, Longer 2012 [facility] Dosing Weight Active 52.273, kg, Priority: NOW, Start date: 09/20/12 17:54:00, Stop date: 09/20/12 17:54:00 Phenergan 25 mg, Route: IVPB No Ambrose IVPB, ONCE, Longer 2012 [facility] Dosing Weight Active 52.273, kg, Priority: STAT, Start date: 09/20/12 15:48:00, Stop date: 09/20/12 15:48:00 morphine 5 mg, 1 mL, IVP No [facility] Sulfate Route: IVP, Longer 2012 [facility] Drug form: Active INJ, ONCE, Dosing Weight 52.273, kg, Start date: 09/20/12 15:31:00, Stop date: 09/20/12 15:31:00 Phenergan + 25 mg, 1 mL, IVPB No [facility] Sodium Chloride Route: IVPB, Longer 2012 [facility] 0.9% IV 50 mL Drug form: Active INJ, ONCE, Dosing Weight 52.273, kg, Priority: STAT, Start date: 09/20/12 15:06:00, Stop date: 09/20/12 15:06:00 NS (Bolus) IV 1,000 mL, IV No [facility] 1,000 mL Rate: 1,000 Longer 2012 [facility] ml/hr, Infuse Active over: 1 hr, Route: IV, kg, Total Volume: 1,000, Priority: STAT, Start date: 09/20/12 13:21:00, Duration: 1 doses or times, Stop date: 09/20/12 14:20:00, Bolus DoseBolus Dose Reglan 10 mg, Route: IVP No med IVP, ONCE, Longer 2012 [facility] Dosing Weight Active 52.273, kg, Priority: STAT, Start date: 09/20/12 13:20:00, Stop date: 09/20/12 13:20:00 Phenergan 25 mg, Route: IM No Ahmed IM, ONCE, Longer 2012 [facility] Dosing Weight Active 52.273, kg, Priority: STAT, Start date: 09/20/12 11:10:00, Stop date: 09/20/12 11:10:00 NS 1,000 mL 1,000 mL, IV No Ahmed Rate: 1,000 Longer 2012 [facility] ml/hr, Infuse Active over: 1 hr, Route: IV, kg, Total Volume: 1,000, Start date: 09/20/12 11:10:00, Duration: 1 doses or times, Stop date: 09/20/12 12:09:00, Bolus DoseBolus Dose Reglan Substitution Active Allowed 2012 [facility] Toradol 30 30 mg, Route: IV No Cesta mg/mL IV, ONCE, Longer 2012 [facility] injectable Dosing Weight Active solution 52.273, kg, Start date: 08/17/12 20:15:00, Stop date: 08/17/12 20:15:00 Saline Flush 5 ml, Route: IVP No Cesta 0.9% IVP, Drug Longer 2012 [facility] Form: INJ, Active Dosing Weight 52.273, kg, PRN, PRN Line Flush, Start date: 08/17/12 19:59:00, Duration: 30 day, Stop date: 09/16/12 19:58:00 Phenergan 25 mg, 1 mL, IM No Cesta Route: IM, Longer 2012 [facility] Drug form: Active INJ, ONCE, Dosing Weight 52.273, kg, Priority: STAT, Start date: 08/17/12 19:58:00, Stop date: 08/17/12 19:58:00 Phenergan 25 mg 1 supp, MO, MO Active Estelline rectal Q6H, PRN, 9 2012 [facility] suppository supp, Nausea & Vomiting, Substitution Allowed Phenergan 25 mg 25 mg, 1 tab, PO Active Yasmani oral tablet PO, Q4H, PRN, 2012 [facility] 20 tab, Nausea, Substitution Allowed morphine 5 mg, 1 mL, IVP No Yasmani Sulfate Route: IVP, Longer 2012 [facility] Drug form: Active INJ, ONCE, Dosing Weight 47.727, kg, Priority: STAT, Start date: 08/05/12 17:21:00, Stop date: 08/05/12 17:21:00 promethazine 25 mg, 1 mL, IM No Yasmani Route: IM, Longer 2012 [facility] Drug form: Active INJ, ONCE, Dosing Weight 47.727, kg, Priority: STAT, Start date: 08/05/12 17:21:00, Stop date: 08/05/12 17:21:00 Reglan 10 mg, 2 mL, IVP No Yasmani Route: IVP, Longer 2012 [facility] Drug form: Active INJ, ONCE, Dosing Weight 47.727, kg, Priority: STAT, Start date: 08/05/12 14:40:00, Stop date: 08/05/12 14:40:00 morphine 5 mg, 1 mL, IVP No Estelline Sulfate Route: IVP, Longer 2012 [facility] Drug form: Active INJ, ONCE, Dosing Weight 47.727, kg, Priority: STAT, Start date: 08/05/12 14:40:00, Stop date: 08/05/12 14:40:00 Saline Flush 5 mL, Route: IVP No Estelline 0.9% IVP, Drug Longer 2012 [facility] Form: INJ, Active Dosing Weight 47.727, kg, PRN, PRN Line Flush, Start date: 08/05/12 14:40:00, Duration: 24 hr, Stop date: 08/06/12 14:39:00 Sodium Chloride 1,000 mL, IV No Estelline 0.9% (Bolus) IV Rate: 1,000 Longer 2012 [facility] 1,000 mL ml/hr, Infuse Active over: 1 hr, Route: IV, kg, Total Volume: 1,000, Priority: STAT, Start date: 08/05/12 14:40:00, Duration: 1 doses or times, Stop date: 08/05/12 15:39:00 Neurontin 300 mg, 1 cap, PO No Hyacinth Route: PO, Longer 2012 [facility] Drug form: Active CAP, BID, Start date: 06/24/12 9:00:00, Duration: 2 doses or times, Stop date: 06/24/12 17:00:00 amitriptyline 25 mg, 1 tab, PO No Tina Route: PO, Longer 2012 [facility] Drug form: Active TAB, Bedtime, Start date: 06/23/12 21:00:00, Duration: 30 day, Stop date: 07/22/12 21:00:00 Carafate 1 gm, 1 tab, PO No [facility] Route: PO, Longer 2012 [facility] Drug form: Active TAB, BID, Start date: 06/23/12 17:00:00, Duration: 30 day, Stop date: 07/23/12 9:00:00 Neurontin 300 mg, 1 cap, PO No [facility] Route: PO, Longer 2012 [facility] Drug form: Active CAP, TID, Start date: 06/23/12 13:00:00, Duration: 30 day, Stop date: 07/23/12 9:00:00 Motrin 600 mg, 1 tab, PO No [facility] Route: PO, Longer 2012 [facility] Drug form: Active TAB, Q6H, Start date: 06/23/12 12:00:00, Duration: 30 day, Stop date: 07/23/12 6:00:00 Phenergan 12.5 mg, 0.5 IM No [facility] mL, Route: IM, Longer 2012 [facility] Drug form: Active INJ, Q6H, PRN Nausea, Start date: 06/23/12 10:11:00, Duration: 30 day, Stop date: 07/23/12 10:10:00 Haldol 5 mg, 1 mL, IV No [facility] Route: IV, Longer 2012 [facility] Drug form: Active INJ, Q6H, PRN Agitation, Start date: 06/23/12 10:05:00, Duration: 30 day, Stop date: 07/23/12 10:04:00 Ativan 2 mg, 1 mL, IV No [facility] Route: IV, Longer 2012 [facility] Drug form: Active INJ, Q2H, PRN Agitation, Start date: 06/23/12 10:03:00, Duration: 30 day, Stop date: 07/23/12 10:02:00 Neurontin 300 mg, 1 cap, PO No [facility] Route: PO, Longer 2012 [facility] Drug form: Active CAP, ONCE, Start date: 06/23/12 10:02:00, Stop date: 06/23/12 10:02:00 Pepcid 20 mg, 1 tab, PO No Hakan Route: PO, Longer 2012 [facility] Drug form: Active TAB, BID, Start date: 06/23/12 9:00:00, Duration: 30 day, Stop date: 07/22/12 17:00:00 Depakote EC 500 mg, 1 tab, PO No Hakan Route: PO, Longer 2012 [facility] Drug form: Active ECTAB, Daily, Start date: 06/23/12 9:00:00, Duration: 30 day, Stop date: 07/22/12 9:00:00 Lovenox 40 mg, 0.4 mL, SUB-Q No David Route: SUB-Q, Longer 2012 [facility] Drug form: Active INJ, Q24H, Start date: 06/23/12 0:00:00, Duration: 30 day, Stop date: 07/22/12 0:00:00 Ativan 2 mg, 1 mL, IV No Hakan Route: IV, Longer 2012 [facility] Drug form: Active INJ, ONCE, PRN Seizure, Start date: 06/22/12 23:31:00 ketorolac 30 30 mg, 1 mL, IV No [facility] mg/mL Route: IV, Longer 2012 [facility] injectable Drug form: Active solution INJ, Q6H, PRN Pain, Start date: 06/22/12 23:31:00, Duration: 4 day, Stop date: 06/26/12 23:30:00 morphine 2 mg, 0.25 mL, IV No Hakan Sulfate Route: IV, Longer 2012 [facility] Drug form: Active INJ, Q6H, PRN Pain Score 7-10, Start date: 06/22/12 23:31:00, Stop date: 07/22/12 23:30:00 Phenergan 12.5 mg, 0.5 PO No [facility] tab, Route: Longer 2012 [facility] PO, Drug form: Active TAB, Q4H, PRN Nausea, Start date: 06/22/12 23:30:00, Duration: 30 day, Stop date: 07/22/12 23:29:00 Sodium Chloride 250 mL, Route: IVPB No [facility] 0.9% IV IVPB, Start Longer 2012 [facility] date: 06/22/12 Active 23:29:00, Duration: 30 day, Stop date: 07/22/12 23:28:00, PRN Line Flush BD Normal 10 mL, Route: IVP No [facility] Saline Flush IVP, Drug Longer 2012 [facility] Form: INJ, Active PRN, PRN Line Flush, Start date: 06/22/12 23:29:00, Duration: 30 day, Stop date: 07/22/12 23:28:00 NS 1,000 mL 1,000 mL, IV No [facility] Rate: 125 Longer 2012 [facility] ml/hr, Infuse Active over: 8 hr, Route: IV, kg, Total Volume: 1,000, Start date: 06/22/12 22:10:00, Duration: 30 day, Stop date: 07/22/12 22:09:00 Phenergan 12.5 mg, 1 PO No [facility] tab, Route: Longer 2012 [facility] PO, Drug form: Active TAB, ONCE, Dosing Weight 50, kg, Priority: STAT, Start date: 06/22/12 20:30:00, Stop date: 06/22/12 20:30:00 morphine 2 mg, Route: IVP No [facility] Sulfate IVP, ONCE, Longer 2012 [facility] Dosing Weight Active 50, kg, Start date: 06/22/12 20:28:00, Stop date: 06/22/12 20:28:00 [facility] 500 mg, 1 tab, [facility]: PO, Longer 2012 [facility] Drug form: Active ECTAB, ONCE, Dosing Weight 50, kg, Priority: STAT, Start date: 06/22/12 18:56:00, Stop date: 06/22/12 18:56:00 Sodium Chloride 1,000 mL, 1000 [facility] 0.9% (Bolus) IV ml/hr, Route: Longer 2012 [facility] IV, Drug Form: Active INJ, Dosing Weight 50, kg, ONCE, Bolus Dose - infuse over 1 hr, STAT, Start date: 06/22/12 16:23:00, Stop date: 06/22/12 16:23:00 Sodium Chloride 1,000 mL, 1000 IV No Oscar 0.9% (Bolus) IV ml/hr, Route: Longer 2012 [facility] IV, Drug Form: Active INJ, Dosing Weight 50, kg, ONCE, Bolus Dose - infuse over 1 hr, STAT, Start date: 06/22/12 14:21:00, Stop date: 06/22/12 14:21:00 Phenergan 25 mg, 1 mL, IVPB No Oscar Route: IVPB, Longer 2012 [facility] Drug form: Active INJ, ONCE, Dosing Weight 50, kg, Priority: STAT, Start date: 06/22/12 14:21:00, Stop date: 06/22/12 14:21:00 morphine 4 mg, 1 mL, IVP No Oscar Sulfate Route: IVP, Longer 2012 [facility] Drug form: Active INJ, ONCE, Dosing Weight 50, kg, Priority: STAT, Start date: 06/22/12 14:21:00, Stop date: 06/22/12 14:21:00 Reglan 10 mg 10 mg, PO, PO Active Yomi oral tablet QID-Before 2010 [facility] Meals, PRN, 40 tab, nausea and vomiting, Substitution Allowed ondansetron 8 mg, 4 mL, IVP No Yomi Route: IVP, Longer 2010 [facility] Drug form: Active INJ, ONCE, Priority: STAT, Start date: 05/14/11 8:21:00, Stop date: 05/14/11 8:21:00 acetaminophen 650 mg, 2 tab, PO No Yomi Route: PO, Longer 2010 [facility] Drug form: Active TAB, ONCE, Priority: STAT, Start date: 05/14/11 7:32:00, Stop date: 05/14/11 7:32:00 Sodium Chloride 250 mL, Route: IVPB Deborah Seymour 0.9% IV IVPB, PRN, Longer 2010 [facility] Line Flush, Active Start date: 05/14/11 7:01:00, Duration: 30 day, Stop date: 06/13/11 7:00:00 BD Normal 10 mL, Route: IVP No Lion Saline Flush IVP, Drug Longer 2010 [facility] Form: INJ, Active PRN, PRN Line Flush, Start date: 05/14/11 7:01:00, Duration: 30 day, Stop date: 06/13/11 7:00:00 Reglan 10 mg, 2 mL, IV No [facility] Route: IV, Longer 2010 [facility] Drug form: Active INJ, ONCE, Start date: 05/14/11 6:42:00, Stop date: 05/14/11 6:42:00 Sodium Chloride 1,000 mL, IV No [facility] 0.9% (Bolus) IV Rate: 1,000 Longer 2010 [facility] 1,000 mL ml/hr, Infuse Active over: 1 hr, Route: IV, Total Volume: 1,000, Bolus Dose, Priority: STAT, Start date: 05/14/11 6:41:00, Duration: 1 doses or times, Stop date: 05/14/11 7:40:00 Zofran 4 mg 4 mg, 1 tab, PO Active Johnny oral tablet PO, ONCE, 3 2010 [facility] tab, Substitution Allowed, TAB potassium 20 mEq, 1 tab, PO No [place] 05/13[facility] chloride 20 mEq Route: PO, Longer 2010 [facility] oral tablet, Drug form: Active extended ERTAB, ONCE, release Priority: STAT, Start date: 05/13/11 0:31:00, Stop date: 05/13/11 0:31:00 Reglan 10 mg, 2 mL, IV No [place] 05/13[facility] Route: IV, Longer 2010 [facility] Drug form: Active INJ, ONCE, Start date: 05/12/11 22:11:00, Stop date: 05/12/11 22:11:00 ondansetron 4 mg, 2 mL, IVP No [place] 05/13[facility] Route: IVP, Longer 2010 [facility] Drug form: Active INJ, ONCE, Priority: STAT, Start date: 05/12/11 21:25:00, Stop date: 05/12/11 21:25:00 morphine 4 mg, 1 mL, IVP No [place] 05/13[facility] Sulfate Route: IVP, Longer 2010 [facility] Drug form: Active INJ, ONCE, Priority: STAT, Start date: 05/12/11 21:25:00, Stop date: 05/12/11 21:25:00 Saline Flush 5 ml, Route: IVP No Johnny 0.9% IVP, Drug Longer 2010 [facility] Form: INJ, Active PRN, PRN Line Flush, Start date: 05/12/11 21:25:00, Duration: 30 day, Stop date: 06/11/11 21:24:00 Sodium Chloride 500 mL, Rate: IV No Johnny 0.9% (Bolus) IV 500 ml/hr, Longer 2010 [facility] 500 mL Infuse over: 1 Active hr, Route: IV, Total Volume: 500, Bolus dose, Priority: STAT, Start date: 05/12/11 21:25:00, Duration: 1 doses or times, Stop date: 05/12/11 22:24:00 Allergies, Adverse Reactions, Alerts Substance Category Reaction Severity Reaction Status Date Comments Source type Reported ondansetron drug Allergy Active allergy [facility] Immunizations Immunization Date Given Site Status Last Updated Comments Source Results Order Name Results Value Reference Date Interpretation Comments Source Range BEDSIDE Comment1 Notify 09/22 NA GLUCOSE RN/MD /2012 [facility] TESTING BEDSIDE Gluc POC 93 mg/dL 70 - 99 09/22 Normal 1Interpretive GLUCOSE Lifscn Data: [facility] TESTING Upper Reportable Limit: 200 mg/dL. CHEMISTRY [...] is not recommended in the following populations: [facility] 3m2 Individuals with unstable creatinine concentrations, including [...] 141 meq/L 135 - 145 09/21 Normal [facility] CHEMISTRY CO2 12 meq/L 24 - 32 09/21 LOW [facility] CHEMISTRY Chloride Lvl 112 meq/L 95 - 109 09/21 HI [facility] CHEMISTRY AGAP 20.8 meq/L 10.0 - 09/21 HI 20.0 [facility] CHEMISTRY Potassium 3.8 meq/L 3.5 - 5.1 09/21 Normal 2Result Comment: [facility] Specimen is slightly hemolyzed CHEMISTRY Calcium Lvl 7.4 mg/dL 8.5 - 10.5 09/21 LOW [facility] CHEMISTRY Glucose Lvl 74 mg/dL 70 - 99 09/21 Normal 5Interpretive Data: Adult reference range values reflect the clinical guidelines of the [employer]. [facility] CHEMISTRY Creatinine 0.6 mg/dL 0.5 - 1.4 09/21 Normal [facility] CHEMISTRY BUN 5 mg/dL 7 - 22 09/21 LOW [facility] CHEMISTRY UDS Note See Note 7 09/20 Normal 7Interpretive Data: Drugs reported as positive have not been confirmed by a second method and should be used for medical purposes only. To order [facility] (09/20/2012 18:12:00) confirmation, contact laboratory. note: Below [...] U Opiate Scr Positive Negative 09/20 ABN [facility] *ABN* (09/20/2012 18:12:00) CHEMISTRY U Phencyc Negative Negative 09/20 NA [facility] *NA* (09/20/2012 18:12:00) CHEMISTRY U Cannab Scr Positive Negative 09/20 ABN [facility] *ABN* (09/20/2012 18:12:00) CHEMISTRY U Cocaine Positive Negative 09/20 ABN [facility] *ABN* (09/20/2012 18:12:00) CHEMISTRY U Benzodia Negative Negative 09/20 NA Scr [facility] *NA* (09/20/2012 18:12:00) CHEMISTRY U Amph Scr Negative Negative 09/20 NA [facility] *NA* (09/20/2012 18:12:00) CHEMISTRY U Abbi Scr Negative Negative 09/20 NA [facility] *NA* (09/20/2012 18:12:00) URINALYSIS UA Sq Epi Few /LPF Few 09/20 Normal [facility] (09/20/2012 18:12:00) URINALYSIS UA WBC 3-5 /HPF None Seen 09/20 Normal [facility] (09/20/2012 18:12:00) URINALYSIS Micro? Performed 09/20 Normal [facility] (09/20/2012 18:12:00) URINALYSIS UA Bacteria Few /HPF None Seen 09/20 Normal [facility] (09/20/2012 18:12:00) URINALYSIS UA Mucus Rare /LPF None Seen 09/20 Normal [facility] (09/20/2012 18:12:00) URINALYSIS UA RBC 51-100 /HPF 0 - 2 09/20 [facility] *ABN* (09/20/2012 18:12:00) URINALYSIS UA Leuk Est Trace Negative 09/20 [facility] *ABN* (09/20/2012 18:12:00) URINALYSIS UA Nitrite Negative Negative 09/20 Normal [facility] (09/20/2012 18:12:00) URINALYSIS UA Color Red Yellow 09/20 [facility] *ABN* (09/20/2012 18:12:00) URINALYSIS UA Bili Negative Negative 09/20 [facility] *NA* (09/20/2012 18:12:00) URINALYSIS UA 1.0 EU/dL 0.1 - 1.0 09/20 Normal Urobilinogen [facility] URINALYSIS UA Blood Large Negative 09/20 [facility] *ABN* (09/20/2012 18:12:00) URINALYSIS UA Turbidity Cloudy Clear 09/20 [facility] *ABN* (09/20/2012 18:12:00) URINALYSIS UA pH 7.5 5.0 - 8.0 09/20 Normal [facility] URINALYSIS UA Spec Grav 1.020 <=1.030 09/20 Normal [facility] URINALYSIS UA Protein 30 mg/dL Negative 09/20 ABN [facility] *ABN* (09/20/2012 18:12:00) URINALYSIS UA Ketones >=80 mg/dL Negative 09/20 NA [facility] *NA* (09/20/2012 18:12:00) URINALYSIS UA Glucose Negative Negative 09/20 Normal [facility] (09/20/2012 18:12:00) Microbiolo Culture: 09/20 gy Urine [facility] CHEMISTRY S Preg Negative Negative 09/20 NA [facility] *NA* (09/20/2012 12:03:37) CHEMISTRY eGFR 117 09/20 [...] is not recommended in the following populations: [facility] 3m2 Individuals with unstable creatinine concentrations, including [...] 107 meq/L 95 - 109 09/20 Normal [facility] CHEMISTRY CO2 25 meq/L 24 - 32 09/20 Normal [facility] CHEMISTRY Calcium Lvl 8.8 mg/dL 8.5 - 10.5 09/20 Normal [facility] CHEMISTRY Sodium Lvl 140 meq/L 135 - 145 09/20 Normal [facility] CHEMISTRY Potassium 3.2 meq/L 3.5 - 5.1 09/20 LOW [facility] CHEMISTRY Creatinine 0.8 mg/dL 0.5 - 1.4 09/20 Normal [facility] CHEMISTRY BUN 9 mg/dL 7 - 22 09/20 Normal [facility] CHEMISTRY Glucose Lvl 94 mg/dL 70 - 99 09/20 Normal 6Interpretive Data: Adult reference range values reflect the clinical guidelines of the [employer]. [facility] CHEMISTRY AGAP 11.2 meq/L 10.0 - 09/20 Normal MH 20.0 [facility] HEMATOLOGY MCV 86.3 fL 81.0 - 09/20 Normal MH 99.0 /2012 [facility] HEMATOLOGY Hct 36.5 % 36.0 - 09/20 Normal MH 48.0 /2012 [facility] HEMATOLOGY RBC 4.23 M/CMM 4.20 - 09/20 Normal MH 5.40 /2012 [facility] HEMATOLOGY WBC 4.3 K/CMM 3.7 - 10.4 09/20 Normal /2012 [facility] HEMATOLOGY Hgb 11.8 g/dL 12.0 - 09/20 LOW MH 16.0 [facility] HEMATOLOGY MCHC 32.2 g/dL 32.0 - 09/20 Normal MH 36.0 [facility] HEMATOLOGY MCH 27.8 pg 27.0 - 09/20 Normal MH 31.0 [facility] HEMATOLOGY RDW 15.0 % 11.5 - 09/20 HI MH 14.5 [facility] HEMATOLOGY MPV 9.5 fL 7.4 - 10.4 09/20 Normal [facility] HEMATOLOGY Platelet 224 K/CMM 133 - 450 09/20 Normal [facility] HEMATOLOGY Monocytes 6.8 % 2.0 - 12.0 09/20 Normal [facility] HEMATOLOGY Lymphocytes 23.4 % 20.0 - 09/20 Normal 40.0 [facility] HEMATOLOGY Eosinophils 0.5 % 0.0 - 4.0 09/20 Normal [facility] HEMATOLOGY Monocytes # 0.3 K/CMM 0.0 - 0.8 09/20 Normal [facility] HEMATOLOGY Segs-Bands # 2.9 K/CMM 1.5 - 8.1 09/20 Normal [facility] HEMATOLOGY Basophils 0.3 % 0.0 - 1.0 09/20 Normal [facility] HEMATOLOGY Lymphocytes 1.0 K/CMM 1.0 - 5.5 09/20 Normal MH /2012 [facility] HEMATOLOGY Giant Plt Slight None Seen 09/20 ABN /2012 [facility] *ABN* (09/20/2012 12:03:00) HEMATOLOGY Segs 69.0 % 45.0 - 09/20 Normal MH 75.0 [facility] HEMATOLOGY Eosinophils 0.0 K/CMM 0.0 - 0.5 09/20 Normal MH # /2012 [facility] HEMATOLOGY Basophils # 0.0 K/CMM 0.0 - 0.2 09/20 Normal [facility] HEMATOLOGY Large Plt Slight None Seen 09/20 ABN [facility] *ABN* (09/20/2012 12:03:00) HEMATOLOGY Elliptocyte Slight None Seen 09/20 ABN [facility] *ABN* (09/20/2012 12:03:00) HEMATOLOGY Polychrom Slight None Seen 09/20 Normal [facility] (09/20/2012 12:03:00) CHEMISTRY U Preg Negative Negative 08/18 Normal [facility] (08/17/2012 20:50:00) URINALYSIS UA Color Yellow Yellow 08/18 NA [facility] *NA* (08/17/2012 20:50:00) URINALYSIS UA Protein 30 mg/dL Negative 08/18 [facility] *ABN* (08/17/2012 20:50:00) URINALYSIS UA Spec Grav >=1.030 <=1.030 08/18 ABN [facility] *ABN* (08/17/2012 20:50:00) URINALYSIS UA pH 6.0 5.0 - 8.0 08/18 Normal [facility] URINALYSIS UA Turbidity Slight Cloudy Clear 08/18 Normal [facility] (08/17/2012 20:50:00) URINALYSIS UA Nitrite Negative Negative 08/18 Normal [facility] (08/17/2012 20:50:00) URINALYSIS UA Bili Negative Negative 08/18 NA [facility] *NA* (08/17/2012 20:50:00) URINALYSIS UA Blood Trace Negative 08/18 [facility] *ABN* (08/17/2012 20:50:00) URINALYSIS UA Glucose Negative Negative 08/18 Normal [facility] (08/17/2012 20:50:00) URINALYSIS UA Ketones >=80 mg/dL Negative 08/18 NA [facility] *NA* (08/17/2012 20:50:00) URINALYSIS UA 1.0 EU/dL 0.1 - 1.0 08/18 Normal Urobilinogen [facility] URINALYSIS UA Leuk Est Moderate Negative 08/18 ABN [facility] *ABN* (08/17/2012 20:50:00) URINALYSIS UA WBC 21-50 /HPF None Seen 08/18 ABN [facility] *ABN* (08/17/2012 20:50:00) URINALYSIS UA Bacteria Many /HPF None Seen 08/18 Normal [facility] (08/17/2012 20:50:00) URINALYSIS UA Mucus Few /LPF None Seen 08/18 Normal [facility] (08/17/2012 20:50:00) URINALYSIS UA Sq Epi Occasional /LPF Few 08/18 Normal [facility] (08/17/2012 20:50:00) CHEMISTRY CK MB Index null 0.0 - 2.5 08/18 Normal [facility] CHEMISTRY Amylase Lvl 53 unit/L 25 - 115 08/18 Normal [facility] CHEMISTRY eGFR 144 08/18 NA 1Result Comment: [...] is not recommended in the following populations: [facility] 3m2 Individuals with unstable creatinine concentrations, including [...] 7.8 g/dL 6.4 - 8.4 08/18 Normal [facility] CHEMISTRY Bili Total 0.4 mg/dL 0.2 - 1.3 08/18 Normal [facility] CHEMISTRY Calcium Lvl 9.1 mg/dL 8.5 - 10.5 08/18 Normal [facility] CHEMISTRY Albumin Lvl 3.6 g/dL 3.5 - 5.0 08/18 Normal [facility] CHEMISTRY AGAP 18.7 meq/L 10.0 - 08/18 Normal MH 20.0 [facility] CHEMISTRY AST 16 unit/L 0 - 37 08/18 Normal [facility] CHEMISTRY Alk Phos 84 unit/L 39 - 136 08/18 Normal [facility] CHEMISTRY ALT 14 unit/L 0 - 65 08/18 Normal [facility] CHEMISTRY B/C Ratio 12 6 - 25 08/18 Normal [facility] CHEMISTRY A/G Ratio 0.9 0.7 - 1.6 08/18 Normal [facility] CHEMISTRY Globulin 4.2 g/dL 2.0 - 4.0 08/18 HI [facility] CHEMISTRY Sodium Lvl 141 meq/L 135 - 145 08/18 Normal [facility] CHEMISTRY Potassium 3.7 meq/L 3.5 - 5.1 08/18 Normal [facility] CHEMISTRY Chloride Lvl 104 meq/L 95 - 109 08/18 Normal [facility] CHEMISTRY CO2 22 meq/L 24 - 32 08/18 LOW [facility] CHEMISTRY Glucose Lvl 81 mg/dL 70 - 99 08/18 Normal 2Interpretive Data: Adult reference range values reflect the clinical guidelines of the [employer]. [facility] CHEMISTRY Creatinine 0.6 mg/dL 0.5 - 1.4 08/18 Normal [facility] CHEMISTRY BUN 7 mg/dL 7 - 22 08/18 Normal [facility] CHEMISTRY Lipase Lvl 71 unit/L 73 - 393 08/18 LOW [facility] CHEMISTRY Total CK 114 unit/L 12 - 191 08/18 Normal [facility] CHEMISTRY Troponin-I null 0.00 - 08/18 Normal 0.40 [facility] CHEMISTRY CK MB null 0.5 - 3.6 08/18 Normal [facility] HEMATOLOGY Eosinophils 0.0 % 0.0 - 4.0 08/18 Normal [facility] HEMATOLOGY Lymphocytes 0.9 K/CMM 1.0 - 5.5 08/18 LOW MH [facility] HEMATOLOGY Basophils 1.2 % 0.0 - 1.0 08/18 HI [facility] HEMATOLOGY Monocytes # 0.4 K/CMM 0.0 - 0.8 08/18 Normal [facility] HEMATOLOGY Segs-Bands # 5.5 K/CMM 1.5 - 8.1 08/18 Normal [facility] HEMATOLOGY Lymphocytes 12.3 % 20.0 - 08/18 LOW MH 40.0 [facility] HEMATOLOGY Plt Morph Normal 08/18 Normal /2012 [facility] (08/17/2012 20:11:00) HEMATOLOGY Monocytes 6.3 % 2.0 - 12.0 08/18 Normal /2012 [facility] HEMATOLOGY Segs 80.2 % 45.0 - 08/18 HI MH 75.0 /2012 [facility] HEMATOLOGY Eosinophils 0.0 K/CMM 0.0 - 0.5 08/18 Normal MH # /2012 [facility] HEMATOLOGY Basophils # 0.1 K/CMM 0.0 - 0.2 08/18 Normal [facility] HEMATOLOGY Polychrom Slight None Seen 08/18 Normal /2012 [facility] (08/17/2012 20:11:00) HEMATOLOGY Hgb 11.2 g/dL 12.0 - 08/18 LOW 16.0 [facility] HEMATOLOGY Hct 34.2 % 36.0 - 08/18 LOW 48.0 [facility] HEMATOLOGY RBC 3.98 M/CMM 4.20 - 08/18 LOW 5.40 /2012 [facility] HEMATOLOGY MCV 85.9 fL 81.0 - 08/18 Normal 99.0 [facility] HEMATOLOGY MCH 28.1 pg 27.0 - 08/18 Normal 31.0 [facility] HEMATOLOGY WBC 6.9 K/CMM 3.7 - 10.4 08/18 Normal [facility] HEMATOLOGY MPV 10.2 fL 7.4 - 10.4 08/18 Normal [facility] HEMATOLOGY RDW 15.6 % 11.5 - 08/18 HI MH 14.5 /2012 [facility] HEMATOLOGY Platelet 212 K/CMM 133 - 450 08/18 Normal [facility] HEMATOLOGY MCHC 32.8 g/dL 32.0 - 08/18 Normal 36.0 [facility] CHEMISTRY U Preg Negative Negative 08/05 Normal [facility] (08/05/2012 17:19:00) URINALYSIS Micro? Performed 08/05 Normal [facility] (08/05/2012 17:19:00) URINALYSIS UA Sq Epi Moderate /LPF Few 08/05 ABN [facility] *ABN* (08/05/2012 17:19:00) URINALYSIS UA Mucus Many /LPF None Seen 08/05 ABN [facility] *ABN* (08/05/2012 17:19:00) URINALYSIS UA Bacteria Few /HPF None Seen 08/05 Normal [facility] (08/05/2012 17:19:00) URINALYSIS UA RBC 0-2 /HPF 0 - 2 08/05 Normal [facility] (08/05/2012 17:19:00) URINALYSIS UA WBC 3-5 /HPF None Seen 08/05 Normal [facility] (08/05/2012 17:19:00) URINALYSIS UA Color Yellow Yellow 08/05 NA [facility] *NA* (08/05/2012 17:19:00) URINALYSIS UA 1.0 EU/dL 0.1 - 1.0 08/05 Normal Urobilino [facility] URINALYSIS UA Ketones >=80 mg/dL Negative 08/05 NA [facility] *NA* (08/05/2012 17:19:00) URINALYSIS UA Glucose Negative Negative 08/05 Normal [facility] (08/05/2012 17:19:00) URINALYSIS UA Blood Negative Negative 08/05 Normal [facility] (08/05/2012 17:19:00) URINALYSIS UA Bili Negative Negative 08/05 NA [facility] *NA* (08/05/2012 17:19:00) URINALYSIS UA pH 7.0 5.0 - 8.0 08/05 Normal [facility] URINALYSIS UA Protein 30 mg/dL Negative 08/05 ABN [facility] *ABN* (08/05/2012 17:19:00) URINALYSIS UA Spec Grav 1.020 <=1.030 08/05 Normal [facility] URINALYSIS UA Turbidity Slight Cloudy Clear 08/05 Normal [facility] (08/05/2012 17:19:00) URINALYSIS UA Leuk Est Negative Negative 08/05 Normal [facility] (08/05/2012 17:19:00) URINALYSIS UA Nitrite Negative Negative 08/05 Normal [facility] (08/05/2012 17:19:00) CHEMISTRY Lipase Lvl 58 unit/L 73 - 393 08/05 LOW [facility] CHEMISTRY eGFR 137 08/05 NA 1Result Comment: [...] is not recommended in the following populations: [facility] 3m2 Individuals with unstable creatinine concentrations, including [...] 0.4 mg/dL 0.2 - 1.3 08/05 Normal [facility] CHEMISTRY Alk Phos 85 unit/L 39 - 136 08/05 Normal [facility] CHEMISTRY ALT 18 unit/L 0 - 65 08/05 Normal [facility] CHEMISTRY AST 14 unit/L 0 - 37 08/05 Normal [facility] CHEMISTRY Potassium 3.5 meq/L 3.5 - 5.1 08/05 Normal Lvl [facility] CHEMISTRY Chloride Lvl 108 meq/L 95 - 109 08/05 Normal [facility] CHEMISTRY Creatinine 0.7 mg/dL 0.5 - 1.4 08/05 Normal Lvl [facility] CHEMISTRY CO2 23 meq/L 24 - 32 08/05 LOW [facility] CHEMISTRY BUN 6 mg/dL 7 - 22 08/05 LOW [facility] CHEMISTRY Sodium Lvl 142 meq/L 135 - 145 08/05 Normal [facility] CHEMISTRY Calcium Lvl 9.5 mg/dL 8.5 - 10.5 08/05 Normal [facility] CHEMISTRY Total 9.1 g/dL 6.4 - 8.4 08/05 HI [facility] CHEMISTRY Albumin Lvl 4.2 g/dL 3.5 - 5.0 08/05 Normal [facility] CHEMISTRY Glucose Lvl 120 mg/dL 70 - 99 08/05 HI 2Interpretive Data: Adult reference range values reflect the clinical guidelines of the [employer]. [facility] CHEMISTRY Globulin 4.9 g/dL 2.0 - 4.0 08/05 HI MH [facility] CHEMISTRY B/C Ratio 9 6 - 25 03 Normal [facility] CHEMISTRY AGAP 14.5 meq/L 10.0 - 03 Normal 20. [facility] CHEMISTRY A/G Ratio 0.9 0.7 - 1.6 08/05 Normal [facility] HEMATOLOGY Hypochrom Slight None Seen 08/05 Normal [facility] (08/05/2012 15:40:00) HEMATOLOGY Basophils # 0.0 K/CMM 0.0 - 0.2 08/05 Normal [facility] HEMATOLOGY Eosinophils 0.0 K/CMM 0.0 - 0.5 08/05 Normal [facility] HEMATOLOGY Monocytes # 0.0 K/CMM 0.0 - 0.8 08/05 Normal [facility] HEMATOLOGY Large Plt Slight None Seen 08/05 ABN [facility] *ABN* (08/05/2012 15:40:00) HEMATOLOGY Giant Plt Slight None Seen 08/05 ABN [facility] *ABN* (08/05/2012 15:40:00) HEMATOLOGY Target Cell Slight None Seen 08/05 ABN [facility] *ABN* (08/05/2012 15:40:00) HEMATOLOGY Elliptocyte Slight None Seen 08/05 ABN [facility] *ABN* (08/05/2012 15:40:00) HEMATOLOGY Polychrom Slight None Seen 08/05 Normal [facility] (08/05/2012 15:40:00) HEMATOLOGY Lymphocytes 0.2 K/CMM 1.0 - 5.5 08/05 LOW [facility] HEMATOLOGY Segs-Bands # 4.1 K/CMM 1.5 - 8.1 08/05 Normal [facility] HEMATOLOGY Basophils 0.1 % 0.0 - 1.0 08/05 Normal [facility] HEMATOLOGY Eosinophils 0.0 % 0.0 - 4.0 08/05 Normal [facility] HEMATOLOGY Monocytes 1.0 % 2.0 - 12.0 08/05 LOW [facility] HEMATOLOGY Lymphocytes 5.6 % 20.0 - 08/05 LOW 40.0 [facility] HEMATOLOGY Segs 93.3 % 45.0 - 0308 HI 75.0 [facility] HEMATOLOGY MCHC 32.8 g/dL 32.0 - 0308 Normal 36.0 [facility] HEMATOLOGY MCV 85.2 fL 81.0 - 0308 Normal 99.0 [facility] HEMATOLOGY MCH 27.9 pg 27.0 - 08 Normal 31.0 [facility] HEMATOLOGY RDW 15.3 % 11.5 - 03 HI 14.5 /2012 [facility] HEMATOLOGY Hct 37.9 % 36.0 - 08/05 Normal 48.0 /2012 [facility] HEMATOLOGY WBC 4.4 K/CMM 3.7 - 10.4 08/05 Normal MH [facility] HEMATOLOGY RBC 4.45 M/CMM 4.20 - 03 Normal 5.40 /2012 [facility] HEMATOLOGY Hgb 12.4 g/dL 12.0 - 03 Normal 16.0 /2012 [facility] HEMATOLOGY MPV 9.6 fL 7.4 - 10.4 08/05 Normal [facility] HEMATOLOGY Platelet 282 K/CMM 133 - 450 08/05 Normal [facility] BEDSIDE Comment1 Notify 06/23 [facility] GLUCOSE RN/ [facility] TESTING BEDSIDE Gluc POC 93 mg/dL 70 - 99 06/23 Normal 1Interpretive GLUCOSE [facility] Data: [facility] TESTING Upper Reportable Limit: 200 mg/dL. BEDSIDE Comment1 Notify 06/23 [facility] GLUCOSE MATHEW/ [facility] TESTING BEDSIDE Gluc POC 113 mg/dL 70 - 99 06/23 HI 2Interpretive GLUCOSE [facility] Data: [facility] TESTING Upper Reportable Limit: 200 mg/dL. BEDSIDE Gluc POC 88 mg/dL 70 - 99 06/23 Normal 3Interpretive GLUCOSE [facility] Data: [facility] TESTING Upper Reportable Limit: 200 mg/dL. BEDSIDE Comment1 Notify 06/23 [facility] GLUCOSE MATHEW/ /2012 [facility] TESTING CHEMISTRY Hgb A1C null 06/23 NA 9Result Comment: [facility] reran sample twice. CHEMISTRY eGFR 117 06/23 [...] is not recommended in the following populations: [facility] 3m2 Individuals with unstable creatinine concentrations, including [...] values reflect the clinical guidelines of the [employer]. [facility] CHEMISTRY BUN 13 mg/dL 7 - 22 06/23 Normal [facility] CHEMISTRY Creatinine 0.8 mg/dL 0.5 - 1.4 06/23 Normal MH [facility] CHEMISTRY CO2 21 meq/L 24 - 32 06/23 LOW [facility] CHEMISTRY Calcium Lvl 7.4 mg/dL 8.5 - 10.5 06/23 LOW [facility] CHEMISTRY AGAP 13.5 meq/L 10.0 - 06/23 Normal 20. [facility] CHEMISTRY Sodium Lvl 144 meq/L 135 - 145 06/23 Normal [facility] CHEMISTRY Potassium 3.5 meq/L 3.5 - 5.1 06/23 Normal [facility] CHEMISTRY Chloride Lvl 113 meq/L 95 - 109 06/23 HI [facility] CHEMISTRY Valproic 46 ug/ml 50 - 100 06/23 LOW Acid [facility] HEMATOLOGY Giant Plt Slight None Seen 06/23 ABN [facility] *ABN* (06/23/2012 05:45:00) HEMATOLOGY Elliptocyte Slight None Seen 06/23 ABN [facility] *ABN* (06/23/2012 05:45:00) HEMATOLOGY Tear Cell Slight None Seen 06/23 ABN [facility] *ABN* (06/23/2012 05:45:00) HEMATOLOGY Eosinophils 0.0 K/CMM 0.0 - 0.5 06/23 Normal [facility] HEMATOLOGY Monocytes # 0.5 K/CMM 0.0 - 0.8 06/23 Normal [facility] HEMATOLOGY Lymphocytes 1.8 K/CMM 1.0 - 5.5 06/23 Normal [facility] HEMATOLOGY Basophils # 0.0 K/CMM 0.0 - 0.2 06/23 Normal [facility] HEMATOLOGY Basophils 0.4 % 0.0 - 1.0 06/23 Normal [facility] HEMATOLOGY Segs 53.4 % 45.0 - 06/23 Normal 75. [facility] HEMATOLOGY Lymphocytes 35.5 % 20.0 - 06/23 Normal MH 40.0 [facility] HEMATOLOGY Monocytes 10.4 % 2.0 - 12.0 06/23 Normal [facility] HEMATOLOGY Eosinophils 0.3 % 0.0 - 4.0 06/23 Normal [facility] HEMATOLOGY Segs-Bands # 2.7 K/CMM 1.5 - 8.1 06/23 Normal [facility] HEMATOLOGY WBC 5.0 K/CMM 3.7 - 10.4 06/23 Normal [facility] HEMATOLOGY RBC 3.14 M/CMM 4.20 - 06/23 LOW MH 5.40 [facility] HEMATOLOGY Hgb 8.9 g/dL 12.0 - 06/23 LOW 16.0 [facility] HEMATOLOGY RDW 16.1 % 11.5 - 06/23 HI MH 14.5 [facility] HEMATOLOGY Platelet 154 K/CMM 133 - 450 06/23 Normal [facility] HEMATOLOGY MPV 10.3 fL 7.4 - 10.4 06/23 Normal [facility] HEMATOLOGY Hct 27.1 % 36.0 - 06/23 LOW 48.0 [facility] HEMATOLOGY MCV 86.2 fL 81.0 - 06/23 Normal 99.0 [facility] HEMATOLOGY MCH 28.5 pg 27.0 - 06/23 Normal 31.0 [facility] HEMATOLOGY MCHC 33.0 g/dL 32.0 - 06/23 Normal 36.0 [facility] CHEMISTRY U Cocaine Positive Negative 06/22 ABN [facility] *ABN* (06/22/2012 15:50:00) CHEMISTRY U Benzodia Negative Negative 06/22 NA [facility] *NA* (06/22/2012 15:50:00) CHEMISTRY U Abbi Scr Negative Negative 06/22 NA [facility] *NA* (06/22/2012 15:50:00) CHEMISTRY U Amph Scr Negative Negative 06/22 NA [facility] *NA* (06/22/2012 15:50:00) CHEMISTRY UDS Note See Note 10 06/22 Normal 10Interpretive Data: Drugs reported as positive have not been confirmed by a second method and should be used for medical purposes only. To order [facility] (06/22/2012 15:50:00) confirmation, contact laboratory. note: Below [...] CHEMISTRY U Phencyc Negative Negative 06/22 NA [facility] *NA* (06/22/2012 15:50:00) CHEMISTRY U Opiate Scr Positive Negative 06/22 [facility] *ABN* (06/22/2012 15:50:00) CHEMISTRY U Cannab Scr Positive Negative 06/22 ABN [facility] *ABN* (06/22/2012 15:50:00) CHEMISTRY U Preg Negative Negative 06/22 Normal [facility] (06/22/2012 15:50:00) URINALYSIS UA Sq Epi Occasional /LPF Few 06/22 Normal [facility] (06/22/2012 15:50:00) URINALYSIS UA WBC 0-2 /HPF None Seen 06/22 Normal [facility] (06/22/2012 15:50:00) URINALYSIS UA Bacteria Occasional /HPF None Seen 06/22 Normal [facility] (06/22/2012 15:50:00) URINALYSIS UA Mucus Few /LPF None Seen 06/22 Normal [facility] (06/22/2012 15:50:00) URINALYSIS UA Turbidity Clear Clear 06/22 Normal [facility] (06/22/2012 15:50:00) URINALYSIS UA Ketones 40 mg/dL Negative 06/22 NA [facility] *NA* (06/22/2012 15:50:00) URINALYSIS UA Spec Grav >=1.030 <=1.030 06/22 ABN [facility] *ABN* (06/22/2012 15:50:00) URINALYSIS UA Nitrite Negative Negative 06/22 Normal [facility] (06/22/2012 15:50:00) URINALYSIS UA Blood Trace Negative 06/22 ABN [facility] *ABN* (06/22/2012 15:50:00) URINALYSIS UA 1.0 EU/dL 0.1 - 1.0 06/22 Normal Urobilinogen [facility] URINALYSIS UA Bili Negative Negative 06/22 NA [facility] *NA* (06/22/2012 15:50:00) URINALYSIS UA Glucose Negative Negative 06/22 Normal [facility] (06/22/2012 15:50:00) URINALYSIS UA Protein 30 mg/dL Negative 06/22 ABN [facility] *ABN* (06/22/2012 15:50:00) URINALYSIS UA pH 6.0 5.0 - 8.0 06/22 Normal [facility] URINALYSIS UA Leuk Est Negative Negative 06/22 Normal [facility] (06/22/2012 15:50:00) URINALYSIS UA Color Yellow Yellow 06/22 NA [facility] *NA* (06/22/2012 15:50:00) Microbiolo Culture: 06/22 gy [facility] CHEMISTRY eGFR 101 06/22 NA 5Result Comment: [...] is not recommended in the following populations: [facility] 3m2 Individuals with unstable creatinine concentrations, including [...] 0.4 mg/dL 0.2 - 1.3 06/22 Normal [facility] CHEMISTRY ALT 17 unit/L 0 - 65 06/22 Normal [facility] CHEMISTRY Albumin Lvl 4.3 g/dL 3.5 - 5.0 06/22 Normal [facility] CHEMISTRY Alk Phos 74 unit/L 39 - 136 06/22 Normal [facility] CHEMISTRY AST 12 unit/L 0 - 37 06/22 Normal [facility] CHEMISTRY Total 8.6 g/dL 6.4 - 8.4 06/22 HI MH [facility] CHEMISTRY Calcium Lvl 9.4 mg/dL 8.5 - 10.5 06/22 Normal [facility] CHEMISTRY Potassium 4.1 meq/L 3.5 - 5.1 06/22 Normal l [facility] CHEMISTRY Sodium Lvl 139 meq/L 135 - 145 06/22 Normal [facility] CHEMISTRY Glucose Lvl 119 mg/dL 70 - 99 06/22 HI 7Interpretive Data: Adult reference range values reflect the clinical guidelines of the [employer]. [facility] CHEMISTRY Chloride Lvl 106 meq/L 95 - 109 06/22 Normal [facility] CHEMISTRY CO2 20 meq/L 24 - 32 06/22 LOW [facility] CHEMISTRY BUN 15 mg/dL 7 - 22 06/22 Normal [facility] CHEMISTRY Creatinine 0.9 mg/dL 0.5 - 1.4 06/22 Normal [facility] CHEMISTRY A/G Ratio 1.0 0.7 - 1.6 06/22 Normal [facility] CHEMISTRY B/C Ratio 17 6 - 25 06/22 Normal [facility] CHEMISTRY Globulin 4.3 g/dL 2.0 - 4.0 06/22 HI [facility] CHEMISTRY AGAP 17.1 meq/L 10.0 - 06/22 Normal 20.0 [facility] CHEMISTRY Lipase Lvl 40 unit/L 73 - 393 06/22 LOW [facility] CHEMISTRY Amylase Lvl 46 unit/L 25 - 115 06/22 Normal [facility] HEMATOLOGY Target Cell Slight None Seen 06/22 ABN [facility] *ABN* (06/22/2012 14:10:00) HEMATOLOGY Large Plt Slight None Seen 06/22 ABN [facility] *ABN* (06/22/2012 14:10:00) HEMATOLOGY Polychrom Slight None Seen 06/22 Normal [facility] (06/22/2012 14:10:00) HEMATOLOGY Basophils # 0.0 K/CMM 0.0 - 0.2 06/22 Normal [facility] HEMATOLOGY Eosinophils 0.0 K/CMM 0.0 - 0.5 06/22 Normal [facility] HEMATOLOGY Segs 86.0 % 45.0 - 06/22 HI MH 75.0 /2012 [facility] HEMATOLOGY Monocytes # 0.3 K/CMM 0.0 - 0.8 06/22 Normal /2012 [facility] HEMATOLOGY Lymphocytes 0.6 K/CMM 1.0 - 5.5 06/22 LOW MH # /2012 [facility] HEMATOLOGY Segs-Bands # 5.5 K/CMM 1.5 - 8.1 06/22 Normal [facility] HEMATOLOGY Basophils 0.2 % 0.0 - 1.0 06/22 Normal [facility] HEMATOLOGY Eosinophils 0.0 % 0.0 - 4.0 06/22 Normal [facility] HEMATOLOGY Lymphocytes 9.4 % 20.0 - 06/22 LOW [facility] 40.0 [facility] [facility] HEMATOLOGY Monocytes 4.4 % 2.0 - 12.0 06/22 Normal [facility] HEMATOLOGY MPV 10.2 fL 7.4 - 10.4 06/22 Normal [facility] HEMATOLOGY MCHC 33.2 g/dL 32.0 - 06/22 Normal MH 36.0 [facility] HEMATOLOGY MCH 28.5 pg 27.0 - 06/22 Normal MH 31.0 [facility] HEMATOLOGY RBC 4.12 M/CMM 4.20 - 06/22 LOW MH 5.40 /2012 [facility] HEMATOLOGY RDW 15.8 % 11.5 - 06/22 HI MH 14.5 [facility] HEMATOLOGY Platelet 214 K/CMM 133 - 450 06/22 Normal /2012 [facility] HEMATOLOGY Hgb 11.7 g/dL 12.0 - 06/22 LOW MH 16.0 [facility] HEMATOLOGY Hct 35.3 % 36.0 - 06/22 LOW MH 48.0 [facility] HEMATOLOGY MCV 85.7 fL 81.0 - 06/22 Normal MH 99.0 [facility] HEMATOLOGY WBC 6.4 K/CMM 3.7 - 10.4 06/22 Normal [facility] CHEMISTRY Ketones Qual Negative Negative 05/14 Normal [facility] (05/14/2011 07:30:00) CHEMISTRY AGAP 18.2 meq/L 10.0 - 05/14 Normal MH 20. [facility] CHEMISTRY Glucose Lvl 105 mg/dL 05/14 NA 1Interpretive Data: [facility] Reference Ranges : 0 - 7 days : 41 - 90 mg/dL7 days - 150 yrs : 70 - 99 mg/dL (fasting), based on the clinical recommendatio ns of the [place] [employer]. CHEMISTRY Calcium Lvl 9.5 mg/dL 8.5 - 10.5 05/14 Normal MH [facility] CHEMISTRY CO2 18 meq/L 24 - 32 05/14 LOW MH [facility] CHEMISTRY Creatinine 0.6 mg/dL 0.5 - 1.4 05/14 Normal Lvl /2010 [facility] CHEMISTRY BUN 12 mg/dL 7 - 22 05/14 Normal [facility] CHEMISTRY Potassium 3.2 meq/L 3.5 - 5.1 05/14 LOW MH Lvl /2010 [facility] CHEMISTRY Sodium Lvl 136 meq/L 135 - 145 05/14 Normal MH [facility] CHEMISTRY Chloride Lvl 103 meq/L 95 - 109 05/14 Normal MH [facility] HEMATOLOGY MPV 9.1 fL 7.4 - 10.4 05/14 Normal [facility] HEMATOLOGY RDW 13.7 % 11.5 - 05/14 Normal 14. [facility] HEMATOLOGY MCHC 33.8 g/dL 32.0 - 05/14 Normal 36.0 /2010 [facility] HEMATOLOGY Platelet 292 K/CMM 133 - 450 05/14 Normal MH [facility] HEMATOLOGY MCV 87.4 fL 81.0 - 05/14 Normal 99.0 [facility] HEMATOLOGY MCH 29.6 pg 27.0 - 05/14 Normal 31.0 [facility] HEMATOLOGY Hct 36.3 % 36.0 - 05/14 Normal 48.0 /2010 [facility] HEMATOLOGY RBC 4.15 M/CMM 4.20 - 05/14 LOW MH 5.40 /2010 [facility] HEMATOLOGY Hgb 12.3 g/dL 12.0 - 05/14 Normal 16.0 [facility] HEMATOLOGY WBC 7.7 K/CMM 3.7 - 10.4 05/14 Normal MH [facility] HEMATOLOGY Large Plt Slight None Seen 05/14 ABN MH [facility] *ABN* (05/14/2011 07:30:00) HEMATOLOGY Giant Plt Slight None Seen 05/14 ABN [facility] *ABN* (05/14/2011 07:30:00) HEMATOLOGY Lymphocytes 0.6 K/CMM 1.0 - 5.5 05/14 LOW MH # /2010 [facility] HEMATOLOGY Segs-Bands # 6.2 K/CMM 1.5 - 8.1 05/14 Normal [facility] HEMATOLOGY Basophils 2.3 % 0.0 - 1.0 05/14 HI MH [facility] HEMATOLOGY Eosinophils 0.0 % 0.0 - 4.0 05/14 Normal [facility] HEMATOLOGY Elliptocyte Slight None Seen 05/14 ABN [facility] *ABN* (05/14/2011 07:30:00) HEMATOLOGY Tear Cell Slight None Seen 05/14 ABN [facility] *ABN* (05/14/2011 07:30:00) HEMATOLOGY Eosinophils 0.0 K/CMM 0.0 - 0.5 05/14 Normal MH # /2010 [facility] HEMATOLOGY Basophils # 0.2 K/CMM 0.0 - 0.2 05/14 Normal [facility] HEMATOLOGY Monocytes # 0.6 K/CMM 0.0 - 0.8 05/14 Normal [facility] HEMATOLOGY Lymphocytes 8.1 % 20.0 - 05/14 LOW MH 40.0 [facility] HEMATOLOGY Monocytes 8.4 % 2.0 - 12.0 05/14 Normal [facility] HEMATOLOGY Segs 81.2 % 45.0 - 05/14 HI 75.0 [facility] URINALYSIS UA WBC 11-20 /HPF None Seen 05/13 ABN [facility] *ABN* (05/13/2011 00:50:00) URINALYSIS UA Bacteria Few /HPF None Seen 05/13 Normal [facility] (05/13/2011 00:50:00) URINALYSIS UA RBC 0-2 /HPF 0 - 2 05/13 Normal [facility] (05/13/2011 00:50:00) URINALYSIS UA Nitrite Negative Negative 05/13 Normal [facility] (05/13/2011 00:50:00) URINALYSIS UA Leuk Est Trace Negative 05/13 ABN [facility] *ABN* (05/13/2011 00:50:00) URINALYSIS UA 0.2 EU/dL 0.1 - 1.0 05/13 Normal [facility] URINALYSIS UA Sq Epi Few /LPF Few 05/13 Normal [facility] (05/13/2011 00:50:00) URINALYSIS Micro? Performed 05/13 Normal [facility] (05/13/2011 00:50:00) URINALYSIS UA Blood Negative Negative 05/13 Normal [facility] (05/13/2011 00:50:00) URINALYSIS UA pH 6.0 5.0 - 8.0 05/13 Normal [facility] URINALYSIS UA Spec Grav >=1.030 <=1.030 05/13 ABN [facility] *ABN* (05/13/2011 00:50:00) URINALYSIS UA Turbidity Clear Clear 05/13 Normal [facility] (05/13/2011 00:50:00) URINALYSIS UA Mucus Few /LPF None Seen 05/13 Normal [facility] (05/13/2011 00:50:00) URINALYSIS UA Rare /HPF None Seen 05/13 ABN Trich [facility] *ABN* (05/13/2011 00:50:00) URINALYSIS UA Ketones >=80 mg/dL Negative 05/13 Normal [facility] (05/13/2011 00:50:00) URINALYSIS UA Glucose Negative Negative 05/13 Normal [facility] (05/13/2011 00:50:00) URINALYSIS UA Protein Trace Negative 05/13 ABN [facility] *ABN* (05/13/2011 00:50:00) URINALYSIS UA Bili Negative Negative 05/13 Normal [facility] (05/13/2011 00:50:00) URINALYSIS UA Color Yellow Yellow 05/13 Normal [facility] (05/13/2011 00:50:00) BLOOD BANK Antibody Negative 05/13 Normal RESULTS Scr [facility] (05/12/2011 22:10:00) BLOOD BANK ABO/Rh O POS 05/13 Unknown RESULTS [facility] CHEMISTRY hCG Tot [id number] 05/13 NA 3Interpretive mIU/mL Data: [facility] Reference Range: Male 0 - 5 mIU/mL [...] 5 U/L 0 - 37 05/13 Normal [facility] CHEMISTRY Bili Total 0.4 mg/dL 0.2 - 1.3 05/13 Normal [facility] CHEMISTRY Total 7.7 g/dL 6.4 - 8.4 05/13 Normal [facility] CHEMISTRY Calcium Lvl 8.4 mg/dL 8.5 - 10.5 05/13 LOW [facility] CHEMISTRY B/C Ratio 10 6 - 25 05/13 Normal [facility] CHEMISTRY ALT 13 U/L 0 - 65 05/13 Normal [facility] CHEMISTRY Alk Phos 41 U/L 39 - 136 05/13 Normal [facility] CHEMISTRY Albumin Lvl 3.6 g/dL 3.5 - 5.0 05/13 Normal [facility] CHEMISTRY A/G Ratio 0.9 0.7 - 1.6 05/13 Normal [facility] CHEMISTRY Globulin 4.1 g/dL 2.0 - 4.0 05/13 HI MH [facility] CHEMISTRY CO2 20 meq/L 24 - 32 05/13 LOW [facility] CHEMISTRY Potassium 3.0 meq/L 3.5 - 5.1 05/13 CRIT 1Result Comment: [facility] Critical Result(s) called to Angelique at 05/12/2011 22:50 by [facility]. Read back OK. CHEMISTRY AGAP 14.0 meq/L 10.0 - 05/13 Normal 20.0 [facility] CHEMISTRY Chloride Lvl 104 meq/L 95 - 109 05/13 Normal [facility] CHEMISTRY Sodium Lvl 135 meq/L 135 - 145 05/13 Normal [facility] CHEMISTRY Creatinine 0.6 mg/dL 0.5 - 1.4 05/13 Normal l [facility] CHEMISTRY BUN 6 mg/dL 7 - 22 05/13 LOW [facility] CHEMISTRY Glucose Lvl 92 mg/dL 05/13 NA 2Interpretive Data: [facility] Reference Ranges : 0 - 7 days : 41 - 90 mg/dL7 days - 150 yrs : 70 - 99 mg/dL (fasting), based on the clinical recommendatio ns of the [place] [employer]. HEMATOLOGY MCH 30.4 pg 27.0 - 05/13 Normal 31.0 [facility] HEMATOLOGY MCHC 34.8 g/dL 32.0 - 05/13 Normal 36.0 /2010 [facility] HEMATOLOGY RDW 14.1 % 11.5 - 05/13 Normal 14.5 [facility] HEMATOLOGY MPV 8.7 fL 7.4 - 10.4 05/13 Normal MH /2010 [facility] HEMATOLOGY Platelet 237 K/CMM 133 - 450 05/13 Normal MH /2010 [facility] HEMATOLOGY WBC 4.7 K/CMM 3.7 - 10.4 05/13 Normal /2010 [facility] HEMATOLOGY MCV 87.4 fL 81.0 - 05/13 Normal 99.0 [facility] HEMATOLOGY Hct 31.4 % 36.0 - 05/13 LOW 48.0 [facility] HEMATOLOGY RBC 3.59 M/CMM 4.20 - 05/13 LOW 5.40 /2010 [facility] HEMATOLOGY Hgb 10.9 g/dL 12.0 - 05/13 LOW 16.0 [facility] Vital Signs Vital Sign Value Date Comments Source Temperature Oral (F) 98.0 F 09/22/2012 [facility] Heart Rate 56 09/22/2012 [facility] Diastolic (mm Hg) 79 09/22/2012 [facility] Systolic (mm Hg) 124 09/22/2012 [facility] Respitory Rate 20 09/22/2012 [facility] Diastolic (mm Hg) 72 09/21/2012 [facility] Respitory Rate 18 09/21/2012 [facility] Systolic (mm Hg) 108 09/21/2012 [facility] Heart Rate 61 09/21/2012 [facility] Temperature Oral (F) 98.7 F 09/21/2012 [facility] Systolic (mm Hg) 125 09/21/2012 [facility] Diastolic (mm Hg) 80 09/21/2012 [facility] Heart Rate 53 09/21/2012 [facility] Temperature Oral (F) 99.0 F 09/21/2012 [facility] Respitory Rate 18 09/21/2012 [facility] Height 157.48 cm 09/21/2012 [facility] Weight 52.273 09/21/2012 [facility] Height 157.4 cm 09/21/2012 [facility] Weight 52.273 09/21/2012 [facility] Weight 52.273 08/17/2012 [facility] Height 157.48 cm 08/17/2012 [facility] Temperature Oral (F) 98.5 F 06/23/2012 [facility] Respitory Rate 20 06/23/2012 [facility] Systolic (mm Hg) 98 06/23/2012 [facility] Heart Rate 53 06/23/2012 [facility] Diastolic (mm Hg) 65 06/23/2012 [facility] Heart Rate 54 06/23/2012 [facility] Temperature Oral (F) 98.5 F 06/23/2012 [facility] Respitory Rate 20 06/23/2012 [facility] Diastolic (mm Hg) 74 06/23/2012 [facility] Systolic (mm Hg) 110 06/23/2012 [facility] Respitory Rate 20 06/23/2012 [facility] Systolic (mm Hg) 89 06/23/2012 [facility] Heart Rate 63 06/23/2012 [facility] Temperature Oral (F) 98.5 F 06/23/2012 [facility] Diastolic (mm Hg) 55 06/23/2012 [facility] Height 157.48 cm 06/23/2012 [facility] Weight 47.727 06/23/2012 [facility] Weight 50.000 06/22/2012 [facility] Diastolic (mm Hg) 74 05/14/2011 [facility] Systolic (mm Hg) 136 05/14/2011 [facility] Respitory Rate 18 05/14/2011 [facility] Heart Rate 68 05/14/2011 [facility] Temperature Oral (F) 98.2 F 05/14/2011 [facility] Weight 54.545 05/14/2011 [facility] Height 157.48 cm 05/14/2011 [facility] Diastolic (mm Hg) 86 05/14/2011 [facility] Systolic (mm Hg) 111 05/14/2011 [facility] Heart Rate 86 05/14/2011 [facility] Respitory Rate 19 05/14/2011 [facility] Temperature Oral (F) 98.6 F 05/14/2011 [facility] Respitory Rate 18 05/13/2011 [facility] Temperature Oral (F) 98.6 F 05/13/2011 [facility] Systolic (mm Hg) 102 05/13/2011 [facility] Heart Rate 72 05/13/2011 [facility] Diastolic (mm Hg) 59 05/13/2011 [facility] Encounters Location Location Encounter Encounter Reason Attending ADM DC Status Source Details Type Number For Visit Provider Date Date Emergency [id number] ABDOMINAL VIV 09/06 09/06 Active [facility] PAIN TOTZ /2010 [facility] Emergency [id number] FEVER LATOSHA 04/11 04/11 Active [facility] /VOMITING TIFFAULT /2010 Gene daily Emergency [id number] VOMITING HABACUC 04/14 04/14 Active [facility] /2010 Ge[facility] daily Emergency [id number] VOMITINIG EMILIA 04/18 04/18 Active [facility] / [facility]EREN [facility] t [facility]IN Emergency [id number] , HABACUC 05/12 05/13 Active [facility] ABD PAIN, LION /2010 [facility] VOMITING, t VAG BLEED Emergency [id number] ABDOMINAL VIV 05/14 05/14 Active [facility] PAIN TOTZ /2010 Gene daily OU [id number] CONSTANTINO 06/22 06/23 Active [facility] HYACINTH /2012 Gene daily Emergency [id number] ATIBA GAMEZ 08/05 08/05 Active [facility] /2012 Gene daily Emergency [id number] HABACUC 08/17 08/17 Active [facility] /2012 Gene daily Inpatient [id number] CONSTANTINO 09/20 09/21 Active [facility] HYACINTH /2012 Gene daily Procedures Procedure Code Date Perfomer Comments Source section [facility] section 17 months [facility] <sup>1</sup> before
--- OUTSIDE RECORDS SUMMARY | 2018-06-10 11:05 | XMS REPORT | CCD ---
:[address] [facility] Care Team Providers Name Role Phone Meka [...] mg/dL] 0.4 mg/dL (05/12/2011 22:10:00) hCG Tot [id number] mIU/mL 3 *NA* (05/12/2011 22:10:00) 1Result Comment: Critical Result(s) called to Joan at 05/12/2011 22:[address] [facility]. Read back OK.2Interpretive Data: Reference Ranges : 0 - 7 days : 41 - 90 mg/dL7 days - 150 yrs : 70 - 99 mg/dL (fasting), based on the clinical recommendations of the [place] [employer].3Interpretive Data: Reference Range: Male 0 [...]
--- OUTSIDE RECORDS SUMMARY | 2018-06-10 11:06 | XMS REPORT | CCD ---
:1985 Author Organization [facility] Care Team Providers Name Role Phone Sanchez [...] values reflect the clinical guidelines of the [place] [employer].7Interpretive Data: Adult reference range values reflect the clinical guidelines of the [place] [employer].8Interpretive Data: HbA1C% eAG(mg/dL ) Interpretation [...] 10.0 240 Poor Control, take action to [id number] Comment: reran sample twice.10Interpretive Data: Drugs reported [...]
--- OUTSIDE RECORDS SUMMARY | 2018-06-10 11:06 | XMS REPORT | CCD ---
:1985 Author Organization [facility] Care Team Providers Name Role Phone [...] values reflect the clinical guidelines of the [place] Diabetes [employer].HEMATOLOGY Most recent to oldest [Reference [...]
--- OUTSIDE RECORDS SUMMARY | 2018-06-10 11:06 | XMS REPORT | CCD ---
:1985 Author Organization [facility] Care Team Providers Name Role Phone Chuck [...] based on the clinical recommendations of the [place] Diabetes [employer].HEMATOLOGY Most recent to oldest [Reference [...]
--- OUTSIDE RECORDS SUMMARY | 2018-06-10 11:06 | XMS REPORT | CCD ---
:1985 Author Organization [facility] Care Team Providers Name Role Phone Benjamin [...] 17:21:00 Phenergan 25 mg rectal 1 supp, AK, Q6H, PRN, 9 08/05/2012 Ordered suppository supp, [...] values reflect the clinical guidelines of the [place] [employer].HEMATOLOGY Most recent to oldest [Reference [...]
--- OUTSIDE RECORDS SUMMARY | 2018-06-10 11:07 | XMS REPORT ---
:1985 [facility] [address] [place] [address] Dr. Tabares [address] [place] [id number] Care Team Providers Name Role Phone GREGORIA [...] Clinicians Facility Department ID 2012-08-18 2012-08-18 Emergency [facility] [id number] 20:24:58 20:24:58 2012-08-18 2012-08-18 Emergency [facility] [id number] 18:28:56 18:28:56 Results Test Description Test Time [...] NEGATIVE Ketones (test code=UKET) >=80 NEGATIVE Specific [place] (test code=USPGR) 1.025 1.005-1.030 Blood (test code=UBLD) [...] (test code=UBACT) Trace None Seen,Trace TEST, Urine [id number] 06:05:00 Test Item Value Reference Range Comments (Urine) (test code=PREGU) Negative If a specimen is collected by a nurse, then you MUST fill out the Collected and Collected By curran VALPROIC [id number] 05:47:00 Test Item Value Reference Range Comments Valproic Acid (test code=VALPR) <3.0 ug/ml 50.0-120.0 er [id number] 05:39:00 Test Item Value Reference Range Comments Magnesium (test code=MG) 2.4 mg/dl 1.6-2.3 er 7CBC WITH AUTO [id number] 05:22:00 Test Item Value Reference Range Comments [...] Auto (test 0 /100WBC 0-2 code=NRBC_AUTO) er [id number] 05:22:00 Test Item Value Reference Range Comments [...] mL/min/1.73m\\S\\2 EGFR if Non- >60 Estimated Glomerular [place] (test mL/min/1.73m\\S\\2 Filtration Rate (eGFR) code=EGFRNA) Reference [...] management of chronic kidney failure. er 7LIPASE, [id number] 05:22:00 Test Item Value Reference Range Comments Lipase (test code=LIPA) 462 U/L 8-223 er 7DRUG SCREEN [id number] 19:14:00 Test Item Value Reference Range Comments Specific [place] 1.025 1.005-1.030 (test code=USPGR) PH (test code=UPH) [...] the Drugs of Abuse ran on the docTrackrs 5.1 analyzer listed there in: Amphetamines < [...] (test code=THC) Confirmation Upon Request URINALYSIS WITHOUT [id number] 18:57:00 Test Item Value Reference Range Comments Color (test code=UCOLR) YELLOW Clarity (test code=UCLAR) CLOUDY Glucose (test code=UGLUC) NEGATIVE NEGATIVE Bilirubin (test code=UBILI) NEGATIVE NEGATIVE Ketones (test code=UKET) 40 NEGATIVE Specific [place] (test code=USPGR) 1.025 1.005-1.030 Blood (test code=UBLD) [...] Collected and Collected By curran TEST, Serum [id number] 18:26:00 Test Item Value Reference Range Comments (Serum) (test code=PREGS) Negative [id number] 18:21:00 Test Item Value Reference Range Comments [...] mL/min/1.73m\\S\\2 EGFR if Non- >60 Estimated Glomerular [place] (test mL/min/1.73m\\S\\2 Filtration Rate (eGFR) code=EGFRNA) Reference [...] and management of chronic kidney failure. LIPASE, [id number] 18:21:00 Test Item Value Reference Range Comments Lipase (test code=LIPA) 36 U/L 8-223 CBC WITH AUTO [id number] 18:12:00 Test Item Value Reference Range Comments [...] (test 0 /100WBC 0-2 code=NRBC_AUTO) AUTO DIFFRAPID [id number] 16:50:00 Test Item Value Reference Range Comments RAPID CKMB (MakaraAKER) (test vvfz=5319) < ng/mL 0.0-4.3 RAPID TROPONIN [id number] 16:50:00 Test Item Value Reference Range Comments RAPID TROPONIN I (BEAKER) (test rggx=1231) < ng/mL <0.05 [id number] 16:49:00 Test Item Value Reference Range Comments D-DIMER QUANTITATIVE (BEAKER) (test abzr=650) < MG/L FEU <0.50 REGARDING D-DIMER RESULTS: Results of this D-Dimer test should always be interpreted in conjunction with the patient's medical history, clinical presentation and other findings. DVT clinical diagnosis should not be based on the results of INNOVANCE D-Dimer alone.PT/[id number] 16:40:00 Test Item Value Reference Range Comments PROTIME (BEAKER) (test gavp=980) 9.9 seconds 9.8-12.0 INR (BEAKER) (test pkjl=762) 0.9 <=5.9 PARTIAL THROMBOPLASTIN TIME (BEAKER) (test 25.7 seconds 25.8-34.5 poyn=556) RECOMMENDED COUMADIN/WARFARIN INR THERAPY RANGESSTANDARD DOSE: 2.0 - 3.0 Includes: PROPHYLAXIS forvenous thrombosis, systemic embolization; TREATMENT for venous thrombosis and/or pulmonary embolus.HIGH RISK: Target INR is 2.5-3.5 for patients with mechanical heart valves.[id number] 16:38:00 Test Item Value Reference Range Comments MAGNESIUM (BEAKER) (test kinj=310) 2.1 mg/dL 1.5-3.0 BASIC METABOLIC [id number] 16:37:00 Test Item Value Reference Range Comments SODIUM (BEAKER) (test 141 meq/L 135-148 xpvi=160) POTASSIUM (BEAKER) (test 3.8 meq/L 3.6-5.5 tnxa=026) CHLORIDE (BEAKER) (test 102 meq/L 98-106 rviq=461) CO2 (BEAKER) (test 24 meq/L 24-32 irnr=833) BLOOD UREA NITROGEN 10 mg/dL 10-26 (BEAKER) (test glrx=433) CREATININE (BEAKER) (test 0.68 mg/dL 0.50-1.20 hhnv=513) GLUCOSE RANDOM (BEAKER) 85 mg/dL 70-110 (test rjqn=340) CALCIUM (BEAKER) (test 8.8 mg/dL 8.5-10.5 hsqt=592) EGFR (BEAKER) (test 122 mL/min/1.73 sq m ESTIMATED GFR IS NOT xcpc=7425) ACCURATE CREATININE CLEARANCE IN PREDICTING GLOMERULAR FILTRATION RATE. ESTIMATED GFR IS NOT APPLICABLE FOR DIALYSIS PATIENTS. CREATINE KINASE (CK)2017-06-19 16:37:00 Test Item Value Reference Range Comments CREATINE KINASE TOTAL (BEAKER) (test ypvy=928) 83 U/L 25-235 CBC W/PLT COUNT & AUTO [id number] 16:32:00 Test Item Value Reference Range Comments WHITE BLOOD CELL COUNT (BEAKER) (test mhsr=582) 5.5 10e3/ L 4.0-10.0 RED BLOOD CELL COUNT (BEAKER) (test zizx=036) 4.16 10e6/ L 4.00-5.00 HEMOGLOBIN (BEAKER) (test kudx=816) 12.1 g/dL 12.0-15.0 HEMATOCRIT (BEAKER) (test rgjr=506) 35.8 % 36.0-45.0 MEAN CORPUSCULAR VOLUME (BEAKER) (test 86.0 fL 82.0-99.0 yotz=600) MEAN CORPUSCULAR HEMOGLOBIN (BEAKER) (test 29.0 pg 27.0-33.0 lewg=114) MEAN CORPUSCULAR HEMOGLOBIN CONC (BEAKER) (test 33.7 g/dL 32.0-36.0 mbvw=130) RED CELL DISTRIBUTION WIDTH (BEAKER) (test 12.8 % 10.3-14.2 jdoe=797) PLATELET COUNT (BEAKER) (test dbpc=408) 267 10e3/ L 150-430 MEAN PLATELET VOLUME (BEAKER) (test iowb=924) 8.5 fL 6.5-10.5 NEUTROPHILS RELATIVE PERCENT (BEAKER) (test 42 % qvrr=865) LYMPHOCYTES RELATIVE PERCENT (BEAKER) (test 49 % jgfy=930) MONOCYTES RELATIVE PERCENT (BEAKER) (test 7 % zbvv=750) EOSINOPHILS RELATIVE PERCENT (BEAKER) (test 2 % nffl=220) BASOPHILS RELATIVE PERCENT (BEAKER) (test 1 % ngnu=123) NEUTROPHILS ABSOLUTE COUNT (BEAKER) (test 2.27 10e3/ L 1.80-8.00 joeb=163) LYMPHOCYTES ABSOLUTE COUNT (BEAKER) (test 2.68 10e3/ L 1.48-4.50 gbzt=950) MONOCYTES ABSOLUTE COUNT (BEAKER) (test 0.37 10e3/ L 0.00-1.30 ttbo=007) EOSINOPHILS ABSOLUTE COUNT (BEAKER) (test 0.11 10e3/ L 0.00-0.50 tcml=446) BASOPHILS ABSOLUTE COUNT (BEAKER) (test 0.03 10e3/ L 0.00-0.20 cyss=817) SCREEN, [id number] 15:31:00 Test Item Value Reference Range Comments TEST URINE (BEAKER) (test fqov=755) Negative RAD, CHEST, 1 VIEW, NON [id number] 15:09:00Reason for exam:->chest painIs the patient ?->UnknownFINAL [...] Mejía Verified Date/Time: 06/19/2017 15:09:21 Reading Location: [address] Transitional Reading Room RAD, SHOULDER, COMPLETE (MIN 2 VIEWS), [id number] 03:33: 00Reason for exam:->GENERAL ILLNESSIs the patient [...] MDReport Verified Date/Time: 06/06/2017 03:33:43 Reading Location: [address] Body Reading Room RAPID INFLUENZA A&B [id number] 03:30:00 Test Item Value Reference Range Comments RAPID INFLUENZA A AG (BEAKER) (test Negative Negative, Inconclusive akyp=3882) RAPID INFLUENZA B AG (BEAKER) (test Negative Negative, Inconclusive jzml=4797) RAPID STREP A [id number] 03:15:00 Test Item Value Reference Range Comments STREP A ANTIGEN (BEAKER) (test sdgv=510) Negative Negative
--- OUTSIDE RECORDS SUMMARY | 2018-06-10 11:07 | XMS REPORT | CCD ---
:1985 Author Organization [facility] Care Team Providers Name Role Phone PataleshiaSanchez [...] 09/21/2012 09/22/2012 Discontinued SUB-Q, Drug form: INJ, [id number], Start date: 09/21/12 9:00:00, Duration: 30 day, [...] mg, 1 supp, Route: 09/21/2012 09/21/2012 Completed [place], Drug form: SUPP, ONCE, Start date: 09/21/12 [...] (09/20/2012 12:03:37) 2Result Comment: Specimen is slightly [id number] Comment: The eGFR is calculated using the [...] values reflect the clinical guidelines of the [place] [employer].6Interpretive Data: Adult reference range values reflect the clinical guidelines of the [place] [employer].7Interpretive Data: Drugs reported as positive [...] Catch FREE TEXT SOURCE: FINAL REPORTS Final [id number],000 - 50,000 CFU/mL Skin Yu PRELIMINARY REPORTS Preliminary ReportNo Growth; Holding Procedures Procedures Date Related Diagnosis section
[2018-06-10 11:55] LABS: ALT/SGPT 31 U/L (12-78); AST/SGOT 23 U/L (15-37); Alkaline Phosphatase 93 U/L (45-117); BUN Blood Urea Nitrogen 4 mg/dL (7-18); Bicarbonate 25 mmol/L (21-32); Glucose Level 125 mg/dL (74-106); Sodium Level 136 mmol/L (136-145)
[2018-06-10 11:56] LABS: Albumin 3.8 g/dL (3.4-5.0); Bilirubin Direct 0.1 mg/dL (0-0.2); Bilirubin Total 0.3 mg/dL (0.2-1.0); Lipase 59 U/L (73-393); Protein, Total 8.4 g/dL (6.4-8.2)
[2018-06-10 12:02] LABS: Absolute Lymphocytes (CBC) 0.5 K/uL (0.7-4.9); Absolute Monocytes 0.1 K/uL (0.1-1.3); Hematocrit 35.3 % (36.0-45.0); MPV 9.9 fL (7.6-11.3); RBC Red Blood Cell Count 4.01 M/uL (3.86-4.86)
[2018-06-10 12:09] LABS: Basophils % 0.4 % (0-1.3); Lymphocytes % 8.2 % (15.3-44.8); Monocytes % 2.5 % (3.3-12.3)
[2018-06-10] MEDS ORDERED: PROMETHAZINE 25 MG/ML VIAL ONE ×3 (12:10→15:57)
[2018-06-10 12:49] LABS: Blood Morphology Comment NOT SEEN (NOT SEEN); Platelet Estimate ADEQ; Platelets, Giant FEW; Urine White Blood Cell Casts OK
--- NOTE | 2018-06-10 12:51 | ER ---
Nurse's Notes [facility] Name: Joan Short Age: 32 yrs Sex: Female : 1985 Arrival Date: 06/10/2018 Time: 10:52 Bed 4 Private MD: Diagnosis: Cyclical vomiting, intractable Presentation: 06/10 11:04 Presenting complaint: Pt brought into ED who states, "She's been having back to back ph seizures all morning." Seizure like activity noted in lobby lasting approx 20 seconds, pt reports N/V, pain and seizures. Transition of care: patient was not received from another setting of care. Onset of symptoms was June 10, 2018. Risk Assessment: Do you want to hurt yourself or someone else? Patient reports no desire to harm self or others. Initial Sepsis Screen: Does the patient meet any 2 criteria? No. Patient's initial sepsis screen is negative. Does the patient have a suspected source of infection? No. Patient's initial sepsis screen is negative. Care prior to arrival: None. 11:04 Method Of Arrival: Wheelchair 11:04 Acuity: ЮЛИЯ 3 ph Triage Assessment: 11:10 General: Appears distressed, uncomfortable, unkempt, Behavior is agitated, anxious. bp General: PT ENGAGING IN REPEATED SPASTIC MOVEMENTS AND STUTTERING SPEECH WHICH SHE LABELS SEIZURES, BUT VOLUNTARY REFLEXES REMAIN INTACT. Pain: Complains of pain in abdomen. EENT: No deficits noted. Neuro: Level of Consciousness is awake, alert, Oriented to REFUSING TO ANSWER. Cardiovascular: Rhythm is sinus rhythm. Respiratory: Airway is patent Respiratory effort is even, unlabored, Respiratory pattern is regular, symmetrical. GI: Abdomen is non-distended, Bowel sounds present X 4 quads. Reports lower abdominal pain, upper abdominal pain, nausea, vomiting, PT MAKING RETCHING NOISES, BUT NO VOMITUS PRODUCED. : No signs and/or symptoms were reported regarding the genitourinary system. Derm: No deficits noted. Musculoskeletal: Circulation, motion, and sensation intact. Range of motion: intact in all extremities. TWINE WINDER: 11:10 LMP N/A - Irregular menses bp Historical: - Allergies: 11:08 Haldol; ph 11:08 Reglan; ph 11:08 Unisom; ph 11:08 Zofran; ph - Home Meds: 11:08 Alprazolam Oral [Active]; Famotidine Oral [Active]; [place] Oral [Active]; Promethazine ph Oral [Active]; Valproic Acid Oral [Active]; - PMHx: 11:08 Anxiety; Bipolar disorder; Fibromyalgia; gastroporesis; Seizures; ph - PSHx: 11:08 ; Tubal ligation; ph - Immunization history:: Adult Immunizations unknown. - Social history:: Smoking status: unknown. - Ebola Screening: : No symptoms or risks identified at this time. Screenin:10 Abuse screen: Denies threats or abuse. Denies injuries from another. Nutritional bp screening: No deficits noted. Tuberculosis screening: No symptoms or risk factors identified. Fall Risk No fall in past 12 months (0 pts). Secondary diagnosis (15 points) seizures, Ambulatory Aid- None/Bed Rest/Nurse Assist (0 pts). Gait- Normal/Bed Rest/Wheelchair (0 pts) Mental Status- Oriented to own ability (0 pts). Assessment: 11:10 General: SEE TRIAGE NOTE. bp 12:15 Reassessment: PT SCREAMING AT STAFF AND ENGAGING IN RHYTHMIC WRITHING MOTIONS, PIV bp INFILTRATED. PROVIDER ATTEMPTED PIV x2 IN ADDITION TO STAFF, UNABLE TO GAIN ACCESS. MEDS OKAYED FOR IM. 13:02 Reassessment: PT FEIGNING UNRESPONSIVENESS UNTIL NOXIOUS STIMULI APPLIED. NOW REFUSING bp D/C. CHARGE AND MD NOTIFIED. 13:55 Reassessment: TRANSFER IN PROCESS, VS STABLE. bp 15:29 Reassessment: REPORT TO CATHERINE CARMONA AT [facility] FOR ROOM 10C 1042. PT REFUSING TO bp SIGN MOT AT THIS TIME, RECONSIDERING TRANSFER. 16:12 Reassessment: EMS AT B/S, PT TRANSPORTED JESSIE. bp Vital Signs: 11:06 BP 150 / 102; Pulse 81; Resp 24; Temp 97.2; Pulse Ox 100% on R/A; ph 13:04 BP 119 / 81; Pulse 60; Resp 14; Pulse Ox 100% ; bp 13:54 BP 103 / 62; Pulse 61; Resp 14; Pulse Ox 99% ; bp [place] Coma Score: 11:10 Eye Response: spontaneous(4). Verbal Response: oriented(5). Motor Response: obeys bp commands(6). Total: 15. ED Course: 10:52 Patient arrived in ED. as 10:55 Javi Dunlap MD is Attending Physician. gs 10:58 Jaime Anderson, MATHEW is Primary Nurse. bp 11:06 Triage completed. ph 11:07 Arm band placed on Patient placed in an exam room, on a stretcher, on pulse oximetry. ph 11:33 Initial lab(s) drawn, by me, sent to lab. Inserted saline lock: 22 gauge in left jb1 antecubital area, using aseptic technique. Blood collected. 12:15 IV discontinued, intact, bleeding controlled, No redness/swelling at site. Pressure bp dressing applied. 12:50 Joseph Gillis MD is Referral Physician. gs 12:50 Dillon Taylor DO is Referral Physician. gs 16:[address] given to ems. bd 16:11 Inserted saline lock: 24 gauge in right ,using aseptic technique. LATERAL ANKLE. bp Administered Medications: 12:00 Drug: Phenergan 25 mg {Note: GIVEN IM PER MD.} Route: IVP; Site: Other; bp 12:45 Follow up: Response: Nausea is decreased bp 12:45 Not Given (Patient Refused): Potassium Effervescent Tablet 50 mEq PO once; dissolve in bp 4 ounces of water or juice 12:45 Drug: Dilaudid 1 mg Route: IM; Site: left gluteus; bp 13:03 Follow up: Response: No adverse reaction bp 14:00 Drug: NS 0.9% 1000 ml Route: IV; Rate: 1 bolus; Site: Other; bp 16:10 Follow up: IV Status: Completed infusion; IV Intake: 1000ml bp 16:09 Drug: NS 0.9% 1000 ml Route: IV; Rate: 125 ml/hr; Site: Other; bp 16:10 Follow up: IV Status: Infusion continued upon transfer bp 16:10 Drug: Phenergan 25 mg Route: IVP; Site: Other; bp 16:11 Follow up: Response: Nausea is decreased bp Intake: 16:10 IV: 1000ml; Total: 1000ml. bp Outcome: 12:51 Discharge ordered by MD. gs 15:07 ER care complete, transfer ordered by MD. gs 16:16 Patient left the ED. bp Signatures: Juan Dickens [email or web address] Jazmin Hill Amelia as Hall, Patricia, RN RN ph Javi Dunlap MD MD gs Peltier, Brian, RN RN bp Corrections: (The following items were deleted from the chart) 15:34 15:29 Reassessment: REPORT TO CATHERINE CARMONA AT [facility] FOR ROOM 10C 1042. bp TRANSPORT EN ROUTE bp
[2018-06-10] MEDS ORDERED: HYDROMORPHONE HCL 1 MG/ML INJ ONE (12:52)
--- NOTE | 2018-06-10 12:52 | EDPHYS ---
Physician Documentation [facility] Name: Joan Short Age: 32 yrs Sex: Female : 1985 Arrival Date: 06/10/2018 Time: 10:52 Bed 4 Private MD: ED Physician Javi Dunlap HPI: 06/10 12:47 This 32 yrs old Black Female presents to ER via Wheelchair with complaints of Abdominal gs Pain. 12:47 The patient presents to the emergency department with vomiting, abdominal pain. Onset: gs The symptoms/episode began/occurred yesterday, and became persistent. Possible causes: flare up of bowel problem. The symptoms are aggravated by nothing. The symptoms are alleviated by nothing. Associated signs and symptoms: Pertinent negatives: fever. Severity of symptoms: At their worst the symptoms were moderate in the emergency department the symptoms are unchanged. The patient has experienced similar episodes in the past, chronically. 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 - Social history:: Smoking status: unknown. - Ebola Screening: : No symptoms or risks identified at this time. ROS: 12:47 All other systems are negative. gs Exam: 12:47 Head/Face: Normocephalic, atraumatic. Eyes: Pupils equal round and reactive to light, gs extra-ocular motions intact. Lids and lashes normal. Conjunctiva and sclera are non-icteric and not injected. Cornea within normal limits. Periorbital areas with no swelling, redness, or edema. ENT: Nares patent. No nasal discharge, no septal abnormalities noted. Tympanic membranes are normal and external auditory canals are clear. Oropharynx with no redness, swelling, or masses, exudates, or evidence of obstruction, uvula midline. Mucous membranes moist. Neck: Trachea midline, no thyromegaly or masses palpated, and no cervical lymphadenopathy. Supple, full range of motion without nuchal rigidity, or vertebral point tenderness. No Meningismus. Chest/axilla: Normal chest wall appearance and motion. Nontender with no deformity. No lesions are appreciated. 12:47 Respiratory: Lungs have equal breath sounds bilaterally, clear to auscultation and percussion. No rales, rhonchi or wheezes noted. No increased work of breathing, no retractions or nasal flaring. Back: No spinal tenderness. No costovertebral tenderness. Full range of motion. Skin: Warm, dry with normal turgor. Normal color with no rashes, no lesions, and no evidence of cellulitis. MS/ Extremity: Pulses equal, no cyanosis. Neurovascular intact. Full, normal range of motion. Neuro: Awake and alert, GCS 15, oriented to person, place, time, and situation. Cranial nerves II-XII grossly intact. Motor strength 5/5 in all extremities. Sensory grossly intact. Cerebellar exam normal. Normal gait. 12:47 Constitutional: The patient appears alert, awake, uncomfortable. 12:47 Cardiovascular: Rate: tachycardic, Rhythm: regular, Pulses: no pulse deficits are appreciated. 12:47 Abdomen/GI: Palpation: mild abdominal tenderness, in all quadrants, rebound tenderness, is not appreciated. Vital Signs: 11:06 BP 150 / 102; Pulse 81; Resp 24; Temp 97.2; Pulse Ox 100% on R/A; ph 13:04 BP 119 / 81; Pulse 60; Resp 14; Pulse Ox 100% ; bp 13:54 BP 103 / 62; Pulse 61; Resp 14; Pulse Ox 99% ; bp [place] Coma Score: 11:10 Eye Response: spontaneous(4). Verbal Response: oriented(5). Motor Response: obeys bp commands(6). Total: 15. MDM: 11:06 Patient medically screened. 12:47 Data reviewed: vital signs, nurses notes. 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 Special discussion: I have referred the patient to see his PCP for further evaluation of high blood pressure. 06/10 11:08 Order name: Basic Metabolic Panel; Complete Time: 11:57 06/10 11:08 Order name: CBC with Diff; Complete Time: 12:52 06/10 11:08 Order name: Hepatic Function; Complete Time: 11:57 06/10 11:08 Order name: Lipase; Complete Time: 11:57 06/10 12:48 Order name: CBC Smear Scan; Complete Time: 12:52 EDUT 06/10 11:08 Order name: IV Saline Lock; Complete Time: 11:33 06/10 11:08 Order name: Labs collected and sent; Complete Time: 11:33 Administered Medications: 12:00 Drug: Phenergan 25 mg {Note: GIVEN IM PER MD.} Route: IVP; Site: Other; bp 12:45 Follow up: Response: Nausea is decreased bp 12:45 Not Given (Patient Refused): Potassium Effervescent Tablet 50 mEq PO once; dissolve in bp 4 ounces of water or juice 12:45 Drug: Dilaudid 1 mg Route: IM; Site: left gluteus; bp 13:03 Follow up: Response: No adverse reaction bp 14:00 Drug: NS 0.9% 1000 ml Route: IV; Rate: 1 bolus; Site: Other; bp 16:10 Follow up: IV Status: Completed infusion; IV Intake: 1000ml bp 16:09 Drug: NS 0.9% 1000 ml Route: IV; Rate: 125 ml/hr; Site: Other; bp 16:10 Follow up: IV Status: Infusion continued upon transfer bp 16:10 Drug: Phenergan 25 mg Route: IVP; Site: Other; bp 16:11 Follow up: Response: Nausea is decreased bp Disposition: 06/10/18 15:07 Transfer ordered to [facility]. Diagnosis is Cyclical vomiting, intractable. - Reason for transfer: Higher level of care. - Accepting physician is kristy. - Condition is Stable. - Problem is new. - Symptoms have improved. Signatures: Dispatcher [employer] EDUT Cherelle Crowe RN RN Javi Dunlap MD MD Monica, Jaime, RN RN bp Corrections: (The following items were deleted from the chart) 13:10 12:51 06/10/2018 12:51 Discharged to Home. Impression: Generalized abdominal pain; gs Chronic pain syndrome. Condition is Stable. Forms are Medication Reconciliation Form, Thank You Letter, Antibiotic Education, Prescription Opioid Use. Follow up: Joseph Gillis; When: 2 - 3 days; Reason: Re-evaluation by your physician. Follow up: Dillon Taylor; When: 2 - 3 days; Reason: Re-evaluation by your physician. 16:16 15:07 06/10/2018 15:07 Transfer ordered to [facility]. Diagnosis is Cyclical bp vomiting, intractable. Reason for transfer: Higher level of care. Accepting physician is kristy. Condition is Stable. Problem is new. Symptoms have improved. gs
[2018-06-10] MEDS ORDERED: NA CHLORIDE 0.9% 1,000 ML ONE (15:58)
== END 2018-06-10 16:16 | disposition short-term general hospital (02) ==
LOC: ER 10:51
DX: G43.A1 Cyclical vomiting, in migraine, intractable (principal); F31.9 Bipolar disorder, unspecified; F41.9 Anxiety disorder, unspecified; M79.7 Fibromyalgia; K31.84 Gastroparesis; Z79.899 Other long term (current) drug therapy
CPT/HCPCS: 36415; 80048; 80076; 83690; 85025; 96361; 96372; 96374; 99284; J1170; J2550; J7030

== ENCOUNTER 2018-07-11 10:53 | Emergency (ER) | payer SELFPAY ==
--- OUTSIDE RECORDS SUMMARY | 2018-07-11 11:44 | XMS REPORT | Clinical Summary ---
:1985 Author Organization [facility] Address [address] [place] [address] Care Team Providers Name Role Phone Kiersten Primary Care Provider Allergies Active Allergy Reactions Severity Noted Date Comments Metoclopramide Anxiety Low 06/06/2017 Diphenhydramine Hcl Swelling 06/06/2017 Ondansetron Hcl (Pf) Swelling 06/06/2017 Medications Medication Sig Dispensed Refills Start Date End Date Status inhalational spacing Use with the 1 each 0 06/06/2017 Active device (AEROCHAMBER) inhaler. Spcr albuterol HFA Inhale 2 puffs 1 Inhaler 0 06/06/2017 06/06/2018 (VENTOLIN HFA) 90 by mouth via mcg/actuation inhaler inhaler every 4 (four) hours as needed for Wheezing. Active Problems Not on file Social History Tobacco Use Types Packs/Day Years Used Date Current Every Day Smoker 0.5 15 Alcohol Use Drinks/Week oz/Week Comments No Sex Assigned at Date Recorded Not on file Job Start Date Occupation Industry Not on file Not on file Not on file Travel History Travel Start Travel End No recent travel history available. Last Filed Vital Signs Not on file Plan of Treatment Not on file Results Not on fileafter 07/10/2017
--- OUTSIDE RECORDS SUMMARY | 2018-07-11 11:48 | XMS REPORT | Continuity of Care Document ---
:1985 Author Organization Interface Problems Problem Status Onset Classification Date Comments Source Date Reported SYNCOPE Active 09/21/19 13 [facility] INTRACTABLE Active 09/21/19 VOMITING 13 [facility] VOMITING Active 08/18/19 13 [facility] ABDOMINAL PAIN Active 08/04/19 13 [facility] SEIZURES / VOMIT Active 06/22/19 13 [facility] SEIUZURES, ACUTE Active 06/22/19 GASTRITIS VS 13 [facility] GASTROENTE , ABD Active 05/12/20 PAIN, VOMITING, 11 [facility] VAG BLEED VOMITINIG/ Active 04/18/20 ABDOMINAL PAIN 11 [facility] FEVER /VOMITING Active 04/11/20 11 [facility] Gastroparesis Resolved Problem 09/23/2012 [facility] Seizure Resolved Problem 09/23/2012 [facility] VOMITING ALONE Active [facility] Medications Medication Details Route Status Patient Ordering Order Source Instructions Provider Date Navane 1 mg, 1 cap, PO No [place] Route: PO, Longer 2012 [facility] Drug form: Active CAP, BID, Start date: 09/21/12 17:00:00, Duration: 30 day, Stop date: 10/21/12 9:00:00 Phenergan 12.5 mg, 1 SC No Wollner supp, Route: Longer 2012 [facility] SC, Drug form: Active SUPP, ONCE, Start date: 09/21/12 16:03:00, Stop date: 09/21/12 16:03:00 Pepcid 20 mg, 1 tab, PO No [place] Route: PO, Longer 2012 [facility] Drug form: Active TAB, Q12H, Start date: 09/21/12 9:00:00, Duration: 30 day, Stop date: 10/20/12 21:00:00 Lovenox 40 mg, 0.4 mL, SUB-Q No [place] Route: SUB-Q, Longer 2012 [facility] Drug form: Active INJ, [id number], Start date: 09/21/12 9:00:00, Duration: 30 day, Stop date: 10/20/12 9:00:00 Tylenol 650 mg, 2 tab, PO No Hasivana Route: PO, Longer 2012 [facility] Drug form: Active TAB, Q6H, PRN Pain, Start date: 09/21/12 8:36:00, Duration: 30 day, Stop date: 10/21/12 8:35:00 morphine 2 mg, 0.5 mL, IVP No Patrick Sulfate Route: IVP, Longer 2012 [facility] Drug form: Active INJ, Q6H, PRN Pain, Start date: 09/21/12 8:03:00, Duration: 30 day, Stop date: 10/21/12 8:02:00 Reglan 10 mg, 2 mL, IV No Vahe Route: IV, Longer 2012 [facility] Drug form: Active INJ, QID-Before Meals, Start date: 09/21/12 7:30:00, Duration: 30 day, Stop date: 10/20/12 21:00:00 Sodium Chloride 1,000 mL, IV No Patrick 09/21[facility] 0.9% IV 1,000 Rate: 125 Longer 2012 [facility] mL ml/hr, Infuse Active over: 8 hr, Route: IV, kg, Total Volume: 1,000, Start date: 09/20/12 21:00:00, Duration: 30 day, Stop date: 10/20/12 20:59:00 Tylenol 650 mg, 2 tab, PO No Hyacinth Route: PO, Longer 2012 [facility] Drug form: Active TAB, ONCE, Start date: 09/20/12 21:00:00, Stop date: 09/20/12 21:00:00 potassium 20 mEq, 100 IVPB No Patrick 09/21[facility] chloride mL, Route: Longer 2012 [facility] IVPB, Drug Active form: INJ, Q2H, Start date: 09/20/12 21:00:00, Duration: 1 doses or times, Stop date: 09/20/12 21:00:00 Haldol 1 mg, 0.2 mL, IV No Hyacinth 09/21[facility] Route: IV, Longer 2012 [facility] Drug form: Active INJ, ONCE, Start date: 09/20/12 21:00:00, Stop date: 09/20/12 21:00:00 Reglan 10 mg, 2 mL, IV No Patrick Route: IV, Longer 2012 [facility] Drug form: Active INJ, Q8H-05, Start date: 09/20/12 21:00:00, Duration: 30 day, Stop date: 10/20/12 13:00:00 Sodium Chloride 250 mL, Route: IVPB No Patrick 0.9% IV IVPB, Start Longer 2012 [facility] date: 09/20/12 Active 20:07:00, Duration: 30 day, Stop date: 10/20/12 20:06:00, PRN Line Flush BD Normal 10 mL, Route: IVP No Patrick Saline Flush IVP, Drug Longer 2012 [facility] Form: INJ, Active PRN, PRN Line Flush, Start date: 09/20/12 20:06:00, Duration: 30 day, Stop date: 10/20/12 20:05:00 morphine 2 mg, 0.4 mL, IV No Patrick 09/21[facility] Sulfate Route: IV, Longer 2012 [facility] Drug form: Active INJ, Q6H, PRN Pain, Start date: 09/20/12 20:05:00, Duration: 30 day, Stop date: 10/20/12 20:04:00 Phenergan 25 mg, 1 tab, PO No Patrick Route: PO, Longer 2012 [facility] Drug form: Active TAB, Q6H, PRN Nausea, Start date: 09/20/12 20:05:00, Duration: 30 day, Stop date: 10/20/12 20:04:00 Haldol 2 mg, 0.4 mL, IM No Patrick Route: IM, Longer 2012 [facility] Drug form: Active INJ, Q6H, PRN Agitation, Start date: 09/20/12 20:04:00, Duration: 30 day, Stop date: 10/20/12 20:03:00 Phenergan 25 mg, Route: IM No Cady IM, ONCE, Longer 2012 [facility] Dosing Weight Active 52.273, kg, PRN as needed for nausea/vomitin g, Start date: 09/20/12 17:55:00 Haldol 1 mg, Route: IVP No Cady IVP, ONCE, Longer 2012 [facility] Dosing Weight Active 52.273, kg, Priority: NOW, Start date: 09/20/12 17:54:00, Stop date: 09/20/12 17:54:00 Phenergan 25 mg, Route: IVPB No Ambrose IVPB, ONCE, Longer 2012 [facility] Dosing Weight Active 52.273, kg, Priority: STAT, Start date: 09/20/12 15:48:00, Stop date: 09/20/12 15:48:00 morphine 5 mg, 1 mL, IVP No [facility] Sulfate Route: IVP, Longer 2012 [facility] Drug form: Active INJ, ONCE, Dosing Weight 52.273, kg, Start date: 09/20/12 15:31:00, Stop date: 09/20/12 15:31:00 Phenergan + 25 mg, 1 mL, IVPB No [facility] Sodium Chloride Route: IVPB, Longer 2012 [facility] 0.9% IV 50 mL Drug form: Active INJ, ONCE, Dosing Weight 52.273, kg, Priority: STAT, Start date: 09/20/12 15:06:00, Stop date: 09/20/12 15:06:00 NS (Bolus) IV 1,000 mL, IV No [facility] 1,000 mL Rate: 1,000 Longer 2012 [facility] ml/hr, Infuse Active over: 1 hr, Route: IV, kg, Total Volume: 1,000, Priority: STAT, Start date: 09/20/12 13:21:00, Duration: 1 doses or times, Stop date: 09/20/12 14:20:00, Bolus DoseBolus Dose Reglan 10 mg, Route: IVP No med IVP, ONCE, Longer 2012 [facility] Dosing Weight Active 52.273, kg, Priority: STAT, Start date: 09/20/12 13:20:00, Stop date: 09/20/12 13:20:00 Phenergan 25 mg, Route: IM No Ahmed IM, ONCE, Longer 2012 [facility] Dosing Weight Active 52.273, kg, Priority: STAT, Start date: 09/20/12 11:10:00, Stop date: 09/20/12 11:10:00 NS 1,000 mL 1,000 mL, IV No Ahmed Rate: 1,000 Longer 2012 [facility] ml/hr, Infuse Active over: 1 hr, Route: IV, kg, Total Volume: 1,000, Start date: 09/20/12 11:10:00, Duration: 1 doses or times, Stop date: 09/20/12 12:09:00, Bolus DoseBolus Dose Reglan Substitution Active Allowed 2012 [facility] Toradol 30 30 mg, Route: IV No Cesta mg/mL IV, ONCE, Longer 2012 [facility] injectable Dosing Weight Active solution 52.273, kg, Start date: 08/17/12 20:15:00, Stop date: 08/17/12 20:15:00 Saline Flush 5 ml, Route: IVP No Cesta 0.9% IVP, Drug Longer 2012 [facility] Form: INJ, Active Dosing Weight 52.273, kg, PRN, PRN Line Flush, Start date: 08/17/12 19:59:00, Duration: 30 day, Stop date: 09/16/12 19:58:00 Phenergan 25 mg, 1 mL, IM No Cesta Route: IM, Longer 2012 [facility] Drug form: Active INJ, ONCE, Dosing Weight 52.273, kg, Priority: STAT, Start date: 08/17/12 19:58:00, Stop date: 08/17/12 19:58:00 Phenergan 25 mg 1 supp, SC, SC Active [place] rectal Q6H, PRN, 9 2012 [facility] suppository supp, Nausea & Vomiting, Substitution Allowed Phenergan 25 mg 25 mg, 1 tab, PO Active Yasmani oral tablet PO, Q4H, PRN, 2012 [facility] 20 tab, Nausea, Substitution Allowed morphine 5 mg, 1 mL, IVP No Yasmani Sulfate Route: IVP, Longer 2012 [facility] Drug form: Active INJ, ONCE, Dosing Weight 47.727, kg, Priority: STAT, Start date: 08/05/12 17:21:00, Stop date: 08/05/12 17:21:00 promethazine 25 mg, 1 mL, IM No Yasmani Route: IM, Longer 2012 [facility] Drug form: Active INJ, ONCE, Dosing Weight 47.727, kg, Priority: STAT, Start date: 08/05/12 17:21:00, Stop date: 08/05/12 17:21:00 Reglan 10 mg, 2 mL, IVP No Yasmani Route: IVP, Longer 2012 [facility] Drug form: Active INJ, ONCE, Dosing Weight 47.727, kg, Priority: STAT, Start date: 08/05/12 14:40:00, Stop date: 08/05/12 14:40:00 morphine 5 mg, 1 mL, IVP No [place] Sulfate Route: IVP, Longer 2012 [facility] Drug form: Active INJ, ONCE, Dosing Weight 47.727, kg, Priority: STAT, Start date: 08/05/12 14:40:00, Stop date: 08/05/12 14:40:00 Saline Flush 5 mL, Route: IVP No [place] 0.9% IVP, Drug Longer 2012 [facility] Form: INJ, Active Dosing Weight 47.727, kg, PRN, PRN Line Flush, Start date: 08/05/12 14:40:00, Duration: 24 hr, Stop date: 08/06/12 14:39:00 Sodium Chloride 1,000 mL, IV No [place] 0.9% (Bolus) IV Rate: 1,000 Longer 2012 [facility] 1,000 mL ml/hr, Infuse Active over: 1 hr, Route: IV, kg, Total Volume: 1,000, Priority: STAT, Start date: 08/05/12 14:40:00, Duration: 1 doses or times, Stop date: 08/05/12 15:39:00 Neurontin 300 mg, 1 cap, PO No Hyacinth Route: PO, Longer 2012 [facility] Drug form: Active CAP, BID, Start date: 06/24/12 9:00:00, Duration: 2 doses or times, Stop date: 06/24/12 17:00:00 amitriptyline 25 mg, 1 tab, PO No Tina Route: PO, Longer 2012 [facility] Drug form: Active TAB, Bedtime, Start date: 06/23/12 21:00:00, Duration: 30 day, Stop date: 07/22/12 21:00:00 Carafate 1 gm, 1 tab, PO No [facility] Route: PO, Longer 2012 [facility] Drug form: Active TAB, BID, Start date: 06/23/12 17:00:00, Duration: 30 day, Stop date: 07/23/12 9:00:00 Neurontin 300 mg, 1 cap, PO No [facility] Route: PO, Longer 2012 [facility] Drug form: Active CAP, TID, Start date: 06/23/12 13:00:00, Duration: 30 day, Stop date: 07/23/12 9:00:00 Motrin 600 mg, 1 tab, PO No [facility] Route: PO, Longer 2012 [facility] Drug form: Active TAB, Q6H, Start date: 06/23/12 12:00:00, Duration: 30 day, Stop date: 07/23/12 6:00:00 Phenergan 12.5 mg, 0.5 IM No [facility] mL, Route: IM, Longer 2012 [facility] Drug form: Active INJ, Q6H, PRN Nausea, Start date: 06/23/12 10:11:00, Duration: 30 day, Stop date: 07/23/12 10:10:00 Haldol 5 mg, 1 mL, IV No [facility] Route: IV, Longer 2012 [facility] Drug form: Active INJ, Q6H, PRN Agitation, Start date: 06/23/12 10:05:00, Duration: 30 day, Stop date: 07/23/12 10:04:00 Ativan 2 mg, 1 mL, IV No [facility] Route: IV, Longer 2012 [facility] Drug form: Active INJ, Q2H, PRN Agitation, Start date: 06/23/12 10:03:00, Duration: 30 day, Stop date: 07/23/12 10:02:00 Neurontin 300 mg, 1 cap, PO No [facility] Route: PO, Longer 2012 [facility] Drug form: Active CAP, ONCE, Start date: 06/23/12 10:02:00, Stop date: 06/23/12 10:02:00 Pepcid 20 mg, 1 tab, PO No Hakan Route: PO, Longer 2012 [facility] Drug form: Active TAB, BID, Start date: 06/23/12 9:00:00, Duration: 30 day, Stop date: 07/22/12 17:00:00 Depakote EC 500 mg, 1 tab, PO No [place] Route: PO, Longer 2012 [facility] Drug form: Active ECTAB, Daily, Start date: 06/23/12 9:00:00, Duration: 30 day, Stop date: 07/22/12 9:00:00 Lovenox 40 mg, 0.4 mL, SUB-Q No David Route: SUB-Q, Longer 2012 [facility] Drug form: Active INJ, Q24H, Start date: 06/23/12 0:00:00, Duration: 30 day, Stop date: 07/22/12 0:00:00 Ativan 2 mg, 1 mL, IV No [place] Route: IV, Longer 2012 [facility] Drug form: Active INJ, ONCE, PRN Seizure, Start date: 06/22/12 23:31:00 ketorolac 30 30 mg, 1 mL, IV No [facility] [place] mg/mL Route: IV, Longer 2012 [facility] injectable Drug form: Active solution INJ, Q6H, PRN Pain, Start date: 06/22/12 23:31:00, Duration: 4 day, Stop date: 06/26/12 23:30:00 morphine 2 mg, 0.25 mL, IV No [place] Sulfate Route: IV, Longer 2012 [facility] Drug form: Active INJ, Q6H, PRN Pain Score 7-10, Start date: 06/22/12 23:31:00, Stop date: 07/22/12 23:30:00 Phenergan 12.5 mg, 0.5 PO No [facility] [place] tab, Route: Longer 2012 [facility] PO, Drug form: Active TAB, Q4H, PRN Nausea, Start date: 06/22/12 23:30:00, Duration: 30 day, Stop date: 07/22/12 23:29:00 Sodium Chloride 250 mL, Route: IVPB No [facility] 0.9% IV IVPB, Start Longer 2012 [facility] date: 06/22/12 Active 23:29:00, Duration: 30 day, Stop date: 07/22/12 23:28:00, PRN Line Flush BD Normal 10 mL, Route: IVP No [facility] Saline Flush IVP, Drug Longer 2012 [facility] Form: INJ, Active PRN, PRN Line Flush, Start date: 06/22/12 23:29:00, Duration: 30 day, Stop date: 07/22/12 23:28:00 NS 1,000 mL 1,000 mL, IV No [facility] [place] Rate: 125 Longer 2012 [facility] ml/hr, Infuse Active over: 8 hr, Route: IV, kg, Total Volume: 1,000, Start date: 06/22/12 22:10:00, Duration: 30 day, Stop date: 07/22/12 22:09:00 Phenergan 12.5 mg, 1 PO No [facility] tab, Route: Longer 2012 [facility] PO, Drug form: Active TAB, ONCE, Dosing Weight 50, kg, Priority: STAT, Start date: 06/22/12 20:30:00, Stop date: 06/22/12 20:30:00 morphine 2 mg, Route: IVP No [facility] Sulfate IVP, ONCE, Longer 2012 [facility] Dosing Weight Active 50, kg, Start date: 06/22/12 20:28:00, Stop date: 06/22/12 20:28:00 Depakote 500 mg, 1 tab, [facility]: PO, Longer 2012 [facility] Drug form: Active ECTAB, ONCE, Dosing Weight 50, kg, Priority: STAT, Start date: 06/22/12 18:56:00, Stop date: 06/22/12 18:56:00 Sodium Chloride 1,000 mL, 1000 IV [facility] 0.9% (Bolus) IV ml/hr, Route: Longer 2012 [facility] IV, Drug Form: Active INJ, Dosing Weight 50, kg, ONCE, Bolus Dose - infuse over 1 hr, STAT, Start date: 06/22/12 16:23:00, Stop date: 06/22/12 16:23:00 Sodium Chloride 1,000 mL, 1000 IV No Oscar 0.9% (Bolus) IV ml/hr, Route: Longer 2012 [facility] IV, Drug Form: Active INJ, Dosing Weight 50, kg, ONCE, Bolus Dose - infuse over 1 hr, STAT, Start date: 06/22/12 14:21:00, Stop date: 06/22/12 14:21:00 Phenergan 25 mg, 1 mL, IVPB No Oscar Route: IVPB, Longer 2012 [facility] Drug form: Active INJ, ONCE, Dosing Weight 50, kg, Priority: STAT, Start date: 06/22/12 14:21:00, Stop date: 06/22/12 14:21:00 morphine 4 mg, 1 mL, IVP No Oscar Sulfate Route: IVP, Longer 2012 [facility] Drug form: Active INJ, ONCE, Dosing Weight 50, kg, Priority: STAT, Start date: 06/22/12 14:21:00, Stop date: 06/22/12 14:21:00 Reglan 10 mg 10 mg, PO, PO Active Yomi oral tablet QID-Before 2010 [facility] Meals, PRN, 40 tab, nausea and vomiting, Substitution Allowed ondansetron 8 mg, 4 mL, IVP No Yomi Route: IVP, Longer 2010 [facility] Drug form: Active INJ, ONCE, Priority: STAT, Start date: 05/14/11 8:21:00, Stop date: 05/14/11 8:21:00 acetaminophen 650 mg, 2 tab, PO No Yomi Route: PO, Longer 2010 [facility] Drug form: Active TAB, ONCE, Priority: STAT, Start date: 05/14/11 7:32:00, Stop date: 05/14/11 7:32:00 Sodium Chloride 250 mL, Route: IVPB Deborah Seymour 0.9% IV IVPB, PRN, Longer 2010 [facility] Line Flush, Active Start date: 05/14/11 7:01:00, Duration: 30 day, Stop date: 06/13/11 7:00:00 BD Normal 10 mL, Route: IVP No Lion Saline Flush IVP, Drug Longer 2010 [facility] Form: INJ, Active PRN, PRN Line Flush, Start date: 05/14/11 7:01:00, Duration: 30 day, Stop date: 06/13/11 7:00:00 Reglan 10 mg, 2 mL, IV No [facility] Route: IV, Longer 2010 [facility] Drug form: Active INJ, ONCE, Start date: 05/14/11 6:42:00, Stop date: 05/14/11 6:42:00 Sodium Chloride 1,000 mL, IV No [facility] 0.9% (Bolus) IV Rate: 1,000 Longer 2010 [facility] 1,000 mL ml/hr, Infuse Active over: 1 hr, Route: IV, Total Volume: 1,000, Bolus Dose, Priority: STAT, Start date: 05/14/11 6:41:00, Duration: 1 doses or times, Stop date: 05/14/11 7:40:00 Zofran 4 mg 4 mg, 1 tab, PO Active Johnny oral tablet PO, ONCE, 3 2010 [facility] tab, Substitution Allowed, TAB potassium 20 mEq, 1 tab, PO No [place] 05/13[facility] chloride 20 mEq Route: PO, Longer 2010 [facility] oral tablet, Drug form: Active extended ERTAB, ONCE, release Priority: STAT, Start date: 05/13/11 0:31:00, Stop date: 05/13/11 0:31:00 Reglan 10 mg, 2 mL, IV No [facility] 05/13[facility] Route: IV, Longer 2010 [facility] Drug form: Active INJ, ONCE, Start date: 05/12/11 22:11:00, Stop date: 05/12/11 22:11:00 ondansetron 4 mg, 2 mL, IVP No [place] 05/13[facility] Route: IVP, Longer 2010 [facility] Drug form: Active INJ, ONCE, Priority: STAT, Start date: 05/12/11 21:25:00, Stop date: 05/12/11 21:25:00 morphine 4 mg, 1 mL, IVP No Hunt 05/13[facility] Sulfate Route: IVP, Longer 2010 [facility] Drug form: Active INJ, ONCE, Priority: STAT, Start date: 05/12/11 21:25:00, Stop date: 05/12/11 21:25:00 Saline Flush 5 ml, Route: IVP No Johnny 0.9% IVP, Drug Longer 2010 [facility] Form: INJ, Active PRN, PRN Line Flush, Start date: 05/12/11 21:25:00, Duration: 30 day, Stop date: 06/11/11 21:24:00 Sodium Chloride 500 mL, Rate: IV No Johnny 0.9% (Bolus) IV 500 ml/hr, Longer 2010 [facility] 500 mL Infuse over: 1 Active hr, Route: IV, Total Volume: 500, Bolus dose, Priority: STAT, Start date: 05/12/11 21:25:00, Duration: 1 doses or times, Stop date: 05/12/11 22:24:00 Allergies, Adverse Reactions, Alerts Substance Category Reaction Severity Reaction Status Date Comments Source type Reported ondansetron drug Allergy Active allergy [facility] Immunizations Immunization Date Given Site Status Last Updated Comments Source Results Order Name Results Value Reference Date Interpretation Comments Source Range BEDSIDE Comment1 Notify 09/22 NA GLUCOSE RN/MD /2012 [facility] TESTING BEDSIDE Gluc POC 93 mg/dL 70 - 99 09/22 Normal 1Interpretive GLUCOSE Lifscn Data: [facility] TESTING Upper Reportable Limit: 200 [...] is not recommended in the following populations: [facility] 3m2 Individuals with unstable creatinine [...] 141 meq/L 135 - 145 09/21 Normal [facility] CHEMISTRY CO2 12 meq/L 24 - 32 09/21 LOW [facility] CHEMISTRY Chloride Lvl 112 meq/L 95 - 109 09/21 HI [facility] CHEMISTRY AGAP 20.8 meq/L 10.0 - 09/21 HI 20.0 [facility] CHEMISTRY Potassium 3.8 meq/L 3.5 - 5.1 09/21 Normal 2Result Comment: [facility] Specimen is slightly hemolyzed CHEMISTRY Calcium Lvl 7.4 mg/dL 8.5 - 10.5 09/21 LOW [facility] CHEMISTRY Glucose Lvl 74 mg/dL 70 - 99 09/21 Normal 5Interpretive Data: Adult reference range values reflect the clinical guidelines of the [place] [employer]. [facility] CHEMISTRY Creatinine 0.6 mg/dL 0.5 - 1.4 09/21 Normal [facility] CHEMISTRY BUN 5 mg/dL 7 - 22 09/21 LOW [facility] CHEMISTRY UDS Note See Note 7 09/20 Normal 7Interpretive Data: Drugs reported as positive have not been confirmed by a second method and should be used for medical purposes only. To order [facility] (09/20/2012 18:12:00) confirmation, contact laboratory. [...] U Opiate Scr Positive Negative 09/20 ABN [facility] *ABN* (09/20/2012 18:12:00) CHEMISTRY U Phencyc Negative Negative 09/20 NA [facility] *NA* (09/20/2012 18:12:00) CHEMISTRY U Cannab Scr Positive Negative 09/20 ABN [facility] *ABN* (09/20/2012 18:12:00) CHEMISTRY U Cocaine Positive Negative 09/20 ABN [facility] *ABN* (09/20/2012 18:12:00) CHEMISTRY U Benzodia Negative Negative 09/20 NA Scr [facility] *NA* (09/20/2012 18:12:00) CHEMISTRY U Amph Scr Negative Negative 09/20 NA [facility] *NA* (09/20/2012 18:12:00) CHEMISTRY U Abbi Scr Negative Negative 09/20 NA [facility] *NA* (09/20/2012 18:12:00) URINALYSIS UA Sq Epi Few /LPF Few 09/20 Normal [facility] (09/20/2012 18:12:00) URINALYSIS UA WBC 3-5 /HPF None Seen 09/20 Normal [facility] (09/20/2012 18:12:00) URINALYSIS Micro? Performed 09/20 Normal [facility] (09/20/2012 18:12:00) URINALYSIS UA Bacteria Few /HPF None Seen 09/20 Normal [facility] (09/20/2012 18:12:00) URINALYSIS UA Mucus Rare /LPF None Seen 09/20 Normal [facility] (09/20/2012 18:12:00) URINALYSIS UA RBC 51-100 /HPF 0 - 2 09/20 [facility] *ABN* (09/20/2012 18:12:00) URINALYSIS UA Leuk Est Trace Negative 09/20 [facility] *ABN* (09/20/2012 18:12:00) URINALYSIS UA Nitrite Negative Negative 09/20 Normal [facility] (09/20/2012 18:12:00) URINALYSIS UA Color Red Yellow 09/20 [facility] *ABN* (09/20/2012 18:12:00) URINALYSIS UA Bili Negative Negative 09/20 [facility] *NA* (09/20/2012 18:12:00) URINALYSIS UA 1.0 EU/dL 0.1 - 1.0 09/20 Normal Urobilinogen [facility] URINALYSIS UA Blood Large Negative 09/20 [facility] *ABN* (09/20/2012 18:12:00) URINALYSIS UA Turbidity Cloudy Clear 09/20 [facility] *ABN* (09/20/2012 18:12:00) URINALYSIS UA pH 7.5 5.0 - 8.0 09/20 Normal [facility] URINALYSIS UA Spec Grav 1.020 <=1.030 09/20 Normal [facility] URINALYSIS UA Protein 30 mg/dL Negative 09/20 ABN [facility] *ABN* (09/20/2012 18:12:00) URINALYSIS UA Ketones >=80 mg/dL Negative 09/20 NA [facility] *NA* (09/20/2012 18:12:00) URINALYSIS UA Glucose Negative Negative 09/20 Normal [facility] (09/20/2012 18:12:00) Microbiolo Culture: 09/20 gy Urine [facility] CHEMISTRY S Preg Negative Negative 09/20 NA [facility] *NA* (09/20/2012 12:03:37) CHEMISTRY eGFR [...] is not recommended in the following populations: [facility] 3m2 Individuals with unstable creatinine [...] 107 meq/L 95 - 109 09/20 Normal [facility] CHEMISTRY CO2 25 meq/L 24 - 32 09/20 Normal [facility] CHEMISTRY Calcium Lvl 8.8 mg/dL 8.5 - 10.5 09/20 Normal [facility] CHEMISTRY Sodium Lvl 140 meq/L 135 - 145 09/20 Normal [facility] CHEMISTRY Potassium 3.2 meq/L 3.5 - 5.1 09/20 LOW [facility] CHEMISTRY Creatinine 0.8 mg/dL 0.5 - 1.4 09/20 Normal [facility] CHEMISTRY BUN 9 mg/dL 7 - 22 09/20 Normal [facility] CHEMISTRY Glucose Lvl 94 mg/dL 70 - 99 09/20 Normal 6Interpretive Data: Adult reference range values reflect the clinical guidelines of the [place] [employer]. [facility] CHEMISTRY AGAP 11.2 meq/L 10.0 - 09/20 Normal [facility] 20.0 [facility] HEMATOLOGY MCV 86.3 fL 81.0 - 09/20 Normal [facility] 99.0 /2012 [facility] HEMATOLOGY Hct 36.5 % 36.0 - 09/20 Normal MH 48.0 /2012 [facility] HEMATOLOGY RBC 4.23 M/CMM 4.20 - 09/20 Normal MH 5.40 /2012 [facility] HEMATOLOGY WBC 4.3 K/CMM 3.7 - 10.4 09/20 Normal /2012 [facility] HEMATOLOGY Hgb 11.8 g/dL 12.0 - 09/20 LOW MH 16.0 [facility] HEMATOLOGY MCHC 32.2 g/dL 32.0 - 09/20 Normal MH 36.0 [facility] HEMATOLOGY MCH 27.8 pg 27.0 - 09/20 Normal MH 31.0 [facility] HEMATOLOGY RDW 15.0 % 11.5 - 09/20 HI MH 14.5 [facility] HEMATOLOGY MPV 9.5 fL 7.4 - 10.4 09/20 Normal [facility] HEMATOLOGY Platelet 224 K/CMM 133 - 450 09/20 Normal [facility] HEMATOLOGY Monocytes 6.8 % 2.0 - 12.0 09/20 Normal [facility] HEMATOLOGY Lymphocytes 23.4 % 20.0 - 09/20 Normal 40.0 [facility] HEMATOLOGY Eosinophils 0.5 % 0.0 - 4.0 09/20 Normal [facility] HEMATOLOGY Monocytes # 0.3 K/CMM 0.0 - 0.8 09/20 Normal [facility] HEMATOLOGY Segs-Bands # 2.9 K/CMM 1.5 - 8.1 09/20 Normal [facility] HEMATOLOGY Basophils 0.3 % 0.0 - 1.0 09/20 Normal [facility] HEMATOLOGY Lymphocytes 1.0 K/CMM 1.0 - 5.5 09/20 Normal MH /2012 [facility] HEMATOLOGY Giant Plt Slight None Seen 09/20 ABN /2012 [facility] *ABN* (09/20/2012 12:03:00) HEMATOLOGY Segs 69.0 % 45.0 - 09/20 Normal MH 75.0 [facility] HEMATOLOGY Eosinophils 0.0 K/CMM 0.0 - 0.5 09/20 Normal MH # /2012 [facility] HEMATOLOGY Basophils # 0.0 K/CMM 0.0 - 0.2 09/20 Normal [facility] HEMATOLOGY Large Plt Slight None Seen 09/20 ABN [facility] *ABN* (09/20/2012 12:03:00) HEMATOLOGY Elliptocyte Slight None Seen 09/20 ABN [facility] *ABN* (09/20/2012 12:03:00) HEMATOLOGY Polychrom Slight None Seen 09/20 Normal [facility] (09/20/2012 12:03:00) CHEMISTRY U Preg Negative Negative 08/18 Normal [facility] (08/17/2012 20:50:00) URINALYSIS UA Color Yellow Yellow 08/18 NA [facility] *NA* (08/17/2012 20:50:00) URINALYSIS UA Protein 30 mg/dL Negative 08/18 [facility] *ABN* (08/17/2012 20:50:00) URINALYSIS UA Spec Grav >=1.030 <=1.030 08/18 ABN [facility] *ABN* (08/17/2012 20:50:00) URINALYSIS UA pH 6.0 5.0 - 8.0 08/18 Normal [facility] URINALYSIS UA Turbidity Slight Cloudy Clear 08/18 Normal [facility] (08/17/2012 20:50:00) URINALYSIS UA Nitrite Negative Negative 08/18 Normal [facility] (08/17/2012 20:50:00) URINALYSIS UA Bili Negative Negative 08/18 NA [facility] *NA* (08/17/2012 20:50:00) URINALYSIS UA Blood Trace Negative 08/18 [facility] *ABN* (08/17/2012 20:50:00) URINALYSIS UA Glucose Negative Negative 08/18 Normal [facility] (08/17/2012 20:50:00) URINALYSIS UA Ketones >=80 mg/dL Negative 08/18 NA [facility] *NA* (08/17/2012 20:50:00) URINALYSIS UA 1.0 EU/dL 0.1 - 1.0 08/18 Normal Urobilinogen [facility] URINALYSIS UA Leuk Est Moderate Negative 08/18 ABN [facility] *ABN* (08/17/2012 20:50:00) URINALYSIS UA WBC 21-50 /HPF None Seen 08/18 ABN [facility] *ABN* (08/17/2012 20:50:00) URINALYSIS UA Bacteria Many /HPF None Seen 08/18 Normal [facility] (08/17/2012 20:50:00) URINALYSIS UA Mucus Few /LPF None Seen 08/18 Normal [facility] (08/17/2012 20:50:00) URINALYSIS UA Sq Epi Occasional /LPF Few 08/18 Normal [facility] (08/17/2012 20:50:00) CHEMISTRY CK MB Index null 0.0 - 2.5 08/18 Normal [facility] CHEMISTRY Amylase Lvl 53 unit/L 25 - 115 08/18 Normal [facility] CHEMISTRY eGFR 144 08/18 NA [...] is not recommended in the following populations: [facility] 3m2 Individuals with unstable creatinine [...] 7.8 g/dL 6.4 - 8.4 08/18 Normal [facility] CHEMISTRY Bili Total 0.4 mg/dL 0.2 - 1.3 08/18 Normal [facility] CHEMISTRY Calcium Lvl 9.1 mg/dL 8.5 - 10.5 08/18 Normal [facility] CHEMISTRY Albumin Lvl 3.6 g/dL 3.5 - 5.0 08/18 Normal [facility] CHEMISTRY AGAP 18.7 meq/L 10.0 - 08/18 Normal MH 20.0 [facility] CHEMISTRY AST 16 unit/L 0 - 37 08/18 Normal [facility] CHEMISTRY Alk Phos 84 unit/L 39 - 136 08/18 Normal [facility] CHEMISTRY ALT 14 unit/L 0 - 65 08/18 Normal [facility] CHEMISTRY B/C Ratio 12 6 - 25 08/18 Normal [facility] CHEMISTRY A/G Ratio 0.9 0.7 - 1.6 08/18 Normal [facility] CHEMISTRY Globulin 4.2 g/dL 2.0 - 4.0 08/18 HI [facility] CHEMISTRY Sodium Lvl 141 meq/L 135 - 145 08/18 Normal [facility] CHEMISTRY Potassium 3.7 meq/L 3.5 - 5.1 08/18 Normal [facility] CHEMISTRY Chloride Lvl 104 meq/L 95 - 109 08/18 Normal [facility] CHEMISTRY CO2 22 meq/L 24 - 32 08/18 LOW [facility] CHEMISTRY Glucose Lvl 81 mg/dL 70 - 99 08/18 Normal 2Interpretive Data: Adult reference range values reflect the clinical guidelines of the [place] [employer]. [facility] CHEMISTRY Creatinine 0.6 mg/dL 0.5 - 1.4 08/18 Normal [facility] CHEMISTRY BUN 7 mg/dL 7 - 22 08/18 Normal [facility] CHEMISTRY Lipase Lvl 71 unit/L 73 - 393 08/18 LOW [facility] CHEMISTRY Total CK 114 unit/L 12 - 191 08/18 Normal [facility] CHEMISTRY Troponin-I null 0.00 - 08/18 Normal 0.40 [facility] CHEMISTRY CK MB null 0.5 - 3.6 08/18 Normal [facility] HEMATOLOGY Eosinophils 0.0 % 0.0 - 4.0 08/18 Normal [facility] HEMATOLOGY Lymphocytes 0.9 K/CMM 1.0 - 5.5 08/18 LOW MH [facility] HEMATOLOGY Basophils 1.2 % 0.0 - 1.0 08/18 HI [facility] HEMATOLOGY Monocytes # 0.4 K/CMM 0.0 - 0.8 08/18 Normal [facility] HEMATOLOGY Segs-Bands # 5.5 K/CMM 1.5 - 8.1 08/18 Normal [facility] HEMATOLOGY Lymphocytes 12.3 % 20.0 - 08/18 LOW MH 40.0 [facility] HEMATOLOGY Plt Morph Normal 08/18 Normal /2012 [facility] (08/17/2012 20:11:00) HEMATOLOGY Monocytes 6.3 % 2.0 - 12.0 08/18 Normal /2012 [facility] HEMATOLOGY Segs 80.2 % 45.0 - 08/18 HI MH 75.0 /2012 [facility] HEMATOLOGY Eosinophils 0.0 K/CMM 0.0 - 0.5 08/18 Normal MH # /2012 [facility] HEMATOLOGY Basophils # 0.1 K/CMM 0.0 - 0.2 08/18 Normal [facility] HEMATOLOGY Polychrom Slight None Seen 08/18 Normal /2012 [facility] (08/17/2012 20:11:00) HEMATOLOGY Hgb 11.2 g/dL 12.0 - 08/18 LOW 16.0 [facility] HEMATOLOGY Hct 34.2 % 36.0 - 08/18 LOW 48.0 [facility] HEMATOLOGY RBC 3.98 M/CMM 4.20 - 08/18 LOW 5.40 /2012 [facility] HEMATOLOGY MCV 85.9 fL 81.0 - 08/18 Normal 99.0 [facility] HEMATOLOGY MCH 28.1 pg 27.0 - 08/18 Normal 31.0 [facility] HEMATOLOGY WBC 6.9 K/CMM 3.7 - 10.4 08/18 Normal [facility] HEMATOLOGY MPV 10.2 fL 7.4 - 10.4 08/18 Normal [facility] HEMATOLOGY RDW 15.6 % 11.5 - 08/18 HI MH 14.5 /2012 [facility] HEMATOLOGY Platelet 212 K/CMM 133 - 450 08/18 Normal [facility] HEMATOLOGY MCHC 32.8 g/dL 32.0 - 08/18 Normal 36.0 [facility] CHEMISTRY U Preg Negative Negative 08/05 Normal [facility] (08/05/2012 17:19:00) URINALYSIS Micro? Performed 08/05 Normal [facility] (08/05/2012 17:19:00) URINALYSIS UA Sq Epi Moderate /LPF Few 08/05 ABN [facility] *ABN* (08/05/2012 17:19:00) URINALYSIS UA Mucus Many /LPF None Seen 08/05 ABN [facility] *ABN* (08/05/2012 17:19:00) URINALYSIS UA Bacteria Few /HPF None Seen 08/05 Normal [facility] (08/05/2012 17:19:00) URINALYSIS UA RBC 0-2 /HPF 0 - 2 08/05 Normal [facility] (08/05/2012 17:19:00) URINALYSIS UA WBC 3-5 /HPF None Seen 08/05 Normal [facility] (08/05/2012 17:19:00) URINALYSIS UA Color Yellow Yellow 08/05 NA [facility] *NA* (08/05/2012 17:19:00) URINALYSIS UA 1.0 EU/dL 0.1 - 1.0 08/05 Normal Urobilino [facility] URINALYSIS UA Ketones >=80 mg/dL Negative 08/05 NA [facility] *NA* (08/05/2012 17:19:00) URINALYSIS UA Glucose Negative Negative 08/05 Normal [facility] (08/05/2012 17:19:00) URINALYSIS UA Blood Negative Negative 08/05 Normal [facility] (08/05/2012 17:19:00) URINALYSIS UA Bili Negative Negative 08/05 NA [facility] *NA* (08/05/2012 17:19:00) URINALYSIS UA pH 7.0 5.0 - 8.0 08/05 Normal [facility] URINALYSIS UA Protein 30 mg/dL Negative 08/05 ABN [facility] *ABN* (08/05/2012 17:19:00) URINALYSIS UA Spec Grav 1.020 <=1.030 08/05 Normal [facility] URINALYSIS UA Turbidity Slight Cloudy Clear 08/05 Normal [facility] (08/05/2012 17:19:00) URINALYSIS UA Leuk Est Negative Negative 08/05 Normal [facility] (08/05/2012 17:19:00) URINALYSIS UA Nitrite Negative Negative 08/05 Normal [facility] (08/05/2012 17:19:00) CHEMISTRY Lipase Lvl 58 unit/L 73 - 393 08/05 LOW [facility] CHEMISTRY eGFR 137 08/05 NA [...] is not recommended in the following populations: [facility] 3m2 Individuals with unstable creatinine [...] 0.4 mg/dL 0.2 - 1.3 08/05 Normal [facility] CHEMISTRY Alk Phos 85 unit/L 39 - 136 08/05 Normal [facility] CHEMISTRY ALT 18 unit/L 0 - 65 08/05 Normal [facility] CHEMISTRY AST 14 unit/L 0 - 37 08/05 Normal [facility] CHEMISTRY Potassium 3.5 meq/L 3.5 - 5.1 08/05 Normal Lvl [facility] CHEMISTRY Chloride Lvl 108 meq/L 95 - 109 08/05 Normal [facility] CHEMISTRY Creatinine 0.7 mg/dL 0.5 - 1.4 08/05 Normal Lvl [facility] CHEMISTRY CO2 23 meq/L 24 - 32 08/05 LOW [facility] CHEMISTRY BUN 6 mg/dL 7 - 22 08/05 LOW [facility] CHEMISTRY Sodium Lvl 142 meq/L 135 - 145 08/05 Normal [facility] CHEMISTRY Calcium Lvl 9.5 mg/dL 8.5 - 10.5 08/05 Normal [facility] CHEMISTRY Total 9.1 g/dL 6.4 - 8.4 08/05 HI [facility] CHEMISTRY Albumin Lvl 4.2 g/dL 3.5 - 5.0 08/05 Normal [facility] CHEMISTRY Glucose Lvl 120 mg/dL 70 - 99 08/05 HI 2Interpretive Data: Adult reference range values reflect the clinical guidelines of the [place] [employer]. [facility] CHEMISTRY Globulin 4.9 g/dL 2.0 - 4.0 08/05 HI MH [facility] CHEMISTRY B/C Ratio 9 6 - 25 03 Normal [facility] CHEMISTRY AGAP 14.5 meq/L 10.0 - 03 Normal 20. [facility] CHEMISTRY A/G Ratio 0.9 0.7 - 1.6 08/05 Normal [facility] HEMATOLOGY Hypochrom Slight None Seen 08/05 Normal [facility] (08/05/2012 15:40:00) HEMATOLOGY Basophils # 0.0 K/CMM 0.0 - 0.2 08/05 Normal [facility] HEMATOLOGY Eosinophils 0.0 K/CMM 0.0 - 0.5 08/05 Normal [facility] HEMATOLOGY Monocytes # 0.0 K/CMM 0.0 - 0.8 08/05 Normal [facility] HEMATOLOGY Large Plt Slight None Seen 08/05 ABN [facility] *ABN* (08/05/2012 15:40:00) HEMATOLOGY Giant Plt Slight None Seen 08/05 ABN [facility] *ABN* (08/05/2012 15:40:00) HEMATOLOGY Target Cell Slight None Seen 08/05 ABN [facility] *ABN* (08/05/2012 15:40:00) HEMATOLOGY Elliptocyte Slight None Seen 08/05 ABN [facility] *ABN* (08/05/2012 15:40:00) HEMATOLOGY Polychrom Slight None Seen 08/05 Normal [facility] (08/05/2012 15:40:00) HEMATOLOGY Lymphocytes 0.2 K/CMM 1.0 - 5.5 08/05 LOW [facility] HEMATOLOGY Segs-Bands # 4.1 K/CMM 1.5 - 8.1 08/05 Normal [facility] HEMATOLOGY Basophils 0.1 % 0.0 - 1.0 08/05 Normal [facility] HEMATOLOGY Eosinophils 0.0 % 0.0 - 4.0 08/05 Normal [facility] HEMATOLOGY Monocytes 1.0 % 2.0 - 12.0 08/05 LOW [facility] HEMATOLOGY Lymphocytes 5.6 % 20.0 - 08/05 LOW 40.0 [facility] HEMATOLOGY Segs 93.3 % 45.0 - 0308 HI 75.0 [facility] HEMATOLOGY MCHC 32.8 g/dL 32.0 - 0308 Normal 36.0 [facility] HEMATOLOGY MCV 85.2 fL 81.0 - 0308 Normal 99.0 [facility] HEMATOLOGY MCH 27.9 pg 27.0 - 08 Normal 31.0 [facility] HEMATOLOGY RDW 15.3 % 11.5 - 03 HI 14.5 /2012 [facility] HEMATOLOGY Hct 37.9 % 36.0 - 08/05 Normal 48.0 /2012 [facility] HEMATOLOGY WBC 4.4 K/CMM 3.7 - 10.4 08/05 Normal MH [facility] HEMATOLOGY RBC 4.45 M/CMM 4.20 - 03 Normal 5.40 /2012 [facility] HEMATOLOGY Hgb 12.4 g/dL 12.0 - 03 Normal 16.0 /2012 [facility] HEMATOLOGY MPV 9.6 fL 7.4 - 10.4 08/05 Normal [facility] HEMATOLOGY Platelet 282 K/CMM 133 - 450 08/05 Normal [facility] BEDSIDE Comment1 Notify 06/23 [facility] GLUCOSE RN/ [facility] TESTING BEDSIDE Gluc POC 93 mg/dL 70 - 99 06/23 Normal 1Interpretive GLUCOSE [facility] Data: [facility] TESTING Upper Reportable Limit: 200 mg/dL. BEDSIDE Comment1 Notify 06/23 [facility] GLUCOSE MATHEW/ [facility] TESTING BEDSIDE Gluc POC 113 mg/dL 70 - 99 06/23 HI 2Interpretive GLUCOSE [facility] Data: [facility] TESTING Upper Reportable Limit: 200 mg/dL. BEDSIDE Gluc POC 88 mg/dL 70 - 99 06/23 Normal 3Interpretive GLUCOSE [facility] Data: [facility] TESTING Upper Reportable Limit: 200 mg/dL. BEDSIDE Comment1 Notify 06/23 [facility] GLUCOSE MATHEW/ /2012 [facility] TESTING CHEMISTRY Hgb A1C null 06/23 NA 9Result Comment: [facility] reran sample twice. CHEMISTRY eGFR [...] is not recommended in the following populations: [facility] 3m2 Individuals with unstable creatinine [...] values reflect the clinical guidelines of the [place]. [facility] CHEMISTRY BUN 13 mg/dL 7 - 22 06/23 Normal [facility] CHEMISTRY Creatinine 0.8 mg/dL 0.5 - 1.4 06/23 Normal MH [facility] CHEMISTRY CO2 21 meq/L 24 - 32 06/23 LOW [facility] CHEMISTRY Calcium Lvl 7.4 mg/dL 8.5 - 10.5 06/23 LOW [facility] CHEMISTRY AGAP 13.5 meq/L 10.0 - 06/23 Normal 20. [facility] CHEMISTRY Sodium Lvl 144 meq/L 135 - 145 06/23 Normal [facility] CHEMISTRY Potassium 3.5 meq/L 3.5 - 5.1 06/23 Normal [facility] CHEMISTRY Chloride Lvl 113 meq/L 95 - 109 06/23 HI [facility] CHEMISTRY Valproic 46 ug/ml 50 - 100 06/23 LOW Acid [facility] HEMATOLOGY Giant Plt Slight None Seen 06/23 ABN [facility] *ABN* (06/23/2012 05:45:00) HEMATOLOGY Elliptocyte Slight None Seen 06/23 ABN [facility] *ABN* (06/23/2012 05:45:00) HEMATOLOGY Tear Cell Slight None Seen 06/23 ABN [facility] *ABN* (06/23/2012 05:45:00) HEMATOLOGY Eosinophils 0.0 K/CMM 0.0 - 0.5 06/23 Normal [facility] HEMATOLOGY Monocytes # 0.5 K/CMM 0.0 - 0.8 06/23 Normal [facility] HEMATOLOGY Lymphocytes 1.8 K/CMM 1.0 - 5.5 06/23 Normal [facility] HEMATOLOGY Basophils # 0.0 K/CMM 0.0 - 0.2 06/23 Normal [facility] HEMATOLOGY Basophils 0.4 % 0.0 - 1.0 06/23 Normal [facility] HEMATOLOGY Segs 53.4 % 45.0 - 06/23 Normal 75. [facility] HEMATOLOGY Lymphocytes 35.5 % 20.0 - 06/23 Normal MH 40.0 [facility] HEMATOLOGY Monocytes 10.4 % 2.0 - 12.0 06/23 Normal [facility] HEMATOLOGY Eosinophils 0.3 % 0.0 - 4.0 06/23 Normal [facility] HEMATOLOGY Segs-Bands # 2.7 K/CMM 1.5 - 8.1 06/23 Normal [facility] HEMATOLOGY WBC 5.0 K/CMM 3.7 - 10.4 06/23 Normal [facility] HEMATOLOGY RBC 3.14 M/CMM 4.20 - 06/23 LOW MH 5.40 [facility] HEMATOLOGY Hgb 8.9 g/dL 12.0 - 06/23 LOW 16.0 [facility] HEMATOLOGY RDW 16.1 % 11.5 - 06/23 HI MH 14.5 [facility] HEMATOLOGY Platelet 154 K/CMM 133 - 450 06/23 Normal [facility] HEMATOLOGY MPV 10.3 fL 7.4 - 10.4 06/23 Normal [facility] HEMATOLOGY Hct 27.1 % 36.0 - 06/23 LOW 48.0 [facility] HEMATOLOGY MCV 86.2 fL 81.0 - 06/23 Normal 99.0 [facility] HEMATOLOGY MCH 28.5 pg 27.0 - 06/23 Normal 31.0 [facility] HEMATOLOGY MCHC 33.0 g/dL 32.0 - 06/23 Normal 36.0 [facility] CHEMISTRY U Cocaine Positive Negative 06/22 ABN [facility] *ABN* (06/22/2012 15:50:00) CHEMISTRY U Benzodia Negative Negative 06/22 NA [facility] *NA* (06/22/2012 15:50:00) CHEMISTRY U Abbi Scr Negative Negative 06/22 NA [facility] *NA* (06/22/2012 15:50:00) CHEMISTRY U Amph Scr Negative Negative 06/22 NA [facility] *NA* (06/22/2012 15:50:00) CHEMISTRY UDS Note See Note 10 06/22 Normal 10Interpretive Data: Drugs reported as positive have not been confirmed by a second method and should be used for medical purposes only. To order [facility] (06/22/2012 15:50:00) confirmation, contact laboratory. [...] CHEMISTRY U Phencyc Negative Negative 06/22 NA [facility] *NA* (06/22/2012 15:50:00) CHEMISTRY U Opiate Scr Positive Negative 06/22 [facility] *ABN* (06/22/2012 15:50:00) CHEMISTRY U Cannab Scr Positive Negative 06/22 ABN [facility] *ABN* (06/22/2012 15:50:00) CHEMISTRY U Preg Negative Negative 06/22 Normal [facility] (06/22/2012 15:50:00) URINALYSIS UA Sq Epi Occasional /LPF Few 06/22 Normal [facility] (06/22/2012 15:50:00) URINALYSIS UA WBC 0-2 /HPF None Seen 06/22 Normal [facility] (06/22/2012 15:50:00) URINALYSIS UA Bacteria Occasional /HPF None Seen 06/22 Normal [facility] (06/22/2012 15:50:00) URINALYSIS UA Mucus Few /LPF None Seen 06/22 Normal [facility] (06/22/2012 15:50:00) URINALYSIS UA Turbidity Clear Clear 06/22 Normal [facility] (06/22/2012 15:50:00) URINALYSIS UA Ketones 40 mg/dL Negative 06/22 NA [facility] *NA* (06/22/2012 15:50:00) URINALYSIS UA Spec Grav >=1.030 <=1.030 06/22 ABN [facility] *ABN* (06/22/2012 15:50:00) URINALYSIS UA Nitrite Negative Negative 06/22 Normal [facility] (06/22/2012 15:50:00) URINALYSIS UA Blood Trace Negative 06/22 ABN [facility] *ABN* (06/22/2012 15:50:00) URINALYSIS UA 1.0 EU/dL 0.1 - 1.0 06/22 Normal Urobilinogen [facility] URINALYSIS UA Bili Negative Negative 06/22 NA [facility] *NA* (06/22/2012 15:50:00) URINALYSIS UA Glucose Negative Negative 06/22 Normal [facility] (06/22/2012 15:50:00) URINALYSIS UA Protein 30 mg/dL Negative 06/22 ABN [facility] *ABN* (06/22/2012 15:50:00) URINALYSIS UA pH 6.0 5.0 - 8.0 06/22 Normal [facility] URINALYSIS UA Leuk Est Negative Negative 06/22 Normal [facility] (06/22/2012 15:50:00) URINALYSIS UA Color Yellow Yellow 06/22 NA [facility] *NA* (06/22/2012 15:50:00) Microbiolo Culture: 06/22 gy [facility] CHEMISTRY eGFR 101 06/22 NA [...] is not recommended in the following populations: [facility] 3m2 Individuals with unstable creatinine [...] 0.4 mg/dL 0.2 - 1.3 06/22 Normal [facility] CHEMISTRY ALT 17 unit/L 0 - 65 06/22 Normal [facility] CHEMISTRY Albumin Lvl 4.3 g/dL 3.5 - 5.0 06/22 Normal [facility] CHEMISTRY Alk Phos 74 unit/L 39 - 136 06/22 Normal [facility] CHEMISTRY AST 12 unit/L 0 - 37 06/22 Normal [facility] CHEMISTRY Total 8.6 g/dL 6.4 - 8.4 06/22 HI MH [facility] CHEMISTRY Calcium Lvl 9.4 mg/dL 8.5 - 10.5 06/22 Normal [facility] CHEMISTRY Potassium 4.1 meq/L 3.5 - 5.1 06/22 Normal l [facility] CHEMISTRY Sodium Lvl 139 meq/L 135 - 145 06/22 Normal [facility] CHEMISTRY Glucose Lvl 119 mg/dL 70 - 99 06/22 HI 7Interpretive Data: Adult reference range values reflect the clinical guidelines of the [place] [employer]. [facility] CHEMISTRY Chloride Lvl 106 meq/L 95 - 109 06/22 Normal [facility] CHEMISTRY CO2 20 meq/L 24 - 32 06/22 LOW [facility] CHEMISTRY BUN 15 mg/dL 7 - 22 06/22 Normal [facility] CHEMISTRY Creatinine 0.9 mg/dL 0.5 - 1.4 06/22 Normal [facility] CHEMISTRY A/G Ratio 1.0 0.7 - 1.6 06/22 Normal [facility] CHEMISTRY B/C Ratio 17 6 - 25 06/22 Normal [facility] CHEMISTRY Globulin 4.3 g/dL 2.0 - 4.0 06/22 HI [facility] CHEMISTRY AGAP 17.1 meq/L 10.0 - 06/22 Normal 20.0 [facility] CHEMISTRY Lipase Lvl 40 unit/L 73 - 393 06/22 LOW [facility] CHEMISTRY Amylase Lvl 46 unit/L 25 - 115 06/22 Normal [facility] HEMATOLOGY Target Cell Slight None Seen 06/22 ABN [facility] *ABN* (06/22/2012 14:10:00) HEMATOLOGY Large Plt Slight None Seen 06/22 ABN [facility] *ABN* (06/22/2012 14:10:00) HEMATOLOGY Polychrom Slight None Seen 06/22 Normal [facility] (06/22/2012 14:10:00) HEMATOLOGY Basophils # 0.0 K/CMM 0.0 - 0.2 06/22 Normal [facility] HEMATOLOGY Eosinophils 0.0 K/CMM 0.0 - 0.5 06/22 Normal [facility] HEMATOLOGY Segs 86.0 % 45.0 - 06/22 HI MH 75.0 /2012 [facility] HEMATOLOGY Monocytes # 0.3 K/CMM 0.0 - 0.8 06/22 Normal /2012 [facility] HEMATOLOGY Lymphocytes 0.6 K/CMM 1.0 - 5.5 06/22 LOW MH # /2012 [facility] HEMATOLOGY Segs-Bands # 5.5 K/CMM 1.5 - 8.1 06/22 Normal [facility] HEMATOLOGY Basophils 0.2 % 0.0 - 1.0 06/22 Normal [facility] HEMATOLOGY Eosinophils 0.0 % 0.0 - 4.0 06/22 Normal [facility] HEMATOLOGY Lymphocytes 9.4 % 20.0 - 06/22 LOW MH 40.0 [facility] HEMATOLOGY Monocytes 4.4 % 2.0 - 12.0 06/22 Normal [facility] HEMATOLOGY MPV 10.2 fL 7.4 - 10.4 06/22 Normal [facility] HEMATOLOGY MCHC 33.2 g/dL 32.0 - 06/22 Normal MH 36.0 [facility] HEMATOLOGY MCH 28.5 pg 27.0 - 06/22 Normal MH 31.0 [facility] [facility] RBC 4.12 M/CMM 4.20 - 06/22 LOW MH 5.40 /2012 [facility] HEMATOLOGY RDW 15.8 % 11.5 - 06/22 HI MH 14.5 [facility] HEMATOLOGY Platelet 214 K/CMM 133 - 450 06/22 Normal /2012 [facility] HEMATOLOGY Hgb 11.7 g/dL 12.0 - 06/22 LOW MH 16.0 [facility] HEMATOLOGY Hct 35.3 % 36.0 - 06/22 LOW MH 48.0 [facility] HEMATOLOGY MCV 85.7 fL 81.0 - 06/22 Normal MH 99.0 [facility] HEMATOLOGY WBC 6.4 K/CMM 3.7 - 10.4 06/22 Normal [facility] CHEMISTRY Ketones Qual Negative Negative 05/14 Normal [facility] (05/14/2011 07:30:00) CHEMISTRY AGAP 18.2 meq/L 10.0 - 05/14 Normal MH 20. [facility] CHEMISTRY Glucose Lvl 105 mg/dL 05/14 NA 1Interpretive Data: [facility] Reference Ranges : 0 - 7 days : 41 - 90 mg/dL7 days - 150 yrs : 70 - 99 mg/dL (fasting), based on the clinical recommendatio ns of the [place] [employer]. CHEMISTRY Calcium Lvl 9.5 mg/dL 8.5 - 10.5 05/14 Normal MH [facility] CHEMISTRY CO2 18 meq/L 24 - 32 05/14 LOW MH [facility] CHEMISTRY Creatinine 0.6 mg/dL 0.5 - 1.4 05/14 Normal Lvl /2010 [facility] CHEMISTRY BUN 12 mg/dL 7 - 22 05/14 Normal [facility] CHEMISTRY Potassium 3.2 meq/L 3.5 - 5.1 05/14 LOW MH Lvl /2010 [facility] CHEMISTRY Sodium Lvl 136 meq/L 135 - 145 05/14 Normal MH [facility] CHEMISTRY Chloride Lvl 103 meq/L 95 - 109 05/14 Normal MH [facility] HEMATOLOGY MPV 9.1 fL 7.4 - 10.4 05/14 Normal [facility] HEMATOLOGY RDW 13.7 % 11.5 - 05/14 Normal 14. [facility] HEMATOLOGY MCHC 33.8 g/dL 32.0 - 05/14 Normal 36.0 /2010 [facility] HEMATOLOGY Platelet 292 K/CMM 133 - 450 05/14 Normal MH [facility] HEMATOLOGY MCV 87.4 fL 81.0 - 05/14 Normal 99.0 [facility] HEMATOLOGY MCH 29.6 pg 27.0 - 05/14 Normal 31.0 [facility] HEMATOLOGY Hct 36.3 % 36.0 - 05/14 Normal 48.0 /2010 [facility] HEMATOLOGY RBC 4.15 M/CMM 4.20 - 05/14 LOW MH 5.40 /2010 [facility] HEMATOLOGY Hgb 12.3 g/dL 12.0 - 05/14 Normal 16.0 [facility] HEMATOLOGY WBC 7.7 K/CMM 3.7 - 10.4 05/14 Normal MH [facility] HEMATOLOGY Large Plt Slight None Seen 05/14 ABN MH [facility] *ABN* (05/14/2011 07:30:00) HEMATOLOGY Giant Plt Slight None Seen 05/14 ABN [facility] *ABN* (05/14/2011 07:30:00) HEMATOLOGY Lymphocytes 0.6 K/CMM 1.0 - 5.5 05/14 LOW MH # /2010 [facility] HEMATOLOGY Segs-Bands # 6.2 K/CMM 1.5 - 8.1 05/14 Normal [facility] HEMATOLOGY Basophils 2.3 % 0.0 - 1.0 05/14 HI MH [facility] HEMATOLOGY Eosinophils 0.0 % 0.0 - 4.0 05/14 Normal [facility] HEMATOLOGY Elliptocyte Slight None Seen 05/14 ABN [facility] *ABN* (05/14/2011 07:30:00) HEMATOLOGY Tear Cell Slight None Seen 05/14 ABN [facility] *ABN* (05/14/2011 07:30:00) HEMATOLOGY Eosinophils 0.0 K/CMM 0.0 - 0.5 05/14 Normal MH # /2010 [facility] HEMATOLOGY Basophils # 0.2 K/CMM 0.0 - 0.2 05/14 Normal [facility] HEMATOLOGY Monocytes # 0.6 K/CMM 0.0 - 0.8 05/14 Normal [facility] HEMATOLOGY Lymphocytes 8.1 % 20.0 - 05/14 LOW MH 40.0 [facility] HEMATOLOGY Monocytes 8.4 % 2.0 - 12.0 05/14 Normal [facility] HEMATOLOGY Segs 81.2 % 45.0 - 05/14 HI 75.0 [facility] URINALYSIS UA WBC 11-20 /HPF None Seen 05/13 ABN [facility] *ABN* (05/13/2011 00:50:00) URINALYSIS UA Bacteria Few /HPF None Seen 05/13 Normal [facility] (05/13/2011 00:50:00) URINALYSIS UA RBC 0-2 /HPF 0 - 2 05/13 Normal [facility] (05/13/2011 00:50:00) URINALYSIS UA Nitrite Negative Negative 05/13 Normal [facility] (05/13/2011 00:50:00) URINALYSIS UA Leuk Est Trace Negative 05/13 ABN [facility] *ABN* (05/13/2011 00:50:00) URINALYSIS UA 0.2 EU/dL 0.1 - 1.0 05/13 Normal [place] [facility] URINALYSIS UA Sq Epi Few /LPF Few 05/13 Normal [facility] (05/13/2011 00:50:00) URINALYSIS Micro? Performed 05/13 Normal [facility] (05/13/2011 00:50:00) URINALYSIS UA Blood Negative Negative 05/13 Normal [facility] (05/13/2011 00:50:00) URINALYSIS UA pH 6.0 5.0 - 8.0 05/13 Normal [facility] URINALYSIS UA Spec Grav >=1.030 <=1.030 05/13 ABN [facility] *ABN* (05/13/2011 00:50:00) URINALYSIS UA Turbidity Clear Clear 05/13 Normal [facility] (05/13/2011 00:50:00) URINALYSIS UA Mucus Few /LPF None Seen 05/13 Normal [facility] (05/13/2011 00:50:00) URINALYSIS UA Rare /HPF None Seen 05/13 ABN Trich [facility] *ABN* (05/13/2011 00:50:00) URINALYSIS UA Ketones >=80 mg/dL Negative 05/13 Normal [facility] (05/13/2011 00:50:00) URINALYSIS UA Glucose Negative Negative 05/13 Normal [facility] (05/13/2011 00:50:00) URINALYSIS UA Protein Trace Negative 05/13 ABN [facility] *ABN* (05/13/2011 00:50:00) URINALYSIS UA Bili Negative Negative 05/13 Normal [facility] (05/13/2011 00:50:00) URINALYSIS UA Color Yellow Yellow 05/13 Normal [facility] (05/13/2011 00:50:00) BLOOD BANK Antibody Negative 05/13 Normal RESULTS Scr [facility] (05/12/2011 22:10:00) BLOOD BANK ABO/Rh O POS 05/13 Unknown RESULTS [facility] CHEMISTRY hCG Tot [id number] 05/13 NA 3Interpretive mIU/mL Data: [facility] Reference Range: Male 0 - [...] 5 U/L 0 - 37 05/13 Normal [facility] CHEMISTRY Bili Total 0.4 mg/dL 0.2 - 1.3 05/13 Normal [facility] CHEMISTRY Total 7.7 g/dL 6.4 - 8.4 05/13 Normal [facility] CHEMISTRY Calcium Lvl 8.4 mg/dL 8.5 - 10.5 05/13 LOW [facility] CHEMISTRY B/C Ratio 10 6 - 25 05/13 Normal [facility] CHEMISTRY ALT 13 U/L 0 - 65 05/13 Normal [facility] CHEMISTRY Alk Phos 41 U/L 39 - 136 05/13 Normal [facility] CHEMISTRY Albumin Lvl 3.6 g/dL 3.5 - 5.0 05/13 Normal [facility] CHEMISTRY A/G Ratio 0.9 0.7 - 1.6 05/13 Normal [facility] CHEMISTRY Globulin 4.1 g/dL 2.0 - 4.0 05/13 HI MH [facility] CHEMISTRY CO2 20 meq/L 24 - 32 05/13 LOW [facility] CHEMISTRY Potassium 3.0 meq/L 3.5 - 5.1 05/13 CRIT 1Result Comment: [facility] Critical Result(s) called to Angelique at 05/12/2011 22:50 by [facility]. Read back OK. CHEMISTRY AGAP 14.0 meq/L 10.0 - 05/13 Normal 20.0 [facility] CHEMISTRY Chloride Lvl 104 meq/L 95 - 109 05/13 Normal [facility] CHEMISTRY Sodium Lvl 135 meq/L 135 - 145 05/13 Normal [facility] CHEMISTRY Creatinine 0.6 mg/dL 0.5 - 1.4 05/13 Normal l [facility] CHEMISTRY BUN 6 mg/dL 7 - 22 05/13 LOW [facility] CHEMISTRY Glucose Lvl 92 mg/dL 05/13 NA 2Interpretive Data: [facility] Reference Ranges : 0 - 7 days : 41 - 90 mg/dL7 days - 150 yrs : 70 - 99 mg/dL (fasting), based on the clinical recommendatio ns of the [place] [employer]. HEMATOLOGY MCH 30.4 pg 27.0 - 05/13 Normal 31.0 [facility] HEMATOLOGY MCHC 34.8 g/dL 32.0 - 05/13 Normal 36.0 /2010 [facility] HEMATOLOGY RDW 14.1 % 11.5 - 05/13 Normal 14.5 [facility] HEMATOLOGY MPV 8.7 fL 7.4 - 10.4 05/13 Normal MH /2010 [facility] HEMATOLOGY Platelet 237 K/CMM 133 - 450 05/13 Normal MH /2010 [facility] HEMATOLOGY WBC 4.7 K/CMM 3.7 - 10.4 05/13 Normal /2010 [facility] HEMATOLOGY MCV 87.4 fL 81.0 - 05/13 Normal 99.0 [facility] HEMATOLOGY Hct 31.4 % 36.0 - 05/13 LOW 48.0 [facility] HEMATOLOGY RBC 3.59 M/CMM 4.20 - 05/13 LOW 5.40 /2010 [facility] HEMATOLOGY Hgb 10.9 g/dL 12.0 - 05/13 LOW 16.0 [facility] Vital Signs Vital Sign Value Date Comments Source Temperature Oral (F) 98.0 F 09/22/2012 [facility] Heart Rate 56 09/22/2012 [facility] Diastolic (mm Hg) 79 09/22/2012 [facility] Systolic (mm Hg) 124 09/22/2012 [facility] Respitory Rate 20 09/22/2012 [facility] Diastolic (mm Hg) 72 09/21/2012 [facility] Respitory Rate 18 09/21/2012 [facility] Systolic (mm Hg) 108 09/21/2012 [facility] Heart Rate 61 09/21/2012 [facility] Temperature Oral (F) 98.7 F 09/21/2012 [facility] Systolic (mm Hg) 125 09/21/2012 [facility] Diastolic (mm Hg) 80 09/21/2012 [facility] Heart Rate 53 09/21/2012 [facility] Temperature Oral (F) 99.0 F 09/21/2012 [facility] Respitory Rate 18 09/21/2012 [facility] Height 157.48 cm 09/21/2012 [facility] Weight 52.273 09/21/2012 [facility] Height 157.4 cm 09/21/2012 [facility] Weight 52.273 09/21/2012 [facility] Weight 52.273 08/17/2012 [facility] Height 157.48 cm 08/17/2012 [facility] Temperature Oral (F) 98.5 F 06/23/2012 [facility] Respitory Rate 20 06/23/2012 [facility] Systolic (mm Hg) 98 06/23/2012 [facility] Heart Rate 53 06/23/2012 [facility] Diastolic (mm Hg) 65 06/23/2012 [facility] Heart Rate 54 06/23/2012 [facility] Temperature Oral (F) 98.5 F 06/23/2012 [facility] Respitory Rate 20 06/23/2012 [facility] Diastolic (mm Hg) 74 06/23/2012 [facility] Systolic (mm Hg) 110 06/23/2012 [facility] Respitory Rate 20 06/23/2012 [facility] Systolic (mm Hg) 89 06/23/2012 [facility] Heart Rate 63 06/23/2012 [facility] Temperature Oral (F) 98.5 F 06/23/2012 [facility] Diastolic (mm Hg) 55 06/23/2012 [facility] Height 157.48 cm 06/23/2012 [facility] Weight 47.727 06/23/2012 [facility] Weight 50.000 06/22/2012 [facility] Diastolic (mm Hg) 74 05/14/2011 [facility] Systolic (mm Hg) 136 05/14/2011 [facility] Respitory Rate 18 05/14/2011 [facility] Heart Rate 68 05/14/2011 [facility] Temperature Oral (F) 98.2 F 05/14/2011 [facility] Weight 54.545 05/14/2011 [facility] Height 157.48 cm 05/14/2011 [facility] Diastolic (mm Hg) 86 05/14/2011 [facility] Systolic (mm Hg) 111 05/14/2011 [facility] Heart Rate 86 05/14/2011 [facility] Respitory Rate 19 05/14/2011 [facility] Temperature Oral (F) 98.6 F 05/14/2011 [facility] Respitory Rate 18 05/13/2011 [facility] Temperature Oral (F) 98.6 F 05/13/2011 [facility] Systolic (mm Hg) 102 05/13/2011 [facility] Heart Rate 72 05/13/2011 [facility] Diastolic (mm Hg) 59 05/13/2011 [facility] Encounters Location Location Encounter Encounter Reason Attending ADM DC Status Source Details Type Number For Visit Provider Date Date Emergency [id number] ABDOMINAL VIV 09/06 09/06 Active [facility] PAIN TOTZ /2010 [facility] Emergency [id number] FEVER LATOSHA 04/11 04/11 Active [facility] /VOMITING TIFFAULT /2010 [facility] Emergency [id number] VOMITING HABACUC 04/14 04/14 Active [facility] /2010 [facility] Emergency [id number] VOMITINIG EMILAI 04/18 04/18 Active [facility] Emergency [id number] , HABACUC 05/12 05/13 Active [facility] ABD PAIN, LION /2010 [facility] VOMITING, t VAG BLEED Emergency [id number] ABDOMINAL VIV 05/14 05/14 Active [facility] PAIN TOTZ /2010 [facility] OU [id number] CONSTANTINO 06/22 06/23 Active [facility] HYACINTH /2012 [facility] Emergency [id number] ATIBA GAMEZ 08/05 08/05 Active [facility] /2012 [facility] Emergency [id number] HABACUC 08/17 08/17 Active [facility] /2012 [facility] Inpatient [id number] CONSTANTINO 09/20 09/21 Active [facility] HYACINTH /2012 [facility] Procedures Procedure Code Date Perfomer Comments Source section [facility] section 17 months [facility] <sup>1</sup> before
--- OUTSIDE RECORDS SUMMARY | 2018-07-11 11:49 | XMS REPORT | CCD ---
:1985 Author Organization [facility] Care Team Providers Name Role Phone [...] based on the clinical recommendations of the [place] [employer].HEMATOLOGY Most recent to oldest [Reference [...]
--- OUTSIDE RECORDS SUMMARY | 2018-07-11 11:49 | XMS REPORT | CCD ---
:1985 Author Organization [facility] Care Team Providers Name Role Phone Meka [...] mg/dL] 0.4 mg/dL (05/12/2011 22:10:00) hCG Tot [id number] mIU/mL 3 *NA* (05/12/2011 22:10:00) 1Result Comment: Critical Result(s) called to Joan at 05/12/2011 22:50 by [facility]. Read back OK.2Interpretive Data: Reference Ranges : 0 - 7 days : 41 - 90 mg/dL7 days - 150 yrs : 70 - 99 mg/dL (fasting), based on the clinical recommendations of the [place] [employer].3Interpretive Data: Reference Range: Male 0 [...]
--- OUTSIDE RECORDS SUMMARY | 2018-07-11 11:50 | XMS REPORT | CCD ---
:1985 Author Organization [facility] Care Team Providers Name Role Phone [...] values reflect the clinical guidelines of the [place] [employer].7Interpretive Data: Adult reference range values reflect the clinical guidelines of the [place] [employer].8Interpretive Data: HbA1C% eAG(mg/dL ) Interpretation [...] 10.0 240 Poor Control, take action to [id number] Comment: reran sample twice.10Interpretive Data: Drugs reported [...]
--- OUTSIDE RECORDS SUMMARY | 2018-07-11 11:50 | XMS REPORT | CCD ---
:1985 Author Organization [facility] Care Team Providers Name Role Phone Anupama [...] the clinical guidelines of the [place] Diabetes [employer].HEMATOLOGY Most recent to oldest [Reference [...]
--- OUTSIDE RECORDS SUMMARY | 2018-07-11 11:50 | XMS REPORT | CCD ---
:1985 Author Organization [facility] Care Team Providers Name Role Phone Benjamin [...] 17:21:00 Phenergan 25 mg rectal 1 supp, MT, Q6H, PRN, 9 08/05/2012 Ordered suppository supp, [...] values reflect the clinical guidelines of the [place] [employer].HEMATOLOGY Most recent to oldest [Reference [...]
--- OUTSIDE RECORDS SUMMARY | 2018-07-11 11:51 | XMS REPORT | CCD ---
:[address] [facility] Care Team Providers Name Role Phone [...] 09/21/2012 09/22/2012 Discontinued SUB-Q, Drug form: INJ, [id number], Start date: 09/21/12 9:00:00, Duration: 30 day, [...] mg, 1 supp, Route: 09/21/2012 09/21/2012 Completed WI, Drug form: SUPP, ONCE, Start date: 09/21/12 [...] (09/20/2012 12:03:37) 2Result Comment: Specimen is slightly [id number] Comment: The eGFR is calculated using the [...] values reflect the clinical guidelines of the [place] [employer].6Interpretive Data: Adult reference range values reflect the clinical guidelines of the [place] [employer].7Interpretive Data: Drugs reported as positive [...] Catch FREE TEXT SOURCE: FINAL REPORTS Final Rkairs23,000 - 50,000 CFU/mL Skin Yu PRELIMINARY REPORTS Preliminary ReportNo Growth; Holding Procedures Procedures Date Related Diagnosis section
--- OUTSIDE RECORDS SUMMARY | 2018-07-11 11:51 | XMS REPORT ---
:1985 [facility] [address] [place] [address] Dr. Tabares [address] [place] [id number] Care Team Providers Name Role Phone GREGORIA [...] Clinicians Facility Department ID 2012-08-18 2012-08-18 Emergency [facility] [id number] 20:24:58 20:24:58 2012-08-18 2012-08-18 Emergency [facility] [id number] 18:28:56 18:28:56 Results Test Description Test Time [...] NEGATIVE Ketones (test code=UKET) >=80 NEGATIVE Specific [place] (test code=USPGR) 1.025 1.005-1.030 Blood (test code=UBLD) [...] (test code=UBACT) Trace None Seen,Trace TEST, Urine [id number] 06:05:00 Test Item Value Reference Range Comments (Urine) (test code=PREGU) Negative If a specimen is collected by a nurse, then you MUST fill out the Collected and Collected By curran VALPROIC [id number] 05:47:00 Test Item Value Reference Range Comments Valproic Acid (test code=VALPR) <3.0 ug/ml 50.0-120.0 er [id number] 05:39:00 Test Item Value Reference Range Comments Magnesium (test code=MG) 2.4 mg/dl 1.6-2.3 er 7CBC WITH AUTO [id number] 05:22:00 Test Item Value Reference Range Comments [...] Auto (test 0 /100WBC 0-2 code=NRBC_AUTO) er [id number] 05:22:00 Test Item Value Reference Range Comments [...] mL/min/1.73m\\S\\2 EGFR if Non- >60 Estimated Glomerular [place] (test mL/min/1.73m\\S\\2 Filtration Rate (eGFR) code=EGFRNA) Reference [...] management of chronic kidney failure. er 7LIPASE, [id number] 05:22:00 Test Item Value Reference Range Comments Lipase (test code=LIPA) 462 U/L 8-223 er 7DRUG SCREEN [id number] 19:14:00 Test Item Value Reference Range Comments Specific [place] 1.025 1.005-1.030 (test code=USPGR) PH (test code=UPH) [...] the Drugs of Abuse ran on the [employer] 5.1 analyzer listed there in: Amphetamines < [...] (test code=THC) Confirmation Upon Request URINALYSIS WITHOUT [id number] 18:57:00 Test Item Value Reference Range Comments Color (test code=UCOLR) YELLOW Clarity (test code=UCLAR) CLOUDY Glucose (test code=UGLUC) NEGATIVE NEGATIVE Bilirubin (test code=UBILI) NEGATIVE NEGATIVE Ketones (test code=UKET) 40 NEGATIVE Specific [place] (test code=USPGR) 1.025 1.005-1.030 Blood (test code=UBLD) [...] Collected and Collected By curran TEST, Serum [id number] 18:26:00 Test Item Value Reference Range Comments (Serum) (test code=PREGS) Negative [id number] 18:21:00 Test Item Value Reference Range Comments [...] mL/min/1.73m\\S\\2 EGFR if Non- >60 Estimated Glomerular [place] (test mL/min/1.73m\\S\\2 Filtration Rate (eGFR) code=EGFRNA) Reference [...] and management of chronic kidney failure. LIPASE, [id number] 18:21:00 Test Item Value Reference Range Comments Lipase (test code=LIPA) 36 U/L 8-223 CBC WITH AUTO [id number] 18:12:00 Test Item Value Reference Range Comments [...] (test 0 /100WBC 0-2 code=NRBC_AUTO) AUTO DIFFRAPID [id number] 16:50:00 Test Item Value Reference Range Comments RAPID CKMB (NetseerAKER) (test gvdq=3380) < ng/mL 0.0-4.3 RAPID TROPONIN [id number] 16:50:00 Test Item Value Reference Range Comments RAPID TROPONIN I (BEAKER) (test hqgf=8282) < ng/mL <0.05 [id number] 16:49:00 Test Item Value Reference Range Comments D-DIMER QUANTITATIVE (BEAKER) (test mlti=107) < MG/L FEU <0.50 REGARDING D-DIMER RESULTS: Results of this D-Dimer test should always be interpreted in conjunction with the patient's medical history, clinical presentation and other findings. DVT clinical diagnosis should not be based on the results of INNOVANCE D-Dimer alone.PT/[id number] 16:40:00 Test Item Value Reference Range Comments PROTIME (BEAKER) (test xzjg=764) 9.9 seconds 9.8-12.0 INR (BEAKER) (test txgc=173) 0.9 <=5.9 PARTIAL THROMBOPLASTIN TIME (BEAKER) (test 25.7 seconds 25.8-34.5 zbxy=513) RECOMMENDED COUMADIN/WARFARIN INR THERAPY RANGESSTANDARD DOSE: 2.0 - 3.0 Includes: PROPHYLAXIS forvenous thrombosis, systemic embolization; TREATMENT for venous thrombosis and/or pulmonary embolus.HIGH RISK: Target INR is 2.5-3.5 for patients with mechanical heart valves.[id number] 16:38:00 Test Item Value Reference Range Comments MAGNESIUM (BEAKER) (test cbab=367) 2.1 mg/dL 1.5-3.0 BASIC METABOLIC [id number] 16:37:00 Test Item Value Reference Range Comments SODIUM (BEAKER) (test 141 meq/L 135-148 ekwv=788) POTASSIUM (BEAKER) (test 3.8 meq/L 3.6-5.5 dduv=338) CHLORIDE (BEAKER) (test 102 meq/L 98-106 gwnl=003) CO2 (BEAKER) (test 24 meq/L 24-32 xiwi=691) BLOOD UREA NITROGEN 10 mg/dL 10-26 (BEAKER) (test raka=516) CREATININE (BEAKER) (test 0.68 mg/dL 0.50-1.20 qvwj=620) GLUCOSE RANDOM (BEAKER) 85 mg/dL 70-110 (test rspq=076) CALCIUM (BEAKER) (test 8.8 mg/dL 8.5-10.5 lazx=465) EGFR (BEAKER) (test 122 mL/min/1.73 sq m ESTIMATED GFR IS NOT zrui=8640) ACCURATE CREATININE CLEARANCE IN PREDICTING GLOMERULAR FILTRATION RATE. ESTIMATED GFR IS NOT APPLICABLE FOR DIALYSIS PATIENTS. CREATINE KINASE (CK)2017-06-19 16:37:00 Test Item Value Reference Range Comments CREATINE KINASE TOTAL (BEAKER) (test xgrw=693) 83 U/L 25-235 CBC W/PLT COUNT & AUTO [id number] 16:32:00 Test Item Value Reference Range Comments WHITE BLOOD CELL COUNT (BEAKER) (test ervs=934) 5.5 10e3/ L 4.0-10.0 RED BLOOD CELL COUNT (BEAKER) (test evxt=684) 4.16 10e6/ L 4.00-5.00 HEMOGLOBIN (BEAKER) (test nvfm=086) 12.1 g/dL 12.0-15.0 HEMATOCRIT (BEAKER) (test lshr=816) 35.8 % 36.0-45.0 MEAN CORPUSCULAR VOLUME (BEAKER) (test 86.0 fL 82.0-99.0 qhhz=405) MEAN CORPUSCULAR HEMOGLOBIN (BEAKER) (test 29.0 pg 27.0-33.0 sudd=147) MEAN CORPUSCULAR HEMOGLOBIN CONC (BEAKER) (test 33.7 g/dL 32.0-36.0 aflz=325) RED CELL DISTRIBUTION WIDTH (BEAKER) (test 12.8 % 10.3-14.2 gcip=915) PLATELET COUNT (BEAKER) (test erms=751) 267 10e3/ L 150-430 MEAN PLATELET VOLUME (BEAKER) (test ruha=375) 8.5 fL 6.5-10.5 NEUTROPHILS RELATIVE PERCENT (BEAKER) (test 42 % gylq=016) LYMPHOCYTES RELATIVE PERCENT (BEAKER) (test 49 % vpdr=222) MONOCYTES RELATIVE PERCENT (BEAKER) (test 7 % qnqr=391) EOSINOPHILS RELATIVE PERCENT (BEAKER) (test 2 % zddu=257) BASOPHILS RELATIVE PERCENT (BEAKER) (test 1 % wlpr=918) NEUTROPHILS ABSOLUTE COUNT (BEAKER) (test 2.27 10e3/ L 1.80-8.00 txrg=941) LYMPHOCYTES ABSOLUTE COUNT (BEAKER) (test 2.68 10e3/ L 1.48-4.50 jduj=952) MONOCYTES ABSOLUTE COUNT (BEAKER) (test 0.37 10e3/ L 0.00-1.30 ytxb=568) EOSINOPHILS ABSOLUTE COUNT (BEAKER) (test 0.11 10e3/ L 0.00-0.50 ehih=542) BASOPHILS ABSOLUTE COUNT (BEAKER) (test 0.03 10e3/ L 0.00-0.20 ycjs=728) SCREEN, [id number] 15:31:00 Test Item Value Reference Range Comments TEST URINE (BEAKER) (test ofda=090) Negative RAD, CHEST, 1 VIEW, NON [id number] 15:09:00Reason for exam:->chest painIs the patient ?->UnknownFINAL [...] Mejía Verified Date/Time: 06/19/2017 15:09:21 Reading Location: [address] Transitional Reading Room RAD, SHOULDER, COMPLETE (MIN 2 VIEWS), [id number] 03:33: 00Reason for exam:->GENERAL ILLNESSIs the patient [...] MDReport Verified Date/Time: 06/06/2017 03:33:43 Reading Location: [address] Body Reading Room RAPID INFLUENZA A&B [id number] 03:30:00 Test Item Value Reference Range Comments RAPID INFLUENZA A AG (BEAKER) (test Negative Negative, Inconclusive wttn=9400) RAPID INFLUENZA B AG (BEAKER) (test Negative Negative, Inconclusive wdjr=9153) RAPID STREP A [id number] 03:15:00 Test Item Value Reference Range Comments STREP A ANTIGEN (BEAKER) (test ezbl=145) Negative Negative
[2018-07-11 12:50] LABS: Urine Blood NEGATIVE (NEG); Urine Glucose NEGATIVE (NEG); Urine Protein NEGATIVE (NEG); Urine Specific Gravity 1.025 (1.005-1.030); Urine pH 8.5 (5.0-7.0)
[2018-07-11] MEDS ORDERED: PROMETHAZINE 25 MG/ML VIAL ONE (13:09)
[2018-07-11] MEDS ORDERED: HYDROMORPHONE HCL 2 MG/ML inj ONE (13:10)
[2018-07-11 13:14] LABS: Urine Bacteria <20 /HPF (<20); Urine Culture Reflex Order NOT NEEDED; Urine RBC NONE SEEN /HPF (NONE SEEN); Urine Trichomonas PRESENT (NONE SEEN)
[2018-07-11 13:58] LABS: Bicarbonate 19 mmol/L (21-32); Glucose Level 125 mg/dL (74-106); Potassium 4.2 mmol/L (3.5-5.1); Sodium Level 140 mmol/L (136-145)
[2018-07-11 13:59] LABS: ALT/SGPT 17 U/L (12-78); AST/SGOT 22 U/L (15-37); Alkaline Phosphatase 73 U/L (45-117); BUN Blood Urea Nitrogen 5 mg/dL (7-18); Bilirubin Total 0.4 mg/dL (0.2-1.0)
[2018-07-11 14:00] LABS: Albumin 3.4 g/dL (3.4-5.0); Protein, Total 7.7 g/dL (6.4-8.2)
[2018-07-11 14:17] LABS: Bilirubin Direct 0.1 mg/dL (0-0.2)
[2018-07-11 14:32] LABS: Lipase 81 U/L (73-393)
--- NOTE | 2018-07-11 15:17 | EDPHYS ---
Physician Documentation [facility] Name: Joan Short Age: 32 yrs Sex: Female : 1985 Arrival Date: 07/11/2018 Time: 10:55 Bed 15 Private MD: ED Physician Javi Dunlap HPI: 07/11 15:11 This 32 yrs old Black Female presents to ER via Wheelchair with complaints of gs Nausea/Vomiting. 15:11 Onset: The symptoms/episode began/occurred 2 day(s) ago. Possible causes: flare up of gs bowel problem, CHRONIC ABDOMINAL PAIN VOMITING. Associated signs and symptoms: Pertinent positives: abdominal pain, Pertinent negatives: dysuria. Severity of symptoms: At their worst the symptoms were severe in the emergency department the symptoms are unchanged. The patient has experienced similar episodes in the past, chronically. 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 - Social history:: Smoking status: Patient uses tobacco products, 1/2 pack per week. - Ebola Screening: : Patient negative for fever greater than or equal to 101.5 degrees Fahrenheit, and additional compatible Ebola Virus Disease symptoms Patient denies exposure to infectious person Patient denies travel to an Ebola-affected area in the 21 days before illness onset No symptoms or risks identified at this time. ROS: 15:11 All other systems are negative. gs Exam: 15:11 Head/Face: Normocephalic, atraumatic. Eyes: Pupils equal round and reactive to light, gs extra-ocular motions intact. Lids and lashes normal. Conjunctiva and sclera are non-icteric and not injected. Cornea within normal limits. Periorbital areas with no swelling, redness, or edema. 15:11 ENT: Nares patent. No nasal discharge, no septal abnormalities noted. Tympanic membranes are normal and external auditory canals are clear. Oropharynx with no redness, swelling, or masses, exudates, or evidence of obstruction, uvula midline. Mucous membranes moist. Neck: Trachea midline, no thyromegaly or masses palpated, and no cervical lymphadenopathy. Supple, full range of motion without nuchal rigidity, or vertebral point tenderness. No Meningismus. Chest/axilla: Normal chest wall appearance and motion. Nontender with no deformity. No lesions are appreciated. Cardiovascular: Regular rate and rhythm with a normal S1 and S2. No gallops, murmurs, or rubs. Normal PMI, no JVD. No pulse deficits. Respiratory: Lungs have equal breath sounds bilaterally, clear to auscultation and percussion. No rales, rhonchi or wheezes noted. No increased work of breathing, no retractions or nasal flaring. Back: No spinal tenderness. No costovertebral tenderness. Full range of motion. Skin: Warm, dry with normal turgor. Normal color with no rashes, no lesions, and no evidence of cellulitis. MS/ Extremity: Pulses equal, no cyanosis. Neurovascular intact. Full, normal range of motion. Neuro: Awake and alert, GCS 15, oriented to person, place, time, and situation. Cranial nerves II-XII grossly intact. Motor strength 5/5 in all extremities. Sensory grossly intact. Cerebellar exam normal. Normal gait. 15:11 Constitutional: The patient appears alert, awake. 15:11 Constitutional: The patient appears uncomfortable. 15:11 Abdomen/GI: Palpation: mild abdominal tenderness, in all quadrants, rebound tenderness, is not appreciated. Vital Signs: 11:12 BP 124 / 76; Pulse 71; Resp 18 S; Temp 98.6(TE); Pulse Ox 100% on R/A; Weight 52.16 kg; iw Height 5 ft. 2 in. (157.48 cm); Pain 10/10; 12:35 BP 121 / 54; Pulse 65; Resp 14; Pulse Ox 100% ; bp 14:32 BP 118 / 58; Pulse 50; Resp 15; Temp 98.6; Pulse Ox 100% on R/A; mh5 11:12 Body Mass Index 21.03 (52.16 kg, 157.48 cm) iw MDM: 11:31 Patient medically screened. 15:11 Differential diagnosis: Nonspecific abd pain, gastritis, pancreatitis. Data reviewed: vital signs, nurses notes. Response to treatment: the patient's symptoms have markedly improved after treatment, and as a result, I will discharge patient. 07/11 11:36 Order name: Basic Metabolic Panel; Complete Time: 14:50 07/11 11:36 Order name: CBC with Diff 07/11 11:36 Order name: Hepatic Function; Complete Time: 14:50 07/11 11:36 Order name: Lipase; Complete Time: 14:50 07/11 11:36 Order name: Urine Microscopic Only; Complete Time: 13:21 07/11 12:42 Order name: Urine Dipstick--Ancillary (enter results) 07/11 11:36 Order name: Labs collected and sent; Complete Time: 15:35 07/11 11:36 Order name: Urine Test (obtain specimen); Complete Time: 12:34 07/11 11:36 Order name: Urine Dipstick-Ancillary (obtain specimen); Complete Time: 12:34 07/11 12:42 Order name: Urine --Ancillary (enter results) 07/11 14:04 Order name: Labs - recollect needed; Complete Time: 14:42 Administered Medications: 13:08 Drug: Phenergan 25 mg {Note: GIVEN IM PER MD.} Route: IVP; Site: Other; bp 15:34 Follow up: Response: No adverse reaction; Vomiting decreased iw 13:08 Drug: Dilaudid 1.5 mg Route: IM; Site: right gluteus; bp 15:34 Follow up: Response: No adverse reaction; Pain is decreased iw 15:34 Not Given (Physician Discretion): NS 0.9% 1000 ml IV at 1 bolus Per protocol; 1000 mL iw bolus Disposition: 07/11/18 15:16 Discharged to Home. Impression: Cyclical vomiting. - Condition is Stable. - Discharge Instructions: Chronic Pain, Vomiting, Adult. - Prescriptions for Tylenol- Codeine #4 300-60 mg Oral Tablet - take 1 tablet by ORAL route every 6 hours As needed; 12 tablet. promethazine 25 mg Oral Tablet - take 1 tablet by ORAL route every 6 hours As needed; 20 tablet. - Medication Reconciliation Form, Thank You Letter, Antibiotic Education, Prescription Opioid Use form. - Follow up: Private Physician; When: 2 - 3 days. Follow up: Dillon Taylor DO; When: 2 - 3 days; Reason: Re-evaluation by your physician. Signatures: Dispatcher [employer] Haylee Jo, MATHEW CARMONA Javi Dunlap MD MD gs Peltier, Brian, RN RN Elsie Valle Corrections: (The following items were deleted from the chart) 15:35 11:36 IV Saline Lock ordered. [facility] 15:35 15:16 07/11/2018 15:16 Discharged to Home. Impression: Cyclical vomiting. Condition is iw Stable. Forms are Medication Reconciliation Form, Thank You Letter, Antibiotic Education, Prescription Opioid Use. Follow up: Private Physician; When: 2 - 3 days. Follow up: Dillon Taylor; When: 2 - 3 days; Reason: Re-evaluation by your physician.
--- NOTE | 2018-07-11 15:17 | ER ---
Nurse's Notes [facility] Name: Joan Short Age: 32 yrs Sex: Female : 1985 Arrival Date: 07/11/2018 Time: 10:55 Bed 15 Private MD: Diagnosis: Cyclical vomiting Presentation: 07/11 11:10 Presenting complaint: Patient states: n/v/abd pain X 2 days. Transition of care: iw patient was not received from another setting of care. Onset of symptoms was July 09, 2018. Risk Assessment: Do you want to hurt yourself or someone else? Patient reports no desire to harm self or others. Initial Sepsis Screen: Does the patient meet any 2 criteria? No. Patient's initial sepsis screen is negative. Does the patient have a suspected source of infection? No. Patient's initial sepsis screen is negative. Care prior to arrival: None. 11:10 Method Of Arrival: Wheelchair iw 11:10 Acuity: ЮЛИЯ 3 iw Triage Assessment: 14:30 GI: Reports upper abdominal pain. iw RN LAB: 11:12 LMP 07/06/2018 iw Historical: - Allergies: 11:11 Haldol; iw 11:11 Reglan; iw 11:11 Unisom; iw 11:11 Zofran; iw - Home Meds: 11:11 Alprazolam Oral [Active]; Famotidine Oral [Active]; [place] Oral [Active]; Promethazine iw Oral [Active]; Valproic Acid Oral [Active]; - PMHx: 11:11 Anxiety; Bipolar disorder; Fibromyalgia; gastroporesis; Seizures; iw - PSHx: 11:11 ; Tubal ligation; iw - Immunization history:: Adult Immunizations unknown. - Social history:: Smoking status: Patient uses tobacco products, 1/2 pack per week. - Ebola Screening: : Patient negative for fever greater than or equal to 101.5 degrees Fahrenheit, and additional compatible Ebola Virus Disease symptoms Patient denies exposure to infectious person Patient denies travel to an Ebola-affected area in the 21 days before illness onset No symptoms or risks identified at this time. Screenin:30 Abuse screen: Denies threats or abuse. Denies injuries from another. Nutritional bp screening: No deficits noted. Tuberculosis screening: No symptoms or risk factors identified. Fall Risk None identified. Assessment: 11:28 General: Appears distressed, comfortable, unkempt, Behavior is cooperative, appropriate bp for age, agitated, anxious. Pain: Denies pain. Neuro: Level of Consciousness is awake, alert, obeys commands, Oriented to person, place, time, situation, Appropriate for age. Cardiovascular: No deficits noted. Respiratory: Airway is patent Respiratory effort is even, unlabored, Respiratory pattern is regular, symmetrical. GI: Abdomen is non-distended, Pt is actively vomiting bile. : No deficits noted. EENT: No signs and/or symptoms were reported regarding the EENT system. Derm: No deficits noted. Musculoskeletal: Circulation, motion, and sensation intact. Range of motion: intact in all extremities. 12:34 Reassessment: UNABLE TO OBTAIN PIV, MX ATTEMPTS BY MX STAFF. MD AWARE. bp 13:09 Reassessment: MD UNABLE TO OBTAIN PIV. CHANGED MEDS TO IM. PHLEBOTOMY AT B/S FOR LAB bp DRAW. 15:33 Reassessment: Patient appears in no apparent distress at this time. Patient and/or iw family updated on plan of care and expected duration. Pain level reassessed. Patient is alert, oriented x 3, equal unlabored respirations, skin warm/dry/pink. Patient states feeling better. Patient states symptoms have improved. Vital Signs: 11:12 BP 124 / 76; Pulse 71; Resp 18 S; Temp 98.6(TE); Pulse Ox 100% on R/A; Weight 52.16 kg; iw Height 5 ft. 2 in. (157.48 cm); Pain 10/10; 12:35 BP 121 / 54; Pulse 65; Resp 14; Pulse Ox 100% ; bp 14:32 BP 118 / 58; Pulse 50; Resp 15; Temp 98.6; Pulse Ox 100% on R/A; mh5 11:12 Body Mass Index 21.03 (52.16 kg, 157.48 cm) iw ED Course: 10:55 Patient arrived in ED. rg4 11:10 Triage completed. iw 11:12 Arm band placed on. iw 11:17 Jaime Anderson, RN is Primary Nurse. bp 11:19 Javi Dunlap MD is Attending Physician. gs 11:30 Patient has correct armband on for positive identification. Bed in low position. Call bp light in reach. Side rails up X2. 12:33 Missed attempt(s): 22 gauge in right antecubital area. 5 12:33 Urine collected: clean catch specimen, cloudy. [facility] 12:33 Urine Microscopic Only Sent. 5 15:15 Dillon Taylor DO is Referral Physician. 15:33 No provider procedures requiring assistance completed. Patient did not have IV access iw during this emergency room visit. Administered Medications: 13:08 Drug: Phenergan 25 mg {Note: GIVEN IM PER MD.} Route: IVP; Site: Other; bp 15:34 Follow up: Response: No adverse reaction; Vomiting decreased iw 13:08 Drug: Dilaudid 1.5 mg Route: IM; Site: right gluteus; bp 15:34 Follow up: Response: No adverse reaction; Pain is decreased iw 15:34 Not Given (Physician Discretion): NS 0.9% 1000 ml IV at 1 bolus Per protocol; 1000 mL iw bolus Outcome: 15:16 Discharge ordered by MD. 15:33 Discharged to home via wheelchair, with family. iw 15:33 Condition: good 15:33 Discharge instructions given to patient, Instructed on discharge instructions, follow up and referral plans. medication usage, Demonstrated understanding of instructions, follow-up care, medications, Prescriptions given X 2. 15:35 Patient left the ED. iw Signatures: Haylee Goodman, RN MATHEW Talia Seymour [facility] Monica Turner [facility] Javi Dunlap MD MD Jaime Anderson RN RN bp
[2018-07-11 16:10] LABS: Absolute Lymphocytes (CBC) 0.9 K/uL (0.7-4.9); Absolute Monocytes 0.2 K/uL (0.1-1.3); Absolute Neutrophil 4.6 K/uL (1.8-8.0); Basophils % 0.7 % (0-1.3); Eosinophils % 0.4 % (0-4.4); Hematocrit 32.4 % (36.0-45.0); Lymphocytes % 15.1 % (15.3-44.8); MPV 10.4 fL (7.6-11.3); Monocytes % 3.7 % (3.3-12.3); RBC Red Blood Cell Count 3.75 M/uL (3.86-4.86)
[2018-07-11 16:15] LABS: Blood Morphology Comment NOT SEEN (NOT SEEN); Platelet Estimate ADEQ; Urine White Blood Cell Casts OK
== END 2018-07-11 15:35 | disposition home or self-care (01) ==
LOC: ER 10:53
DX: G43.A0 Cyclical vomiting, in migraine, not intractable (principal); F31.9 Bipolar disorder, unspecified; G40.909 Epilepsy, unspecified, not intractable, without status epilepticus; Z72.0 Tobacco use; Z88.5 Allergy status to narcotic agent; Z88.8 Allergy status to other drugs, medicaments and biological substances
CPT/HCPCS: 36415; 80048; 80076; 81003; 81015; 81025; 83690; 85025; 96372; 96374; 99283; J1170; J2550

== ENCOUNTER 2018-07-12 09:10 | Emergency (ER) | payer SELFPAY ==
--- OUTSIDE RECORDS SUMMARY | 2018-07-12 09:29 | XMS REPORT | Clinical Summary ---
:1985 Author Organization [facility] Address [address] [place] [address] Care Team Providers Name Role Phone Kiersten [...] Not on file Results Not on fileafter 07/11/2017
--- OUTSIDE RECORDS SUMMARY | 2018-07-12 09:33 | XMS REPORT | Continuity of Care Document ---
:1985 Author Organization Interface Problems Problem Status Onset Classification Date Comments Source Date Reported SYNCOPE Active 09/21/19 [facility] INTRACTABLE Active 09/21/19 VOMITING 13 [facility] VOMITING Active 08/18/19 13 [facility] ABDOMINAL PAIN Active 08/04/19 13 [facility] SEIZURES / VOMIT Active 06/22/19 13 [facility] SEIUZURES, ACUTE Active 06/22/19 GASTRITIS VS 13 [facility] GASTROENTE , ABD Active 05/12/20 PAIN, VOMITING, 11 [facility] VAG BLEED VOMITINIG/ Active 04/18/20 ABDOMINAL PAIN 11 [facility] FEVER /VOMITING Active 04/11/20 11 [facility] Gastroparesis Resolved Problem 09/23/2012 [facility] Seizure Resolved Problem 09/23/2012 [facility] VOMITING ALONE Active [facility] Medications Medication Details Route Status Patient Ordering Order Source Instructions Provider Date Navane 1 mg, 1 cap, PO No [place] Route: PO, Longer 2012 [facility] Drug form: Active CAP, BID, Start date: 09/21/12 17:00:00, Duration: 30 day, Stop date: 10/21/12 9:00:00 Phenergan 12.5 mg, 1 ID No [place] supp, Route: Longer 2012 [facility] ID, Drug form: Active SUPP, ONCE, Start date: 09/21/12 16:03:00, Stop date: 09/21/12 16:03:00 Pepcid 20 mg, 1 tab, PO No [place] Route: PO, Longer 2012 [facility] Drug form: Active TAB, Q12H, Start date: 09/21/12 9:00:00, Duration: 30 day, Stop date: 10/20/12 21:00:00 Lovenox 40 mg, 0.4 mL, SUB-Q No [place] Route: SUB-Q, Longer 2012 [facility] Drug form: Active INJ, [id number], Start date: 09/21/12 9:00:00, Duration: 30 day, Stop date: 10/20/12 9:00:00 Tylenol 650 mg, 2 tab, PO No Hasivana Route: PO, Longer 2012 [facility] Drug form: Active TAB, Q6H, PRN Pain, Start date: 09/21/12 8:36:00, Duration: 30 day, Stop date: 10/21/12 8:35:00 morphine 2 mg, 0.5 mL, IVP No Patrick Sulfate Route: IVP, Longer 2012 [facility] Drug form: Active INJ, Q6H, PRN Pain, Start date: 09/21/12 8:03:00, Duration: 30 day, Stop date: 10/21/12 8:02:00 Reglan 10 mg, 2 mL, IV No Vahe Route: IV, Longer 2012 [facility] Drug form: Active INJ, QID-Before Meals, Start date: 09/21/12 7:30:00, Duration: 30 day, Stop date: 10/20/12 21:00:00 Sodium Chloride 1,000 mL, IV No Patrick 09/21[facility] 0.9% IV 1,000 Rate: 125 Longer 2012 [facility] mL ml/hr, Infuse Active over: 8 hr, Route: IV, kg, Total Volume: 1,000, Start date: 09/20/12 21:00:00, Duration: 30 day, Stop date: 10/20/12 20:59:00 Tylenol 650 mg, 2 tab, PO No Hyacinth Route: PO, Longer 2012 [facility] Drug form: Active TAB, ONCE, Start date: 09/20/12 21:00:00, Stop date: 09/20/12 21:00:00 potassium 20 mEq, 100 IVPB No Patrick 09/21[facility] chloride mL, Route: Longer 2012 [facility] IVPB, Drug Active form: INJ, Q2H, Start date: 09/20/12 21:00:00, Duration: 1 doses or times, Stop date: 09/20/12 21:00:00 Haldol 1 mg, 0.2 mL, IV No [place] 09/21[facility] Route: IV, Longer 2012 [facility] Drug form: Active INJ, ONCE, Start date: 09/20/12 21:00:00, Stop date: 09/20/12 21:00:00 Reglan 10 mg, 2 mL, IV No Patrick Route: IV, Longer 2012 [facility] Drug form: Active INJ, Q8H-05, Start date: 09/20/12 21:00:00, Duration: 30 day, Stop date: 10/20/12 13:00:00 Sodium Chloride 250 mL, Route: IVPB No Patrick 0.9% IV IVPB, Start Longer 2012 [facility] date: 09/20/12 Active 20:07:00, Duration: 30 day, Stop date: 10/20/12 20:06:00, PRN Line Flush BD Normal 10 mL, Route: IVP No Patrick Saline Flush IVP, Drug Longer 2012 [facility] Form: INJ, Active PRN, PRN Line Flush, Start date: 09/20/12 20:06:00, Duration: 30 day, Stop date: 10/20/12 20:05:00 morphine 2 mg, 0.4 mL, IV No Patrick 09/21[facility] Sulfate Route: IV, Longer 2012 [facility] Drug form: Active INJ, Q6H, PRN Pain, Start date: 09/20/12 20:05:00, Duration: 30 day, Stop date: 10/20/12 20:04:00 Phenergan 25 mg, 1 tab, PO No Patrick Route: PO, Longer 2012 [facility] Drug form: Active TAB, Q6H, PRN Nausea, Start date: 09/20/12 20:05:00, Duration: 30 day, Stop date: 10/20/12 20:04:00 Haldol 2 mg, 0.4 mL, IM No Patrick Route: IM, Longer 2012 [facility] Drug form: Active INJ, Q6H, PRN Agitation, Start date: 09/20/12 20:04:00, Duration: 30 day, Stop date: 10/20/12 20:03:00 Phenergan 25 mg, Route: IM No Cady IM, ONCE, Longer 2012 [facility] Dosing Weight Active 52.273, kg, PRN as needed for nausea/vomitin g, Start date: 09/20/12 17:55:00 Haldol 1 mg, Route: IVP No Cady IVP, ONCE, Longer 2012 [facility] Dosing Weight Active 52.273, kg, Priority: NOW, Start date: 09/20/12 17:54:00, Stop date: 09/20/12 17:54:00 Phenergan 25 mg, Route: IVPB No Ambrose IVPB, ONCE, Longer 2012 [facility] Dosing Weight Active 52.273, kg, Priority: STAT, Start date: 09/20/12 15:48:00, Stop date: 09/20/12 15:48:00 morphine 5 mg, 1 mL, IVP No [facility] Sulfate Route: IVP, Longer 2012 [facility] Drug form: Active INJ, ONCE, Dosing Weight 52.273, kg, Start date: 09/20/12 15:31:00, Stop date: 09/20/12 15:31:00 Phenergan + 25 mg, 1 mL, IVPB No [facility] Sodium Chloride Route: IVPB, Longer 2012 [facility] 0.9% IV 50 mL Drug form: Active INJ, ONCE, Dosing Weight 52.273, kg, Priority: STAT, Start date: 09/20/12 15:06:00, Stop date: 09/20/12 15:06:00 NS (Bolus) IV 1,000 mL, IV No [facility] 1,000 mL Rate: 1,000 Longer 2012 [facility] ml/hr, Infuse Active over: 1 hr, Route: IV, kg, Total Volume: 1,000, Priority: STAT, Start date: 09/20/12 13:21:00, Duration: 1 doses or times, Stop date: 09/20/12 14:20:00, Bolus DoseBolus Dose Reglan 10 mg, Route: IVP No med IVP, ONCE, Longer 2012 [facility] Dosing Weight Active 52.273, kg, Priority: STAT, Start date: 09/20/12 13:20:00, Stop date: 09/20/12 13:20:00 Phenergan 25 mg, Route: IM No Ahmed IM, ONCE, Longer 2012 [facility] Dosing Weight Active 52.273, kg, Priority: STAT, Start date: 09/20/12 11:10:00, Stop date: 09/20/12 11:10:00 NS 1,000 mL 1,000 mL, IV No Ahmed Rate: 1,000 Longer 2012 [facility] ml/hr, Infuse Active over: 1 hr, Route: IV, kg, Total Volume: 1,000, Start date: 09/20/12 11:10:00, Duration: 1 doses or times, Stop date: 09/20/12 12:09:00, Bolus DoseBolus Dose Reglan Substitution Active Allowed 2012 [facility] Toradol 30 30 mg, Route: IV No Cesta mg/mL IV, ONCE, Longer 2012 [facility] injectable Dosing Weight Active solution 52.273, kg, Start date: 08/17/12 20:15:00, Stop date: 08/17/12 20:15:00 Saline Flush 5 ml, Route: IVP No Cesta 0.9% IVP, Drug Longer 2012 [facility] Form: INJ, Active Dosing Weight 52.273, kg, PRN, PRN Line Flush, Start date: 08/17/12 19:59:00, Duration: 30 day, Stop date: 09/16/12 19:58:00 Phenergan 25 mg, 1 mL, IM No Cesta Route: IM, Longer 2012 [facility] Drug form: Active INJ, ONCE, Dosing Weight 52.273, kg, Priority: STAT, Start date: 08/17/12 19:58:00, Stop date: 08/17/12 19:58:00 Phenergan 25 mg 1 supp, ID, ID Active [place] rectal Q6H, PRN, 9 2012 [facility] suppository supp, Nausea & Vomiting, Substitution Allowed Phenergan 25 mg 25 mg, 1 tab, PO Active Yasmani oral tablet PO, Q4H, PRN, 2012 [facility] 20 tab, Nausea, Substitution Allowed morphine 5 mg, 1 mL, IVP No Yasmani Sulfate Route: IVP, Longer 2012 [facility] Drug form: Active INJ, ONCE, Dosing Weight 47.727, kg, Priority: STAT, Start date: 08/05/12 17:21:00, Stop date: 08/05/12 17:21:00 promethazine 25 mg, 1 mL, IM No Yasmani Route: IM, Longer 2012 [facility] Drug form: Active INJ, ONCE, Dosing Weight 47.727, kg, Priority: STAT, Start date: 08/05/12 17:21:00, Stop date: 08/05/12 17:21:00 Reglan 10 mg, 2 mL, IVP No Yasmani Route: IVP, Longer 2012 [facility] Drug form: Active INJ, ONCE, Dosing Weight 47.727, kg, Priority: STAT, Start date: 08/05/12 14:40:00, Stop date: 08/05/12 14:40:00 morphine 5 mg, 1 mL, IVP No [place] Sulfate Route: IVP, Longer 2012 [facility] Drug form: Active INJ, ONCE, Dosing Weight 47.727, kg, Priority: STAT, Start date: 08/05/12 14:40:00, Stop date: 08/05/12 14:40:00 Saline Flush 5 mL, Route: IVP No [place] 0.9% IVP, Drug Longer 2012 [facility] Form: INJ, Active Dosing Weight 47.727, kg, PRN, PRN Line Flush, Start date: 08/05/12 14:40:00, Duration: 24 hr, Stop date: 08/06/12 14:39:00 Sodium Chloride 1,000 mL, IV No Shannock 0.9% (Bolus) IV Rate: 1,000 Longer 2012 [facility] 1,000 mL ml/hr, Infuse Active over: 1 hr, Route: IV, kg, Total Volume: 1,000, Priority: STAT, Start date: 08/05/12 14:40:00, Duration: 1 doses or times, Stop date: 08/05/12 15:39:00 Neurontin 300 mg, 1 cap, PO No Hyacinth Route: PO, Longer 2012 [facility] Drug form: Active CAP, BID, Start date: 06/24/12 9:00:00, Duration: 2 doses or times, Stop date: 06/24/12 17:00:00 amitriptyline 25 mg, 1 tab, PO No Tina Route: PO, Longer 2012 [facility] Drug form: Active TAB, Bedtime, Start date: 06/23/12 21:00:00, Duration: 30 day, Stop date: 07/22/12 21:00:00 Carafate 1 gm, 1 tab, PO No [facility] Route: PO, Longer 2012 [facility] Drug form: Active TAB, BID, Start date: 06/23/12 17:00:00, Duration: 30 day, Stop date: 07/23/12 9:00:00 Neurontin 300 mg, 1 cap, PO No [facility] Route: PO, Longer 2012 [facility] Drug form: Active CAP, TID, Start date: 06/23/12 13:00:00, Duration: 30 day, Stop date: 07/23/12 9:00:00 Motrin 600 mg, 1 tab, PO No [facility] Route: PO, Longer 2012 [facility] Drug form: Active TAB, Q6H, Start date: 06/23/12 12:00:00, Duration: 30 day, Stop date: 07/23/12 6:00:00 Phenergan 12.5 mg, 0.5 IM No [facility] mL, Route: IM, Longer 2012 [facility] Drug form: Active INJ, Q6H, PRN Nausea, Start date: 06/23/12 10:11:00, Duration: 30 day, Stop date: 07/23/12 10:10:00 Haldol 5 mg, 1 mL, IV No [facility] Route: IV, Longer 2012 [facility] Drug form: Active INJ, Q6H, PRN Agitation, Start date: 06/23/12 10:05:00, Duration: 30 day, Stop date: 07/23/12 10:04:00 Ativan 2 mg, 1 mL, IV No [facility] Route: IV, Longer 2012 [facility] Drug form: Active INJ, Q2H, PRN Agitation, Start date: 06/23/12 10:03:00, Duration: 30 day, Stop date: 07/23/12 10:02:00 Neurontin 300 mg, 1 cap, PO No [facility] Route: PO, Longer 2012 [facility] Drug form: Active CAP, ONCE, Start date: 06/23/12 10:02:00, Stop date: 06/23/12 10:02:00 Pepcid 20 mg, 1 tab, PO No [place] Route: PO, Longer 2012 [facility] Drug form: Active TAB, BID, Start date: 06/23/12 9:00:00, Duration: 30 day, Stop date: 07/22/12 17:00:00 Depakote EC 500 mg, 1 tab, PO No [place] Route: PO, Longer 2012 [facility] Drug form: Active ECTAB, Daily, Start date: 06/23/12 9:00:00, Duration: 30 day, Stop date: 07/22/12 9:00:00 Lovenox 40 mg, 0.4 mL, SUB-Q No David Route: SUB-Q, Longer 2012 [facility] Drug form: Active INJ, Q24H, Start date: 06/23/12 0:00:00, Duration: 30 day, Stop date: 07/22/12 0:00:00 Ativan 2 mg, 1 mL, IV No [place] Route: IV, Longer 2012 [facility] Drug form: Active INJ, ONCE, PRN Seizure, Start date: 06/22/12 23:31:00 ketorolac 30 30 mg, 1 mL, IV No [facility] mg/mL Route: IV, Longer 2012 [facility] injectable Drug form: Active solution INJ, Q6H, PRN Pain, Start date: 06/22/12 23:31:00, Duration: 4 day, Stop date: 06/26/12 23:30:00 morphine 2 mg, 0.25 mL, IV No [place] Sulfate Route: IV, Longer 2012 [facility] Drug form: Active INJ, Q6H, PRN Pain Score 7-10, Start date: 06/22/12 23:31:00, Stop date: 07/22/12 23:30:00 Phenergan 12.5 mg, 0.5 PO No [facility] tab, Route: Longer 2012 [facility] PO, Drug form: Active TAB, Q4H, PRN Nausea, Start date: 06/22/12 23:30:00, Duration: 30 day, Stop date: 07/22/12 23:29:00 Sodium Chloride 250 mL, Route: IVPB No [facility] 0.9% IV IVPB, Start Longer 2012 [facility] date: 06/22/12 Active 23:29:00, Duration: 30 day, Stop date: 07/22/12 23:28:00, PRN Line Flush BD Normal 10 mL, Route: IVP No [facility] Saline Flush IVP, Drug Longer 2012 [facility] Form: INJ, Active PRN, PRN Line Flush, Start date: 06/22/12 23:29:00, Duration: 30 day, Stop date: 07/22/12 23:28:00 NS 1,000 mL 1,000 mL, IV No [facility] Rate: 125 Longer 2012 [facility] ml/hr, Infuse Active over: 8 hr, Route: IV, kg, Total Volume: 1,000, Start date: 06/22/12 22:10:00, Duration: 30 day, Stop date: 07/22/12 22:09:00 Phenergan 12.5 mg, 1 PO No [facility] tab, Route: Longer 2012 [facility] PO, Drug form: Active TAB, ONCE, Dosing Weight 50, kg, Priority: STAT, Start date: 06/22/12 20:30:00, Stop date: 06/22/12 20:30:00 morphine 2 mg, Route: IVP No [facility] Sulfate IVP, ONCE, Longer 2012 [facility] Dosing Weight Active 50, kg, Start date: 06/22/12 20:28:00, Stop date: 06/22/12 20:28:00 Depakote 500 mg, 1 tab, PO [facility] Route: PO, Longer 2012 [facility] Drug form: Active ECTAB, ONCE, Dosing Weight 50, kg, Priority: STAT, Start date: 06/22/12 18:56:00, Stop date: 06/22/12 18:56:00 Sodium Chloride 1,000 mL, 1000 IV [facility] 0.9% (Bolus) IV ml/hr, Route: Longer 2012 [facility] IV, Drug Form: Active INJ, Dosing Weight 50, kg, ONCE, Bolus Dose - infuse over 1 hr, STAT, Start date: 06/22/12 16:23:00, Stop date: 06/22/12 16:23:00 Sodium Chloride 1,000 mL, 1000 IV No Oscar 0.9% (Bolus) IV ml/hr, Route: Longer 2012 [facility] IV, Drug Form: Active INJ, Dosing Weight 50, kg, ONCE, Bolus Dose - infuse over 1 hr, STAT, Start date: 06/22/12 14:21:00, Stop date: 06/22/12 14:21:00 Phenergan 25 mg, 1 mL, IVPB No Oscar Route: IVPB, Longer 2012 [facility] Drug form: Active INJ, ONCE, Dosing Weight 50, kg, Priority: STAT, Start date: 06/22/12 14:21:00, Stop date: 06/22/12 14:21:00 morphine 4 mg, 1 mL, IVP No Oscar Sulfate Route: IVP, Longer 2012 [facility] Drug form: Active INJ, ONCE, Dosing Weight 50, kg, Priority: STAT, Start date: 06/22/12 14:21:00, Stop date: 06/22/12 14:21:00 Reglan 10 mg 10 mg, PO, PO Active Yomi oral tablet QID-Before 2010 [facility] Meals, PRN, 40 tab, nausea and vomiting, Substitution Allowed ondansetron 8 mg, 4 mL, IVP No Yomi Route: IVP, Longer 2010 [facility] Drug form: Active INJ, ONCE, Priority: STAT, Start date: 05/14/11 8:21:00, Stop date: 05/14/11 8:21:00 acetaminophen 650 mg, 2 tab, PO No Yomi Route: PO, Longer 2010 [facility] Drug form: Active TAB, ONCE, Priority: STAT, Start date: 05/14/11 7:32:00, Stop date: 05/14/11 7:32:00 Sodium Chloride 250 mL, Route: IVPB Deborah Seymour 0.9% IV IVPB, PRN, Longer 2010 [facility] Line Flush, Active Start date: 05/14/11 7:01:00, Duration: 30 day, Stop date: 06/13/11 7:00:00 BD Normal 10 mL, Route: IVP No Lion Saline Flush IVP, Drug Longer 2010 [facility] Form: INJ, Active PRN, PRN Line Flush, Start date: 05/14/11 7:01:00, Duration: 30 day, Stop date: 06/13/11 7:00:00 Reglan 10 mg, 2 mL, IV No [facility] Route: IV, Longer 2010 [facility] Drug form: Active INJ, ONCE, Start date: 05/14/11 6:42:00, Stop date: 05/14/11 6:42:00 Sodium Chloride 1,000 mL, IV No [facility] 0.9% (Bolus) IV Rate: 1,000 Longer 2010 [facility] 1,000 mL ml/hr, Infuse Active over: 1 hr, Route: IV, Total Volume: 1,000, Bolus Dose, Priority: STAT, Start date: 05/14/11 6:41:00, Duration: 1 doses or times, Stop date: 05/14/11 7:40:00 Zofran 4 mg 4 mg, 1 tab, PO Active Johnny oral tablet PO, ONCE, 3 2010 [facility] tab, Substitution Allowed, TAB potassium 20 mEq, 1 tab, PO No [place] 05/13[facility] chloride 20 mEq Route: PO, Longer 2010 [facility] oral tablet, Drug form: Active extended ERTAB, ONCE, release Priority: STAT, Start date: 05/13/11 0:31:00, Stop date: 05/13/11 0:31:00 Reglan 10 mg, 2 mL, IV No [place] 05/13[facility] Route: IV, Longer 2010 [facility] Drug form: Active INJ, ONCE, Start date: 05/12/11 22:11:00, Stop date: 05/12/11 22:11:00 ondansetron 4 mg, 2 mL, IVP No [place] 05/13[facility] Route: IVP, Longer 2010 [facility] Drug form: Active INJ, ONCE, Priority: STAT, Start date: 05/12/11 21:25:00, Stop date: 05/12/11 21:25:00 morphine 4 mg, 1 mL, IVP No [place] 05/13[facility] Sulfate Route: IVP, Longer 2010 [facility] Drug form: Active INJ, ONCE, Priority: STAT, Start date: 05/12/11 21:25:00, Stop date: 05/12/11 21:25:00 Saline Flush 5 ml, Route: IVP No Johnny 0.9% IVP, Drug Longer 2010 [facility] Form: INJ, Active PRN, PRN Line Flush, Start date: 05/12/11 21:25:00, Duration: 30 day, Stop date: 06/11/11 21:24:00 Sodium Chloride 500 mL, Rate: IV No Johnny 0.9% (Bolus) IV 500 ml/hr, Longer 2010 [facility] 500 mL Infuse over: 1 Active hr, Route: IV, Total Volume: 500, Bolus dose, Priority: STAT, Start date: 05/12/11 21:25:00, Duration: 1 doses or times, Stop date: 05/12/11 22:24:00 Allergies, Adverse Reactions, Alerts Substance Category Reaction Severity Reaction Status Date Comments Source type Reported ondansetron drug Allergy Active allergy [facility] Immunizations Immunization Date Given Site Status Last Updated Comments Source Results Order Name Results Value Reference Date Interpretation Comments Source Range BEDSIDE Comment1 Notify 09/22 NA GLUCOSE RN/MD /2012 [facility] TESTING BEDSIDE Gluc POC 93 mg/dL 70 - 99 09/22 Normal 1Interpretive GLUCOSE Lifscn Data: [facility] TESTING Upper Reportable Limit: 200 mg/dL. CHEMISTRY [...] is not recommended in the following populations: [facility] 3m2 Individuals with unstable creatinine concentrations, including [...] 141 meq/L 135 - 145 09/21 Normal [facility] CHEMISTRY CO2 12 meq/L 24 - 32 09/21 LOW [facility] CHEMISTRY Chloride Lvl 112 meq/L 95 - 109 09/21 HI [facility] CHEMISTRY AGAP 20.8 meq/L 10.0 - 09/21 HI 20.0 [facility] CHEMISTRY Potassium 3.8 meq/L 3.5 - 5.1 09/21 Normal 2Result Comment: [facility] Specimen is slightly hemolyzed CHEMISTRY Calcium Lvl 7.4 mg/dL 8.5 - 10.5 09/21 LOW [facility] CHEMISTRY Glucose Lvl 74 mg/dL 70 - 99 09/21 Normal 5Interpretive Data: Adult reference range values reflect the clinical guidelines of the [place] [employer]. [facility] CHEMISTRY Creatinine 0.6 mg/dL 0.5 - 1.4 09/21 Normal [facility] CHEMISTRY BUN 5 mg/dL 7 - 22 09/21 LOW [facility] CHEMISTRY UDS Note See Note 7 09/20 Normal 7Interpretive Data: Drugs reported as positive have not been confirmed by a second method and should be used for medical purposes only. To order [facility] (09/20/2012 18:12:00) confirmation, contact laboratory. note: Below [...] U Opiate Scr Positive Negative 09/20 ABN [facility] *ABN* (09/20/2012 18:12:00) CHEMISTRY U Phencyc Negative Negative 09/20 NA [facility] *NA* (09/20/2012 18:12:00) CHEMISTRY U Cannab Scr Positive Negative 09/20 ABN [facility] *ABN* (09/20/2012 18:12:00) CHEMISTRY U Cocaine Positive Negative 09/20 ABN [facility] *ABN* (09/20/2012 18:12:00) CHEMISTRY U Benzodia Negative Negative 09/20 NA Scr [facility] *NA* (09/20/2012 18:12:00) CHEMISTRY U Amph Scr Negative Negative 09/20 NA [facility] *NA* (09/20/2012 18:12:00) CHEMISTRY U Abbi Scr Negative Negative 09/20 NA [facility] *NA* (09/20/2012 18:12:00) URINALYSIS UA Sq Epi Few /LPF Few 09/20 Normal [facility] (09/20/2012 18:12:00) URINALYSIS UA WBC 3-5 /HPF None Seen 09/20 Normal [facility] (09/20/2012 18:12:00) URINALYSIS Micro? Performed 09/20 Normal [facility] (09/20/2012 18:12:00) URINALYSIS UA Bacteria Few /HPF None Seen 09/20 Normal [facility] (09/20/2012 18:12:00) URINALYSIS UA Mucus Rare /LPF None Seen 09/20 Normal [facility] (09/20/2012 18:12:00) URINALYSIS UA RBC 51-100 /HPF 0 - 2 09/20 [facility] *ABN* (09/20/2012 18:12:00) URINALYSIS UA Leuk Est Trace Negative 09/20 [facility] [place] [facility] *ABN* (09/20/2012 18:12:00) URINALYSIS UA Nitrite Negative Negative 09/20 Normal [facility] (09/20/2012 18:12:00) URINALYSIS UA Color Red Yellow 09/20 [facility] [facility] *ABN* (09/20/2012 18:12:00) URINALYSIS UA Bili Negative Negative 09/20 [facility] *NA* (09/20/2012 18:12:00) URINALYSIS UA 1.0 EU/dL 0.1 - 1.0 09/20 Normal Urobilinogen [facility] URINALYSIS UA Blood Large Negative 09/20 [facility] *ABN* (09/20/2012 18:12:00) URINALYSIS UA Turbidity Cloudy Clear 09/20 [facility] *ABN* (09/20/2012 18:12:00) URINALYSIS UA pH 7.5 5.0 - 8.0 09/20 Normal [facility] URINALYSIS UA Spec Grav 1.020 <=1.030 09/20 Normal [facility] URINALYSIS UA Protein 30 mg/dL Negative 09/20 ABN [facility] *ABN* (09/20/2012 18:12:00) URINALYSIS UA Ketones >=80 mg/dL Negative 09/20 NA [facility] *NA* (09/20/2012 18:12:00) URINALYSIS UA Glucose Negative Negative 09/20 Normal [facility] (09/20/2012 18:12:00) Microbiolo Culture: 09/20 gy Urine [facility] CHEMISTRY S Preg Negative Negative 09/20 NA [facility] *NA* (09/20/2012 12:03:37) CHEMISTRY eGFR 117 09/20 [...] is not recommended in the following populations: [facility] 3m2 Individuals with unstable creatinine concentrations, including [...] 107 meq/L 95 - 109 09/20 Normal [facility] CHEMISTRY CO2 25 meq/L 24 - 32 09/20 Normal [facility] CHEMISTRY Calcium Lvl 8.8 mg/dL 8.5 - 10.5 09/20 Normal [facility] CHEMISTRY Sodium Lvl 140 meq/L 135 - 145 09/20 Normal [facility] CHEMISTRY Potassium 3.2 meq/L 3.5 - 5.1 09/20 LOW [facility] CHEMISTRY Creatinine 0.8 mg/dL 0.5 - 1.4 09/20 Normal [facility] CHEMISTRY BUN 9 mg/dL 7 - 22 09/20 Normal [facility] CHEMISTRY Glucose Lvl 94 mg/dL 70 - 99 09/20 Normal 6Interpretive Data: Adult reference range values reflect the clinical guidelines of the [place] [employer]. [facility] CHEMISTRY AGAP 11.2 meq/L 10.0 - 09/20 Normal MH 20.0 [facility] HEMATOLOGY MCV 86.3 fL 81.0 - 09/20 Normal MH 99.0 /2012 [facility] HEMATOLOGY Hct 36.5 % 36.0 - 09/20 Normal MH 48.0 /2012 [facility] HEMATOLOGY RBC 4.23 M/CMM 4.20 - 09/20 Normal MH 5.40 /2012 [facility] HEMATOLOGY WBC 4.3 K/CMM 3.7 - 10.4 09/20 Normal /2012 [facility] HEMATOLOGY Hgb 11.8 g/dL 12.0 - 09/20 LOW MH 16.0 [facility] HEMATOLOGY MCHC 32.2 g/dL 32.0 - 09/20 Normal MH 36.0 [facility] HEMATOLOGY MCH 27.8 pg 27.0 - 09/20 Normal MH 31.0 [facility] HEMATOLOGY RDW 15.0 % 11.5 - 09/20 HI MH 14.5 [facility] HEMATOLOGY MPV 9.5 fL 7.4 - 10.4 09/20 Normal [facility] HEMATOLOGY Platelet 224 K/CMM 133 - 450 09/20 Normal [facility] HEMATOLOGY Monocytes 6.8 % 2.0 - 12.0 09/20 Normal [facility] HEMATOLOGY Lymphocytes 23.4 % 20.0 - 09/20 Normal 40.0 [facility] HEMATOLOGY Eosinophils 0.5 % 0.0 - 4.0 09/20 Normal [facility] HEMATOLOGY Monocytes # 0.3 K/CMM 0.0 - 0.8 09/20 Normal [facility] HEMATOLOGY Segs-Bands # 2.9 K/CMM 1.5 - 8.1 09/20 Normal [facility] HEMATOLOGY Basophils 0.3 % 0.0 - 1.0 09/20 Normal [facility] HEMATOLOGY Lymphocytes 1.0 K/CMM 1.0 - 5.5 09/20 Normal MH /2012 [facility] HEMATOLOGY Giant Plt Slight None Seen 09/20 ABN /2012 [facility] *ABN* (09/20/2012 12:03:00) HEMATOLOGY Segs 69.0 % 45.0 - 09/20 Normal MH 75.0 [facility] HEMATOLOGY Eosinophils 0.0 K/CMM 0.0 - 0.5 09/20 Normal MH # /2012 [facility] HEMATOLOGY Basophils # 0.0 K/CMM 0.0 - 0.2 09/20 Normal [facility] HEMATOLOGY Large Plt Slight None Seen 09/20 ABN [facility] *ABN* (09/20/2012 12:03:00) HEMATOLOGY Elliptocyte Slight None Seen 09/20 ABN [facility] *ABN* (09/20/2012 12:03:00) HEMATOLOGY Polychrom Slight None Seen 09/20 Normal [facility] (09/20/2012 12:03:00) CHEMISTRY U Preg Negative Negative 08/18 Normal [facility] (08/17/2012 20:50:00) URINALYSIS UA Color Yellow Yellow 08/18 NA [facility] *NA* (08/17/2012 20:50:00) URINALYSIS UA Protein 30 mg/dL Negative 08/18 [facility] [place] [facility] *ABN* (08/17/2012 20:50:00) URINALYSIS UA Spec Grav >=1.030 <=1.030 08/18 ABN [facility] *ABN* (08/17/2012 20:50:00) URINALYSIS UA pH 6.0 5.0 - 8.0 08/18 Normal [facility] URINALYSIS UA Turbidity Slight Cloudy Clear 08/18 Normal [facility] (08/17/2012 20:50:00) URINALYSIS UA Nitrite Negative Negative 08/18 Normal [facility] (08/17/2012 20:50:00) URINALYSIS UA Bili Negative Negative 08/18 NA [facility] *NA* (08/17/2012 20:50:00) URINALYSIS UA Blood Trace Negative 08/18 [facility] [place] [facility] *ABN* (08/17/2012 20:50:00) URINALYSIS UA Glucose Negative Negative 08/18 Normal [facility] (08/17/2012 20:50:00) URINALYSIS UA Ketones >=80 mg/dL Negative 08/18 NA [facility] *NA* (08/17/2012 20:50:00) URINALYSIS UA 1.0 EU/dL 0.1 - 1.0 08/18 Normal Urobilinogen [facility] URINALYSIS UA Leuk Est Moderate Negative 08/18 ABN [facility] *ABN* (08/17/2012 20:50:00) URINALYSIS UA WBC 21-50 /HPF None Seen 08/18 ABN [facility] *ABN* (08/17/2012 20:50:00) URINALYSIS UA Bacteria Many /HPF None Seen 08/18 Normal [facility] (08/17/2012 20:50:00) URINALYSIS UA Mucus Few /LPF None Seen 08/18 Normal [facility] (08/17/2012 20:50:00) URINALYSIS UA Sq Epi Occasional /LPF Few 08/18 Normal [facility] (08/17/2012 20:50:00) CHEMISTRY CK MB Index null 0.0 - 2.5 08/18 Normal [facility] CHEMISTRY Amylase Lvl 53 unit/L 25 - 115 08/18 Normal [facility] CHEMISTRY eGFR 144 08/18 NA 1Result Comment: [...] is not recommended in the following populations: [facility] 3m2 Individuals with unstable creatinine concentrations, including [...] 7.8 g/dL 6.4 - 8.4 08/18 Normal [facility] CHEMISTRY Bili Total 0.4 mg/dL 0.2 - 1.3 08/18 Normal [facility] CHEMISTRY Calcium Lvl 9.1 mg/dL 8.5 - 10.5 08/18 Normal [facility] CHEMISTRY Albumin Lvl 3.6 g/dL 3.5 - 5.0 08/18 Normal [facility] CHEMISTRY AGAP 18.7 meq/L 10.0 - 08/18 Normal MH 20.0 [facility] CHEMISTRY AST 16 unit/L 0 - 37 08/18 Normal [facility] CHEMISTRY Alk Phos 84 unit/L 39 - 136 08/18 Normal [facility] CHEMISTRY ALT 14 unit/L 0 - 65 08/18 Normal [facility] CHEMISTRY B/C Ratio 12 6 - 25 08/18 Normal [facility] CHEMISTRY A/G Ratio 0.9 0.7 - 1.6 08/18 Normal [facility] CHEMISTRY Globulin 4.2 g/dL 2.0 - 4.0 08/18 HI [facility] CHEMISTRY Sodium Lvl 141 meq/L 135 - 145 08/18 Normal [facility] CHEMISTRY Potassium 3.7 meq/L 3.5 - 5.1 08/18 Normal [facility] CHEMISTRY Chloride Lvl 104 meq/L 95 - 109 08/18 Normal [facility] CHEMISTRY CO2 22 meq/L 24 - 32 08/18 LOW [facility] CHEMISTRY Glucose Lvl 81 mg/dL 70 - 99 08/18 Normal 2Interpretive Data: Adult reference range values reflect the clinical guidelines of the [place] [employer]. [facility] CHEMISTRY Creatinine 0.6 mg/dL 0.5 - 1.4 08/18 Normal [facility] CHEMISTRY BUN 7 mg/dL 7 - 22 08/18 Normal [facility] CHEMISTRY Lipase Lvl 71 unit/L 73 - 393 08/18 LOW [facility] CHEMISTRY Total CK 114 unit/L 12 - 191 08/18 Normal [facility] CHEMISTRY Troponin-I null 0.00 - 08/18 Normal 0.40 [facility] CHEMISTRY CK MB null 0.5 - 3.6 08/18 Normal [facility] HEMATOLOGY Eosinophils 0.0 % 0.0 - 4.0 08/18 Normal [facility] HEMATOLOGY Lymphocytes 0.9 K/CMM 1.0 - 5.5 08/18 LOW MH [facility] HEMATOLOGY Basophils 1.2 % 0.0 - 1.0 08/18 HI [facility] HEMATOLOGY Monocytes # 0.4 K/CMM 0.0 - 0.8 08/18 Normal [facility] HEMATOLOGY Segs-Bands # 5.5 K/CMM 1.5 - 8.1 08/18 Normal [facility] HEMATOLOGY Lymphocytes 12.3 % 20.0 - 08/18 LOW MH 40.0 [facility] HEMATOLOGY Plt Morph Normal 08/18 Normal /2012 [facility] (08/17/2012 20:11:00) HEMATOLOGY Monocytes 6.3 % 2.0 - 12.0 08/18 Normal /2012 [facility] HEMATOLOGY Segs 80.2 % 45.0 - 08/18 HI MH 75.0 /2012 [facility] HEMATOLOGY Eosinophils 0.0 K/CMM 0.0 - 0.5 08/18 Normal MH # /2012 [facility] HEMATOLOGY Basophils # 0.1 K/CMM 0.0 - 0.2 08/18 Normal [facility] HEMATOLOGY Polychrom Slight None Seen 08/18 Normal /2012 [facility] (08/17/2012 20:11:00) HEMATOLOGY Hgb 11.2 g/dL 12.0 - 08/18 LOW 16.0 [facility] HEMATOLOGY Hct 34.2 % 36.0 - 08/18 LOW 48.0 [facility] HEMATOLOGY RBC 3.98 M/CMM 4.20 - 08/18 LOW 5.40 /2012 [facility] HEMATOLOGY MCV 85.9 fL 81.0 - 08/18 Normal 99.0 [facility] HEMATOLOGY MCH 28.1 pg 27.0 - 08/18 Normal 31.0 [facility] HEMATOLOGY WBC 6.9 K/CMM 3.7 - 10.4 08/18 Normal [facility] HEMATOLOGY MPV 10.2 fL 7.4 - 10.4 08/18 Normal [facility] HEMATOLOGY RDW 15.6 % 11.5 - 08/18 HI MH 14.5 /2012 [facility] HEMATOLOGY Platelet 212 K/CMM 133 - 450 08/18 Normal [facility] HEMATOLOGY MCHC 32.8 g/dL 32.0 - 08/18 Normal 36.0 [facility] CHEMISTRY U Preg Negative Negative 08/05 Normal [facility] (08/05/2012 17:19:00) URINALYSIS Micro? Performed 08/05 Normal [facility] (08/05/2012 17:19:00) URINALYSIS UA Sq Epi Moderate /LPF Few 08/05 ABN [facility] *ABN* (08/05/2012 17:19:00) URINALYSIS UA Mucus Many /LPF None Seen 08/05 ABN [facility] *ABN* (08/05/2012 17:19:00) URINALYSIS UA Bacteria Few /HPF None Seen 08/05 Normal [facility] (08/05/2012 17:19:00) URINALYSIS UA RBC 0-2 /HPF 0 - 2 08/05 Normal [facility] (08/05/2012 17:19:00) URINALYSIS UA WBC 3-5 /HPF None Seen 08/05 Normal [facility] (08/05/2012 17:19:00) URINALYSIS UA Color Yellow Yellow 08/05 NA [facility] *NA* (08/05/2012 17:19:00) URINALYSIS UA 1.0 EU/dL 0.1 - 1.0 08/05 Normal Urobilino [facility] URINALYSIS UA Ketones >=80 mg/dL Negative 08/05 NA [facility] *NA* (08/05/2012 17:19:00) URINALYSIS UA Glucose Negative Negative 08/05 Normal [facility] (08/05/2012 17:19:00) URINALYSIS UA Blood Negative Negative 08/05 Normal [facility] (08/05/2012 17:19:00) URINALYSIS UA Bili Negative Negative 08/05 NA [facility] *NA* (08/05/2012 17:19:00) URINALYSIS UA pH 7.0 5.0 - 8.0 08/05 Normal [facility] URINALYSIS UA Protein 30 mg/dL Negative 08/05 ABN [facility] *ABN* (08/05/2012 17:19:00) URINALYSIS UA Spec Grav 1.020 <=1.030 08/05 Normal [facility] URINALYSIS UA Turbidity Slight Cloudy Clear 08/05 Normal [facility] (08/05/2012 17:19:00) URINALYSIS UA Leuk Est Negative Negative 08/05 Normal [facility] (08/05/2012 17:19:00) URINALYSIS UA Nitrite Negative Negative 08/05 Normal [facility] (08/05/2012 17:19:00) CHEMISTRY Lipase Lvl 58 unit/L 73 - 393 08/05 LOW [facility] CHEMISTRY eGFR 137 08/05 NA 1Result Comment: [...] is not recommended in the following populations: [facility] 3m2 Individuals with unstable creatinine concentrations, including [...] 0.4 mg/dL 0.2 - 1.3 08/05 Normal [facility] CHEMISTRY Alk Phos 85 unit/L 39 - 136 08/05 Normal [facility] CHEMISTRY ALT 18 unit/L 0 - 65 08/05 Normal [facility] CHEMISTRY AST 14 unit/L 0 - 37 08/05 Normal [facility] CHEMISTRY Potassium 3.5 meq/L 3.5 - 5.1 08/05 Normal Lvl [facility] CHEMISTRY Chloride Lvl 108 meq/L 95 - 109 08/05 Normal [facility] CHEMISTRY Creatinine 0.7 mg/dL 0.5 - 1.4 08/05 Normal Lvl [facility] CHEMISTRY CO2 23 meq/L 24 - 32 08/05 LOW [facility] CHEMISTRY BUN 6 mg/dL 7 - 22 08/05 LOW [facility] CHEMISTRY Sodium Lvl 142 meq/L 135 - 145 08/05 Normal [facility] CHEMISTRY Calcium Lvl 9.5 mg/dL 8.5 - 10.5 08/05 Normal [facility] CHEMISTRY Total 9.1 g/dL 6.4 - 8.4 08/05 HI [facility] CHEMISTRY Albumin Lvl 4.2 g/dL 3.5 - 5.0 08/05 Normal [facility] CHEMISTRY Glucose Lvl 120 mg/dL 70 - 99 08/05 HI 2Interpretive Data: Adult reference range values reflect the clinical guidelines of the [place] [employer]. [facility] CHEMISTRY Globulin 4.9 g/dL 2.0 - 4.0 08/05 HI MH [facility] CHEMISTRY B/C Ratio 9 6 - 25 03 Normal [facility] CHEMISTRY AGAP 14.5 meq/L 10.0 - 03 Normal 20. [facility] CHEMISTRY A/G Ratio 0.9 0.7 - 1.6 08/05 Normal [facility] HEMATOLOGY Hypochrom Slight None Seen 08/05 Normal [facility] (08/05/2012 15:40:00) HEMATOLOGY Basophils # 0.0 K/CMM 0.0 - 0.2 08/05 Normal [facility] HEMATOLOGY Eosinophils 0.0 K/CMM 0.0 - 0.5 08/05 Normal [facility] HEMATOLOGY Monocytes # 0.0 K/CMM 0.0 - 0.8 08/05 Normal [facility] HEMATOLOGY Large Plt Slight None Seen 08/05 ABN [facility] *ABN* (08/05/2012 15:40:00) HEMATOLOGY Giant Plt Slight None Seen 08/05 ABN [facility] *ABN* (08/05/2012 15:40:00) HEMATOLOGY Target Cell Slight None Seen 08/05 ABN [facility] *ABN* (08/05/2012 15:40:00) HEMATOLOGY Elliptocyte Slight None Seen 08/05 ABN [facility] *ABN* (08/05/2012 15:40:00) HEMATOLOGY Polychrom Slight None Seen 08/05 Normal [facility] (08/05/2012 15:40:00) HEMATOLOGY Lymphocytes 0.2 K/CMM 1.0 - 5.5 08/05 LOW [facility] HEMATOLOGY Segs-Bands # 4.1 K/CMM 1.5 - 8.1 08/05 Normal [facility] HEMATOLOGY Basophils 0.1 % 0.0 - 1.0 08/05 Normal [facility] HEMATOLOGY Eosinophils 0.0 % 0.0 - 4.0 08/05 Normal [facility] HEMATOLOGY Monocytes 1.0 % 2.0 - 12.0 08/05 LOW [facility] HEMATOLOGY Lymphocytes 5.6 % 20.0 - 08/05 LOW 40.0 [facility] HEMATOLOGY Segs 93.3 % 45.0 - 0308 HI 75.0 [facility] HEMATOLOGY MCHC 32.8 g/dL 32.0 - 0308 Normal 36.0 [facility] HEMATOLOGY MCV 85.2 fL 81.0 - 0308 Normal 99.0 [facility] HEMATOLOGY MCH 27.9 pg 27.0 - 08 Normal 31.0 [facility] HEMATOLOGY RDW 15.3 % 11.5 - 03 HI 14.5 /2012 [facility] HEMATOLOGY Hct 37.9 % 36.0 - 08/05 Normal 48.0 /2012 [facility] HEMATOLOGY WBC 4.4 K/CMM 3.7 - 10.4 08/05 Normal MH [facility] HEMATOLOGY RBC 4.45 M/CMM 4.20 - 03 Normal 5.40 /2012 [facility] HEMATOLOGY Hgb 12.4 g/dL 12.0 - 03 Normal 16.0 /2012 [facility] HEMATOLOGY MPV 9.6 fL 7.4 - 10.4 08/05 Normal [facility] HEMATOLOGY Platelet 282 K/CMM 133 - 450 08/05 Normal [facility] BEDSIDE Comment1 Notify 06/23 [facility] GLUCOSE RN/ [facility] TESTING BEDSIDE Gluc POC 93 mg/dL 70 - 99 06/23 Normal 1Interpretive GLUCOSE [facility] Data: [facility] TESTING Upper Reportable Limit: 200 mg/dL. BEDSIDE Comment1 Notify 06/23 [facility] GLUCOSE MATHEW/ [facility] TESTING BEDSIDE Gluc POC 113 mg/dL 70 - 99 06/23 HI 2Interpretive GLUCOSE [facility] Data: [facility] TESTING Upper Reportable Limit: 200 mg/dL. BEDSIDE Gluc POC 88 mg/dL 70 - 99 06/23 Normal 3Interpretive GLUCOSE [facility] Data: [facility] TESTING Upper Reportable Limit: 200 mg/dL. BEDSIDE Comment1 Notify 06/23 [facility] GLUCOSE MATHEW/ /2012 [facility] TESTING CHEMISTRY Hgb A1C null 06/23 NA 9Result Comment: [facility] reran sample twice. CHEMISTRY eGFR 117 06/23 [...] is not recommended in the following populations: [facility] 3m2 Individuals with unstable creatinine concentrations, including [...] values reflect the clinical guidelines of the [place] [employer]. [facility] CHEMISTRY BUN 13 mg/dL 7 - 22 06/23 Normal [facility] CHEMISTRY Creatinine 0.8 mg/dL 0.5 - 1.4 06/23 Normal MH [facility] CHEMISTRY CO2 21 meq/L 24 - 32 06/23 LOW [facility] CHEMISTRY Calcium Lvl 7.4 mg/dL 8.5 - 10.5 06/23 LOW [facility] CHEMISTRY AGAP 13.5 meq/L 10.0 - 06/23 Normal 20. [facility] CHEMISTRY Sodium Lvl 144 meq/L 135 - 145 06/23 Normal [facility] CHEMISTRY Potassium 3.5 meq/L 3.5 - 5.1 06/23 Normal [facility] CHEMISTRY Chloride Lvl 113 meq/L 95 - 109 06/23 HI [facility] CHEMISTRY Valproic 46 ug/ml 50 - 100 06/23 LOW Acid [facility] HEMATOLOGY Giant Plt Slight None Seen 06/23 ABN [facility] *ABN* (06/23/2012 05:45:00) HEMATOLOGY Elliptocyte Slight None Seen 06/23 ABN [facility] *ABN* (06/23/2012 05:45:00) HEMATOLOGY Tear Cell Slight None Seen 06/23 ABN [facility] *ABN* (06/23/2012 05:45:00) HEMATOLOGY Eosinophils 0.0 K/CMM 0.0 - 0.5 06/23 Normal [facility] HEMATOLOGY Monocytes # 0.5 K/CMM 0.0 - 0.8 06/23 Normal [facility] HEMATOLOGY Lymphocytes 1.8 K/CMM 1.0 - 5.5 06/23 Normal [facility] HEMATOLOGY Basophils # 0.0 K/CMM 0.0 - 0.2 06/23 Normal [facility] HEMATOLOGY Basophils 0.4 % 0.0 - 1.0 06/23 Normal [facility] HEMATOLOGY Segs 53.4 % 45.0 - 06/23 Normal 75. [facility] HEMATOLOGY Lymphocytes 35.5 % 20.0 - 06/23 Normal MH 40.0 [facility] HEMATOLOGY Monocytes 10.4 % 2.0 - 12.0 06/23 Normal [facility] HEMATOLOGY Eosinophils 0.3 % 0.0 - 4.0 06/23 Normal [facility] HEMATOLOGY Segs-Bands # 2.7 K/CMM 1.5 - 8.1 06/23 Normal [facility] HEMATOLOGY WBC 5.0 K/CMM 3.7 - 10.4 06/23 Normal [facility] HEMATOLOGY RBC 3.14 M/CMM 4.20 - 06/23 LOW MH 5.40 [facility] HEMATOLOGY Hgb 8.9 g/dL 12.0 - 06/23 LOW 16.0 [facility] HEMATOLOGY RDW 16.1 % 11.5 - 06/23 HI MH 14.5 [facility] HEMATOLOGY Platelet 154 K/CMM 133 - 450 06/23 Normal [facility] HEMATOLOGY MPV 10.3 fL 7.4 - 10.4 06/23 Normal [facility] HEMATOLOGY Hct 27.1 % 36.0 - 06/23 LOW 48.0 [facility] HEMATOLOGY MCV 86.2 fL 81.0 - 06/23 Normal 99.0 [facility] HEMATOLOGY MCH 28.5 pg 27.0 - 06/23 Normal 31.0 [facility] HEMATOLOGY MCHC 33.0 g/dL 32.0 - 06/23 Normal 36.0 [facility] CHEMISTRY U Cocaine Positive Negative 06/22 ABN [facility] *ABN* (06/22/2012 15:50:00) CHEMISTRY U Benzodia Negative Negative 06/22 NA [facility] *NA* (06/22/2012 15:50:00) CHEMISTRY U Abbi Scr Negative Negative 06/22 NA [facility] *NA* (06/22/2012 15:50:00) CHEMISTRY U Amph Scr Negative Negative 06/22 NA [facility] *NA* (06/22/2012 15:50:00) CHEMISTRY UDS Note See Note 10 06/22 Normal 10Interpretive Data: Drugs reported as positive have not been confirmed by a second method and should be used for medical purposes only. To order [facility] (06/22/2012 15:50:00) confirmation, contact laboratory. note: Below [...] CHEMISTRY U Phencyc Negative Negative 06/22 NA [facility] *NA* (06/22/2012 15:50:00) CHEMISTRY U Opiate Scr Positive Negative 06/22 [facility] [place] [facility] *ABN* (06/22/2012 15:50:00) CHEMISTRY U Cannab Scr Positive Negative 06/22 ABN [facility] *ABN* (06/22/2012 15:50:00) CHEMISTRY U Preg Negative Negative 06/22 Normal [facility] (06/22/2012 15:50:00) URINALYSIS UA Sq Epi Occasional /LPF Few 06/22 Normal [facility] (06/22/2012 15:50:00) URINALYSIS UA WBC 0-2 /HPF None Seen 06/22 Normal [facility] (06/22/2012 15:50:00) URINALYSIS UA Bacteria Occasional /HPF None Seen 06/22 Normal [facility] (06/22/2012 15:50:00) URINALYSIS UA Mucus Few /LPF None Seen 06/22 Normal [facility] (06/22/2012 15:50:00) URINALYSIS UA Turbidity Clear Clear 06/22 Normal [facility] (06/22/2012 15:50:00) URINALYSIS UA Ketones 40 mg/dL Negative 06/22 NA [facility] *NA* (06/22/2012 15:50:00) URINALYSIS UA Spec Grav >=1.030 <=1.030 06/22 ABN [facility] *ABN* (06/22/2012 15:50:00) URINALYSIS UA Nitrite Negative Negative 06/22 Normal [facility] (06/22/2012 15:50:00) URINALYSIS UA Blood Trace Negative 06/22 ABN [facility] *ABN* (06/22/2012 15:50:00) URINALYSIS UA 1.0 EU/dL 0.1 - 1.0 06/22 Normal Urobilinogen [facility] URINALYSIS UA Bili Negative Negative 06/22 NA [facility] *NA* (06/22/2012 15:50:00) URINALYSIS UA Glucose Negative Negative 06/22 Normal [facility] (06/22/2012 15:50:00) URINALYSIS UA Protein 30 mg/dL Negative 06/22 ABN [facility] *ABN* (06/22/2012 15:50:00) URINALYSIS UA pH 6.0 5.0 - 8.0 06/22 Normal [facility] URINALYSIS UA Leuk Est Negative Negative 06/22 Normal [facility] (06/22/2012 15:50:00) URINALYSIS UA Color Yellow Yellow 06/22 NA [facility] *NA* (06/22/2012 15:50:00) Microbiolo Culture: 06/22 gy [facility] CHEMISTRY eGFR 101 06/22 NA 5Result Comment: [...] is not recommended in the following populations: [facility] 3m2 Individuals with unstable creatinine concentrations, including [...] 0.4 mg/dL 0.2 - 1.3 06/22 Normal [facility] CHEMISTRY ALT 17 unit/L 0 - 65 06/22 Normal [facility] CHEMISTRY Albumin Lvl 4.3 g/dL 3.5 - 5.0 06/22 Normal [facility] CHEMISTRY Alk Phos 74 unit/L 39 - 136 06/22 Normal [facility] CHEMISTRY AST 12 unit/L 0 - 37 06/22 Normal [facility] CHEMISTRY Total 8.6 g/dL 6.4 - 8.4 06/22 HI MH [facility] CHEMISTRY Calcium Lvl 9.4 mg/dL 8.5 - 10.5 06/22 Normal [facility] CHEMISTRY Potassium 4.1 meq/L 3.5 - 5.1 06/22 Normal l [facility] CHEMISTRY Sodium Lvl 139 meq/L 135 - 145 06/22 Normal [facility] CHEMISTRY Glucose Lvl 119 mg/dL 70 - 99 06/22 HI 7Interpretive Data: Adult reference range values reflect the clinical guidelines of the [place] [employer]. [facility] CHEMISTRY Chloride Lvl 106 meq/L 95 - 109 06/22 Normal [facility] CHEMISTRY CO2 20 meq/L 24 - 32 06/22 LOW [facility] CHEMISTRY BUN 15 mg/dL 7 - 22 06/22 Normal [facility] CHEMISTRY Creatinine 0.9 mg/dL 0.5 - 1.4 06/22 Normal [facility] CHEMISTRY A/G Ratio 1.0 0.7 - 1.6 06/22 Normal [facility] CHEMISTRY B/C Ratio 17 6 - 25 06/22 Normal [facility] CHEMISTRY Globulin 4.3 g/dL 2.0 - 4.0 06/22 HI [facility] CHEMISTRY AGAP 17.1 meq/L 10.0 - 06/22 Normal 20.0 [facility] CHEMISTRY Lipase Lvl 40 unit/L 73 - 393 06/22 LOW [facility] CHEMISTRY Amylase Lvl 46 unit/L 25 - 115 06/22 Normal [facility] HEMATOLOGY Target Cell Slight None Seen 06/22 ABN [facility] *ABN* (06/22/2012 14:10:00) HEMATOLOGY Large Plt Slight None Seen 06/22 ABN [facility] *ABN* (06/22/2012 14:10:00) HEMATOLOGY Polychrom Slight None Seen 06/22 Normal [facility] (06/22/2012 14:10:00) HEMATOLOGY Basophils # 0.0 K/CMM 0.0 - 0.2 06/22 Normal [facility] HEMATOLOGY Eosinophils 0.0 K/CMM 0.0 - 0.5 06/22 Normal [facility] HEMATOLOGY Segs 86.0 % 45.0 - 06/22 HI MH 75.0 /2012 [facility] HEMATOLOGY Monocytes # 0.3 K/CMM 0.0 - 0.8 06/22 Normal /2012 [facility] HEMATOLOGY Lymphocytes 0.6 K/CMM 1.0 - 5.5 06/22 LOW MH # /2012 [facility] HEMATOLOGY Segs-Bands # 5.5 K/CMM 1.5 - 8.1 06/22 Normal [facility] HEMATOLOGY Basophils 0.2 % 0.0 - 1.0 06/22 Normal [facility] HEMATOLOGY Eosinophils 0.0 % 0.0 - 4.0 06/22 Normal [facility] HEMATOLOGY Lymphocytes 9.4 % 20.0 - 06/22 LOW MH 40.0 [facility] HEMATOLOGY Monocytes 4.4 % 2.0 - 12.0 06/22 Normal [facility] HEMATOLOGY MPV 10.2 fL 7.4 - 10.4 06/22 Normal [facility] HEMATOLOGY MCHC 33.2 g/dL 32.0 - 06/22 Normal MH 36.0 [facility] HEMATOLOGY MCH 28.5 pg 27.0 - 06/22 Normal MH 31.0 [facility] HEMATOLOGY RBC 4.12 M/CMM 4.20 - 06/22 LOW MH 5.40 /2012 [facility] HEMATOLOGY RDW 15.8 % 11.5 - 06/22 HI MH 14.5 [facility] HEMATOLOGY Platelet 214 K/CMM 133 - 450 06/22 Normal /2012 [facility] HEMATOLOGY Hgb 11.7 g/dL 12.0 - 06/22 LOW MH 16.0 [facility] HEMATOLOGY Hct 35.3 % 36.0 - 06/22 LOW MH 48.0 [facility] HEMATOLOGY MCV 85.7 fL 81.0 - 06/22 Normal MH 99.0 [facility] HEMATOLOGY WBC 6.4 K/CMM 3.7 - 10.4 06/22 Normal [facility] CHEMISTRY Ketones Qual Negative Negative 05/14 Normal [facility] (05/14/2011 07:30:00) CHEMISTRY AGAP 18.2 meq/L 10.0 - 05/14 Normal MH 20. [facility] CHEMISTRY Glucose Lvl 105 mg/dL 05/14 NA 1Interpretive Data: [facility] Reference Ranges : 0 - 7 days : 41 - 90 mg/dL7 days - 150 yrs : 70 - 99 mg/dL (fasting), based on the clinical recommendatio ns of the [place] [employer]. CHEMISTRY Calcium Lvl 9.5 mg/dL 8.5 - 10.5 05/14 Normal MH [facility] CHEMISTRY CO2 18 meq/L 24 - 32 05/14 LOW MH [facility] CHEMISTRY Creatinine 0.6 mg/dL 0.5 - 1.4 05/14 Normal Lvl /2010 [facility] CHEMISTRY BUN 12 mg/dL 7 - 22 05/14 Normal [facility] CHEMISTRY Potassium 3.2 meq/L 3.5 - 5.1 05/14 LOW MH Lvl /2010 [facility] CHEMISTRY Sodium Lvl 136 meq/L 135 - 145 05/14 Normal MH [facility] CHEMISTRY Chloride Lvl 103 meq/L 95 - 109 05/14 Normal MH [facility] HEMATOLOGY MPV 9.1 fL 7.4 - 10.4 05/14 Normal [facility] HEMATOLOGY RDW 13.7 % 11.5 - 05/14 Normal 14. [facility] HEMATOLOGY MCHC 33.8 g/dL 32.0 - 05/14 Normal 36.0 /2010 [facility] HEMATOLOGY Platelet 292 K/CMM 133 - 450 05/14 Normal MH [facility] HEMATOLOGY MCV 87.4 fL 81.0 - 05/14 Normal 99.0 [facility] HEMATOLOGY MCH 29.6 pg 27.0 - 05/14 Normal 31.0 [facility] HEMATOLOGY Hct 36.3 % 36.0 - 05/14 Normal 48.0 /2010 [facility] HEMATOLOGY RBC 4.15 M/CMM 4.20 - 05/14 LOW MH 5.40 /2010 [facility] HEMATOLOGY Hgb 12.3 g/dL 12.0 - 05/14 Normal 16.0 [facility] HEMATOLOGY WBC 7.7 K/CMM 3.7 - 10.4 05/14 Normal MH [facility] HEMATOLOGY Large Plt Slight None Seen 05/14 ABN MH [facility] *ABN* (05/14/2011 07:30:00) HEMATOLOGY Giant Plt Slight None Seen 05/14 ABN [facility] *ABN* (05/14/2011 07:30:00) HEMATOLOGY Lymphocytes 0.6 K/CMM 1.0 - 5.5 05/14 LOW MH # /2010 [facility] HEMATOLOGY Segs-Bands # 6.2 K/CMM 1.5 - 8.1 05/14 Normal [facility] HEMATOLOGY Basophils 2.3 % 0.0 - 1.0 05/14 HI MH [facility] HEMATOLOGY Eosinophils 0.0 % 0.0 - 4.0 05/14 Normal [facility] HEMATOLOGY Elliptocyte Slight None Seen 05/14 ABN [facility] *ABN* (05/14/2011 07:30:00) HEMATOLOGY Tear Cell Slight None Seen 05/14 ABN [facility] *ABN* (05/14/2011 07:30:00) HEMATOLOGY Eosinophils 0.0 K/CMM 0.0 - 0.5 05/14 Normal MH # /2010 [facility] HEMATOLOGY Basophils # 0.2 K/CMM 0.0 - 0.2 05/14 Normal [facility] HEMATOLOGY Monocytes # 0.6 K/CMM 0.0 - 0.8 05/14 Normal [facility] HEMATOLOGY Lymphocytes 8.1 % 20.0 - 05/14 LOW MH 40.0 [facility] HEMATOLOGY Monocytes 8.4 % 2.0 - 12.0 05/14 Normal [facility] HEMATOLOGY Segs 81.2 % 45.0 - 05/14 HI 75.0 [facility] URINALYSIS UA WBC 11-20 /HPF None Seen 05/13 ABN [facility] *ABN* (05/13/2011 00:50:00) URINALYSIS UA Bacteria Few /HPF None Seen 05/13 Normal [facility] (05/13/2011 00:50:00) URINALYSIS UA RBC 0-2 /HPF 0 - 2 05/13 Normal [facility] (05/13/2011 00:50:00) URINALYSIS UA Nitrite Negative Negative 05/13 Normal [facility] (05/13/2011 00:50:00) URINALYSIS UA Leuk Est Trace Negative 05/13 ABN [facility] *ABN* (05/13/2011 00:50:00) URINALYSIS UA 0.2 EU/dL 0.1 - 1.0 05/13 Normal [place] [facility] URINALYSIS UA Sq Epi Few /LPF Few 05/13 Normal [facility] (05/13/2011 00:50:00) URINALYSIS Micro? Performed 05/13 Normal [facility] (05/13/2011 00:50:00) URINALYSIS UA Blood Negative Negative 05/13 Normal [facility] (05/13/2011 00:50:00) URINALYSIS UA pH 6.0 5.0 - 8.0 05/13 Normal [facility] URINALYSIS UA Spec Grav >=1.030 <=1.030 05/13 ABN [facility] *ABN* (05/13/2011 00:50:00) URINALYSIS UA Turbidity Clear Clear 05/13 Normal [facility] (05/13/2011 00:50:00) URINALYSIS UA Mucus Few /LPF None Seen 05/13 Normal [facility] (05/13/2011 00:50:00) URINALYSIS UA Rare /HPF None Seen 05/13 ABN [place]ich [facility] *ABN* (05/13/2011 00:50:00) URINALYSIS UA Ketones >=80 mg/dL Negative 05/13 Normal [facility] (05/13/2011 00:50:00) URINALYSIS UA Glucose Negative Negative 05/13 Normal [facility] (05/13/2011 00:50:00) URINALYSIS UA Protein Trace Negative 05/13 ABN [facility] *ABN* (05/13/2011 00:50:00) URINALYSIS UA Bili Negative Negative 05/13 Normal [facility] (05/13/2011 00:50:00) URINALYSIS UA Color Yellow Yellow 05/13 Normal [facility] (05/13/2011 00:50:00) BLOOD BANK Antibody Negative 05/13 Normal RESULTS Scr [facility] (05/12/2011 22:10:00) BLOOD BANK ABO/Rh O POS 05/13 Unknown RESULTS [facility] CHEMISTRY hCG Tot [id number] 05/13 NA 3Interpretive mIU/mL Data: [facility] Reference Range: Male 0 - 5 mIU/mL [...] 5 U/L 0 - 37 05/13 Normal [facility] CHEMISTRY Bili Total 0.4 mg/dL 0.2 - 1.3 05/13 Normal [facility] CHEMISTRY Total 7.7 g/dL 6.4 - 8.4 05/13 Normal [facility] CHEMISTRY Calcium Lvl 8.4 mg/dL 8.5 - 10.5 05/13 LOW [facility] CHEMISTRY B/C Ratio 10 6 - 25 05/13 Normal [facility] CHEMISTRY ALT 13 U/L 0 - 65 05/13 Normal [facility] CHEMISTRY Alk Phos 41 U/L 39 - 136 05/13 Normal [facility] CHEMISTRY Albumin Lvl 3.6 g/dL 3.5 - 5.0 05/13 Normal [facility] CHEMISTRY A/G Ratio 0.9 0.7 - 1.6 05/13 Normal [facility] CHEMISTRY Globulin 4.1 g/dL 2.0 - 4.0 05/13 HI MH [facility] CHEMISTRY CO2 20 meq/L 24 - 32 05/13 LOW [facility] CHEMISTRY Potassium 3.0 meq/L 3.5 - 5.1 05/13 CRIT 1Result Comment: [facility] Critical Result(s) called to Angelique at 05/12/2011 22:[address] [facility]. Read back OK. CHEMISTRY AGAP 14.0 meq/L 10.0 - 05/13 Normal 20.0 [facility] CHEMISTRY Chloride Lvl 104 meq/L 95 - 109 05/13 Normal [facility] CHEMISTRY Sodium Lvl 135 meq/L 135 - 145 05/13 Normal [facility] CHEMISTRY Creatinine 0.6 mg/dL 0.5 - 1.4 05/13 Normal l [facility] CHEMISTRY BUN 6 mg/dL 7 - 22 05/13 LOW [facility] CHEMISTRY Glucose Lvl 92 mg/dL 05/13 NA 2Interpretive Data: [facility] Reference Ranges : 0 - 7 days : 41 - 90 mg/dL7 days - 150 yrs : 70 - 99 mg/dL (fasting), based on the clinical recommendatio ns of the [place] [employer]. HEMATOLOGY MCH 30.4 pg 27.0 - 05/13 Normal 31.0 [facility] HEMATOLOGY MCHC 34.8 g/dL 32.0 - 05/13 Normal 36.0 /2010 [facility] HEMATOLOGY RDW 14.1 % 11.5 - 05/13 Normal 14.5 [facility] HEMATOLOGY MPV 8.7 fL 7.4 - 10.4 05/13 Normal MH /2010 [facility] HEMATOLOGY Platelet 237 K/CMM 133 - 450 05/13 Normal MH /2010 [facility] HEMATOLOGY WBC 4.7 K/CMM 3.7 - 10.4 05/13 Normal /2010 [facility] HEMATOLOGY MCV 87.4 fL 81.0 - 05/13 Normal 99.0 [facility] HEMATOLOGY Hct 31.4 % 36.0 - 05/13 LOW 48.0 [facility] HEMATOLOGY RBC 3.59 M/CMM 4.20 - 05/13 LOW 5.40 /2010 [facility] HEMATOLOGY Hgb 10.9 g/dL 12.0 - 05/13 LOW 16.0 [facility] Vital Signs Vital Sign Value Date Comments Source Temperature Oral (F) 98.0 F 09/22/2012 [facility] Heart Rate 56 09/22/2012 [facility] Diastolic (mm Hg) 79 09/22/2012 [facility] Systolic (mm Hg) 124 09/22/2012 [facility] Respitory Rate 20 09/22/2012 [facility] Diastolic (mm Hg) 72 09/21/2012 [facility] Respitory Rate 18 09/21/2012 [facility] Systolic (mm Hg) 108 09/21/2012 [facility] Heart Rate 61 09/21/2012 [facility] Temperature Oral (F) 98.7 F 09/21/2012 [facility] Systolic (mm Hg) 125 09/21/2012 [facility] Diastolic (mm Hg) 80 09/21/2012 [facility] Heart Rate 53 09/21/2012 [facility] Temperature Oral (F) 99.0 F 09/21/2012 [facility] Respitory Rate 18 09/21/2012 [facility] Height 157.48 cm 09/21/2012 [facility] Weight 52.273 09/21/2012 [facility] Height 157.4 cm 09/21/2012 [facility] Weight 52.273 09/21/2012 [facility] Weight 52.273 08/17/2012 [facility] Height 157.48 cm 08/17/2012 [facility] Temperature Oral (F) 98.5 F 06/23/2012 [facility] Respitory Rate 20 06/23/2012 [facility] Systolic (mm Hg) 98 06/23/2012 [facility] Heart Rate 53 06/23/2012 [facility] Diastolic (mm Hg) 65 06/23/2012 [facility] Heart Rate 54 06/23/2012 [facility] Temperature Oral (F) 98.5 F 06/23/2012 [facility] Respitory Rate 20 06/23/2012 [facility] Diastolic (mm Hg) 74 06/23/2012 [facility] Systolic (mm Hg) 110 06/23/2012 [facility] Respitory Rate 20 06/23/2012 [facility] Systolic (mm Hg) 89 06/23/2012 [facility] Heart Rate 63 06/23/2012 [facility] Temperature Oral (F) 98.5 F 06/23/2012 [facility] Diastolic (mm Hg) 55 06/23/2012 [facility] Height 157.48 cm 06/23/2012 [facility] Weight 47.727 06/23/2012 [facility] Weight 50.000 06/22/2012 [facility] Diastolic (mm Hg) 74 05/14/2011 [facility] Systolic (mm Hg) 136 05/14/2011 [facility] Respitory Rate 18 05/14/2011 [facility] Heart Rate 68 05/14/2011 [facility] Temperature Oral (F) 98.2 F 05/14/2011 [facility] Weight 54.545 05/14/2011 [facility] Height 157.48 cm 05/14/2011 [facility] Diastolic (mm Hg) 86 05/14/2011 [facility] Systolic (mm Hg) 111 05/14/2011 [facility] Heart Rate 86 05/14/2011 [facility] Respitory Rate 19 05/14/2011 [facility] Temperature Oral (F) 98.6 F 05/14/2011 [facility] Respitory Rate 18 05/13/2011 [facility] Temperature Oral (F) 98.6 F 05/13/2011 [facility] Systolic (mm Hg) 102 05/13/2011 [facility] Heart Rate 72 05/13/2011 [facility] Diastolic (mm Hg) 59 05/13/2011 [facility] Encounters Location Location Encounter Encounter Reason Attending ADM DC Status Source Details Type Number For Visit Provider Date Date Emergency [id number] ABDOMINAL VIV 09/06 09/06 Active [facility] PAIN TOTZ /2010 [facility] Emergency [id number] FEVER LATOSHA 04/11 04/11 Active [facility] /VOMITING TIFFAULT /2010 Gene daily Emergency [id number] VOMITING HABACUC 04/14 04/14 Active [facility] /2010 Gene daily Emergency [id number] VOMITINIG EMILIA 04/18 04/18 Active [facility] / KEREN /[facility] ABDOMINAL JR t PAIN Emergency [id number] , HABACUC 05/12 05/13 Active [facility] ABD PAIN, LION /2010 [facility] VOMITING, t VAG BLEED Emergency [id number] ABDOMINAL VIV 05/14 05/14 Active [facility] PAIN TOTZ /2010 [facility] daily OU [id number] CONSTANTINO 06/22 06/23 Active [facility] HYACINTH /2012 Gene daily Emergency [id number] ATIBA GAMEZ 08/05 08/05 Active [facility] /2012 Gene daily Emergency [id number] HABACUC 08/17 08/17 Active [facility] /2012 Gene daily Inpatient [id number] CONSTANTINO 09/20 09/21 Active [facility] HYACINTH /2012 Gene daily Procedures Procedure Code Date Perfomer Comments Source section [facility] section 17 months [facility] <sup>1</sup> before
--- OUTSIDE RECORDS SUMMARY | 2018-07-12 09:34 | XMS REPORT | CCD ---
:1985 Author Organization [facility] Care Team Providers Name Role Phone Sanchez [...] values reflect the clinical guidelines of the [place] [employer].7Interpretive Data: Adult reference range values reflect the clinical guidelines of the [place] [employer].8Interpretive Data: HbA1C% eAG(mg/dL ) Interpretation [...] 10.0 240 Poor Control, take action to [id number] Comment: reran sample twice.10Interpretive Data: Drugs reported [...]
--- OUTSIDE RECORDS SUMMARY | 2018-07-12 09:34 | XMS REPORT | CCD ---
:1985 Author Organization [facility] Care Team Providers Name Role Phone Chuck [...] based on the clinical recommendations of the [place] [employer].HEMATOLOGY Most recent to oldest [Reference [...]
--- OUTSIDE RECORDS SUMMARY | 2018-07-12 09:34 | XMS REPORT | CCD ---
:1985 Author Organization [facility] Care Team Providers Name Role Phone Meka [...] mg/dL] 0.4 mg/dL (05/12/2011 22:10:00) hCG Tot [id number] mIU/mL 3 *NA* (05/12/2011 22:10:00) 1Result Comment: Critical Result(s) called to Joan at 05/12/2011 22:50 by [facility]. Read back OK.2Interpretive Data: Reference Ranges : 0 - 7 days : 41 - 90 mg/dL7 days - 150 yrs : 70 - 99 mg/dL (fasting), based on the clinical recommendations of the [place] [employer].3Interpretive Data: Reference Range: Male 0 [...]
--- OUTSIDE RECORDS SUMMARY | 2018-07-12 09:35 | XMS REPORT | CCD ---
:1985 Author Organization [facility] Care Team Providers Name Role Phone Benjamin [...] 17:21:00 Phenergan 25 mg rectal 1 supp, CA, Q6H, PRN, 9 08/05/2012 Ordered suppository supp, [...] values reflect the clinical guidelines of the [place] [employer].HEMATOLOGY Most recent to oldest [Reference [...]
--- OUTSIDE RECORDS SUMMARY | 2018-07-12 09:35 | XMS REPORT ---
:1985 [facility] Address [address] [place] [address] Dr. Tabares [address] [place] [id number] Care Team Providers Name Role Phone GREGORIA [...] Clinicians Facility Department ID 2012-08-18 2012-08-18 Emergency [facility] [id number] 20:24:58 20:24:58 2012-08-18 2012-08-18 Emergency [facility] [id number] 18:28:56 18:28:56 Results Test Description Test Time [...] NEGATIVE Ketones (test code=UKET) >=80 NEGATIVE Specific Bryant (test code=USPGR) 1.025 1.005-1.030 Blood (test code=UBLD) [...] (test code=UBACT) Trace None Seen,Trace TEST, Urine [id number] 06:05:00 Test Item Value Reference Range Comments (Urine) (test code=PREGU) Negative If a specimen is collected by a nurse, then you MUST fill out the Collected and Collected By curran VALPROIC [id number] 05:47:00 Test Item Value Reference Range Comments Valproic Acid (test code=VALPR) <3.0 ug/ml 50.0-120.0 er [id number] 05:39:00 Test Item Value Reference Range Comments Magnesium (test code=MG) 2.4 mg/dl 1.6-2.3 er 7CBC WITH AUTO [id number] 05:22:00 Test Item Value Reference Range Comments [...] Auto (test 0 /100WBC 0-2 code=NRBC_AUTO) er [id number] 05:22:00 Test Item Value Reference Range Comments [...] mL/min/1.73m\\S\\2 EGFR if Non- >60 Estimated Glomerular Malaysian (test mL/min/1.73m\\S\\2 Filtration Rate (eGFR) code=EGFRNA) Reference [...] management of chronic kidney failure. er 7LIPASE, [id number] 05:22:00 Test Item Value Reference Range Comments Lipase (test code=LIPA) 462 U/L 8-223 er 7DRUG SCREEN [id number] 19:14:00 Test Item Value Reference Range Comments Specific Bryant 1.025 1.005-1.030 (test code=USPGR) PH (test code=UPH) [...] the Drugs of Abuse ran on the [employer] 5.1 analyzer listed there in: Amphetamines < [...] (test code=THC) Confirmation Upon Request URINALYSIS WITHOUT [id number] 18:57:00 Test Item Value Reference Range Comments Color (test code=UCOLR) YELLOW Clarity (test code=UCLAR) CLOUDY Glucose (test code=UGLUC) NEGATIVE NEGATIVE Bilirubin (test code=UBILI) NEGATIVE NEGATIVE Ketones (test code=UKET) 40 NEGATIVE Specific Bryant (test code=USPGR) 1.025 1.005-1.030 Blood (test code=UBLD) [...] Collected and Collected By curran TEST, Serum [id number] 18:26:00 Test Item Value Reference Range Comments (Serum) (test code=PREGS) Negative [id number] 18:21:00 Test Item Value Reference Range Comments [...] mL/min/1.73m\\S\\2 EGFR if Non- >60 Estimated Glomerular Malaysian (test mL/min/1.73m\\S\\2 Filtration Rate (eGFR) code=EGFRNA) Reference [...] and management of chronic kidney failure. LIPASE, [id number] 18:21:00 Test Item Value Reference Range Comments Lipase (test code=LIPA) 36 U/L 8-223 CBC WITH AUTO [id number] 18:12:00 Test Item Value Reference Range Comments [...] (test 0 /100WBC 0-2 code=NRBC_AUTO) AUTO DIFFRAPID [id number] 16:50:00 Test Item Value Reference Range Comments RAPID CKMB (AsthmatxAKER) (test jdwb=7697) < ng/mL 0.0-4.3 RAPID TROPONIN [id number] 16:50:00 Test Item Value Reference Range Comments RAPID TROPONIN I (BEAKER) (test irjs=3343) < ng/mL <0.05 [id number] 16:49:00 Test Item Value Reference Range Comments D-DIMER QUANTITATIVE (BEAKER) (test exmh=279) < MG/L FEU <0.50 REGARDING D-DIMER RESULTS: Results of this D-Dimer test should always be interpreted in conjunction with the patient's medical history, clinical presentation and other findings. DVT clinical diagnosis should not be based on the results of INNOVANCE D-Dimer alone.[id number] 16:40:00 Test Item Value Reference Range Comments PROTIME (BEAKER) (test gtyx=898) 9.9 seconds 9.8-12.0 INR (BEAKER) (test oblk=042) 0.9 <=5.9 PARTIAL THROMBOPLASTIN TIME (BEAKER) (test 25.7 seconds 25.8-34.5 crfp=731) RECOMMENDED COUMADIN/WARFARIN INR THERAPY RANGESSTANDARD DOSE: 2.0 - 3.0 Includes: PROPHYLAXIS forvenous thrombosis, systemic embolization; TREATMENT for venous thrombosis and/or pulmonary embolus.HIGH RISK: Target INR is 2.5-3.5 for patients with mechanical heart valves.[id number] 16:38:00 Test Item Value Reference Range Comments MAGNESIUM (BEAKER) (test owms=481) 2.1 mg/dL 1.5-3.0 BASIC METABOLIC [id number] 16:37:00 Test Item Value Reference Range Comments SODIUM (BEAKER) (test 141 meq/L 135-148 brwt=953) POTASSIUM (BEAKER) (test 3.8 meq/L 3.6-5.5 sdfz=481) CHLORIDE (BEAKER) (test 102 meq/L 98-106 egyx=829) CO2 (BEAKER) (test 24 meq/L 24-32 nnhp=003) BLOOD UREA NITROGEN 10 mg/dL 10-26 (BEAKER) (test puie=813) CREATININE (BEAKER) (test 0.68 mg/dL 0.50-1.20 tkwh=652) GLUCOSE RANDOM (BEAKER) 85 mg/dL 70-110 (test bvwo=027) CALCIUM (BEAKER) (test 8.8 mg/dL 8.5-10.5 eequ=807) EGFR (BEAKER) (test 122 mL/min/1.73 sq m ESTIMATED GFR IS NOT obsj=1170) ACCURATE CREATININE CLEARANCE IN PREDICTING GLOMERULAR FILTRATION RATE. ESTIMATED GFR IS NOT APPLICABLE FOR DIALYSIS PATIENTS. CREATINE KINASE (CK)2017-06-19 16:37:00 Test Item Value Reference Range Comments CREATINE KINASE TOTAL (BEAKER) (test uhxz=725) 83 U/L 25-235 CBC W/PLT COUNT & AUTO [id number] 16:32:00 Test Item Value Reference Range Comments WHITE BLOOD CELL COUNT (BEAKER) (test jxps=363) 5.5 10e3/ L 4.0-10.0 RED BLOOD CELL COUNT (BEAKER) (test tagu=911) 4.16 10e6/ L 4.00-5.00 HEMOGLOBIN (BEAKER) (test tewv=748) 12.1 g/dL 12.0-15.0 HEMATOCRIT (BEAKER) (test xxmq=851) 35.8 % 36.0-45.0 MEAN CORPUSCULAR VOLUME (BEAKER) (test 86.0 fL 82.0-99.0 utur=630) MEAN CORPUSCULAR HEMOGLOBIN (BEAKER) (test 29.0 pg 27.0-33.0 qfll=998) MEAN CORPUSCULAR HEMOGLOBIN CONC (BEAKER) (test 33.7 g/dL 32.0-36.0 rnhv=944) RED CELL DISTRIBUTION WIDTH (BEAKER) (test 12.8 % 10.3-14.2 jmre=611) PLATELET COUNT (BEAKER) (test dnct=571) 267 10e3/ L 150-430 MEAN PLATELET VOLUME (BEAKER) (test fdbc=921) 8.5 fL 6.5-10.5 NEUTROPHILS RELATIVE PERCENT (BEAKER) (test 42 % ajme=706) LYMPHOCYTES RELATIVE PERCENT (BEAKER) (test 49 % jvrv=482) MONOCYTES RELATIVE PERCENT (BEAKER) (test 7 % uvjt=358) EOSINOPHILS RELATIVE PERCENT (BEAKER) (test 2 % zbyk=822) BASOPHILS RELATIVE PERCENT (BEAKER) (test 1 % pnhh=820) NEUTROPHILS ABSOLUTE COUNT (BEAKER) (test 2.27 10e3/ L 1.80-8.00 fvkx=413) LYMPHOCYTES ABSOLUTE COUNT (BEAKER) (test 2.68 10e3/ L 1.48-4.50 ooel=510) MONOCYTES ABSOLUTE COUNT (BEAKER) (test 0.37 10e3/ L 0.00-1.30 pddt=963) EOSINOPHILS ABSOLUTE COUNT (BEAKER) (test 0.11 10e3/ L 0.00-0.50 oxxb=563) BASOPHILS ABSOLUTE COUNT (BEAKER) (test 0.03 10e3/ L 0.00-0.20 wmtv=046) SCREEN, [id number] 15:31:00 Test Item Value Reference Range Comments TEST URINE (BEAKER) (test ulbn=737) Negative RAD, CHEST, 1 VIEW, NON [id number] 15:09:00Reason for exam:->chest painIs the patient ?->UnknownFINAL [...] Mejía Verified Date/Time: 06/19/2017 15:09:21 Reading Location: [address] Transitional Reading Room RAD, SHOULDER, COMPLETE (MIN 2 VIEWS), [id number] 03:33: 00Reason for exam:->GENERAL ILLNESSIs the patient [...] MDReport Verified Date/Time: 06/06/2017 03:33:43 Reading Location: [address] Body Reading Room RAPID INFLUENZA A&B [id number] 03:30:00 Test Item Value Reference Range Comments RAPID INFLUENZA A AG (BEAKER) (test Negative Negative, Inconclusive afxm=1727) RAPID INFLUENZA B AG (BEAKER) (test Negative Negative, Inconclusive baje=4239) RAPID STREP A [id number] 03:15:00 Test Item Value Reference Range Comments STREP A ANTIGEN (BEAKER) (test aips=221) Negative Negative
--- OUTSIDE RECORDS SUMMARY | 2018-07-12 09:35 | XMS REPORT | CCD ---
:1985 Author Organization [facility] Care Team Providers Name Role Phone Anupama [...] the clinical guidelines of the [place] [employer].HEMATOLOGY Most recent to oldest [Reference [...]
--- OUTSIDE RECORDS SUMMARY | 2018-07-12 09:35 | XMS REPORT | CCD ---
:1985 Author Organization [facility] Care Team Providers Name Role Phone PataleshiaSanchez [...] 09/21/2012 09/22/2012 Discontinued SUB-Q, Drug form: INJ, [id number], Start date: 09/21/12 9:00:00, Duration: 30 day, [...] (09/20/2012 12:03:37) 2Result Comment: Specimen is slightly [id number] Comment: The eGFR is calculated using the [...] values reflect the clinical guidelines of the [place] [employer].6Interpretive Data: Adult reference range values reflect the clinical guidelines of the [place] [employer].7Interpretive Data: Drugs reported as positive [...] Catch FREE TEXT SOURCE: FINAL REPORTS Final Lkxnes32,000 - 50,000 CFU/mL Skin Yu PRELIMINARY REPORTS Preliminary ReportNo Growth; Holding Procedures Procedures Date Related Diagnosis section
[2018-07-12 11:07] LABS: Absolute Lymphocytes (CBC) 0.5 K/uL (0.7-4.9); Absolute Monocytes 0.1 K/uL (0.1-1.3); Absolute Neutrophil 5.2 K/uL (1.8-8.0); Basophils % 0.2 % (0-1.3); Hematocrit 34.2 % (36.0-45.0); Lymphocytes % 8.6 % (15.3-44.8); MPV 9.6 fL (7.6-11.3); Monocytes % 2.1 % (3.3-12.3); RBC Red Blood Cell Count 3.96 M/uL (3.86-4.86)
[2018-07-12] MEDS ORDERED: NA CHLORIDE 0.9% 1,000 ML ONE (11:07)
[2018-07-12] MEDS ORDERED: PROMETHAZINE 25 MG/ML VIAL ONE ×2 (11:07→13:53)
[2018-07-12 11:28] LABS: ALT/SGPT 18 U/L (12-78); AST/SGOT 16 U/L (15-37); Albumin 3.9 g/dL (3.4-5.0); Alkaline Phosphatase 71 U/L (45-117); BUN Blood Urea Nitrogen 7 mg/dL (7-18); Bicarbonate 26 mmol/L (21-32); Bilirubin Direct 0.1 mg/dL (0-0.2); Bilirubin Total 0.4 mg/dL (0.2-1.0); Glucose Level 112 mg/dL (74-106); Lipase 59 U/L (73-393); Potassium 3.1 mmol/L (3.5-5.1); Protein, Total 8.6 g/dL (6.4-8.2); Sodium Level 138 mmol/L (136-145)
[2018-07-12 11:34] LABS: Blood Morphology Comment NOT SEEN (NOT SEEN); Platelet Estimate ADEQ
--- NOTE | 2018-07-12 11:41 | RAD REPORT ---
EXAM DESCRIPTION: CT - Abdomen Pelvis W Contrast - 07/12/2018 11:22 am CLINICAL HISTORY: Abdominal pain, vomiting COMPARISON: None. TECHNIQUE: Biphasic, helical CT imaging of the abdomen and pelvis was performed following 100 ml non -ionic IV contrast. No oral contrast given. All CT scans are performed using dose optimization technique as appropriate and may include automated exposure control or mA/KV adjustment according to patient size. FINDINGS: No suspicious findings in the lung bases. The liver, spleen, and pancreas show no suspicious findings. Gallbladder and biliary tree are also wi thout suspicious finding. Symmetric renal function is seen with no hydronephrosis or suspicious renal mass. No pyelonephritis o r acute parenchymal process. No suspicious findings of the partially filled bladder. No adrenal abnor malities. No dilated bowel loops or bowel wall thickening. Appendicitis is not suspected. A primary GI process is not suspected. No free air or pneumatosis. No bulky lymphadenopathy or omental thickening. No her yu or mass. Patient has an overall congested and edematous appearance to the fatty tissues of the pelvis. This mike rrounds the uterus. Ovaries are poorly differentiated from this intermediate density material in the pelvis. Fallopian tubes are not grossly dilated on this study. No suspicious bony findings. IMPRESSION: Congested and edematous appearance to the pelvic fatty tissues with intermediate density fluid or material in the cul-de-sac and bilateral adnexa. Fallopian tube dilatation is not confirmed. However, findings are concerning for PID or similar infec tious/ inflammatory process. Hemorrhage related to hemorrhagic ruptured ovarian cyst would be a possibility as well. No primary or GI process seen.
--- NOTE | 2018-07-12 12:37 | RAD REPORT ---
EXAM DESCRIPTION: US - Pelvis Complete - 07/12/2018 12:16 pm CLINICAL HISTORY: Abdominal pain, pelvic pain, possible PID COMPARISON: None. TECHNIQUE: Transabdominal pelvic sonography was performed. FINDINGS: Uterus is 7.8 x 4.8 x 6.5 cm. No endometrial or myometrial discrete mass identifiable. Bot h ovaries are identifiable on sonography and show no dominant solid or cystic mass. No remnant of a h emorrhagic or collapsed ovarian cyst. The pelvic congestion or edema pattern seen on the CT study manzano s not have a clear ultrasound correlate. No fallopian tube dilatation seen. IMPRESSION: No uterine abnormality. No fallopian tube dilatation seen. No focal ovarian abnormality seen. No remnant of a ruptured or hemorrhagic ovarian cyst. CT findings were suggestive of PID. However, this is typically associated with fallopian tube abnorma lities which are not identified sonographically.
[2018-07-12] MEDS ORDERED: AZITHROMYCIN 250 MG TAB ONE ×2 (13:52→13:55)
[2018-07-12] MEDS ORDERED: metroNIDAZOLE 500 MG TABLET ONE (13:52)
[2018-07-12] MEDS ORDERED: CEFTRIAXONE 250 MG/VIAL ONE (13:53)
[2018-07-12] MEDS ORDERED: MORPHINE 4 MG/ML SYR ONE (13:53)
[2018-07-12] MEDS ORDERED: WATER FOR INJ,STERILE 10 ML ONE (13:53)
--- NOTE | 2018-07-12 14:21 | EDPHYS ---
Physician Documentation [facility] Name: Joan Short Age: 32 yrs Sex: Female : 1985 Arrival Date: 07/12/2018 Time: 09:11 Bed 20 Private MD: ED Physician Chris Maxwell HPI: 07/12 09:35 This 32 yrs old Black Female presents to ER via EMS with complaints of Abdominal Pain, rn Vomiting. 09:35 The patient presents to the emergency department with nausea, vomiting, abdominal pain, rn of the abdomen diffusely. 09:36 Onset: The symptoms/episode began/occurred 2 day(s) ago. Possible causes: unknown. The rn symptoms are aggravated by nothing. The symptoms are alleviated by nothing. Severity of symptoms: At their worst the symptoms were moderate in the emergency department the symptoms are unchanged. The patient has not experienced similar symptoms in the past. The patient has not recently seen a physician. REports diffuse abd pain and nausea/vomiting, began 2 days ago, seen yesterday, told bloodwork looked good, no blood in emesis. Reports went home and started throwing up again, threw her out today, was outside and found laying down on street by PD, EMS called. Possible seizure like activity for EMS, brief. . Historical: - Allergies: 09:21 Haldol; ph 09:21 Unisom; ph 09:21 Reglan; ph 09:21 Zofran; ph - Home Meds: 09:21 Alprazolam Oral [Active]; Famotidine Oral [Active]; Arvin Oral [Active]; Promethazine ph Oral [Active]; Valproic Acid Oral [Active]; - PMHx: 09:21 Anxiety; Bipolar disorder; Fibromyalgia; gastroporesis; Seizures; ph - PSHx: 09:21 ; Tubal ligation; ph - Immunization history:: Adult Immunizations unknown. - Social history:: Smoking status: unknown. - Family history:: not pertinent. - Ebola Screening: : No symptoms or risks identified at this time. - Hospitalizations: : No recent hospitalization is reported. ROS: 09:36 Constitutional: Negative for fever, chills, and weight loss, Eyes: Negative for injury, rn pain, redness, and discharge, Cardiovascular: Negative for chest pain, palpitations, and edema, Respiratory: Negative for shortness of breath, cough, wheezing, and pleuritic chest pain, Abdomen/GI: Negative for diarrhea, and constipation, MS/Extremity: Negative for injury and deformity, Skin: Negative for injury, rash, and discoloration, Neuro: Negative for headache, numbness, tingling Exam: 09:36 Constitutional: This is a well developed, well nourished patient who is awake, alert, rn vomiting into emesis bag. Head/Face: Normocephalic, atraumatic. Eyes: Pupils equal round and reactive to light, extra-ocular motions intact. Lids and lashes normal. Conjunctiva and sclera are non-icteric and not injected. Cornea within normal limits. Periorbital areas with no swelling, redness, or edema. ENT: dry MM Neck: Trachea midline, no thyromegaly or masses palpated, and no cervical lymphadenopathy. Supple, full range of motion without nuchal rigidity, or vertebral point tenderness. No Meningismus. Cardiovascular: Regular rate and rhythm. No pulse deficits. Respiratory: Lungs have equal breath sounds bilaterally, clear to auscultation. No increased work of breathing, no retractions or nasal flaring. Abdomen/GI: soft, diffuse tenderness, no rebound Skin: Warm, dry with normal turgor. Normal color with no rashes, no lesions, and no evidence of cellulitis. MS/ Extremity: Pulses equal, no cyanosis. Neurovascular intact. Full, normal range of motion. Equal circumference. Neuro: Awake and alert, GCS 15, oriented to person, place, time, and situation. Cranial nerves II-XII grossly intact. Motor strength 5/5 in all extremities. Sensory grossly intact. Vital Signs: 09:19 BP 115 / 68; Pulse 71; Resp 16; Temp 98.2; Pulse Ox 100% on R/A; ph 10:30 BP 116 / 70; Pulse 50; Resp 16; Pulse Ox 99% on R/A; ph 12:28 BP 114 / 67; Pulse 65; Resp 18; Pulse Ox 99% on R/A; ph 13:30 BP 112 / 72; Pulse 64; Resp 18; Pulse Ox 99% on R/A; ph 14:30 BP 117 / 76; Pulse 62; Resp 18; Temp 97.9; Pulse Ox 99% on R/A; ph 16:00 BP 114 / 68; Pulse 58; Resp 18; Pulse Ox 98% on R/A; ph Procedures: 10:52 Peripheral line: by aseptic technique a peripheral line was placed in the right rn antecubital vein, Right AC 20g IV placed by Dr. Maxwell, using u/s guidance.. MDM: 09:14 Patient medically screened. rn 14:19 Differential diagnosis: gastritis, viral gastroenteritis, gastroenteritis, PID. Data rn reviewed: vital signs, nurses notes, lab test result(s), radiologic studies, CT scan, ultrasound, and as a result, I will discharge patient. Counseling: I had a detailed discussion with the patient and/or guardian regarding: the historical points, exam findings, and any diagnostic results supporting the discharge/admit diagnosis, lab results, radiology results, the need for outpatient follow up, to return to the emergency department if symptoms worsen or persist or if there are any questions or concerns that arise at home. Response to treatment: the patient's symptoms have markedly improved after treatment, and as a result, I will discharge patient. Special discussion: Based on the patient's Hx, exam, and Dx evaluation, there is no indication for emergent surgery or inpatient Tx. It is understood by the patient/guardian that if the Sx's persist or worsen they need to return immediately for re-evaluation. Based on the history and exam findings, there is no indication for further emergent testing or inpatient evaluation. I discussed with the patient/guardian the need to see the OB Gyne specialist for further evaluation of the symptoms. ED course: Pt has been sleeping and no emesis since arrival, + PID on imaging, normal vitals, will dc home with doxycycline. Recommend [employer] f/u. . 07/12 09:16 Order name: Basic Metabolic Panel; Complete Time: 11:47 rn 07/12 09:16 Order name: CBC with Diff; Complete Time: 11:47 rn 07/12 09:16 Order name: Hepatic Function; Complete Time: 11:47 rn 07/12 09:16 Order name: Lipase; Complete Time: 11:47 rn 07/12 09:35 Order name: Flu; Complete Time: 11:05 rn 07/12 11:35 Order name: Manual Differential; Complete Time: 11:47 EDMS 07/12 09:35 Order name: CT Abd/Pelvis - W/Contrast; Complete Time: 11:47 rn 07/12 11:49 Order name: US Pelvis Complete; Complete Time: 12:46 rn 07/12 09:16 Order name: IV Saline Lock; Complete Time: 11: rn 07/12 09:16 Order name: Labs collected and sent; Complete Time: 11: rn Administered Medications: 11:00 Drug: NS 0.9% 1000 ml Route: IV; Rate: 1000 ml; Site: right antecubital; ph 12:00 Follow up: Response: No adverse reaction; IV Status: Completed infusion ph 11:00 Drug: Phenergan 12.5 mg Route: IVP; Site: right antecubital; ph 11:30 Follow up: Response: No adverse reaction; Vomiting decreased ph 14:21 Drug: Phenergan 12.5 mg Route: IVP; Site: right antecubital; ph 15:00 Follow up: Response: No adverse reaction; Nausea is decreased ph 14:22 Drug: Rocephin (cefTRIAXone) 250 mg Route: IM; Site: right vastus lateralis; ph 15:00 Follow up: Response: No adverse reaction ph 14:22 Drug: morphine 4 mg Route: IVP; Site: right antecubital; ph 15:00 Follow up: Response: No adverse reaction; Pain is decreased ph 15:47 Drug: Flagyl 1 grams Route: PO; iw 16:00 Follow up: Response: No adverse reaction ph 15:47 Drug: AZITHromycin 1 grams Route: PO; iw 16:00 Follow up: Response: No adverse reaction ph Disposition: 07/12/18 14:20 Discharged to Home. Impression: Female pelvic inflammatory disease, unspecified. - Condition is Stable. - Discharge Instructions: Pelvic Inflammatory Disease. - Prescriptions for Phenergan 25 mg Rectal Suppository - insert 1 suppository by RECTAL route every 6 hours As needed; 12 suppository. Doxycycline Monohydrate 100 mg Oral Tablet - take 1 tablet by ORAL route every 12 hours for 10 days; 20 tablet. - Medication Reconciliation Form, Thank You Letter, Antibiotic Education, Prescription Opioid Use form. - Follow up: Sanchez Sheth MD; When: 2 - 3 days; Reason: Recheck today's complaints, Re-evaluation by your physician. - Problem is new. - Symptoms have improved. Signatures: Dispatcher [employer] EDHaylee Shannon RN RN iw Chris Maxwell MD MD rn Hall, Patricia, RN RN ph Corrections: (The following items were deleted from the chart) 17:08 14:20 07/12/2018 14:20 Discharged to Home. Impression: Female pelvic inflammatory ph disease, unspecified. Condition is Stable. Forms are Medication Reconciliation Form, Thank You Letter, Antibiotic Education, Prescription Opioid Use. Follow up: Sanchez Sheth; When: 2 - 3 days; Reason: Recheck today's complaints, Re-evaluation by your physician. Problem is new. Symptoms have improved. rn
--- NOTE | 2018-07-12 14:21 | ER ---
Nurse's Notes [facility] Name: Joan Short Age: 32 yrs Sex: Female : 1985 Arrival Date: 07/12/2018 Time: 09:11 Bed 20 Private MD: Diagnosis: Female pelvic inflammatory disease, unspecified Presentation: 07/12 09:12 Presenting complaint: EMS states: Pt seen in ED yesterday for abdominal and vomiting ph and d/c home, reports that symptoms are worse today, found on side of road by PD crying, when EMS arrived pt had seizure like activity lasting approx 30-45 seconds, 2 mg Ativan administered IM, pt w/ stable vitals, HR 78, BP 127/65, Spo2 100% on 2L NC, BGL 151. Transition of care: patient was not received from another setting of care. Onset of symptoms was July 12, 2018. Risk Assessment: Do you want to hurt yourself or someone else? Patient reports no desire to harm self or others. Initial Sepsis Screen: Does the patient meet any 2 criteria? No. Patient's initial sepsis screen is negative. Does the patient have a suspected source of infection? No. Patient's initial sepsis screen is negative. Care prior to arrival: Medication(s) given: Ativan 2 mg IM Glucose check: 151 Oxygen administered. via nasal cannula. 09:12 Method Of Arrival: EMS: [facility] ph 09:12 Acuity: ЮЛИЯ 3 ph Historical: - Allergies: 09:21 Haldol; ph 09:21 Unisom; ph 09:21 Reglan; ph 09:21 Zofran; ph - Home Meds: 09:21 Alprazolam Oral [Active]; Famotidine Oral [Active]; Borup Oral [Active]; Promethazine ph Oral [Active]; Valproic Acid Oral [Active]; - PMHx: 09:21 Anxiety; Bipolar disorder; Fibromyalgia; gastroporesis; Seizures; ph - PSHx: 09:21 ; Tubal ligation; ph - Immunization history:: Adult Immunizations unknown. - Social history:: Smoking status: unknown. - Family history:: not pertinent. - Ebola Screening: : No symptoms or risks identified at this time. - Hospitalizations: : No recent hospitalization is reported. Screenin:31 Abuse screen: Denies threats or abuse. Denies injuries from another. Nutritional ph screening: No deficits noted. Tuberculosis screening: No symptoms or risk factors identified. Fall Risk Fall in past 12 months (25 points). Secondary diagnosis (15 points) seizures, No IV (0 pts). Ambulatory Aid- None/Bed Rest/Nurse Assist (0 pts). Gait- Normal/Bed Rest/Wheelchair (0 pts) Mental Status- Oriented to own ability (0 pts). Assessment: 09:45 General: Appears in no apparent distress. comfortable, slender, unkempt, Behavior is ph drowsy, quiet. Pain: Complains of pain in abdomen diffusely. Neuro: Level of Consciousness is obeys commands, lethargic, Oriented to person, place, situation, Seizure activity reported prior to arrival. Cardiovascular: Capillary refill < 3 seconds in bilateral fingers Patient's skin is warm and dry. Respiratory: Airway is patent Respiratory effort is even, unlabored. GI: Abdomen is flat, non-distended, Bowel sounds present X 4 quads. Abd is soft X 4 quads Abdomen is tender to palpation X 4 quads. Reports lower abdominal pain, upper abdominal pain, nausea, vomiting, Patient currently denies diarrhea. Derm: Skin is intact, Skin is pink, warm \\T\\ dry. Musculoskeletal: Circulation, motion, and sensation intact. Range of motion: intact in all extremities. 10:43 Reassessment: Patient appears in no apparent distress at this time. Patient and/or ph family updated on plan of care and expected duration. Pain level reassessed. ERP at bedside to attempt US guided IV. 11:30 Reassessment: Patient appears in no apparent distress at this time. Patient and/or ph family updated on plan of care and expected duration. Pain level reassessed. Pt awake, states, " I have to go to restroom now!! and I need some medication for nausea, and pain, and anxiety." Pt reports pain in entire abdomen, also reports having vaginal d/c when questioned about additional symptoms, ERP notified, see MAR. 12:30 Reassessment: Patient appears in no apparent distress at this time. Patient and/or ph family updated on plan of care and expected duration. Pain level reassessed. Pt asleep w/ equal and unlabored respirations. 14:30 Reassessment: Patient appears in no apparent distress at this time. Patient and/or ph family updated on plan of care and expected duration. Pain level reassessed. Patient is alert, oriented x 3, equal unlabored respirations, skin warm/dry/pink. Attempting to d/c pt, pt states, " I need to find someone to come and get me", pt provided phone to call ride but was unable to speak w/ anyone. 15:48 Reassessment: pt speaking with father on the phone, pt was kicked out of her house iw recently. 16:06 Reassessment: Codie, [employer] notified that pt does not have a place to stay, iw will come and speak with pt to assess needs. 17:05 Reassessment: Patient appears in no apparent distress at this time. Patient and/or ph family updated on plan of care and expected duration. Pain level reassessed. Patient is alert, oriented x 3, equal unlabored respirations, skin warm/dry/pink. Pt d/c to lobby. Vital Signs: 09:19 BP 115 / 68; Pulse 71; Resp 16; Temp 98.2; Pulse Ox 100% on R/A; ph 10:30 BP 116 / 70; Pulse 50; Resp 16; Pulse Ox 99% on R/A; ph 12:28 BP 114 / 67; Pulse 65; Resp 18; Pulse Ox 99% on R/A; ph 13:30 BP 112 / 72; Pulse 64; Resp 18; Pulse Ox 99% on R/A; ph 14:30 BP 117 / 76; Pulse 62; Resp 18; Temp 97.9; Pulse Ox 99% on R/A; ph 16:00 BP 114 / 68; Pulse 58; Resp 18; Pulse Ox 98% on R/A; ph Vitals: 10:30 Cardiac Rhythm Assessment Sinus alex. ph ED Course: 09:11 Patient arrived in ED. ph 09:14 Chris Maxwell MD is Attending Physician. rn 09:19 Triage completed. ph 09:30 Cherelle Crowe, MATHEW is Primary Nurse. ph 09:42 Missed attempt(s): 22 gauge in right antecubital area. Bleeding controlled, band aid ph applied, catheter tip intact. 10:32 Arm band placed on. ph 10:34 Patient has correct armband on for positive identification. Bed in low position. Call ph light in reach. Side rails up X 1. 11:02 Inserted saline lock: 20 gauge in right antecubital area, using aseptic technique. iw Blood collected. IV inserted by Dr. Maxwell via US. 11:22 CT Abd/Pelvis - W/Contrast In Process Unspecified. EDMS 12:13 US Pelvis Complete In Process Unspecified. EDMS 14:20 Sanchez Sheth MD is Referral Physician. rn 17:00 No provider procedures requiring assistance completed. IV discontinued, intact, ph bleeding controlled, No redness/swelling at site. Pressure dressing applied. Administered Medications: 11:00 Drug: NS 0.9% 1000 ml Route: IV; Rate: 1000 ml; Site: right antecubital; ph 12:00 Follow up: Response: No adverse reaction; IV Status: Completed infusion ph 11:00 Drug: Phenergan 12.5 mg Route: IVP; Site: right antecubital; ph 11:30 Follow up: Response: No adverse reaction; Vomiting decreased ph 14:21 Drug: Phenergan 12.5 mg Route: IVP; Site: right antecubital; ph 15:00 Follow up: Response: No adverse reaction; Nausea is decreased ph 14:22 Drug: Rocephin (cefTRIAXone) 250 mg Route: IM; Site: right vastus lateralis; ph 15:00 Follow up: Response: No adverse reaction ph 14:22 Drug: morphine 4 mg Route: IVP; Site: right antecubital; ph 15:00 Follow up: Response: No adverse reaction; Pain is decreased ph 15:47 Drug: Flagyl 1 grams Route: PO; iw 16:00 Follow up: Response: No adverse reaction ph 15:47 Drug: AZITHromycin 1 grams Route: PO; iw 16:00 Follow up: Response: No adverse reaction ph Outcome: 14:20 Discharge ordered by . rn 17:08 Patient left the ED. ph 17:08 Discharged to home ambulatory. ph 17:08 Condition: good 17:08 Discharge instructions given to patient, Instructed on discharge instructions, follow up and referral plans. medication usage, Demonstrated understanding of instructions, follow-up care, medications, Prescriptions given X 2. Signatures: Dispatcher [employer] Haylee Jo RN RN iw Nieto, Roman, MD MD rn Hall, Patricia, RN RN ph
== END 2018-07-12 17:08 | disposition home or self-care (01) ==
LOC: ER 09:10
PROC: 05HD33Z Insertion of Infusion Device into Right Cephalic Vein, Percutaneous Approach (ICD-10-PCS; principal; 2018-07-12)
DX: N73.9 Female pelvic inflammatory disease, unspecified (principal); F41.9 Anxiety disorder, unspecified; F31.9 Bipolar disorder, unspecified; G40.909 Epilepsy, unspecified, not intractable, without status epilepticus; Z88.5 Allergy status to narcotic agent; Z88.8 Allergy status to other drugs, medicaments and biological substances
CPT/HCPCS: 36415; 74177; 76856; 80048; 80076; 83690; 85025; 87804; 96361; 96372; 96374; 96375; 99284; J0696; J2550; J7030; Q9967